=== PATIENT | male | born 1950 | race Caucasian/White ===

== ENCOUNTER 2020-05-14 16:47 | Observation (INO) | payer MEDICARE ==
--- NOTE | 2020-05-14 16:53 | ED ---
General Adult HPI - General Stated complaint: numbness Time Seen by Provider: 05/14/20 16:49 Source: patient, EMS, RN notes reviewed, old records reviewed - History of Present Illness Initial comments: 62-year-old male presenting for evaluation of weakness, lightheadedness, bilateral arm numbness. Patient did indicate that this was slightly worse on the right. Resolved at the time of arrival to the emergency department. He began at 1500. There was no associated chest pain. No associated focal weakness. There is a slight headache according to the patient. He had been seen by his primary care physician and was instructed to follow with a gas flow regulator for some worsening bleeding issues. He does report some mild dys pnea which she states is chronic. No fever. No abdominal pain. No nausea vomiting or diarrhea. - Related Data Home Medications Medication Instructions Recorded Confirmed Aspirin EC [Ecotrin Low Dose] 81 mg PO DAILY 05/14/20 05/14/20 Furosemide [Lasix] 40 mg PO DAILY 05/14/20 05/14/20 Metoprolol Tartrate [Lopressor] 50 mg PO DAILY 05/14/20 05/14/20 Warfarin Sodium 5 mg PO SUMOTUTHFRSA 05/14/20 05/14/20 Warfarin Sodium 7.5 mg PO WE 05/14/20 05/14/20 lisinopriL [Zestril] 5 mg PO DAILY 05/14/20 05/14/20 Allergies Allergy/AdvReac Type Severity Reaction Status Date / Time No Known Allergies Allergy Verified 05/14/20 18:15 Review of Systems ROS Statement: Those systems with pertinent positive or pertinent negative responses have been documented in the HPI. ROS Other: All systems not noted in ROS Statement are negative. General Exam General appearance: alert, in no apparent distress Head exam: Present: atraumatic, normocephalic Eye exam: Present: normal appearance, PERRL ENT exam: Present: normal exam Neck exam: Present: normal inspection. Absent: tenderness, meningismus Respiratory exam: Present: respiratory distress, wheezes, decreased breath sounds Cardiovascular Exam: Present: regular rate, normal rhythm GI/Abdominal exam: Present: soft. Absent: distended, tenderness, guarding Extremities exam: Present: pedal edema Neurological exam: Present: alert, oriented X3, CN II-XII intact. Absent: motor sensory deficit (NIH of 0) Psychiatric exam: Present: normal affect, normal mood Skin exam: Present: warm, dry, intact. Absent: cyanosis, diaphoretic Course Vital Signs 05/14/20 16:49 Temperature 99.4 F Pulse Rate 85 Respiratory 18 Rate Blood Pressure 136/89 O2 Sat by Pulse 95 Oximetry EKG Findings - EKG Comments: EKG Findings:: EKG: Normal sinus rhythm with sinus arrhythmia, rate of 88, AR interval 136, QRS duration 84, QTC 440, no ST segment elevation. Medical Decision Making - Medical Decision Making 62-year-old male presenting with an episode of limb numbness. He has an NIH of 0 point arrival. Workup is initiated, patient is in sinus rhythm with stable vitals. He has a CT brain showing concern for left posterior meningioma. No intracranial hemorrhage or mass affect. Chest x-ray showing pulmonary fibrosis. Laboratory testing reveals normal CBC, CMP showing elevated bicarb and a venous gas showing an elevated venous CO2 consistent with CO2 retention. Patient does have history of COPD and is noncompliant with his CPAP machine. He has wheezing on exam. He will be treated additional for COPD exacerbation as well as TIA. Case discussed with Yaa worrell for [facility] hospitalists. Neurology will be placed on consult. - Lab Data Result diagrams: 05/14/20 16:59 05/14/20 16:59 Lab Results 05/14/20 05/14/20 05/14/20 Range/Units 16:59 16:59 16:59 WBC 7.1 (3.8-10.6) k/uL RBC 4.97 (4.30-5.90) m/uL Hgb 15.5 (13.0-17.5) gm/dL Hct 48.4 (39.0-53.0) % MCV 97.4 (80.0-100.0) fL MCH 31.2 (25.0-35.0) pg MCHC 32.1 (31.0-37.0) g/dL RDW 12.5 (11.5-15.5) % Plt Count 160 (150-450) k/uL MPV 8.8 Neutrophils % 66 % Lymphocytes % 18 % Monocytes % 9 % Eosinophils % 3 % Basophils % 1 % Neutrophils # 4.7 (1.3-7.7) k/uL Lymphocytes # 1.3 (1.0-4.8) k/uL Monocytes # 0.6 (0-1.0) k/uL Eosinophils # 0.2 (0-0.7) k/uL Basophils # 0.1 (0-0.2) k/uL PT 17.1 H (9.0-12.0) sec INR 1.7 H (<1.2) APTT 26.9 (22.0-30.0) sec VBG pH (7.31-7.41) VBG pCO2 (37-51) mmHg VBG HCO3 (24-28) mmol/L Sodium 140 (137-145) mmol/L Potassium 4.5 (3.5-5.1) mmol/L Chloride 97 L (98-107) mmol/L Carbon Dioxide 37 H (22-30) mmol/L Anion Gap 6 mmol/L BUN 23 H (9-20) mg/dL Creatinine 1.25 (0.66-1.25) mg/dL Est GFR (CKD-EPI)AfAm 68 (>60 ml/min/1.73 sqM) Est GFR (CKD-EPI)NonAf 59 (>60 ml/min/1.73 sqM) Glucose 147 H (74-99) mg/dL Plasma Lactic Acid Kian (0.7-2.0) mmol/L Calcium 8.8 (8.4-10.2) mg/dL Magnesium 2.1 (1.6-2.3) mg/dL Total Bilirubin 0.5 (0.2-1.3) mg/dL AST 30 (17-59) U/L ALT 29 (4-49) U/L Alkaline Phosphatase 81 (38-126) U/L Troponin I (0.000-0.034) ng/mL Total Protein 7.3 (6.3-8.2) g/dL Albumin 4.0 (3.5-5.0) g/dL Urine Color Urine Appearance (Clear) Urine pH (5.0-8.0) Ur Specific [place] (1.001-1.035) Urine Protein (Negative) Urine Glucose (UA) (Negative) Urine Ketones (Negative) Urine Blood (Negative) Urine Nitrite (Negative) Urine Bilirubin (Negative) Urine Urobilinogen (<2.0) mg/dL Ur Leukocyte Esterase (Negative) Coronavirus (PCR) (Not Detectd) 05/14/20 05/14/20 05/14/20 Range/Units 16:59 16:59 16:59 WBC (3.8-10.6) k/uL RBC (4.30-5.90) m/uL Hgb (13.0-17.5) gm/dL Hct (39.0-53.0) % MCV (80.0-100.0) fL MCH (25.0-35.0) pg MCHC (31.0-37.0) g/dL RDW (11.5-15.5) % Plt Count (150-450) k/uL MPV Neutrophils % % Lymphocytes % % Monocytes % % Eosinophils % % Basophils % % Neutrophils # (1.3-7.7) k/uL Lymphocytes # (1.0-4.8) k/uL Monocytes # (0-1.0) k/uL Eosinophils # (0-0.7) k/uL Basophils # (0-0.2) k/uL PT (9.0-12.0) sec INR (<1.2) APTT (22.0-30.0) sec VBG pH 7.33 (7.31-7.41) VBG pCO2 69 H (37-51) mmHg VBG HCO3 35 H (24-28) mmol/L Sodium (137-145) mmol/L Potassium (3.5-5.1) mmol/L Chloride (98-107) mmol/L Carbon Dioxide (22-30) mmol/L Anion Gap mmol/L BUN (9-20) mg/dL Creatinine (0.66-1.25) mg/dL Est GFR (CKD-EPI)AfAm (>60 ml/min/1.73 sqM) Est GFR (CKD-EPI)NonAf (>60 ml/min/1.73 sqM) Glucose (74-99) mg/dL Plasma Lactic Acid Kian 1.0 (0.7-2.0) mmol/L Calcium (8.4-10.2) mg/dL Magnesium (1.6-2.3) mg/dL Total Bilirubin (0.2-1.3) mg/dL AST (17-59) U/L ALT (4-49) U/L Alkaline Phosphatase (38-126) U/L Troponin I <0.012 (0.000-0.034) ng/mL Total Protein (6.3-8.2) g/dL Albumin (3.5-5.0) g/dL Urine Color Urine Appearance (Clear) Urine pH (5.0-8.0) Ur Specific [place] (1.001-1.035) Urine Protein (Negative) Urine Glucose (UA) (Negative) Urine Ketones (Negative) Urine Blood (Negative) Urine Nitrite (Negative) Urine Bilirubin (Negative) Urine Urobilinogen (<2.0) mg/dL Ur Leukocyte Esterase (Negative) Coronavirus (PCR) (Not Detectd) 05/14/20 05/14/20 Range/Units 17:01 17:30 WBC (3.8-10.6) k/uL RBC (4.30-5.90) m/uL Hgb (13.0-17.5) gm/dL Hct (39.0-53.0) % MCV (80.0-100.0) fL MCH (25.0-35.0) pg MCHC (31.0-37.0) g/dL RDW (11.5-15.5) % Plt Count (150-450) k/uL MPV Neutrophils % % Lymphocytes % % Monocytes % % Eosinophils % % Basophils % % Neutrophils # (1.3-7.7) k/uL Lymphocytes # (1.0-4.8) k/uL Monocytes # (0-1.0) k/uL Eosinophils # (0-0.7) k/uL Basophils # (0-0.2) k/uL PT (9.0-12.0) sec INR (<1.2) APTT (22.0-30.0) sec VBG pH (7.31-7.41) VBG pCO2 (37-51) mmHg VBG HCO3 (24-28) mmol/L Sodium (137-145) mmol/L Potassium (3.5-5.1) mmol/L Chloride (98-107) mmol/L Carbon Dioxide (22-30) mmol/L Anion Gap mmol/L BUN (9-20) mg/dL Creatinine (0.66-1.25) mg/dL Est GFR (CKD-EPI)AfAm (>60 ml/min/1.73 sqM) Est GFR (CKD-EPI)NonAf (>60 ml/min/1.73 sqM) Glucose (74-99) mg/dL Plasma Lactic Acid Kian (0.7-2.0) mmol/L Calcium (8.4-10.2) mg/dL Magnesium (1.6-2.3) mg/dL Total Bilirubin (0.2-1.3) mg/dL AST (17-59) U/L ALT (4-49) U/L Alkaline Phosphatase (38-126) U/L Troponin I (0.000-0.034) ng/mL Total Protein (6.3-8.2) g/dL Albumin (3.5-5.0) g/dL Urine Color Yellow Urine Appearance Clear (Clear) Urine pH 5.5 (5.0-8.0) Ur Specific [place] 1.028 (1.001-1.035) Urine Protein Trace H (Negative) Urine Glucose (UA) Negative (Negative) Urine Ketones Negative (Negative) Urine Blood Negative (Negative) Urine Nitrite Negative (Negative) Urine Bilirubin Negative (Negative) Urine Urobilinogen <2.0 (<2.0) mg/dL Ur Leukocyte Esterase Negative (Negative) Coronavirus (PCR) Not Detected (Not Detectd) Disposition Clinical Impression: Transient cerebral ischemia, COPD (chronic obstructive pulmonary disease) Disposition: ADMITTED IP TO THIS HOSP Condition: Stable Is patient prescribed a controlled substance at d/c from ED?: No Referrals: Milagros Wolf DO [Primary Care Provider] - 1-2 days Decision to Admit Reason: Admit from EC Decision Date: 05/14/20 Decision Time: 18:32
[2020-05-14 17:13] LABS: Basophils # (A) 0.1 k/uL (0-0.2); Basophils % (A) 1 %; Eosinophils # (A) 0.2 k/uL (0-0.7); Eosinophils % (A) 3 %; HCT 48.4 % (39.0-53.0); HGB 15.5 gm/dL (13.0-17.5); Lymphocytes # (A) 1.3 k/uL (1.0-4.8); Lymphocytes % (A) 18 %; MCH 31.2 pg (25.0-35.0); MCHC 32.1 g/dL (31.0-37.0); MCV 97.4 fL (80.0-100.0); Mean Platelet Volume 8.8; Monocytes # (A) 0.6 k/uL (0-1.0); Monocytes % (A) 9 %; Neutrophils # (A) 4.7 k/uL (1.3-7.7); Neutrophils % (A) 66 %; Platelet Count 160 k/uL (150-450); RBC 4.97 m/uL (4.30-5.90); RDW 12.5 % (11.5-15.5); VBG PH 7.33 (7.31-7.41); WBC 7.1 k/uL (3.8-10.6)
[2020-05-14 17:21] LABS: INR 1.7 (<1.2); Partial Thromboplastin Time 26.9 sec (22.0-30.0); Prothrombin Time 17.1 sec (9.0-12.0)
[2020-05-14 17:23] LABS: Calcium 8.8 mg/dL (8.4-10.2); Magnesium 2.1 mg/dL (1.6-2.3); Potassium 4.5 mmol/L (3.5-5.1); Total Bilirubin 0.5 mg/dL (0.2-1.3); Total Protein 7.3 g/dL (6.3-8.2)
--- NOTE | 2020-05-14 17:36 | CT ---
EXAMINATION TYPE: CT brain wo con for TPA DATE OF EXAM: 05/14/2020 COMPARISON: None HISTORY: Patient poor historian CT DLP: 1232.4 mGycm Automated exposure control for dose reduction was used. Ventricles appear normal. There is no mass effect nor midline shift. There is some mixed attenuation in the left posterior frontal lobe convexity. This area measures 2 x 1.5 cm. This has broad contact with the internal table and could be arising from the meninges. Calvarium is intact. Skull base is in tact. There is normal aeration of the mastoid sinuses. IMPRESSION: There is mass in the left posterior frontal lobe that could be extra-axial arising from or the mening es. This could be a meningioma. I do not see convincing evidence of a cortical infarct.
[2020-05-14 17:37] LABS: Appearance,Urine Clear (Clear); Bilirubin,Urine Negative (Negative); Blood,Urine Negative (Negative); Color,Urine Yellow; Glucose,Urine (UA) Negative (Negative); Ketones,Urine Negative (Negative); Leukocyte Esterase,Urine Negative (Negative); Nitrite,Urine Negative (Negative); PH, Urine 5.5 (5.0-8.0); Protein,Urine Trace (Negative); Specific Gravity,Urine 1.028 (1.001-1.035); Urobilinogen,Urine <2.0 mg/dL (<2.0)
--- NOTE | 2020-05-14 17:38 | XR ---
EXAMINATION TYPE: XR chest 2V DATE OF EXAM: 05/14/2020 COMPARISON: NONE HISTORY: Altered mental status TECHNIQUE: 3 views FINDINGS: There is no heart failure nor confluent pneumonic infiltrate. Costophrenic angles are clear . There is some coarsening of interstitial markings. IMPRESSION: There are chest leads. Mild pulmonary fibrotic changes. No heart failure.
[2020-05-14] MEDS ORDERED: ASPIRIN 325 MG TAB PO STA (17:54)
[2020-05-14] MEDS ORDERED: ALBUTEROL NEBULIZED 2.5 MG/3 ML INHALATION STA (18:20)
[2020-05-14] MEDS ORDERED: IPRATROPIUM-ALBUTEROL 3 ML NEB INHALATION STA (18:20)
[2020-05-14] MEDS ORDERED: predniSONE 50 MG TAB PO STA (18:24)
[2020-05-14] MEDS: IPRATROPIUM-ALBUTEROL 3 ML NEB INHALATION SCH (19:10)
[2020-05-14] MEDS: SODIUM CHLORIDE 0.9% 1,000 ML IV SCH (19:18)
--- NOTE | 2020-05-14 19:57 | US ---
EXAMINATION TYPE: US carotid duplex BILAT DATE OF EXAM: 05/14/2020 COMPARISON: CT Brain CLINICAL HISTORY: Stenosis. Right arm numbness today per patient; Short, thick neck is noted by techn ologist EXAM MEASUREMENTS: RIGHT: Peak Systolic Velocity (PSV) cm/sec ----- Right CCA: 65.1 ----- Right ICA: 104.4 ----- Right ECA: 137.9 ICA/CCA ratio: 1.6 RIGHT: End Diastole cm/sec ----- Right CCA: 10.3 ----- Right ICA: 44.5 ----- Right ECA: 18.1 LEFT: Peak Systolic Velocity (PSV) cm/sec ----- Left CCA: 81.9 ----- Left ICA: 90.3 ----- Left ECA: 125.7 ICA/CCA ratio: 1.1 LEFT: End Diastole cm/sec ----- Left CCA: 20.9 ----- Left ICA: 30.4 ----- Left ECA: 21.7 VERTEBRALS (direction of flow): Right Vertebral: Antegrade Left Vertebral: Antegrade Rhythm: Arrhythmia Mild to moderate intimal wall changes are noted at bilateral carotid bifurcation with abnormally elev ated PSV in proximal ECA bilaterally. IMPRESSION: There is antegrade flow in the vertebral arteries. The images and measurements suggest more than 50% stenosis in both external carotid arteries. There is less than 50% stenosis in both internal carotid arteries. Bilateral moderate plaque formation. Criteria for Assigning % of Stenosis / Diameter reduction (Estimation based on the indirect measurements of the internal carotid artery velocities (ICA PSV). 1. Normal (no stenosis)=ICA PSV < 125 cm/s: ratio < 2.0: ICA EDV<40 cm/s. 2. Less than 50% stenosis=ICA PSV < 125 cm/s: ratio < 2.0: ICA EDV<40 cm/s. 3. 50 to 69% stenosis=ICA PSV of 125 to 230 cm/s: ration 2.0 ? 4.0: ICA EDV 40-100 cm/s. 4. Greater than 70% stenosis to near occlusion= ICA PSV > 230 cm/s: ratio > 4.0: ICA EDV > 100 cm/s. 5. Near occlusion= ICA PSV velocities may be low or undetectable: variable ratio and ICA EDV. 6. Total occlusion=unable to detect flow.
[2020-05-15] MEDS: IPRATROPIUM-ALBUTEROL 3 ML NEB INHALATION SCH ×4 (07:07→20:36)
[2020-05-15] MEDS: FUROSEMIDE 40 MG TAB PO SCH (08:23)
[2020-05-15] MEDS: lisinopriL 5 MG TAB PO SCH (08:23)
[2020-05-15] MEDS: predniSONE 50 MG TAB PO SCH (08:23)
[2020-05-15] MEDS: METOPROLOL TARTRATE 50 MG TAB PO SCH (08:23)
[2020-05-15 09:12] LABS: African American GFR (CKD) 106.4 (60.0-200.0); Albumin 4.2 g/dL (3.80-4.90); Albumin/Globulin Ratio 1.91 (1.60-3.17); Anion Gap 5.7 mmol/L (4.00-12.00); BUN/Creat Ratio 18.75 Ratio (12.00-20.00); Basophils # (A) 0.02 X 10*3/uL (0.00-0.10); Basophils % (A) 0.3 %; Carbon Dioxide 34.3 mmol/L (21.6-31.8); Eosinophils # (A) 0 X 10*3/uL (0.04-0.35); Eosinophils % (A) 0 %; Globulin 2.2 g/dL (1.6-3.3); HCT 47.8 % (39.6-50.0); HGB 14.9 g/dL (13.0-17.0); Lymphocytes # (A) 0.87 X 10*3/uL (0.90-5.00); Lymphocytes % (A) 12.8 %; MCH 31.2 pg (27.0-32.0); MCHC 31.2 g/dL (32.0-37.0); Mean Platelet Volume 11.4 fL (9.5-12.2); Monocytes # (A) 0.31 X 10*3/uL (0.20-1.00); Monocytes % (A) 4.6 %; Neutrophils # (A) 5.58 X 10*3/uL (1.80-7.70); Non-African American GFR(CKD) 91.8 (60.0-200.0); Platelet Count 169 X 10*3/uL (140-440); Potassium 5.1 mmol/L (3.5-5.5); RBC 4.78 X 10*6/uL (4.40-5.60); RDW 12.4 % (11.5-14.5); Total Bilirubin 0.4 mg/dL (0.2-1.2); Total Protein 6.4 g/dL (6.2-8.2)
[2020-05-15 09:19] LABS: LDL Cholesterol,Calculated 92.6 mg/dL (0.0-131.0); VLDL Calculation 21.4 mg/dL (5.00-40.00)
--- NOTE | 2020-05-15 11:07 | P.CNNES ---
History of Present Illness Consult date: 05/15/20 Requesting physician: Artis Berry Reason for Consult: bilateral arm numbness, weakness worse on the right History of Present Illness: This is a 70-year-old gentleman with medical history of atrial fibrillation s/p ablation X2 (he stated about 4-5 years ago) and on coumadin that presented to the emergency department on 05/14/2020 for bilateral arm numbness, weakness and slightly worse on the right. He stated that her symptoms began around the 1500 on 05/14/2019. He stated that the prior to that he was normal. Then he felt he has bilateral upper extremity weakness as well as numbness as well as dizziness and he felt was the right more than the left. He denies of any difficulty swallowing, difficulty getting his words out, any weakness of the lower extremities or any visual disturbance at. He denies of any ringing in the ears or hearing loss. His episode resolved around 20/100 on 05/14/2019 at. He denies of any history of stroke or TIAs in the past. Patient is on Coumadin as well as aspirin 81 mg and denies missing his medications. He denies being on statins. He states that he drinks about 5-6 cans of beer 12 ounces 3-4 times a week and doing it for years. He denies any tobacco use, illicit drug use. Workup in the hospital consisted of: Initial vital signs his blood pressure 136/89, heart rate of 85, respiratory of 18, temperature of 99.4 Fahrenheit oral and pulse ox of 95% on 2 L of nasal cannula. CT of the head is reported as there is a mass in the left posterior frontal lobe that could be extra axial arising from the meningeal is at. This could be meningioma. I do not see an visiting evidence of acute cortical infarct. Carotid duplex was reported as there is antegrade flow in the vertebral arteries. The images and measurements suggest more than 50% stenosis in both external carotid arteries. There is less than 50% stenosis of both internal carotid arteries at. Bilateral moderate plaque formation. EKG is reported as normal sinus rhythm with sinus arrhythmia. Normal EKG. On initial presentation patient will blood cell is 7.1 which is normal. BUN is 23 and creatinine is 1.25. Lipid panel: Triglyceride 152, LDL 92, HDL of 38 Review of Systems Review of system: The 12 point system was reviewed and apparent positive and n egative per HPI. Past Medical History Past Medical History: Atrial Fibrillation, Asthma, Heart Failure History of Any Multi-Drug Resistant Organisms: None Reported Past Surgical History: Orthopedic Surgery Additional Past Surgical History / Comment(s): right shoulder Past Psychological History: No Psychological Hx Reported Smoking Status: Former smoker Past Alcohol Use History: Daily Past Drug Use History: None Reported - Past Family History Father History Unknown: Yes Family Medical History: No Reported History Mother History Unknown: Yes Family Medical History: No Reported History Medications and Allergies Home Medications Medication Instructions Recorded Confirmed Type Aspirin EC [Ecotrin Low Dose] 81 mg PO DAILY 05/14/20 05/14/20 History Furosemide [Lasix] 40 mg PO DAILY 05/14/20 05/14/20 History Metoprolol Tartrate [Lopressor] 50 mg PO DAILY 05/14/20 05/14/20 History Warfarin Sodium 5 mg PO SUMOTUTHFRSA 05/14/20 05/14/20 History Warfarin Sodium 7.5 mg PO WE 05/14/20 05/14/20 History lisinopriL [Zestril] 5 mg PO DAILY 05/14/20 05/14/20 History Allergies Allergy/AdvReac Type Severity Reaction Status Date / Time No Known Allergies Allergy Verified 05/14/20 18:15 Physical Examination - Vital Signs Vital Signs: Vital Signs Temp Pulse Pulse Resp BP BP Pulse Ox 05/15/20 08:31 91 L 05/15/20 08:00 93 18 05/15/20 07:15 76 05/15/20 07:07 72 05/15/20 07:00 97.6 F 93 18 126/76 88 L 05/15/20 01:53 97.6 F 98 16 128/70 96 05/14/20 20:26 98.4 F 89 20 124/62 95 05/14/20 19:14 84 05/14/20 19:07 80 05/14/20 18:37 98.6 F 87 16 126/71 96 05/14/20 16:49 99.4 F 85 18 136/89 95 Intake and Output 05/14/20 05/15/20 05/15/20 22:59 06:59 14:59 Intake Total 300 Balance 300 Intake: Oral 300 Other: Voiding Method Toilet # Voids 1 1 Weight 136.078 kg GENERAL: The patient is lying in bed and is not in acute distress. CHEST: The heart rate is regular rate rhythm. No murmurs to auscultation. No carotid bruit bilaterally. LUNG: Clear to auscultation bilaterally no wheezing noted throughout. Not labored breathing. ABDOMEN/GI: Bowel sounds present in all 4 quadrants. No tenderness to palpation throughout. NEUROLOGICAL: Higher mental function: The patient is awake, alert, oriented to self, place and time. Patient is following commands. No aphasia and no neglect. Cranial nerves: The pupils are round, equal and reactive to light and accommodation. Visual sears are full to confrontation throughout. Extraocular movement is intact no nystagmus is noted. Facial sensation is normal to touch throughout. The facial strength is normal throughout. Hearing is normal bilaterally to hand rub. Tongue is midline and moved [id number] without any difficulty. No dysarthria is noted. Shoulder shrug is normal bilaterally. Motor: Gait is normal with normal arm swings. The strength is 5 over 5 throughout. Normal tone and bulk. Cerebellum: Normal finger to nose heel to chin bilaterally. Sensation: Sensation is normal to touch throughout. Reflexes (right/left): 2+ throughout. Plantars are downgoing bilaterally. Results Coagulation study: PT of 17.1, INR 1.7, PTT of 26.9. Urinalysis is negative for urinary tract infection. Rosenberg virus PCR is not detected - Laboratory Findings CBC and BMP: 05/15/20 06:14 05/15/20 06:14 Abnormal Lab Findings: Abnormal Labs 05/14/20 05/14/20 05/14/20 16:59 16:59 16:59 MCV MCHC Lymphocytes # Eosinophils # PT 17.1 H INR 1.7 H VBG pCO2 69 H VBG HCO3 35 H Chloride 97 L Carbon Dioxide 37 H BUN 23 H Glucose 147 H HDL Cholesterol Urine Protein 05/14/20 05/14/20 05/15/20 16:59 17:30 06:14 MCV 100.0 H MCHC 31.2 L Lymphocytes # 0.87 L Eosinophils # 0 L PT INR VBG pCO2 VBG HCO3 Chloride Carbon Dioxide BUN Glucose HDL Cholesterol 38.0 L Urine Protein Trace H 05/15/20 06:14 MCV MCHC Lymphocytes # Eosinophils # PT INR VBG pCO2 VBG HCO3 Chloride Carbon Dioxide 34.3 H BUN Glucose 116 H HDL Cholesterol Urine Protein Assessment and Plan Assessment: This is a 70-year-old woman that presented to the emergency department on 05/14/2020 for bilateral arm numbness, weakness and slightly worse on the right. She stated that her symptoms began around the 1500 on 05/14/2019. Episode of bilateral arm numbness, weakness and that was slightly worse on the right than the left, and dizziness is likely is a transient ischemic attack. Especially with history of atrial fibrillation with subtherapeutic INR Atrial fibrillation s/p abalation on coumadin with subtherapeutic INR (INR 1.7) Morbid obesity Chronic alcohol use (drink 5-6 cans beers/day for 3-4X/week for years) Plan: CT of the head is reported as there is a mass in the left posterior frontal lobe that could be extra axial arising from the meningeal is at. This could be meningioma. I do not see an visiting evidence of acute cortical infarct. Carotid duplex was reported as there is antegrade flow in the vertebral arteries. The images and measurements suggest more than 50% stenosis in both external carotid arteries. There is less than 50% stenosis of both internal carotid arteries at. Bilateral moderate plaque formation. I ordered MRI Brain with and without gadolinium Lipid panel: Triglyceride 152, LDL 92, HDL of 38 2-D echo is ordered by the ED team is pending. PT OT and [facility] [employer] are consulted by the ED team. I ordered TSH. Continue every 4 neuro checks. The patient was started on aspirin 325 mg daily by the ED team. I started the patient on Lipitor 40 mg daily. Patient is on home Coumadin as well as aspirin 81 mg and his medication did not fail from stroke perspective since INR is subtherapeutic. Consider consulting cardiology team because of the patient's age are fibrillation on Coumadin and he stated that the he hasn't missed any of his the medication. I started the patient on thiamine 100 mg a daily. The patient was counseled on all call cessation. Consider CIWA protocol but will defer management to primary team. The plan was discussed with the patient as well as the patient's nurse. Thank you for the consultation. Jeffrey Newman MD Neuro-Hospitalist Time with Patient: Greater than 30
[2020-05-15] MEDS: THIAMINE 100 MG TAB PO SCH (12:53)
[2020-05-15] MEDS: ASPIRIN 325 MG TAB PO SCH (17:21)
[2020-05-15] MEDS: SODIUM CHLORIDE 0.9% 1,000 ML IV SCH (18:28)
[2020-05-15] MEDS: ATORVASTATIN 40 MG TAB PO SCH (20:23)
[2020-05-16] MEDS: IPRATROPIUM-ALBUTEROL 3 ML NEB INHALATION SCH ×4 (07:18→20:44)
[2020-05-16] MEDS: ASPIRIN 325 MG TAB PO SCH (07:19)
[2020-05-16] MEDS: THIAMINE 100 MG TAB PO SCH (07:19)
[2020-05-16] MEDS: METOPROLOL TARTRATE 50 MG TAB PO SCH ×2 (07:19→19:22)
[2020-05-16] MEDS: FUROSEMIDE 40 MG TAB PO SCH (07:20)
[2020-05-16] MEDS: lisinopriL 5 MG TAB PO SCH (07:20)
[2020-05-16] MEDS: predniSONE 50 MG TAB PO SCH (07:20)
--- NOTE | 2020-05-16 08:25 | P.CRDCN ---
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 The symptoms lasted for few hours only. No associated symptoms of chest pain or chest discomfort or shortness of breath nociceptive his symptoms of dizziness or lightheadedness or syncope. Neurology was consulted to see the patient. Computed tomography scan of the brain was performed and did not show any acute abnormalities but it did show extra axis mass. Currently the patient is in process of having an MRI of the brain. Carotid duplex study was performed and revealed intermediate disease bilaterally. The EKG showed sinus mechanism. During the hospital stay the patient has been in and out atrial fibrillation. Please note that the patient INR was relatively low when he presented to the hospital and INR was 1.7. He stated that he has been compliant with all his medications including Coumadin on daily basis. Past Medical History Past Medical History: Atrial Fibrillation, Asthma, Heart Failure History of Any Multi-Drug Resistant Organisms: None Reported Past Surgical History: Orthopedic Surgery Additional Past Surgical History / Comment(s): right shoulder Past Psychological History: No Psychological Hx Reported Smoking Status: Former smoker Past Alcohol Use History: Daily Past Drug Use History: None Reported - Past Family History Father History Unknown: Yes Family Medical History: No Reported History Mother History Unknown: Yes Family Medical History: No Reported History Medications and Allergies Home Medications Medication Instructions Recorded Confirmed Type Aspirin EC [Ecotrin Low Dose] 81 mg PO DAILY 05/14/20 05/14/20 History Furosemide [Lasix] 40 mg PO DAILY 05/14/20 05/14/20 History Metoprolol Tartrate [Lopressor] 50 mg PO DAILY 05/14/20 05/14/20 History Warfarin Sodium 5 mg PO JERELTUTHFRSA 05/14/20 05/14/20 History Warfarin Sodium 7.5 mg PO WE 05/14/20 05/14/20 History lisinopriL [Zestril] 5 mg PO DAILY 05/14/20 05/14/20 History Allergies Allergy/AdvReac Type Severity Reaction Status Date / Time No Known Allergies Allergy Verified 05/14/20 18:15 Physical Exam Vitals: Vital Signs Temp Pulse Pulse Resp BP Pulse Ox 05/16/20 07:31 84 05/16/20 07:18 84 05/16/20 02:56 97.9 F 75 18 119/69 97 05/15/20 20:50 88 05/15/20 20:36 84 05/15/20 19:20 97.6 F 73 16 116/68 96 05/15/20 15:06 80 05/15/20 14:55 80 05/15/20 13:58 98.1 F 76 16 108/62 93 L 05/15/20 13:47 93 18 05/15/20 11:12 80 05/15/20 11:01 80 05/15/20 08:31 91 L Intake and Output 05/15/20 05/16/20 05/16/20 22:59 06:59 14:59 Intake Total 300 Balance 300 Intake: Oral 300 Other: # Voids 2 1 - Constitutional General appearance: no acute distress - Respiratory Respiratory: bilateral: CTA - Cardiovascular Rhythm: regular Heart sounds: normal: S1, S2 Results 05/15/20 06:14 05/15/20 06:14 Cardiac Enzymes 05/15/20 Range/Units 06:14 AST 20 (14-35) U/L Lipids 05/14/20 Range/Units 16:59 Triglycerides 107.0 (0.0-149.0) mg/dL Cholesterol 152 (0-200) mg/dL HDL Cholesterol 38.0 L (40.0-60.0) mg/dL Cholesterol/HDL Ratio 4.00 CBC 05/15/20 Range/Units 06:14 WBC 6.80 (4.50-10.00) X 10*3/uL RBC 4.78 (4.40-5.60) X 10*6/uL Hgb 14.9 (13.0-17.0) g/dL Hct 47.8 (39.6-50.0) % Plt Count 169 (140-440) X 10*3/uL Comprehensive Metabolic Panel 05/15/20 Range/Units 06:14 Sodium 142 (135-145) mmol/L Potassium 5.1 (3.5-5.5) mmol/L Chloride 102 (96-109) mmol/L Carbon Dioxide 34.3 H (21.6-31.8) mmol/L BUN 15.0 (9.0-27.0) mg/dL Creatinine 0.8 (0.6-1.5) mg/dL Glucose 116 H (70-110) mg/dL Calcium 9.0 (8.7-10.3) mg/dL AST 20 (14-35) U/L ALT 26 (10-49) U/L Alkaline Phosphatase 94 (41-126) U/L Total Protein 6.4 (6.2-8.2) g/dL Albumin 4.20 (3.80-4.90) g/dL Current Medications Generic Name Dose Route Start Last Admin Trade Name Freq PRN Reason Stop Dose Admin Albuterol/Ipratropium 3 ml 05/14/20 20:00 05/16/20 07:18 Ipratropium-Albuterol 3 Ml Neb INHALATION 3 ml RT-QID KAYLEE Administration Aspirin 325 mg 05/15/20 18:23 05/16/20 07:19 Aspirin 325 Mg Tab PO 325 mg DAILY KAYLEE Administration Atorvastatin Calcium 40 mg 05/15/20 21:00 05/15/20 20:23 Atorvastatin 40 Mg Tab PO 40 mg HS KAYLEE Administration Furosemide 40 mg 05/15/20 09:00 05/16/20 07:20 Furosemide 40 Mg Tab PO 40 mg DAILY KAYLEE Administration Sodium Chloride 1,000 mls @ 20 mls/hr 05/14/20 18:30 05/15/20 18:28 Saline 0.9% IV Not Given .Q24H KAYLEE Lisinopril 5 mg 05/15/20 09:00 05/16/20 07:20 Lisinopril 5 Mg Tab PO 5 mg DAILY KAYLEE Administration Metoprolol Tartrate 50 mg 05/15/20 09:00 05/16/20 07:19 Metoprolol Tartrate 50 Mg Tab PO 50 mg DAILY KAYLEE Administration Prednisone 50 mg 05/15/20 09:00 05/16/20 07:20 Prednisone 50 Mg Tab PO 50 mg DAILY KAYLEE Administration Thiamine HCl 100 mg 05/15/20 11:00 05/16/20 07:19 Thiamine 100 Mg Tab PO 100 mg DAILY KAYLEE Administration Intake and Output 05/15/20 05/16/20 05/16/20 22:59 06:59 14:59 Intake Total 300 Balance 300 Intake: Oral 300 Other: # Voids 2 1 05/15/20 06:14 05/15/20 06:14 Assessment and Plan Assessment: Assessment #1 bilateral arm numbness concerning for TIA #2 intermediate bilateral carotid disease #3 paroxysmal atrial fibrillation #4 status post ablation #5 dyslipidemia Plan #1 increase the dose of metoprolol to keep the patient in normal sinus mechanism #2 follow-up on the echocardiogram which was performed earlier #3 consider one of the noval oral anticoagulation patient. We will wait for the echo to rule out any moderate to severe mitral stenosis and also to have the results of MRI and further evaluation of the mass was identified of the computed tomography scan of the brain. #4 follow-up with the patient
--- NOTE | 2020-05-16 09:48 | ECHOF ---
Referral Reason:Thrombus MEASUREMENTS -------- HEIGHT: 182.9 cm WEIGHT: 136.1 kg BP: 128/70 IVSd: 1.2 cm (0.6 - 1.1) LVIDd: 6.1 cm (3.9 - 5.3) LVPWd: 1.5 cm (0.6 - 1.1) IVSs: 1.5 cm LVIDs: 5.1 cm LVPWs: 1.9 cm LAESV Index (A-L): 30.32 ml/m Ao Diam: 3.0 cm (2.0 - 3.7) AV Cusp: 1.8 cm (1.5 - 2.6) MV EXCURSION: 18.134 mm (> 18.000) MV EF SLOPE: 65 mm/s (70 - 150) EPSS: 0.5 cm MV E Amauri: 0.81 m/s MV DecT: 169 ms MV A Amauri: 0.79 m/s MV E/A Ratio: 1.02 RAP: 5.00 mmHg RVSP: 19.78 mmHg FINDINGS -------- Undetermined rhythm. Morbid Obesity This was a techncally difficult study with suboptimal views, , Lumason utilized for enhancement of im ages. The left ventricular size is normal. There is mild concentric left ventricular hypertrophy. Overa ll left ventricular systolic function is low-normal with, an EF between 50 - 55 %. The right ventricle is normal in size. LA is midly dilated 29-33ml/m2. The right atrial size is normal. The aortic valve was not well visualized. Mild mitral regurgitation is present. Mild tricuspid regurgitation present. The pulmonic valve was not well visualized. The aortic root size is normal. Echo free space represents a pericardial fat pad. CONCLUSIONS -------- 1. Morbid Obesity 2. This was a techncally difficult study with suboptimal views, , Lumason utilized for enhancement of images. 3. The left ventricular size is normal. 4. There is mild concentric left ventricular hypertrophy. 5. Overall left ventricular systolic function is low-normal with, an EF between 50 - 55 %. 6. The right ventricle is normal in size. 7. LA is midly dilated 29-33ml/m2. 8. The right atrial size is normal. 9. The aortic valve was not well visualized. 10. Mild mitral regurgitation is present. 11. Mild tricuspid regurgitation present. 12. The pulmonic valve was not well visualized. 13. The aortic root size is normal. 14. Echo free space represents a pericardial fat pad. ANALYSIS TESTER: Milagros Jacobo RDCS
--- NOTE | 2020-05-16 15:31 | P.HPIM ---
History of Present Illness H&P Date: 05/15/20 Chief Complaint: Bilateral arm numbness 62-year-old male presenting for evaluation of weakness, lightheadedness, bilateral arm numbness. Patient did indicate that this was slightly worse on the right. Resolved at the time of arrival to the emergency department. He began at 1500. There was no associated chest pain. No associated focal weakness. There is a slight headache according to the patient. He had been seen by his primary care physician and was instructed to follow with a food beverage manager for some worsening bleeding issues. He does report some mild dyspnea which she states is chronic. No fever. No abdominal pain. No nausea vomiting or diarrhea. Chest x-ray showing pulmonary fibrosis. Laboratory testing reveals normal CBC, CMP showing elevated bicarb CT of the head is reported as there is a mass in the left posterior frontal lobe that could be extra axial arising from the meningeal is at. This could be meningioma. I do not see an visiting evidence of acute cortical infarct. Carotid duplex was reported as there is antegrade flow in the vertebral arteries. The images and measurements suggest more than 50% stenosis in both external carotid arteries. There is less than 50% stenosis of both internal carotid arteries at. Bilateral moderate plaque formation. Review of Systems REVIEW OF SYSTEMS: CONSTITUTIONAL: No fever, no malaise, no fatigue. HEENT: No recent visual problems or hearing problems. Denied any sore throat. CARDIOVASCULAR: No chest pain, orthopnea, PND, no palpitations, no syncope. PULMONARY: No shortness of breath, no cough, no hemoptysis. GASTROINTESTINAL: No diarrhea, no nausea, no vomiting, no abdominal pain. NEUROLOGICAL: No headaches, no weakness, no numbness. HEMATOLOGICAL: Denies any bleeding or petechiae. GENITOURINARY: Denies any burning micturition, frequency, or urgency. MUSCULOSKELETAL/RHEUMATOLOGICAL: Denies any joint pain, swelling, or any muscle pain. ENDOCRINE: Denies any polyuria or polydipsia. The rest of the 14-point review of systems is negative. Past Medical History Past Medical History: Atrial Fibrillation, Asthma, Heart Failure History of Any Multi-Drug Resistant Organisms: None Reported Past Surgical History: Orthopedic Surgery Additional Past Surgical History / Comment(s): right shoulder Past Psychological History: No Psychological Hx Reported Smoking Status: Former smoker Past Alcohol Use History: Daily Past Drug Use History: None Reported - Past Family History Father History Unknown: Yes Family Medical History: No Reported History Mother History Unknown: Yes Family Medical History: No Reported History Medications and Allergies Home Medications Medication Instructions Recorded Confirmed Type Aspirin EC [Ecotrin Low Dose] 81 mg PO DAILY 05/14/20 05/14/20 History Furosemide [Lasix] 40 mg PO DAILY 05/14/20 05/14/20 History Metoprolol Tartrate [Lopressor] 50 mg PO DAILY 05/14/20 05/14/20 History Warfarin Sodium 5 mg PO SUMOTUTHFRSA 05/14/20 05/14/20 History Warfarin Sodium 7.5 mg PO WE 05/14/20 05/14/20 History lisinopriL [Zestril] 5 mg PO DAILY 05/14/20 05/14/20 History Allergies Allergy/AdvReac Type Severity Reaction Status Date / Time No Known Allergies Allergy Verified 05/14/20 18:15 Physical Exam Vitals: Vital Signs Temp Pulse Pulse Resp BP BP Pulse Ox 05/15/20 11:12 80 05/15/20 11:01 80 05/15/20 08:31 91 L 05/15/20 08:00 93 18 05/15/20 07:15 76 05/15/20 07:07 72 05/15/20 07:00 97.6 F 93 18 126/76 88 L 05/15/20 01:53 97.6 F 98 16 128/70 96 05/14/20 20:26 98.4 F 89 20 124/62 95 05/14/20 19:14 84 05/14/20 19:07 80 05/14/20 18:37 98.6 F 87 16 126/71 96 05/14/20 16:49 99.4 F 85 18 136/89 95 Intake and Output 05/14/20 05/15/20 05/15/20 22:59 06:59 14:59 Intake Total 300 Balance 300 Intake: Oral 300 Other: Voiding Method Toilet # Voids 1 1 Weight 136.078 kg - Constitutional General appearance: Present: average body habitus, cooperative, no acute distress - EENT Eyes: Present: anicteric sclerae, EOMI, PERRLA, normal appearance ENT: Present: hearing grossly normal, normal oropharynx Ears: bilateral: normal - Neck Neck: Present: normal ROM. Absent: lymphadenopathy, rigidity, thyromegaly Carotids: negative: bruit present Thyroid: bilateral: normal size, negative: enlarged, nodule - Respiratory Respiratory: bilateral: CTA, negative: rales, rhonchi, wheezing - Cardiovascular Rhythm: regular Heart sounds: normal: S1, S2 Abnormal Heart Sounds: Absent: systolic murmur, diastolic murmur - Gastrointestinal General gastrointestinal: Present: normal bowel sounds, soft. Absent: distended, organomegaly, tenderness - Genitourinary Genitourinary Comment(s): deferred - Integumentary Integumentary: Present: normal turgor. Absent: jaundiced, rash, ulcer - Neurologic Neurologic: Present: CNII-XII intact. Absent: focal deficits - Musculoskeletal Musculoskeletal: Present: gait normal, strength equal bilaterally - Psychiatric Psychiatric: Present: A&O x's 3, appropriate affect, intact judgment & insight Results CBC & Chem 7: 05/15/20 06:14 05/15/20 06:14 Labs: Abnormal Lab Results - Last 24 Hours (Table) 05/14/20 05/14/20 05/14/20 Range/Units 16:59 16:59 16:59 MCV (80.0-97.0) fL MCHC (32.0-37.0) g/dL Lymphocytes # (0.90-5.00) X 10*3/uL Eosinophils # (0.04-0.35) X 10*3/uL PT 17.1 H (9.0-12.0) sec INR 1.7 H (<1.2) VBG pCO2 69 H (37-51) mmHg VBG HCO3 35 H (24-28) mmol/L Chloride 97 L (98-107) mmol/L Carbon Dioxide 37 H (22-30) mmol/L BUN 23 H (9-20) mg/dL Glucose 147 H (74-99) mg/dL HDL Cholesterol (40.0-60.0) mg/dL Urine Protein (Negative) 05/14/20 05/14/20 05/15/20 Range/Units 16:59 17:30 06:14 MCV 100.0 H (80.0-97.0) fL MCHC 31.2 L (32.0-37.0) g/dL Lymphocytes # 0.87 L (0.90-5.00) X 10*3/uL Eosinophils # 0 L (0.04-0.35) X 10*3/uL PT (9.0-12.0) sec INR (<1.2) VBG pCO2 (37-51) mmHg VBG HCO3 (24-28) mmol/L Chloride (98-107) mmol/L Carbon Dioxide (22-30) mmol/L BUN (9-20) mg/dL Glucose (74-99) mg/dL HDL Cholesterol 38.0 L (40.0-60.0) mg/dL Urine Protein Trace H (Negative) 05/15/20 Range/Units 06:14 MCV (80.0-97.0) fL MCHC (32.0-37.0) g/dL Lymphocytes # (0.90-5.00) X 10*3/uL Eosinophils # (0.04-0.35) X 10*3/uL PT (9.0-12.0) sec INR (<1.2) VBG pCO2 (37-51) mmHg VBG HCO3 (24-28) mmol/L Chloride (98-107) mmol/L Carbon Dioxide 34.3 H (22-30) mmol/L BUN (9-20) mg/dL Glucose 116 H (74-99) mg/dL HDL Cholesterol (40.0-60.0) mg/dL Urine Protein (Negative) Thrombosis Risk Factor Assmnt - Choose All That Apply Any of the Below Risk Factors Present?: Yes Each Factor Represents 1 point: Abnormal pulmonary function (COPD), Obesity (BMI >25) Other Risk Factors: Yes Each Risk Factor Represents 2 Points: Age 61-74 years Other congenital or acquired thrombophilia - If yes, enter type in comment: No Thrombosis Risk Factor Assessment Total Risk Factor Score: 4 Thrombosis Risk Factor Assessment Level: Moderate Risk Assessment and Plan Assessment: 1. 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 Acute exacerbation COPD; patient remains on oral prednisone; we will continue with bronchodilator aerosol treatments 3. Mild renal injury/dehydration; continue with slow IV fluid hydration; we will monitor strict KARON's, daily weights, renal function and electrolytes; avoid nephrotoxic agents 4. Left posterior frontal lobe mass; MRI of the brain ordered and results are pending 5. Chronic alcohol use; discussed possible need for treatment for possible withdrawal; patient and at bedside refuse reporting that patient has quit drinking several times in the past without any complications 6. Atrial fibrillation; rate controlled on beta blockers; anticoagulation therapy on hold till further recommendations pertaining to brain mass DVT prophylaxis; SCDs/systemic anticoagulation CODE STATUS; full code
--- NOTE | 2020-05-16 16:10 | P.PN ---
Subjective Progress Note Date: 05/16/20 Principal diagnosis: Bilateral arm numbness/TIA Left frontal lobe mass Mild renal injury/dehydration COPD exacerbation 62-year-old male presenting for evaluation of weakness, lightheadedness, bilateral arm numbness. Patient did indicate that this was slightly worse on the right. Resolved at the time of arrival to the emergency department. He began at 1500. There was no associated chest pain. No associated focal weakness. There is a slight headache according to the patient. He had been seen by his primary care physician and was instructed to follow with a computer assistant for some worsening bleeding issues. He does report some mild dyspnea which she states is chronic. No fever. No abdominal pain. No nausea vomiting or diarrhea. Chest x-ray showing pulmonary fibrosis. Laboratory testing reveals normal CBC, CMP showing elevated bicarb CT of the head is reported as there is a mass in the left posterior frontal lobe 05/16/2020 Patient is seen and evaluated sitting up in bed; denies any specific complaints; patient has multiple questions about possible brain mass and MRI which were all answered to his satisfaction; has been evaluated by cardiology Vital signs remained stable Lab review shows a white blood count of 6.8, hemoglobin of 14.9, hematocrit 47.8 and platelet count of 169; sodium of 142, potassium 5.2, BUN/creatinine of 15/0.8; TSH is low at 0.150; we will order a free T4 Patient has been evaluated by cardiology and recommended to switch to anticoagulation with one of the noval agents due to possible failure of Coumadin therapy; patient is completely compliant with treatment but INR remains subtherapeutic with episode of TIA; no IV anticoagulation recommended at this time Patient is scheduled for MRI tomorrow morning for further evaluation of brain mass Objective - Vital Signs Vital signs: Vital Signs Temp 97.9 F 05/16/20 07:00 Pulse 78 05/16/20 08:00 Resp 16 05/16/20 08:00 BP 110/66 05/16/20 07:00 Pulse Ox 94 L 05/16/20 07:00 Intake & Output 05/15/20 05/16/20 05/16/20 18:59 06:59 18:59 Intake Total 600 300 Balance 600 300 Intake: Oral 600 300 Other: Voiding Method Toilet Toilet # Voids 2 1 - Exam - Constitutional General appearance: Present: average body habitus, cooperative, no acute distress - EENT Eyes: Present: anicteric sclerae, EOMI, PERRLA, normal appearance ENT: Present: hearing grossly normal, normal oropharynx Ears: bilateral: normal - Neck Neck: Present: normal ROM. Absent: lymphadenopathy, rigidity, thyromegaly Carotids: negative: bruit present Thyroid: bilateral: normal size, negative: enlarged, nodule - Respiratory Respiratory: bilateral: CTA, negative: rales, rhonchi, wheezing - Cardiovascular Rhythm: regular Heart sounds: normal: S1, S2 Abnormal Heart Sounds: Absent: systolic murmur, diastolic murmur - Gastrointestinal General gastrointestinal: Present: normal bowel sounds, soft. Absent: distended, organomegaly, tenderness - Genitourinary Genitourinary Comment(s): deferred - Integumentary Integumentary: Present: normal turgor. Absent: jaundiced, rash, ulcer - Neurologic Neurologic: Present: CNII-XII intact. Absent: focal deficits - Musculoskeletal Musculoskeletal: Present: gait normal, strength equal bilaterally - Psychiatric Psychiatric: Present: A&O x's 3, appropriate affect, intact judgment & insight - Labs CBC & Chem 7: 05/15/20 06:14 05/15/20 06:14 Labs: Abnormal Lab Results - Last 24 Hours (Table) 05/15/20 Range/Units 06:14 TSH 0.150 L (0.350-5.500) uIU/mL Assessment and Plan Assessment: 1. TIA - CT of the head revealed massive left posterior frontal lobe with possibility of meningioma; carotid Doppler 6 was completed and reveals 50% stenosis in both external carotid arteries and 50% stenosis of both internal carotid - Patient has been evaluated by urology and is recommended MRI of the brain with and without contrast - 2-D echo is ordered and pending - Consult PT/OT/REGISTERED NURSES -Patient remains on oral aspirin and Lipitor 40 mg daily - Patient takes Coumadin at home with subtherapeutic INR; cardiology is recommended to be G evaluating the patient's for further recommendations on anticoagulation therapy 2. Acute exacerbation COPD; patient remains on oral prednisone; we will continue with bronchodilator aerosol treatments 3. Mild renal injury/dehydration; continue with slow IV fluid hydration; we will monitor strict KARON's, daily weights, renal function and electrolytes; avoid nephrotoxic agents 4. Left posterior frontal lobe mass; MRI of the brain ordered and results are pending 5. Chronic alcohol use; discussed possible need for treatment for possible withdrawal; patient and at bedside refuse reporting that patient has quit drinking several times in the past without any complications 6. Atrial fibrillation; rate controlled on beta blockers; anticoagulation therapy on hold till further recommendations pertaining to brain mass DVT prophylaxis; SCDs/systemic anticoagulation CODE STATUS; full code
[2020-05-16] MEDS: ATORVASTATIN 40 MG TAB PO SCH (19:22)
[2020-05-16] MEDS: SODIUM CHLORIDE 0.9% 1,000 ML IV SCH (19:22)
[2020-05-17] MEDS: IPRATROPIUM-ALBUTEROL 3 ML NEB INHALATION SCH ×3 (07:05→14:57)
[2020-05-17] MEDS: ASPIRIN 325 MG TAB PO SCH (08:20)
[2020-05-17] MEDS: FUROSEMIDE 40 MG TAB PO SCH (08:20)
[2020-05-17] MEDS: lisinopriL 5 MG TAB PO SCH (08:20)
[2020-05-17] MEDS: METOPROLOL TARTRATE 50 MG TAB PO SCH (08:20)
[2020-05-17] MEDS: predniSONE 50 MG TAB PO SCH (08:21)
[2020-05-17] MEDS: THIAMINE 100 MG TAB PO SCH (08:21)
--- NOTE | 2020-05-17 10:37 | P.PN ---
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 Patient presented to the hospital secondary to bilateral arm numbness and is being worked up for possible TIA. Patient examined this morning at the bedside. He denies chest pain or pressure. Denies shortness of breath. Denies dizziness or lightheadedness. He denies any numbness of his extremities. Echocardiogram completed revealing ejection fraction 50-55%, mild mitral regurgitation, and mild tricuspid regurgitation. PHYSICAL EXAM: VITAL SIGNS: Reviewed. GENERAL: Well-developed in no acute distress. NECK: Supple. No JVD or thyromegaly LUNGS: Respirations even and unlabored. Lungs essentially clear to auscultation bilaterally. HEART: Regular rate and rhythm. S1 and S2 heard. EXTREMITIES: Normal range of motion. No clubbing or cyanosis. Peripheral pulses intact. No lower extremity edema ASSESSMENT: Bilateral arm numbness, possible TIA Paroxysmal atrial fibrillation, on anticoagulation with Coumadin Subtherapeutic INR on admission History of cardiac ablation Hyperlipidemia Chronic alcohol use PLAN: Patient scheduled for MRI of the brain to further evaluate possible brain mass Anticoagulation on hold until MRI is completed Will check coverage for Eliquis or Xarelto as patients INR was subtherapeutic on admission Continue aspirin and lipitor per Neurology Further recommendations pending patient's course Nurse practitioner note has been reviewed by physician. Signing provider agrees with the documented findings, assessment, and plan of care. Objective - Vital Signs Vital signs: Vital Signs Temp 98.8 F 05/17/20 08:17 Pulse 96 05/17/20 08:17 Resp 16 05/17/20 08:17 BP 117/65 05/17/20 08:17 Pulse Ox 94 L 05/17/20 08:17 Intake & Output 05/16/20 05/17/20 05/17/20 18:59 06:59 18:59 Intake Total 1300 240 Output Total 1 Balance 1300 239 Intake: Oral 1300 240 Output: Urine 1 Other: Voiding Method Toilet Toilet Toilet # Voids 3 3 - Labs CBC & Chem 7: 05/15/20 06:14 05/15/20 06:14
--- NOTE | 2020-05-17 12:16 | MR ---
EXAMINATION TYPE: MR brain wo/w con DATE OF EXAM: 05/17/2020 COMPARISON: CT brain 05/14/2020 HISTORY: Stroke, weakness and numbness arms (right>left) CONTRAST: Performed utilizing 12.5 mL intravenous Gadavist gadolinium contrast. TECHNIQUE: Multiplanar, multiecho imaging on a 3.0 Alysa magnet is performed through the brain. Stud y is performed within 24 hours of arrival to the hospital. The craniovertebral junction is normal. The pituitary is normal. There is an extra-axial lesion which has enhancement and a dural tail. Findings can be compatible wi th a 1.5 x 2.6 cm left frontal lobe meningioma there is mass effect on the adjacent brain without renato ma. Diffusion-weighted imaging is performed. No abnormal hyperintensity is present to suggest an acute i ntracranial infarct or acute ischemic change. There are scattered punctate areas of hyperintensity on T2 and Inversion Recovery weighted sequences which are non-specific but can be related to microvascular ischemic changes. Ventricles and sulci are appropriate for the patient age. IMPRESSIONS: 1. Extra-axial enhancing mass left frontal lobe can be compatible with a meningioma.
--- NOTE | 2020-05-17 16:27 | P.PN ---
Subjective Progress Note Date: 05/17/20 Patient was seen for a follow-up. Please refer to Dr. Ravi Newman report for details. Patient presented to the ER on 05/14/2020 for bilateral arm numbness, right more than left and being out of breath. Patient was admitted with TIA. Patient states that he did not have any mental confusion, disorientation, any seizure- like activity, slurred speech or facial droop. Patient states that symptoms started around 2:30 PM, and were gone by 8 PM the same day. At present he feels fine. Patient has history of atrial fibrillation, on Coumadin, came with TIA. Patient's INR was subtherapeutic at 1.7. Objective - Vital Signs Vital signs: Vital Signs Temp 98.8 F 05/17/20 08:17 Pulse 82 05/17/20 15:08 Resp 16 05/17/20 08:17 BP 117/65 05/17/20 08:17 Pulse Ox 92 L 05/17/20 13:32 Intake & Output 05/16/20 05/17/20 05/17/20 18:59 06:59 18:59 Intake Total 1300 240 200 Output Total 1 Balance 1300 239 200 Intake: Oral 1300 240 200 Output: Urine 1 Other: Voiding Method Toilet Toilet Toilet # Voids 3 3 - Exam Patient's mental status, speech and language functions are normal cranial nerves are normal muscle strength is normal. No ataxia. Sensations equal with no neglect. - Labs CBC & Chem 7: 05/15/20 06:14 05/15/20 06:14 Assessment and Plan Assessment: * Possible TIA, likely due to subtherapeutic INR. MRI of the brain negative for any acute stroke. * Extra-axial 1.5 x 2.6 cm left frontal lobe meningioma with mass effect on the brain without edema. * Atrial fibrillation status post ablation, on Coumadin therapy. * Obesity * History of alcohol use. Plan: * MRI of the brain was performed today, which revealed extra-axial enhancing mass 1.5 x 2.6 cm left frontal lobe consistent with meningioma. There is mass effect on the adjacent brain without edema. Recommend outpatient follow-up with neurosurgery in 2-6 weeks. * Suggest EEG as an outpatient. Patient states that he did not have any alteration in mentation, confusion or any seizure-like activity. * 2-D echo showed morbid obesity. Left-ventricular size is normal. Mild concentric LVH, EF is 50-55%. Left atrium is mildly dilated. Echo free space represent a pericardial fat pad. * Carotid Doppler showed antegrade flow in the vertebral arteries. The images a nd measurements suggest more than 50% stenosis in both external carotid art eries. There is less than 50% stenosis in both ICAs. Bilateral moderate p laque formation. * Patient's last INR is 1.7. Patient wasn't Coumadin. However. Patient is being switched to Xarelto. * Neurologically clear for discharge.
[2020-05-17 17:01] VITALS: BP 129/65; PULSE 86; RESP 18; TEMP 97.9
--- NOTE | 2020-05-18 16:42 | P.DS ---
Providers Date of admission: 05/14/20 18:20 Expected date of discharge: 05/17/20 Attending physician: Radha Gore Consults: 05/14/20 18:23 Consult Physician Routine Consulting Provider: Jeffrey Newman Consult Reason/Comments: TIA Do you want consulting provider notified?: Yes 05/15/20 13:05 Consult Physician Routine Consulting Provider: Kleber Gutierrez Consult Reason/Comments: A fib/ coumadin/ falls Do you want consulting provider notified?: Yes Primary care physician: Milagros Wolf [facility] Course: Final diagnosis 1. TIA, CT brain showing left posterior frontal lobe with possibility of meningioma as confirmed on MRI 2. Acute exacerbation COPD 3. Mild renal injury/dehydration, improved 4. Left posterior frontal lobe mass 5. Chronic alcohol use 6. Atrial fibrillation; rate controlled on beta blockers 7. DVT prophylaxis 8. Full code Discharge disposition Patient is being discharged in a stable condition with guarded prognosis to home. Patient will follow-up with Dr. Veras in the outpatient setting upon discharge. Patient also instructed to follow-up with neurology and cardiology in 1-2 weeks. Patient will continue on a long prednisone taper upon discharge. Total time taken is greater than 35 minutes. Hospital course Bilateral arm numbness/TIA Left frontal lobe mass Mild renal injury/dehydration COPD exacerbation 62-year-old male presenting for evaluation of weakness, lightheadedness, bilateral arm numbness. Patient did indicate that this was slightly worse on the right. Resolved at the time of arrival to the emergency department. He began at 1500. There was no associated chest pain. No associated focal weakness. There is a slight headache according to the patient. He had been seen by his primary care physician and was instructed to follow with a hunter guide for some worsening bleeding issues. He does report some mild dyspnea which she states is chronic. No fever. No abdominal pain. No nausea vomiting or diarrhea. Chest x-ray showing pulmonary fibrosis. Laboratory testing reveals normal CBC, CMP showing elevated bicarb CT of the head is reported as there is a mass in the left posterior frontal lobe 05/16/2020 Patient is seen and evaluated sitting up in bed; denies any specific complaints; patient has multiple questions about possible brain mass and MRI which were all answered to his satisfaction; has been evaluated by cardiology Vital signs remained stable Lab review shows a white blood count of 6.8, hemoglobin of 14.9, hematocrit 47.8 and platelet count of 169; sodium of 142, potassium 5.2, BUN/creatinine of 15/0.8; TSH is low at 0.150; we will order a free T4 Patient has been evaluated by cardiology and recommended to switch to anticoagulation with one of the noval agents due to possible failure of Coumadin therapy; patient is completely compliant with treatment but INR remains subtherapeutic with episode of TIA; no IV anticoagulation recommended at this time Patient is scheduled for MRI tomorrow morning for further evaluation of brain mass 05/17/2020 Patient is seen and evaluated in follow-up and states he feels well and would like to go home. She was seen and evaluated by neurology and underwent brain MRI showing extra-axial enhancing mass of the left frontal lobe that could be compatible with a meningioma. Patient denies any deficits and is stating he is baseline. Was started on a statin and will continue in the outpatient setting. Patient was also started on Xarelto and coverage was verified with deductibles needing to be met. Case management working on discharge planning. Patient instructed to follow-up with primary care provider and establish with one in [facility] and resources provided. Patient also instructed to follow-up with urology in the next 1-2 weeks for close follow-up along with possible EEG in the outpatient setting. Currently no reports of chest pain, worsening shortness of breath, or palpitations. Patient is afebrile. No reports of nausea or vomiting and patient is tolerating diet. Patient will be discharged to home today. On exam vital signs are stable. Cardio S1, S2 are muffled. Respiratory system shows diminished breath sounds at the bases with no wheezing or rhonchi noted. Abdomen is soft and nontender. Nervous system shows no focal deficits. Please refer to medication reconciliation sheet for a list of medications. Patient Condition at Discharge: Stable Plan - Discharge Summary New Discharge Prescriptions: New Rivaroxaban [Xarelto] 20 mg PO DAILY #30 tab Aspirin 325 mg PO DAILY 30 Days #30 tab Atorvastatin [Lipitor] 40 mg PO HS 30 Days #30 tab Budesonide-Formot 160-4.5 Mcg [Symbicort 160-4.5 Mcg Inhaler] 2 puff INHALATION BID 30 Days #1 inhaler Albuterol Inhaler [Ventolin Hfa Inhaler] 1 puff INHALATION RT-QID 30 Days #1 puff Thiamine [Vitamin B-1] 100 mg PO DAILY 30 Days #30 tab predniSONE 10 mg PO DIRECTED #60 tab Continue Metoprolol Tartrate [Lopressor] 50 mg PO DAILY lisinopriL [Zestril] 5 mg PO DAILY Furosemide [Lasix] 40 mg PO DAILY Discontinued Warfarin Sodium 5 mg PO SUMOTUTHFRSA Warfarin Sodium 7.5 mg PO WE Aspirin EC [Ecotrin Low Dose] 81 mg PO DAILY Discharge Medication List Furosemide [Lasix] 40 mg PO DAILY 05/14/20 [History] Metoprolol Tartrate [Lopressor] 50 mg PO DAILY 05/14/20 [History] lisinopriL [Zestril] 5 mg PO DAILY 05/14/20 [History] Albuterol Inhaler [Ventolin Hfa Inhaler] 1 puff INHALATION RT-QID 30 Days #1 puff 05/17/20 [Rx] Aspirin 325 mg PO DAILY 30 Days #30 tab 05/17/20 [Rx] Atorvastatin [Lipitor] 40 mg PO HS 30 Days #30 tab 05/17/20 [Rx] Budesonide-Formot 160-4.5 Mcg [Symbicort 160-4.5 Mcg Inhaler] 2 puff INHALATION BID 30 Days #1 inhaler 05/17/20 [Rx] Rivaroxaban [Xarelto] 20 mg PO DAILY #30 tab 05/17/20 [Rx] Thiamine [Vitamin B-1] 100 mg PO DAILY 30 Days #30 tab 05/17/20 [Rx] predniSONE 10 mg PO DIRECTED #60 tab 05/17/20 [Rx] Follow up Appointment(s)/Referral(s): [facility] [Provider Group] - 2 Weeks Cody Merritt MD [REFERRING] - 1 Week Leanna Veras MD [STAFF PHYSICIAN] - 1-2 Days Activity/Diet/Wound Care/Special Instructions: Activity Limited until follow-up Follow-up with primary care provider and resources also provided for a new one to establish up here in [facility] Follow up with neurology in 1-2 weeks Follow up with cardiology outpatient discontinue coumadin, continue with xarelto Continue current diet Continue with inhalers Discharge Disposition: HOME SELF-CARE
== END 2020-05-17 17:08 | disposition home or self-care (01) ==
LOC: EC 16:47 → SUPCPDRO 16:47 → 6NMEDSUR 18:20
PROVIDERS: ADMIT Hospitalist; ATTEND Hospitalist
DX: G45.9 Transient cerebral ischemic attack, unspecified (principal); J44.1 Chronic obstructive pulmonary disease with (acute) exacerbation; E86.0 Dehydration; G93.9 Disorder of brain, unspecified; J84.10 Pulmonary fibrosis, unspecified; R51.9 Headache, unspecified; I48.0 Paroxysmal atrial fibrillation; E78.5 Hyperlipidemia, unspecified; R79.1 Abnormal coagulation profile; I65.23 Occlusion and stenosis of bilateral carotid arteries; I50.9 Heart failure, unspecified; Z87.891 Personal history of nicotine dependence; Z79.01 Long term (current) use of anticoagulants; Z79.82 Long term (current) use of aspirin; Z79.899 Other long term (current) drug therapy; Z20.822 Contact with and (suspected) exposure to COVID-19; E66.01 Morbid (severe) obesity due to excess calories; Z68.38 Body mass index [BMI] 38.0-38.9, adult; Z91.19 Patient's noncompliance with other medical treatment and regimen; Z99.89 Dependence on other enabling machines and devices; Z91.81 History of falling
CPT/HCPCS: 99285; 36415; 94640 ×6; 93005; 97161; 97165; 84439; 80061; 80053 ×2; 84443; 82803; 83605; 83735; 84484; 85025 ×2; 85610; 85730; 81003; 87635; 71046; 93880; 70450; 70553; G0378 ×4; C8929; J7512 ×4; A9585; Q9950; 93306

== ENCOUNTER 2021-03-04 00:57 | Emergency (ER) | payer MEDICARE ==
[2021-03-04 01:15] VITALS: TEMP 97.9
--- NOTE | 2021-03-04 01:15 | ED ---
SOB HPI - General Stated Complaint: MEJIA Time Seen by Provider: 03/04/21 01:03 Source: patient, EMS Mode of arrival: EMS Limitations: no limitations - History of Present Illness MD Complaint: shortness of breath Onset/Timin -: hour(s) Severity scale (1-10): 0 Improves With: nothing Worsens With: nothing Known History Of: COPD Treatments Prior to Arrival: oxygen, bronchodilator - Related Data Home Oxygen Therapy: No Home Medications Medication Instructions Recorded Confirmed Furosemide [Lasix] 40 mg PO DAILY 05/14/20 05/14/20 Metoprolol Tartrate [Lopressor] 50 mg PO DAILY 05/14/20 05/14/20 lisinopriL [Zestril] 5 mg PO DAILY 05/14/20 05/14/20 Previous Rx's Medication Instructions Recorded Albuterol Inhaler [Ventolin Hfa 1 puff INHALATION RT-QID 30 Days 05/17/20 Inhaler] #1 puff Aspirin 325 mg PO DAILY 30 Days #30 tab 05/17/20 Atorvastatin [Lipitor] 40 mg PO HS 30 Days #30 tab 05/17/20 Budesonide-Formot 160-4.5 Mcg 2 puff INHALATION BID 30 Days #1 05/17/20 [Symbicort 160-4.5 Mcg Inhaler] inhaler Rivaroxaban [Xarelto] 20 mg PO DAILY #30 tab 05/17/20 Thiamine [Vitamin B-1] 100 mg PO DAILY 30 Days #30 tab 05/17/20 predniSONE 10 mg PO DIRECTED #60 tab 05/17/20 predniSONE 60 mg PO DAILY #30 tab 03/04/21 Allergies Allergy/AdvReac Type Severity Reaction Status Date / Time No Known Allergies Allergy Verified 05/14/20 18:15 Review of Systems ROS Statement: Those systems with pertinent positive or pertinent negative responses have been documented in the HPI. ROS Other: All systems not noted in ROS Statement are negative. Constitutional: Denies: fever, chills Respiratory: Reports: dyspnea, wheezes. Denies: cough, hemoptysis Cardiovascular: Denies: chest pain, palpitations, orthopnea, edema, syncope Gastrointestinal: Denies: abdominal pain, vomiting, diarrhea Genitourinary: Denies: dysuria Musculoskeletal: Denies: back pain Skin: Denies: rash Neurological: Denies: headache, weakness Past Medical History Past Medical History: Atrial Fibrillation, Asthma, Heart Failure History of Any Multi-Drug Resistant Organisms: None Reported Past Surgical History: Orthopedic Surgery Additional Past Surgical History / Comment(s): right shoulder Past Psychological History: No Psychological Hx Reported Smoking Status: Former smoker Past Alcohol Use History: Daily Past Drug Use History: None Reported - Past Family History Father History Unknown: Yes Family Medical History: No Reported History Mother History Unknown: Yes Family Medical History: No Reported History General Exam General appearance: alert, in distress Head exam: Present: atraumatic, normocephalic Eye exam: Present: normal appearance. Absent: scleral icterus, conjunctival injection Neck exam: Present: normal inspection Respiratory exam: Present: respiratory distress, wheezes, decreased breath sounds. Absent: rales, rhonchi, stridor Cardiovascular Exam: Present: regular rate, normal rhythm, normal heart sounds. Absent: systolic murmur, diastolic murmur, rubs, gallop GI/Abdominal exam: Present: soft. Absent: distended, tenderness, guarding, rebound, rigid, mass Extremities exam: Present: normal inspection, normal capillary refill. Absent: pedal edema, calf tenderness Back exam: Present: normal inspection. Absent: CVA tenderness (R), CVA tenderness (L) Neurological exam: Present: alert Skin exam: Present: warm, dry, intact, normal color. Absent: rash Course Vital Signs 03/04/21 03/04/21 01:06 02:20 Temperature 97.9 F Pulse Rate 93 93 Respiratory 20 16 Rate Blood Pressure 144/68 138/70 O2 Sat by Pulse 99 99 Oximetry Medical Decision Making - Lab Data Result diagrams: 03/04/21 01:15 03/04/21 01:15 Lab Results 03/04/21 03/04/21 03/04/21 Range/Units 01:15 01:15 01:15 WBC 8.3 (3.8-10.6) k/uL RBC 5.04 (4.30-5.90) m/uL Hgb 15.9 (13.0-17.5) gm/dL Hct 52.0 (39.0-53.0) % MCV 103.3 H (80.0-100.0) fL MCH 31.6 (25.0-35.0) pg MCHC 30.6 L (31.0-37.0) g/dL RDW 13.5 (11.5-15.5) % Plt Count 133 L (150-450) k/uL MPV 10.3 Neutrophils % 76 % Lymphocytes % 14 % Monocytes % 8 % Eosinophils % 1 % Basophils % 0 % Neutrophils # 6.2 (1.3-7.7) k/uL Lymphocytes # 1.1 (1.0-4.8) k/uL Monocytes # 0.6 (0-1.0) k/uL Eosinophils # 0.1 (0-0.7) k/uL Basophils # 0.0 (0-0.2) k/uL Hypochromasia Marked Macrocytosis Slight PT 11.7 (9.0-12.0) sec INR 1.1 (<1.2) APTT 28.1 (22.0-30.0) sec D-Dimer 0.27 (<0.60) mg/L FEU VBG pH (7.31-7.41) VBG pCO2 (37-51) mmHg VBG HCO3 (24-28) mmol/L Sodium 133 L (137-145) mmol/L Potassium (3.5-5.1) mmol/L Chloride 92 L (98-107) mmol/L Carbon Dioxide 37 H (22-30) mmol/L Anion Gap 4 mmol/L BUN 18 (9-20) mg/dL Creatinine 0.76 (0.66-1.25) mg/dL Est GFR (CKD-EPI)AfAm >90 (>60 ml/min/1.73 sqM) Est GFR (CKD-EPI)NonAf >90 (>60 ml/min/1.73 sqM) Glucose 160 H (74-99) mg/dL Calcium 7.9 L (8.4-10.2) mg/dL Total Bilirubin 1.7 H (0.2-1.3) mg/dL AST 66 H (17-59) U/L ALT 31 (4-49) U/L Alkaline Phosphatase 117 (38-126) U/L Troponin I (0.000-0.034) ng/mL NT-Pro-B Natriuret Pep pg/mL Total Protein 7.7 (6.3-8.2) g/dL Albumin 4.0 (3.5-5.0) g/dL Coronavirus (PCR) (Not Detectd) 03/04/21 03/04/21 03/04/21 Range/Units 01:15 01:15 01:27 WBC (3.8-10.6) k/uL RBC (4.30-5.90) m/uL Hgb (13.0-17.5) gm/dL Hct (39.0-53.0) % MCV (80.0-100.0) fL MCH (25.0-35.0) pg MCHC (31.0-37.0) g/dL RDW (11.5-15.5) % Plt Count (150-450) k/uL MPV Neutrophils % % Lymphocytes % % Monocytes % % Eosinophils % % Basophils % % Neutrophils # (1.3-7.7) k/uL Lymphocytes # (1.0-4.8) k/uL Monocytes # (0-1.0) k/uL Eosinophils # (0-0.7) k/uL Basophils # (0-0.2) k/uL Hypochromasia Macrocytosis PT (9.0-12.0) sec INR (<1.2) APTT (22.0-30.0) sec D-Dimer (<0.60) mg/L FEU VBG pH (7.31-7.41) VBG pCO2 (37-51) mmHg VBG HCO3 (24-28) mmol/L Sodium (137-145) mmol/L Potassium (3.5-5.1) mmol/L Chloride (98-107) mmol/L Carbon Dioxide (22-30) mmol/L Anion Gap mmol/L BUN (9-20) mg/dL Creatinine (0.66-1.25) mg/dL Est GFR (CKD-EPI)AfAm (>60 ml/min/1.73 sqM) Est GFR (CKD-EPI)NonAf (>60 ml/min/1.73 sqM) Glucose (74-99) mg/dL Calcium (8.4-10.2) mg/dL Total Bilirubin (0.2-1.3) mg/dL AST (17-59) U/L ALT (4-49) U/L Alkaline Phosphatase (38-126) U/L Troponin I 0.021 (0.000-0.034) ng/mL NT-Pro-B Natriuret Pep 223 pg/mL Total Protein (6.3-8.2) g/dL Albumin (3.5-5.0) g/dL Coronavirus (PCR) Not Detected (Not Detectd) 03/04/21 Range/Units 02:16 WBC (3.8-10.6) k/uL RBC (4.30-5.90) m/uL Hgb (13.0-17.5) gm/dL Hct (39.0-53.0) % MCV (80.0-100.0) fL MCH (25.0-35.0) pg MCHC (31.0-37.0) g/dL RDW (11.5-15.5) % Plt Count (150-450) k/uL MPV Neutrophils % % Lymphocytes % % Monocytes % % Eosinophils % % Basophils % % Neutrophils # (1.3-7.7) k/uL Lymphocytes # (1.0-4.8) k/uL Monocytes # (0-1.0) k/uL Eosinophils # (0-0.7) k/uL Basophils # (0-0.2) k/uL Hypochromasia Macrocytosis PT (9.0-12.0) sec INR (<1.2) APTT (22.0-30.0) sec D-Dimer (<0.60) mg/L FEU VBG pH 7.31 (7.31-7.41) VBG pCO2 70 H* (37-51) mmHg VBG HCO3 35 H (24-28) mmol/L Sodium (137-145) mmol/L Potassium (3.5-5.1) mmol/L Chloride (98-107) mmol/L Carbon Dioxide (22-30) mmol/L Anion Gap mmol/L BUN (9-20) mg/dL Creatinine (0.66-1.25) mg/dL Est GFR (CKD-EPI)AfAm (>60 ml/min/1.73 sqM) Est GFR (CKD-EPI)NonAf (>60 ml/min/1.73 sqM) Glucose (74-99) mg/dL Calcium (8.4-10.2) mg/dL Total Bilirubin (0.2-1.3) mg/dL AST (17-59) U/L ALT (4-49) U/L Alkaline Phosphatase (38-126) U/L Troponin I (0.000-0.034) ng/mL NT-Pro-B Natriuret Pep pg/mL Total Protein (6.3-8.2) g/dL Albumin (3.5-5.0) g/dL Coronavirus (PCR) (Not Detectd) Disposition Clinical Impression: COPD (chronic obstructive pulmonary disease) Disposition: Left Against Medical Advice Condition: Serious Instructions (If sedation given, give patient instructions): COPD (Chronic Obstructive Pulmonary Disease) (ED) Prescriptions: predniSONE 60 mg PO DAILY #30 tab Is patient prescribed a controlled substance at d/c from ED?: No Referrals: Milagros Wolf DO [Primary Care Provider] - 1-2 days
[2021-03-04 01:31] LABS: Basophils % (A) 0 %; Eosinophils # (A) 0.1 k/uL (0-0.7); Eosinophils % (A) 1 %; HGB 15.9 gm/dL (13.0-17.5); Hypochromasia Marked; Lymphocytes # (A) 1.1 k/uL (1.0-4.8); Lymphocytes % (A) 14 %; MCH 31.6 pg (25.0-35.0); MCHC 30.6 g/dL (31.0-37.0); MCV 103.3 fL (80.0-100.0); Macrocytosis Slight; Mean Platelet Volume 10.3; Monocytes # (A) 0.6 k/uL (0-1.0); Monocytes % (A) 8 %; Neutrophils # (A) 6.2 k/uL (1.3-7.7); Neutrophils % (A) 76 %; Platelet Count 133 k/uL (150-450); RBC 5.04 m/uL (4.30-5.90); RDW 13.5 % (11.5-15.5); WBC 8.3 k/uL (3.8-10.6)
--- NOTE | 2021-03-04 01:31 | XR ---
EXAMINATION TYPE: XR chest 1V portable DATE OF EXAM: 03/04/2021 COMPARISON: 05/14/2020 HISTORY: Short of breath TECHNIQUE: Single view FINDINGS: There is no heart failure nor confluent pneumonic infiltrate. Heart appears slightly enlarg ed. There is no pleural effusion. There are no hilar masses. IMPRESSION: No active cardiopulmonary disease. No change.
[2021-03-04 01:57] LABS: ALT 31 U/L (4-49); AST 66 U/L (17-59); African American GFR (CKD) >90 (>60 ml/min/1.73 sqM); Alkaline Phosphatase 117 U/L (38-126); Anion Gap 4 mmol/L; Blood Urea Nitrogen 18 mg/dL (9-20); Calcium 7.9 mg/dL (8.4-10.2); Carbon Dioxide 37 mmol/L (22-30); Chloride 92 mmol/L (98-107); Glucose 160 mg/dL (74-99); Non-African American GFR(CKD) >90 (>60 ml/min/1.73 sqM); Sodium 133 mmol/L (137-145); Total Bilirubin 1.7 mg/dL (0.2-1.3); Total Protein 7.7 g/dL (6.3-8.2)
[2021-03-04 02:05] LABS: INR 1.1 (<1.2); Partial Thromboplastin Time 28.1 sec (22.0-30.0); Prothrombin Time 11.7 sec (9.0-12.0)
[2021-03-04 02:21] VITALS: BP 138/70
[2021-03-04 02:39] LABS: VBG PH 7.31 (7.31-7.41)
[2021-03-04 04:02] VITALS: PULSE 95; RESP 20
== END 2021-03-04 04:02 | disposition left against medical advice (07) ==
LOC: EC 00:57
DX: J44.9 Chronic obstructive pulmonary disease, unspecified (principal); I48.91 Unspecified atrial fibrillation; I50.9 Heart failure, unspecified; Z79.82 Long term (current) use of aspirin; Z87.891 Personal history of nicotine dependence; Z20.822 Contact with and (suspected) exposure to COVID-19
CPT/HCPCS: 36415; 71045; 80053; 82803; 83880; 84484; 85025; 85379; 85610; 85730; 87635; 93005; 94660; 99285

== ENCOUNTER 2021-03-04 08:23 | Inpatient (IN) | payer MEDICARE ==
[2021-03-04] MEDS ORDERED: methylPREDNISolone SOD SUCCI 125 MG/2 ML VIAL IV STA (09:04)
[2021-03-04] MEDS ORDERED: IPRATROPIUM-ALBUTEROL 3 ML NEB INHALATION STA (09:04)
--- NOTE | 2021-03-04 09:10 | ED ---
General Adult HPI - General Chief complaint: Shortness of Breath Stated complaint: dypnea Time Seen by Provider: 03/04/21 08:43 Source: patient, family, RN notes reviewed, old records reviewed Mode of arrival: wheelchair - History of Present Illness Initial comments: Patient is a pleasant 71-year-old male returning to emergency department with difficulty in breathing. Onset of symptoms was yesterday. Patient does have COPD. Patient does have mild cough, nonproductive. No fevers. No leg pain or leg swelling. Patient has felt lightheaded. A cross becomes very short of b reath with ambulation. Patient was in emergency Department in the middle the night however felt he could do well at home. Patient no longer feels that way. Family is present. Chart reviewed. - Related Data Home Medications Medication Instructions Recorded Confirmed Furosemide [Lasix] 40 mg PO DAILY 05/14/20 05/14/20 Metoprolol Tartrate [Lopressor] 50 mg PO DAILY 05/14/20 05/14/20 lisinopriL [Zestril] 5 mg PO DAILY 05/14/20 05/14/20 Previous Rx's Medication Instructions Recorded Albuterol Inhaler [Ventolin Hfa 1 puff INHALATION RT-QID 30 Days 05/17/20 Inhaler] #1 puff Aspirin 325 mg PO DAILY 30 Days #30 tab 05/17/20 Atorvastatin [Lipitor] 40 mg PO HS 30 Days #30 tab 05/17/20 Budesonide-Formot 160-4.5 Mcg 2 puff INHALATION BID 30 Days #1 05/17/20 [Symbicort 160-4.5 Mcg Inhaler] inhaler Rivaroxaban [Xarelto] 20 mg PO DAILY #30 tab 05/17/20 Thiamine [Vitamin B-1] 100 mg PO DAILY 30 Days #30 tab 05/17/20 predniSONE 10 mg PO DIRECTED #60 tab 05/17/20 predniSONE 60 mg PO DAILY #30 tab 03/04/21 Allergies Allergy/AdvReac Type Severity Reaction Status Date / Time No Known Allergies Allergy Verified 05/14/20 18:15 Review of Systems ROS Statement: Those systems with pertinent positive or pertinent negative responses have been documented in the HPI. ROS Other: All systems not noted in ROS Statement are negative. Constitutional: Denies: fever Eyes: Denies: eye pain ENT: Denies: ear pain Respiratory: Reports: as per HPI, cough, dyspnea Cardiovascular: Denies: chest pain Endocrine: Reports: fatigue Gastrointestinal: Denies: abdominal pain Genitourinary: Denies: dysuria Musculoskeletal: Denies: back pain Skin: Denies: rash Neurological: Denies: weakness Past Medical History Past Medical History: Atrial Fibrillation, Asthma, Heart Failure History of Any Multi-Drug Resistant Organisms: None Reported Past Surgical History: Orthopedic Surgery Additional Past Surgical History / Comment(s): right shoulder Past Psychological History: No Psychological Hx Reported Smoking Status: Former smoker Past Alcohol Use History: Daily Past Drug Use History: None Reported - Past Family History Father History Unknown: Yes Family Medical History: No Reported History Mother History Unknown: Yes Family Medical History: No Reported History General Exam Limitations: no limitations General appearance: alert, in no apparent distress Head exam: Present: normocephalic Eye exam: Present: normal appearance, PERRL, EOMI ENT exam: Present: normal oropharynx Neck exam: Present: normal inspection Respiratory exam: Present: wheezes, decreased breath sounds Cardiovascular Exam: Present: regular rate, normal rhythm GI/Abdominal exam: Present: soft. Absent: tenderness Extremities exam: Present: normal inspection. Absent: pedal edema, calf tenderness Neurological exam: Present: alert Psychiatric exam: Present: normal affect, normal mood Skin exam: Present: normal color Course Vital Signs 03/04/21 08:26 Temperature 97.9 F Pulse Rate 96 Respiratory 18 Rate Blood Pressure 158/77 O2 Sat by Pulse 83 L Oximetry - Reevaluation(s) Reevaluation #1: 03/04/21 09:10 Pulse ox 88-93 on 4 L EKG Findings - EKG Comments: EKG Findings:: Sinus rhythm with a rate of 88. PA 144. QRS 90. QT 374. QTC 452. Normal axis. Normal QRS. No acute ST change. Medical Decision Making - Medical Decision Making Case was discussed with Dr. Julianna zaragoza, who will admit covering hospital call. Patient and family updated. Disposition Clinical Impression: COPD (chronic obstructive pulmonary disease) Disposition: ADMITTED IP TO THIS HOSP Is patient prescribed a controlled substance at d/c from ED?: No Decision Time: 09:10
[2021-03-04] MEDS ORDERED: IPRATROPIUM-ALBUTEROL 3 ML NEB INHALATION PRN (09:19)
[2021-03-04] MEDS ORDERED: SODIUM CHLORIDE 0.9% 1,000 ML IV SCH (09:30)
[2021-03-04 09:36] LABS: Basophils % (A) 0 %; Eosinophils % (A) 0 %; HCT 52.3 % (39.0-53.0); HGB 16.4 gm/dL (13.0-17.5); Hypochromasia Moderate; Lymphocytes # (A) 0.7 k/uL (1.0-4.8); Lymphocytes % (A) 11 %; MCH 32.3 pg (25.0-35.0); MCHC 31.3 g/dL (31.0-37.0); MCV 103.1 fL (80.0-100.0); Macrocytosis Slight; Monocytes # (A) 0.1 k/uL (0-1.0); Monocytes % (A) 1 %; Neutrophils # (A) 5.8 k/uL (1.3-7.7); Neutrophils % (A) 88 %; Platelet Count 125 k/uL (150-450); RBC 5.07 m/uL (4.30-5.90); RDW 13.5 % (11.5-15.5); WBC 6.6 k/uL (3.8-10.6)
[2021-03-04 09:45] LABS: Partial Thromboplastin Time 26.4 sec (22.0-30.0); Prothrombin Time 10.8 sec (9.0-12.0)
[2021-03-04 09:56] LABS: ALT 30 U/L (4-49); AST 31 U/L (17-59); African American GFR (CKD) >90 (>60 ml/min/1.73 sqM); Albumin 4.2 g/dL (3.5-5.0); Alkaline Phosphatase 132 U/L (38-126); Anion Gap 8 mmol/L; Blood Urea Nitrogen 17 mg/dL (9-20); Calcium 8.6 mg/dL (8.4-10.2); Carbon Dioxide 37 mmol/L (22-30); Chloride 90 mmol/L (98-107); Glucose 155 mg/dL (74-99); Non-African American GFR(CKD) >90 (>60 ml/min/1.73 sqM); Potassium 4.6 mmol/L (3.5-5.1); Sodium 135 mmol/L (137-145); Total Bilirubin 0.8 mg/dL (0.2-1.3); Total Protein 7.7 g/dL (6.3-8.2)
--- NOTE | 2021-03-04 10:36 | XR ---
EXAMINATION TYPE: XR chest 2V DATE OF EXAM: 03/04/2021 COMPARISON: Chest x-ray 03/04/2021 at earlier time, 05/14/2020 HISTORY: Correlate for underlying COPD, indeterminate lung nodules may be related to old granulomatou s disease. TECHNIQUE: Frontal and lateral views of the chest are obtained. FINDINGS: There is no significant interval change. Prominent lung volumes may be indicative of under lying COPD. There is diffuse nodular appearance within the lungs. Cardiac mediastinal silhouette is s table. There is no evident pneumothorax or pleural effusion. There are overlying artifacts. There is flattening hemidiaphragms, increased retrosternal airspace and AP diameter of the chest. IMPRESSION: No acute cardiopulmonary process.
[2021-03-04] MEDS ORDERED: IPRATROPIUM-ALBUTEROL 3 ML NEB INHALATION SCH (12:00)
[2021-03-04] MEDS ORDERED: NALOXONE 0.4 MG/ML 1 ML VIAL IV PRN (12:26)
[2021-03-04] MEDS ORDERED: MELATONIN 3 MG TABLET PO PRN (12:26)
[2021-03-04] MEDS ORDERED: HYDROcodone/APAP 5-325MG 1 EACH TAB PO PRN (12:26)
[2021-03-04] MEDS ORDERED: ACETAMINOPHEN TAB 325 MG TAB PO PRN (12:26)
[2021-03-04] MEDS ORDERED: ALBUTEROL NEBULIZED 2.5 MG/3 ML INHALATION PRN (12:26)
[2021-03-04] MEDS ORDERED: ONDANSETRON 4 MG/2 ML VIAL IVP PRN (12:26)
[2021-03-04] MEDS ORDERED: BENZONATATE 100 MG CAP PO PRN (12:26)
[2021-03-04] MEDS ORDERED: bisacodyL 5 MG TABLET.DR PO PRN (12:26)
[2021-03-04] MEDS: methylPREDNISolone SOD SUCCI 125 MG/2 ML VIAL IV SCH ×3 (12:32→23:18)
[2021-03-04] MEDS: FUROSEMIDE 10 MG/ML 4 ML VIAL IV SCH ×2 (12:35→21:14)
[2021-03-04] MEDS: AZITHROMYCIN 500 MG TAB PO SCH (12:36)
--- NOTE | 2021-03-04 12:46 | P.HPIM ---
History of Present Illness H&P Date: 03/04/21 Chief Complaint: shortness of breath Patient is a 71-year-old male with history of asthma, A. fib, and heart failure who presented to the emergency department with complaints of shortness of breath. He initially presented to the ER with complaint of shortness of breath on 03/03 he was given breathing treatments, tested for "fluid, and subsequently discharged home. He will presented on the morning of 03/04, and was found to be hypoxic at 83% on room air. Chest x-ray demonstrated no acute process. Lactic acid mildly elevated at 2.5. He was started on duonebs, solumedrol, and normal saline. Patient seen and examined at bedside. Came home from work and sat in the recline and did not wake up for 2 days. Denies any shortness of breath at home, it is the same it has been. He does report some wheezing on arrival here. He is very nonspecific about his complaints. Denies fevers, chills, nausea, vomiting, problems with urination. He states that he has oxygen at home that he wears feel that as needed. He does not check his oxygen levels. He was prescribed 2 years ago and has discharge from [facility] and he does have portable canisters in his closet which she has never used. His niece is also provided him with a nebulizer which she again refused to use. He states he does not want to follow-up with Dr. Leni Gore or Dr. Proctor because he cannot understand them. He also has a known left sided brain mass which Dr. Proctor has referred him to [facility] for the past, but patient has refused to "go to [facility]". When I explained that that is likely a specialist we don't have available and Deion Ospina patient appears shocked. He then states he thought it was just Dr. Proctor "friend" that he wanted him to get second opinion from. For cardiology he does follow with Dr. Gutierrez. Pertinent positives and negatives as discussed in HPI, a complete review of systems was performed and all other systems are negative. General: non toxic, no distress, obese, appears older than stated age Derm: warm, dry Head: atraumatic, normocephalic, symmetric Eyes: EOMI, no lid lag, anicteric sclera, pupils equal round reactive to light ENT: Nose and ears atraumatic, no thrush, no pharyngeal erythema Neck: No thyromegaly, no cervical lymphadenopathy, trachea midline, supple Mouth: no lip lesion, mucus membranes moist Cardiovascular: S1S2 reg, no murmur, positive posterior tibial pulse bilateral, 2+ edema, capillary refill less than 2 seconds Lungs: Decreased breath sounds bilateral with no active wheezing, no ronchi, no rales, no wheeze, no accessory muscle use Abdominal: soft, nontender to palpation, no guarding, no appreciable organomegaly, normal bowel sounds Ext: no gross muscle atrophy, muscle strength muscle strength 5 out of 5 in all 4 extremities, no contractures Neuro: CN II-XI grossly intact, light touch intact all 4 extremities, finger to nose within normal limits, Psych: Alert, oriented, appropriate affect Acute exacerbation of COPD Acute on chronic hypoxic respiratory failure -Pulmonary hygiene -Bronchodilators -Steroid burst and taper -Zithromax -COPD navigated to evaluate patient -Wean O2 as able -Consider outpatient pulmonary evaluation Diastolic congestive heart failure, appears mildly exacerbated ejection fraction 50-55% -Check echo -Check BNP -Start Lasix 40 IV every 12 -Strict I's and O's and daily weights -If echo is significantly changed from prior consider cardiology consultation A. fib with controlled ventricular response -Continue home Xarelto -Continue with Lopressor -Follow heart rate Morbid obesity -Outpatient structured weight loss The patient is admitted with an anticipated greater than 2 midnight stay for evaluation of COPD exacerbation Surrogate decision-maker: Niece CODE STATUS: Full DVT prophylaxis: Xarelto Discussed with:, ED physician, ED nursing Anticipated discharge date: 1- [address]: Home with home health A total of 65 minutes was spent on the care of this complex patient more than 50% of the time was spent in counseling and care coordination. Past Medical History Past Medical History: Atrial Fibrillation, Asthma, Heart Failure Additional Past Medical History / Comment(s): Left Frontal Lobe Mass, A fib, COPD History of Any Multi-Drug Resistant Organisms: None Reported Past Surgical History: Orthopedic Surgery Additional Past Surgical History / Comment(s): right shoulder Past Psychological History: No Psychological Hx Reported Smoking Status: Former smoker Past Alcohol Use History: Daily Past Drug Use History: None Reported - Past Family History Father History Unknown: Yes Family Medical History: No Reported History Mother History Unknown: Yes Family Medical History: No Reported History Medications and Allergies Home Medications Medication Instructions Recorded Confirmed Type Furosemide [Lasix] 40 mg PO DAILY 05/14/20 03/04/21 History Metoprolol Tartrate [Lopressor] 50 mg PO BID 05/14/20 03/04/21 History lisinopriL [Zestril] 5 mg PO DAILY 05/14/20 03/04/21 History Atorvastatin [Lipitor] 40 mg PO HS 30 Days #30 tab 05/17/20 03/04/21 Rx Rivaroxaban [Xarelto] 20 mg PO DAILY #30 tab 05/17/20 03/04/21 Rx Albuterol Inhaler [Ventolin Hfa 2 puff INHALATION RT-Q4H PRN 03/04/21 03/04/21 History Inhaler] Aspirin EC [Ecotrin Low Dose] 81 mg PO DAILY 03/04/21 03/04/21 History Budesonide-Formot 160-4.5 Mcg 2 puff INHALATION RT-BID 03/04/21 03/04/21 History [Symbicort 160-4.5 Mcg Inhaler] Allergies Allergy/AdvReac Type Severity Reaction Status Date / Time No Known Allergies Allergy Verified 03/04/21 10:02 Physical Exam Osteopathic Statement: *. No significant issues noted on an osteopathic structural exam other than those noted in the History and Physical/Consult. Vitals: Vital Signs Temp Pulse Resp BP Pulse Ox 03/04/21 09:46 98 18 134/72 94 L 03/04/21 08:26 97.9 F 96 18 158/77 83 L Intake and Output 03/03/21 03/04/21 03/04/21 22:59 06:59 14:59 Other: Weight 136.078 kg Results CBC & Chem 7: 03/04/21 09:10 03/04/21 09:10 Labs: Abnormal Lab Results - Last 24 Hours (Table) 03/04/21 03/04/21 03/04/21 Range/Units 09:10 09:10 09:10 MCV 103.1 H (80.0-100.0) fL Plt Count 125 L (150-450) k/uL Lymphocytes # 0.7 L (1.0-4.8) k/uL Sodium 135 L (137-145) mmol/L Chloride 90 L (98-107) mmol/L Carbon Dioxide 37 H (22-30) mmol/L Glucose 155 H (74-99) mg/dL Plasma Lactic Acid Kian 2.5 H* (0.7-2.0) mmol/L Alkaline Phosphatase 132 H (38-126) U/L
[2021-03-04] MEDS: RIVAROXABAN 20 MG TAB PO SCH (14:34)
[2021-03-04] MEDS: IPRATROPIUM-ALBUTEROL 3 ML NEB INHALATION SCH ×2 (15:18→19:23)
[2021-03-04] MEDS: SYMBICORT 160-4.5 MCG INHALER INHALATION SCH (19:23)
[2021-03-04] MEDS: METOPROLOL TARTRATE 50 MG TAB PO SCH (21:14)
[2021-03-04] MEDS: ATORVASTATIN 40 MG TAB PO SCH (21:14)
[2021-03-05] MEDS: IPRATROPIUM-ALBUTEROL 3 ML NEB INHALATION SCH ×7 (01:52→23:24)
[2021-03-05] MEDS: methylPREDNISolone SOD SUCCI 125 MG/2 ML VIAL IV SCH (05:09)
[2021-03-05 06:27] LABS: HCT 46.9 % (39.0-53.0); HGB 14.6 gm/dL (13.0-17.5); Hypochromasia Slight; MCH 31.3 pg (25.0-35.0); MCHC 31.1 g/dL (31.0-37.0); MCV 100.4 fL (80.0-100.0); Mean Platelet Volume 9.4; Platelet Count 133 k/uL (150-450); RBC 4.67 m/uL (4.30-5.90); RDW 13.1 % (11.5-15.5); WBC 13.6 k/uL (3.8-10.6)
[2021-03-05] MEDS: SYMBICORT 160-4.5 MCG INHALER INHALATION SCH ×2 (07:41→23:24)
[2021-03-05] MEDS ORDERED: ENOXAPARIN 40 MG/0.4 ML SYRINGE SQ SCH (09:00)
[2021-03-05] MEDS: METOPROLOL TARTRATE 50 MG TAB PO SCH ×2 (09:23→20:18)
[2021-03-05] MEDS: RIVAROXABAN 20 MG TAB PO SCH (09:23)
[2021-03-05] MEDS: lisinopriL 5 MG TAB PO SCH (09:23)
[2021-03-05] MEDS: ASPIRIN 81 MG PO SCH (09:23)
[2021-03-05] MEDS: FUROSEMIDE 40 MG TAB PO SCH (09:23)
[2021-03-05] MEDS: predniSONE 20 MG TAB PO SCH (09:26)
[2021-03-05 09:36] LABS: African American GFR (CKD) 103.4 (60.0-200.0); Anion Gap 10.1 mmol/L (10.00-18.00); BUN/Creat Ratio 21.83 Ratio (12.00-20.00); Blood Urea Nitrogen 18.4 mg/dL (9.0-27.0); Calcium 8.7 mg/dL (8.7-10.3); Carbon Dioxide 34.8 mmol/L (20.0-27.5); Magnesium 2.2 mg/dL (1.5-2.4); Non-African American GFR(CKD) 89.2 (60.0-200.0); Phosphorus 2.6 mg/dL (2.4-5.1); Potassium 4.9 mmol/L (3.5-5.5)
[2021-03-05] MEDS: AZITHROMYCIN 500 MG TAB PO SCH (11:29)
--- NOTE | 2021-03-05 12:03 | P.PN ---
Subjective Progress Note Date: 03/05/21 Patient was seen at bedside today, still having significant wheezing and shortness of breath. Still requiring 4 L of oxygen. His steroids were tapered down to prednisone 40 mg by mouth daily. Objective - Vital Signs Vital signs: Vital Signs Temp 98.5 F 03/05/21 04:30 Pulse 92 03/05/21 11:36 Resp 16 03/05/21 09:16 BP 136/68 03/05/21 09:16 Pulse Ox 94 L 03/05/21 09:16 Intake & Output 03/04/21 03/05/21 03/05/21 18:59 06:59 18:59 Intake Total 1000 Output Total 650 Balance 350 Weight 136.078 kg 143.562 kg Intake: Oral 1000 Output: Urine 650 Other: Voiding Method Toilet Urinal # Voids 1 - Exam Gen: awake, alert HEENT: normocephalic, atraumatic, good hearing acuity, moist mucous membranes Resp: Impaired air exchange, accessory muscle use, diffuse early wheezing CVS: good distal perfusion x 4, regular rate and rhythm without murmurs GI: soft, NTTP, ND : no SPT, no CVAT, macdonald catheter not present MSK: Bilateral pitting edema, no clubbing Neuro: non-focal, moving all extremities Psych: cooperative, euthymic mood - Labs CBC & Chem 7: 03/05/21 05:48 03/05/21 05:48 Labs: Abnormal Lab Results - Last 24 Hours (Table) 03/04/21 03/04/21 03/04/21 Range/Units 13:07 16:55 19:30 WBC (3.8-10.6) k/uL MCV (80.0-100.0) fL Plt Count (150-450) k/uL Chloride (96-109) mmol/L Carbon Dioxide (20.0-27.5) mmol/L BUN/Creatinine Ratio (12.00-20.00) Ratio Glucose (70-110) mg/dL Plasma Lactic Acid Kian 2.9 H* 2.9 H* 2.6 H* (0.7-2.0) mmol/L 03/05/21 03/05/21 Range/Units 05:48 05:48 WBC 13.6 H (3.8-10.6) k/uL MCV 100.4 H (80.0-100.0) fL Plt Count 133 L (150-450) k/uL Chloride 93 L (96-109) mmol/L Carbon Dioxide 34.8 H (20.0-27.5) mmol/L BUN/Creatinine Ratio 21.83 H (12.00-20.00) Ratio Glucose 162 H (70-110) mg/dL Plasma Lactic Acid Kian (0.7-2.0) mmol/L Assessment and Plan Assessment: Acute exacerbation of COPD Acute on chronic hypoxic respiratory failure -Pulmonary hygiene -Bronchodilators -Steroids switched to prednisone 40 mg by mouth daily -Zithromax for 5 days -Wean O2 as able, but will require home oxygen continuously upon discharge -Consider outpatient pulmonary evaluation Diastolic congestive heart failure, chronic, ejection fraction 50-55% -Check echo, pending -Check BNP, not elevated -Resume home dose of Lasix by mouth -Strict I's and O's and daily weights -If echo is significantly changed from prior consider cardiology consultation A. fib with controlled ventricular response -Continue home Xarelto -Continue with Lopressor -Follow heart rate Morbid obesity -Outpatient structured weight loss Surrogate decision-maker: Niece CODE STATUS: Full DVT prophylaxis: Xarelto Anticipated discharge date: 1- [address]: Home with home health
--- NOTE | 2021-03-05 14:01 | ECHOF ---
Referral Reason: MEASUREMENTS -------- HEIGHT: 185.4 cm WEIGHT: 136.1 kg BP: IVSd: 1.8 cm (0.6 - 1.1) LVIDd: 3.3 cm (3.9 - 5.3) LVPWd: 1.3 cm (0.6 - 1.1) IVSs: 2.6 cm LVIDs: 1.5 cm LVPWs: 2.7 cm MV E Amauri: 1.07 m/s MV DecT: 152 ms MV A Amauri: 1.14 m/s MV E/A Ratio: 0.93 RAP: 5.00 mmHg RVSP: 22.70 mmHg FINDINGS -------- This was a technically difficult study with suboptimal views. The left ventricular size is normal. There is moderate concentric left ventricular hypertrophy. O verall left ventricular systolic function is normal with, an EF between 55 - 60 %. The RV was not well visualized. The left atrium was not well visualized. The right atrium was not well visualized. The aortic valve was not well visualized. The mitral valve was not well visualized. There is trace mitral regurgitation. The tricuspid valve was not well visualized. Trace tricuspid regurgitation present. Right ventric ular systolic pressure is normal at < 35 mmHg. The pulmonic valve was not well visualized. The aortic root size is normal. IVC Not well visulized. CONCLUSIONS -------- 1. The left ventricular size is normal. 2. There is moderate concentric left ventricular hypertrophy. 3. Overall left ventricular systolic function is normal with, an EF between 55 - 60 %. 4. There is trace mitral regurgitation. COMM[employer]STATE MANAGER: Hanna Hurt RDCS
[2021-03-05] MEDS: ATORVASTATIN 40 MG TAB PO SCH (20:18)
[2021-03-05 21:43] VITALS: RESP 20; TEMP 98
[2021-03-06] MEDS: IPRATROPIUM-ALBUTEROL 3 ML NEB INHALATION SCH ×3 (04:26→11:34)
[2021-03-06 05:34] VITALS: BP 112/71
[2021-03-06] MEDS: SYMBICORT 160-4.5 MCG INHALER INHALATION SCH (07:36)
[2021-03-06] MEDS: ASPIRIN 81 MG PO SCH (09:51)
[2021-03-06] MEDS: AZITHROMYCIN 500 MG TAB PO SCH (09:51)
[2021-03-06] MEDS: FUROSEMIDE 40 MG TAB PO SCH (09:51)
[2021-03-06] MEDS: predniSONE 20 MG TAB PO SCH (09:51)
[2021-03-06] MEDS: METOPROLOL TARTRATE 50 MG TAB PO SCH (09:51)
[2021-03-06] MEDS: RIVAROXABAN 20 MG TAB PO SCH (09:52)
[2021-03-06] MEDS: lisinopriL 5 MG TAB PO SCH (09:52)
[2021-03-06 11:37] VITALS: PULSE 80
--- NOTE | 2021-03-06 14:29 | P.DS ---
Providers Date of admission: 03/04/21 09:19 Expected date of discharge: 03/06/21 Attending physician: Carolyn Chung DO Primary care physician: Stated None Hospital Course: Acute exacerbation of COPD Acute on chronic hypoxic respiratory failure -Patient admitted for acute COPD exacerbation resulting in acute on chronic respiratory failure. Patient was non-compliant with his home oxygen and did not take inhalers leading up to hospitalization. Patient was treated for 3 days with steroids, azithromycin, standing nebulizers, and oxygen as needed. He felt back to his normal by day 3 of hospitalization, however, he still did have a mild end expiratory wheeze in the right posterior lung sears. Pt was discharged home with prednisone and azithromycin for an additional 3 days. He will be followed up by PCP tomorrow AM, and will obtain pulmonology referral within 1-2 weeks. Diastolic congestive heart failure, chronic, ejection fraction 50-55% -Checked echo, showed diastolic dysfunction. BNP was not elevated. Pt did receive IV lasix for 1 day, then switched back to home dosing. A. fib with controlled ventricular response -Continued home Xarelto -Continued with Lopressor Morbid obesity -Outpatient structured weight loss I spent 37 minutes coordinating this discharge Assessment: Gen: awake, alert HEENT: normocephalic, atraumatic, good hearing acuity, moist mucous membranes Resp: Impaired air exchange, accessory muscle use, mild end-expiratory wheezing in right lung field, clear on the left CVS: good distal perfusion x 4, regular rate and rhythm without murmurs GI: soft, NTTP, ND : no SPT, no CVAT, macdonald catheter not present MSK: Bilateral pitting edema, no clubbing Neuro: non-focal, moving all extremities Psych: cooperative, euthymic mood Patient Condition at Discharge: Good Plan - Discharge Summary Discharge Rx Participant: No New Discharge Prescriptions: New predniSONE [Deltasone] 40 mg PO DAILY #6 tab Azithromycin [Zithromax Tri-Da (3 tabs)] 500 mg PO DAILY 3 Days #3 tab Continue Metoprolol Tartrate [Lopressor] 50 mg PO BID lisinopriL [Zestril] 5 mg PO DAILY Furosemide [Lasix] 40 mg PO DAILY Rivaroxaban [Xarelto] 20 mg PO DAILY #30 tab Atorvastatin [Lipitor] 40 mg PO HS 30 Days #30 tab Aspirin EC [Ecotrin Low Dose] 81 mg PO DAILY Albuterol Inhaler [Ventolin Hfa Inhaler] 2 puff INHALATION RT-Q4H PRN PRN Reason: Shortness Of Breath Budesonide-Formot 160-4.5 Mcg [Symbicort 160-4.5 Mcg Inhaler] 2 puff INHALATION RT-BID Discharge Medication List Furosemide [Lasix] 40 mg PO DAILY 05/14/20 [History] Metoprolol Tartrate [Lopressor] 50 mg PO BID 05/14/20 [History] lisinopriL [Zestril] 5 mg PO DAILY 05/14/20 [History] Atorvastatin [Lipitor] 40 mg PO HS 30 Days #30 tab 05/17/20 [Rx] Rivaroxaban [Xarelto] 20 mg PO DAILY #30 tab 05/17/20 [Rx] Albuterol Inhaler [Ventolin Hfa Inhaler] 2 puff INHALATION RT-Q4H PRN 03/04/21 [History] Aspirin EC [Ecotrin Low Dose] 81 mg PO DAILY 03/04/21 [History] Budesonide-Formot 160-4.5 Mcg [Symbicort 160-4.5 Mcg Inhaler] 2 puff INHALATION RT-BID 03/04/21 [History] Azithromycin [Zithromax Tri-Da (3 tabs)] 500 mg PO DAILY 3 Days #3 tab 03/06/21 [Rx] predniSONE [Deltasone] 40 mg PO DAILY #6 tab 03/06/21 [Rx] Follow up Appointment(s)/Referral(s): None,Stated [Primary Care Provider] - 1-2 days Patient Instructions/Handouts: Prednisone (By mouth), Azithromycin (By mouth), COPD (Chronic Obstructive Pulmonary Disease) (DC) Activity/Diet/Wound Care/Special Instructions: Activity limited until seen by Dr. Benítez as tolerated Discharge Disposition: HOME WITH HOME HEALTH SERVICES
--- NOTE | 2021-03-09 09:32 | CDI ---
Documentation Clarification Form Date: 03/09/21 From: Nadira Rutherford Admit Date: 03/04/2021 09:19:00 AM Patient Name: Xander Burroughs Visit Number: [id number] Discharge Date: 03/06/2021 03:00:00 PM ATTENTION: The Clinical Documentation Specialists (CDI) and [facility] Coding Staff appreciate your assistance in clarifying documentation. Please respond to the clarification below the line at the bottom and electronically sign. The CDI & [facility] Coding staff will review the response and follow-up if needed. Please note: Queries are made part of the Legal Health Record. If you have any questions, please contact the author of this message via ITS. Dr. Sabino Wakefield, Atrial Fibrillation is documented in the ED Note & H&P. Additional clarification regarding the type of atrial fibrillation is requested. History/Risk Factors: COPD, acute on chronic respiratory hypoxic failure, chronic diastolic CHF, morbid obesity Clinical Indicators: On anticoagulant. EKG/telemetry: Sinus rhythm w occasional premature ventricular contractions. Vent rate 88 bpm, NE interval 144 ms, QRS 90 ms, QT/QTc 374/452 ms Treatment: Hospital & home med Xarelto 20 mg PO daily Consults: Please clarify the type of atrial fibrillation, if known: [ ] Chronic [ ] Permanent [ x] Paroxysmal [ ] Persistent [ ] Other, please specify [ ] Unable to determine MTDD
== END 2021-03-06 15:00 | disposition home or self-care (01) | DRG 190 ==
LOC: EC 08:23 → 5NMEDONC 09:19
PROVIDERS: ADMIT Internal Medicine; ATTEND Internal Medicine
DX: J44.1 Chronic obstructive pulmonary disease with (acute) exacerbation (principal); J96.21 Acute and chronic respiratory failure with hypoxia; I50.32 Chronic diastolic (congestive) heart failure; I48.0 Paroxysmal atrial fibrillation; E66.01 Morbid (severe) obesity due to excess calories; Z20.822 Contact with and (suspected) exposure to COVID-19; G93.9 Disorder of brain, unspecified; Z68.39 Body mass index [BMI] 39.0-39.9, adult; Z91.19 Patient's noncompliance with other medical treatment and regimen; Z99.81 Dependence on supplemental oxygen; Z79.82 Long term (current) use of aspirin; Z79.51 Long term (current) use of inhaled steroids; Z79.01 Long term (current) use of anticoagulants; Z79.899 Other long term (current) drug therapy; Z87.891 Personal history of nicotine dependence; Z87.39 Personal history of other diseases of the musculoskeletal system and connective tissue; Z98.890 Other specified postprocedural states
CPT/HCPCS: 36415; 71045; 71046; 80048; 80053; 82803; 83605; 83735; 83880; 84100; 84484; 85025; 85027; 85379; 85610; 85730; 87635; 93005; 93306; 94640; 94660; 99285

== ENCOUNTER 2023-08-26 07:18 | Inpatient (IN) | payer MEDICARE ==
--- NOTE | 2023-08-26 07:51 | ED ---
General Adult HPI - General Chief complaint: Shortness of Breath Stated complaint: MEJIA Time Seen by Provider: 08/26/23 07:30 Source: patient, RN notes reviewed, old records reviewed Mode of arrival: ambulatory Limitations: no limitations - History of Present Illness Initial comments: This is a 73-year-old male who presents to the emergency department the past medical history significant for high blood pressure congestive heart failure a 50-year history of smoking which she has now quit. Patient comes in today because he states he has had difficulty breathing and his legs are extremely swollen. Patient is taking Lasix and breathing treatments at home. Patient also states that he takes high blood pressure medications. Patient also supposed to be on 4 L of oxygen all the time but most the time when he is not in the house he is not wearing it. - Related Data Home Medications Medication Instructions Recorded Confirmed Furosemide [Lasix] 40 mg PO DAILY@159905/14/20 08/26/23 Metoprolol Tartrate [Lopressor] 50 mg PO BID@0900,159905/14/20 08/26/23 Albuterol Nebulized [Ventolin 2.5 mg INHALATION RT-QID 08/26/23 08/26/23 Nebulized] Atorvastatin [Lipitor] 40 mg PO DAILY@159908/26/23 08/26/23 Budesonide [Pulmicort] 0.5 mg INHALATION RT-BID 08/26/23 08/26/23 EPINEPHrine (Auto Inject) [Epipen] 0.3 mg IM ONCE PRN 08/26/23 08/26/23 Ipratropium Nebulized [Atrovent 0.5 mg INHALATION RT-QID 08/26/23 08/26/23 Nebulized 0.2 MG/ML] Montelukast [Singulair] 10 mg PO DAILY@159908/26/23 08/26/23 Warfarin Sodium 4 mg PO SUMOTUWEFRSA@159908/26/23 08/26/23 Warfarin Sodium 6 mg PO TH@159908/26/23 08/26/23 lisinopriL [Zestril] 10 mg PO DAILY@159908/26/23 08/26/23 Allergies Allergy/AdvReac Type Severity Reaction Status Date / Time No Known Allergies Allergy Verified 08/26/23 08:52 Review of Systems ROS Statement: Those systems with pertinent positive or pertinent negative responses have been documented in the HPI. ROS Other: All systems not noted in ROS Statement are negative. Past Medical History Past Medical History: Atrial Fibrillation, Asthma, Heart Failure, COPD, CVA/TIA, Hyperlipidemia, Hypertension, Pneumonia Additional Past Medical History / Comment(s): 04/2020 pt admitted to [facility] with TIA/MRI/cat scan showed L posterior frontal lobe possible meningioma/L posterior frontal lobe mass-pt followed up with neurologist but stopped going when neurologist wanted to have him go down to [place], bronchitis. History of Any Multi-Drug Resistant Organisms: None Reported Past Surgical History: Cardiac Ablation, Orthopedic Surgery Additional Past Surgical History / Comment(s): Right shoulder fracture with surgery/pins, Cardiac ablation at [facility]. Past Anesthesia/Blood Transfusion Reactions: No Reported Reaction Past Psychological History: No Psychological Hx Reported Smoking Status: Former smoker Past Alcohol Use History: None Reported Past Drug Use History: None Reported - Past Family History Father History Unknown: Yes Family Medical History: No Reported History, Hypertension, Myocardial Infarction (ID) Additional Family Medical History / Comment(s): Father of a ID at the age of 86 or 87yrs. Mother History Unknown: Yes Family Medical History: Hypertension General Exam - General Exam Comments Initial Comments: GENERAL: Patient is well-developed and well-nourished. Patient is nontoxic and well- hydrated and is in mild distress. ENT: Neck is soft and supple. No significant lymphadenopathy is noted. Oropharynx is clear. Moist mucous membranes. Neck has full range of motion without eliciting any pain. EYES: The sclera were anicteric and conjunctiva were pink and moist. Extraocular movements were intact and pupils were equal round and reactive to light. Eyelids were unremarkable. PULMONARY: Patient has an expiratory wheezing as well as some crackles in the bases CARDIOVASCULAR: There is a regular rate and rhythm without any murmurs gallops or rubs. ABDOMEN: Soft and nontender with normal bowel sounds. SKIN: Skin is clear with no lesions or rashes and otherwise unremarkable. NEUROLOGIC: Patient is alert and oriented x3. Cranial nerves II through XII are grossly intact. Motor and sensory are also intact. Normal speech, volume and content. Symmetrical smile. MUSCULOSKELETAL: Normal extremities with adequate strength and full range of motion. 2+ edema bilaterally LYMPHATICS: No significant lymphadenopathy is noted PSYCHIATRIC: Normal psychiatric evaluation. Limitations: no limitations Course Vital Signs 08/26/23 08/26/23 08/26/23 07:20 08:20 09:20 Temperature 97.8 F Pulse Rate 53 L 95 105 H Respiratory 20 22 Rate Blood Pressure 123/68 114/63 O2 Sat by Pulse 88 L 96 Oximetry 08/26/23 08/26/23 09:32 09:49 Temperature Pulse Rate 121 H 129 H Respiratory Rate Blood Pressure O2 Sat by Pulse Oximetry Medical Decision Making - Medical Decision Making EKG shows atrial fibrillation with rapid ventricular response at 105 bpm QRS 100 QT interval 341 QTc is 402. Patient EKG shows no ST segment ovation or depression Was pt. sent in by a medical professional or institution (, PA, REFERRAL COORDINATOR, urgent care, hospital, or half-way...) When possible be specific @ -No Did you speak to anyone other than the patient for history (EMS, parent, family, police, friend...)? What history was obtained from this source @ -No Did you review nursing and triage notes (agree or disagree)? Why? @ -I reviewed and agree with nursing and triage notes Were old charts reviewed (outside hosp., previous admission, EMS record, old EKG, old radiological studies, urgent care reports/EKG's, half-way records)? Report findings @ -I compared today's chest x-ray with previous chest x-ray and today's chest x- ray shows congestive heart failure Differential Diagnosis (chest pain, altered mental status, abdominal pain women, abdominal pain men, vaginal bleeding, weakness, fever, dyspnea, syncope, headache, dizziness, GI bleed, back pain, seizure, CVA, palpatations, mental health, musculoskeletal)? @ -Differential Dyspnea: Coronary syndrome, arrhythmia, tamponade, asthma, COPD, pulmonary embolism, pneumonia, pneumothorax, pulmonary effusion, anaphylaxis, diabetic ketoacidosis, flailed chest, pulmonary contusion, diaphragmatic rupture, anemia, neuromuscular, this is not meant to be an all-inclusive list. EKG interpreted by me (3pts min.). @ -As above X-rays interpreted by me (1pt min.). @ -Chest x-ray shows pulmonary edema CT interpreted by me (1pt min.). @ -None done U/S interpreted by me (1pt. min.). @ -None done What testing was considered but not performed or refused? (CT, X-rays, U/S, labs)? Why? @ -None What meds were considered but not given or refused? Why? @ -None Did you discuss the management of the patient with other professionals (professionals i.e. , PA, REFERRAL COORDINATOR, lab, RT, psych nurse, social work lecturer, business lawyer, teacher, v/stol landing signal officer, case management assistant)? Give summary @ -I spoke with Dr. Joe and he agreed to admit the patient admit the patient wrote admitting orders Was smoking cessation discussed for >3mins.? @ -No Was critical care preformed (if so, how long)? @ -No Were there social determinants of health that impacted care today? How? (Homelessness, low income, unemployed, alcoholism, drug addiction, t ransportation, low edu. Level, literacy, decrease access to med. care, halfway, rehab)? @ -No Was there de-escalation of care discussed even if they declined (Discuss DNR or withdrawal of care, Hospice)? DNR status @ -No What co-morbidities impacted this encounter? (DM, HTN, Smoking, COPD, CAD, Cancer, CVA, ARF, Chemo, Hep., AIDS, mental health diagnosis, sleep apnea, morbid obesity)? @ -COPD smoking and hypertension Was patient admitted / discharged? Hospital course, mention meds given and route, prescriptions, significant lab abnormalities, going to OR and other pertinent info. @ -Patient was given Lasix as well as a breathing treatment and was feeling a little bit better. Patient will be admitted to Dr. Rodriguez for congestive heart failure. Cardiology will be consulted Undiagnosed new problem with uncertain prognosis? @ -No Drug Therapy requiring intensive monitoring for toxicity (Heparin, Nitro, Insulin, Cardizem)? @ -No Were any procedures done? @ -No Diagnosis/symptom? @ -Acute pulmonary edema Acute, or Chronic, or Acute on Chronic? @ -Acute Uncomplicated (without systemic symptoms) or Complicated (systemic symptoms)? @ -Complicated Side effects of treatment? @ -No Exacerbation, Progression, or Severe Exacerbation? @ -No Poses a threat to life or bodily function? How? (Chest pain, USA, ID, pneumonia, PE, COPD, DKA, ARF, appy, cholecystitis, CVA, Diverticulitis, Homicidal, Suicidal, threat to staff... and all critical care pts) @ -Yes this can lead to hypoxia and endorgan dysfunction Diagnosis/symptom? @ -COPD Acute, or Chronic, or Acute on Chronic? @ -Acute Uncomplicated (without systemic symptoms) or Complicated (systemic symptoms)? @ -Complicated Side effects of treatment? @ -None Exacerbation, Progression, or Severe Exacerbation] @ -No Poses a threat to life or bodily function? @ -No - Lab Data Result diagrams: 08/26/23 08:13 08/26/23 08:13 Lab Results 08/26/23 08/26/23 08/26/23 Range/Units 08:13 08:13 08:13 WBC 6.8 (3.8-10.6) k/uL RBC 5.02 (4.30-5.90) m/uL Hgb 15.0 (13.0-17.5) gm/dL Hct 49.3 (39.0-53.0) % MCV 98.3 (80.0-100.0) fL MCH 29.9 (25.0-35.0) pg MCHC 30.4 L (31.0-37.0) g/dL RDW 14.0 (11.5-15.5) % Plt Count 124 L (150-450) k/uL MPV 10.3 Neutrophils % 68 % Lymphocytes % 14 % Monocytes % 11 % Eosinophils % 2 % Basophils % 1 % Neutrophils # 4.6 (1.3-7.7) k/uL Lymphocytes # 1.0 (1.0-4.8) k/uL Monocytes # 0.8 (0-1.0) k/uL Eosinophils # 0.2 (0-0.7) k/uL Basophils # 0.0 (0-0.2) k/uL Hypochromasia Slight PT 12.6 H (10.0-12.5) sec INR 1.2 H (<1.2) APTT 24.3 (22.0-30.0) sec Sodium 137 (137-145) mmol/L Potassium 4.1 (3.5-5.1) mmol/L Chloride 96 L (98-107) mmol/L Carbon Dioxide 40 H (22-30) mmol/L Anion Gap 1 mmol/L BUN 22 H (9-20) mg/dL Creatinine 1.01 (0.66-1.25) mg/dL Est GFR (CKD-EPI)AfAm 86 (>60 ml/min/1.73 sqM) Est GFR (CKD-EPI)NonAf 75 (>60 ml/min/1.73 sqM) Glucose 96 (74-99) mg/dL Plasma Lactic Acid Kian (0.7-2.0) mmol/L Calcium 8.8 (8.4-10.2) mg/dL Magnesium 1.8 (1.6-2.3) mg/dL Total Bilirubin 1.3 (0.2-1.3) mg/dL AST 39 (17-59) U/L ALT 35 (4-49) U/L Alkaline Phosphatase 118 (38-126) U/L Troponin I (0.000-0.034) ng/mL NT-Pro-B Natriuret Pep 5130 pg/mL Total Protein 6.1 L (6.3-8.2) g/dL Albumin 3.6 (3.5-5.0) g/dL 08/26/23 08/26/23 Range/Units 08:13 08:13 WBC (3.8-10.6) k/uL RBC (4.30-5.90) m/uL Hgb (13.0-17.5) gm/dL Hct (39.0-53.0) % MCV (80.0-100.0) fL MCH (25.0-35.0) pg MCHC (31.0-37.0) g/dL RDW (11.5-15.5) % Plt Count (150-450) k/uL MPV Neutrophils % % Lymphocytes % % Monocytes % % Eosinophils % % Basophils % % Neutrophils # (1.3-7.7) k/uL Lymphocytes # (1.0-4.8) k/uL Monocytes # (0-1.0) k/uL Eosinophils # (0-0.7) k/uL Basophils # (0-0.2) k/uL Hypochromasia PT (10.0-12.5) sec INR (<1.2) APTT (22.0-30.0) sec Sodium (137-145) mmol/L Potassium (3.5-5.1) mmol/L Chloride (98-107) mmol/L Carbon Dioxide (22-30) mmol/L Anion Gap mmol/L BUN (9-20) mg/dL Creatinine (0.66-1.25) mg/dL Est GFR (CKD-EPI)AfAm (>60 ml/min/1.73 sqM) Est GFR (CKD-EPI)NonAf (>60 ml/min/1.73 sqM) Glucose (74-99) mg/dL Plasma Lactic Acid Kian 0.9 (0.7-2.0) mmol/L Calcium (8.4-10.2) mg/dL Magnesium (1.6-2.3) mg/dL Total Bilirubin (0.2-1.3) mg/dL AST (17-59) U/L ALT (4-49) U/L Alkaline Phosphatase (38-126) U/L Troponin I 0.035 H* (0.000-0.034) ng/mL NT-Pro-B Natriuret Pep pg/mL Total Protein (6.3-8.2) g/dL Albumin (3.5-5.0) g/dL Disposition Clinical Impression: Acute pulmonary edema, COPD (chronic obstructive pulmonary disease) Disposition: ADMITTED IP TO THIS HOSP Referrals: None,Stated [REFERRING] - 1-2 days Time of Disposition: 10:05
[2023-08-26] MEDS: FUROSEMIDE 10 MG/ML 4 ML VIAL IV STA (08:20)
[2023-08-26 08:26] LABS: Basophils % (A) 1 %; Eosinophils # (A) 0.2 k/uL (0-0.7); Eosinophils % (A) 2 %; HCT 49.3 % (39.0-53.0); Hypochromasia Slight; Lymphocytes % (A) 14 %; MCH 29.9 pg (25.0-35.0); MCHC 30.4 g/dL (31.0-37.0); MCV 98.3 fL (80.0-100.0); Mean Platelet Volume 10.3; Monocytes # (A) 0.8 k/uL (0-1.0); Monocytes % (A) 11 %; Neutrophils # (A) 4.6 k/uL (1.3-7.7); Neutrophils % (A) 68 %; Platelet Count 124 k/uL (150-450); RBC 5.02 m/uL (4.30-5.90); WBC 6.8 k/uL (3.8-10.6)
[2023-08-26] MEDS: methylPREDNISolone SOD SUCCI 125 MG/2 ML VIAL IV STA (08:26)
[2023-08-26 08:37] LABS: ALT 35 U/L (4-49); AST 39 U/L (17-59); African American GFR (CKD) 86 (>60 ml/min/1.73 sqM); Albumin 3.6 g/dL (3.5-5.0); Alkaline Phosphatase 118 U/L (38-126); Anion Gap 1 mmol/L; Blood Urea Nitrogen 22 mg/dL (9-20); Calcium 8.8 mg/dL (8.4-10.2); Chloride 96 mmol/L (98-107); Glucose 96 mg/dL (74-99); Magnesium 1.8 mg/dL (1.6-2.3); Non-African American GFR(CKD) 75 (>60 ml/min/1.73 sqM); Potassium 4.1 mmol/L (3.5-5.1); Sodium 137 mmol/L (137-145); Total Bilirubin 1.3 mg/dL (0.2-1.3); Total Protein 6.1 g/dL (6.3-8.2)
[2023-08-26 08:43] LABS: INR 1.2 (<1.2); Partial Thromboplastin Time 24.3 sec (22.0-30.0); Prothrombin Time 12.6 sec (10.0-12.5)
[2023-08-26 08:45] LABS: NT-Pro-B-Type Natriuretic Pept 5130 pg/mL
--- NOTE | 2023-08-26 08:46 | XR ---
EXAMINATION TYPE: XR chest 2V DATE OF EXAM: 08/26/2023 COMPARISON: 03/04/2021 HISTORY: Difficulty breathing TECHNIQUE: Frontal and lateral views of the chest are obtained. FINDINGS: There is marked cardiomegaly, pulmonary vascular congestion and right pleural effusion. Th e findings are consistent with moderate CHF. There is no pneumothorax. The osseous structures are intact. IMPRESSION: Findings most consistent with moderate CHF.
[2023-08-26 08:49] LABS: Carbon Dioxide 40 mmol/L (22-30)
[2023-08-26] MEDS: ALBUTEROL NEBULIZED 2.5 MG/3 ML INHALATION STA (09:20)
[2023-08-26] MEDS: IPRATROPIUM 0.5 MG/2.5 ML NEBU INHALATION STA (09:20)
[2023-08-26] MEDS ORDERED: IPRATROPIUM-ALBUTEROL 3 ML NEB INHALATION PRN (10:07)
[2023-08-26] MEDS ORDERED: NON FORMULARY DRUG (Epinephrine (Auto Inject) 0.3 MG/0.3 ML Each) IM PRN (10:24)
--- NOTE | 2023-08-26 10:33 | P.HPIM ---
History of Present Illness 73-year-old male came to emergency department with complaints of shortness of breath but denies any significant orthopnea or paroxysmal nocturnal dyspnea although his BNP is elevated above 5000 and the chest x-ray is showing pulmonary edema. Patient does have a increased swelling in bilateral lower extremities. Patient uses 4 L of oxygen. Patient denies any history of sleep apnea. Patient does have chronic diastolic function uses 40 mg of daily Lasix on daily basis. Patient also has history of COPD uses 4 L of oxygen. But he does not wear oxygen for most of the time. Patient does have history of atrial fibrillation had ablation in the past patient is on Coumadin with subtherapeutic INR of 1.2 patient is on 3 and 6 mg of Coumadin alternating. Patient has mild elevated troponin and EKG showing atrial fibrillation with rapid ventricular rate patient denies any chest pain REVIEW OF SYSTEMS: CONSTITUTIONAL: No fever, no malaise, no fatigue. HEENT: No recent visual problems or hearing problems. Denied any sore throat. CARDIOVASCULAR: No chest pain no palpitations, no syncope. PULMONARYno cough, no hemoptysis. GASTROINTESTINAL: No diarrhea, no nausea, no vomiting, no abdominal pain. NEUROLOGICAL: No headaches, no weakness, no numbness. HEMATOLOGICAL: Denies any bleeding or petechiae. GENITOURINARY: Denies any burning micturition, frequency, or urgency. MUSCULOSKELETAL/RHEUMATOLOGICAL: Denies any joint pain, swelling, or any muscle pain. ENDOCRINE: Denies any polyuria or polydipsia. The rest of the 14-point review of systems is negative. PHYSICAL EXAMINATION: GENERAL: The patient is alert and oriented x3, not in any acute distress. Obese HEENT: Pupils are round and equally reacting to light. EOMI. No scleral icterus. No conjunctival pallor. Normocephalic, atraumatic. No pharyngeal erythema. No thyromegaly. CARDIOVASCULAR: S1 and S2 present. No murmurs, rubs, or gallops. PULMONARY: Chest is clear to auscultation, no wheezing or crackles. ABDOMEN: Soft, nontender, nondistended, normoactive bowel sounds. No palpable organomegaly. MUSCULOSKELETAL: No joint swelling or deformity. EXTREMITIES: No cyanosis, clubbing, extensive bilateral lower extremity edema NEUROLOGICAL: Gross neurological examination did not reveal any focal deficits. SKIN: No rashes. Assessment and plan -Acute hypoxic respiratory failure secondary to CHF exacerbation chronic diastolic function with acute exacerbation patient will be started on Lasix with close input and output monitoring and electrolyte and kidney function monitoring. -COPD without any acute exacerbation patient has chronic hypoxic and hypercapnic respiratory failure, systemic steroids will be discontinued -Hyperlipidemia -Atrial fibrillation with rapid ventricular rate patient will be resumed on metoprolol as he did not take this medication today morning. Will monitor the heart rate and resume Coumadin increase the dose to 6 mg with pharmacy dose and repeat INR tomorrow. Patient had an ablation in the past DVT prophylaxis: Patient is on anticoagulation which Coumadin which is resumed although patient is subtherapeutic at this time patient can ambulate Past Medical History Past Medical History: Atrial Fibrillation, Asthma, Heart Failure, COPD, CVA/TIA, Hyperlipidemia, Hypertension, Pneumonia Additional Past Medical History / Comment(s): 04/2020 pt admitted to [facility] with TIA/MRI/cat scan showed L posterior frontal lobe possible meningioma/L posterior frontal lobe mass-pt followed up with neurologist but stopped going when neurologist wanted to have him go down to [place]. History of Any Multi-Drug Resistant Organisms: None Reported Past Surgical History: Cardiac Ablation, Orthopedic Surgery Additional Past Surgical History / Comment(s): Right shoulder fracture with surgery/pins, Cardiac ablation at [facility]. Past Anesthesia/Blood Transfusion Reactions: No Reported Reaction Past Psychological History: No Psychological Hx Reported Smoking Status: Former smoker Past Alcohol Use History: None Reported Past Drug Use History: None Reported - Past Family History Father History Unknown: Yes Family Medical History: No Reported History, Hypertension, Myocardial Infarction (ND) Additional Family Medical History / Comment(s): Father of a ND at the age of 86 or 87yrs. Mother History Unknown: Yes Family Medical History: Hypertension Medications and Allergies Home Medications Medication Instructions Recorded Confirmed Type Furosemide [Lasix] 40 mg PO DAILY@1600 05/14/20 08/26/23 History Metoprolol Tartrate [Lopressor] 50 mg PO BID@0900,1600 05/14/20 08/26/23 History Albuterol Nebulized [Ventolin 2.5 mg INHALATION RT-QID 08/26/23 08/26/23 History Nebulized] Atorvastatin [Lipitor] 40 mg PO DAILY@1600 08/26/23 08/26/23 History Budesonide [Pulmicort] 0.5 mg INHALATION RT-BID 08/26/23 08/26/23 History EPINEPHrine (Auto Inject) [Epipen] 0.3 mg IM ONCE PRN 08/26/23 08/26/23 History Ipratropium Nebulized [Atrovent 0.5 mg INHALATION RT-QID 08/26/23 08/26/23 History Nebulized 0.2 MG/ML] Montelukast [Singulair] 10 mg PO DAILY@159908/26/23 08/26/23 History Warfarin Sodium 4 mg PO SUMOTUWEFRSA@159908/26/23 08/26/23 History Warfarin Sodium 6 mg PO TH@159908/26/23 08/26/23 History lisinopriL [Zestril] 10 mg PO DAILY@159908/26/23 08/26/23 History Allergies Allergy/AdvReac Type Severity Reaction Status Date / Time No Known Allergies Allergy Verified 08/26/23 08:52 Physical Exam Vitals: Vital Signs Temp Pulse Resp BP Pulse Ox 08/26/23 09:49 129 H 08/26/23 09:32 121 H 08/26/23 09:20 105 H 08/26/23 08:20 95 22 114/63 96 08/26/23 07:20 97.8 F 53 L 20 123/68 88 L Intake and Output 08/25/23 08/26/23 08/26/23 22:59 06:59 14:59 Other: Weight 149.685 kg Results CBC & Chem 7: 08/26/23 08:13 08/26/23 08:13 Labs: Abnormal Lab Results - Last 24 Hours (Table) 08/26/23 08/26/23 08/26/23 Range/Units 08:13 08:13 08:13 MCHC 30.4 L (31.0-37.0) g/dL Plt Count 124 L (150-450) k/uL PT 12.6 H (10.0-12.5) sec INR 1.2 H (<1.2) Chloride 96 L (98-107) mmol/L Carbon Dioxide 40 H (22-30) mmol/L BUN 22 H (9-20) mg/dL Troponin I (0.000-0.034) ng/mL Total Protein 6.1 L (6.3-8.2) g/dL 08/26/23 Range/Units 08:13 MCHC (31.0-37.0) g/dL Plt Count (150-450) k/uL PT (10.0-12.5) sec INR (<1.2) Chloride (98-107) mmol/L Carbon Dioxide (22-30) mmol/L BUN (9-20) mg/dL Troponin I 0.035 H* (0.000-0.034) ng/mL Total Protein (6.3-8.2) g/dL
[2023-08-26] MEDS: METOPROLOL TARTRATE 50 MG TAB PO SCH (11:41)
[2023-08-26] MEDS: NITROGLYCERIN OINT 1 INCH/GM PACKET TOPICAL SCH (11:41)
[2023-08-26] MEDS: IPRATROPIUM-ALBUTEROL 3 ML NEB INHALATION SCH (11:51)
[2023-08-26] MEDS ORDERED: IPRATROPIUM 0.5 MG/2.5 ML NEBU INHALATION SCH (12:00)
[2023-08-26] MEDS ORDERED: ALBUTEROL NEBULIZED 2.5 MG/3 ML INHALATION SCH (12:00)
[2023-08-26] MEDS ORDERED: methylPREDNISolone SOD SUCCI 125 MG/2 ML VIAL IV SCH ×2 (12:00→14:00)
[2023-08-26] MEDS: WARFARIN 3 MG TAB PO ONE (16:19)
[2023-08-26] MEDS: FUROSEMIDE 10 MG/ML 4 ML VIAL IV SCH (16:19)
[2023-08-26] MEDS: MONTELUKAST 10 MG TAB PO SCH (16:19)
[2023-08-26] MEDS: ATORVASTATIN 40 MG TAB PO SCH (16:19)
[2023-08-26] MEDS: BUDESONIDE 0.5 MG/2 ML NEBU INHALATION SCH (20:52)
[2023-08-27 09:22] LABS: African American GFR (CKD) 87 (>60 ml/min/1.73 sqM); Blood Urea Nitrogen 26 mg/dL (9-20); Chloride 89 mmol/L (98-107); Glucose 181 mg/dL (74-99); Magnesium 1.6 mg/dL (1.6-2.3); Non-African American GFR(CKD) 75 (>60 ml/min/1.73 sqM); Potassium 3.9 mmol/L (3.5-5.1); Sodium 138 mmol/L (137-145)
[2023-08-27 09:29] LABS: Anion Gap 1 mmol/L
[2023-08-27 09:50] LABS: INR 1.3 (<1.2); Prothrombin Time 13.5 sec (10.0-12.5)
[2023-08-27 09:51] LABS: Carbon Dioxide 48 mmol/L (22-30)
[2023-08-27] MEDS ORDERED: Magnesium Replacement Protocol 1 EACH MISC MISCELLANE PRN (09:55)
[2023-08-27] MEDS: MAGNESIUM SULFATE-D5W PMX 1 GM in DEXTROSE/WATER 1 100ML.BAG IVPB SCH (10:16)
--- NOTE | 2023-08-27 14:48 | P.CRDCN ---
History of Present Illness Consult date: 08/27/23 Chief complaint: SOB History of present illness: The patient is a pleasant 73-year-old gentleman with a past medical history significant for paroxysmal atrial fibrillation as well as overweight and hypertension and dyslipidemia and multiple comorbid conditions presented to the hospital complaining of progressive exertional dyspnea and progressive lower extremities edema has started several weeks ago and got worse lately. He stated that he gained about 40 pounds within the last several months. He was diagnosed with congestive heart failure before and he stated that he has been compliant with his medications and compliant with low-sodium diet. No symptoms of any chest pain or chest discomfort or dizziness or lightheadedness or any feeling of heart racing or fluttering or presyncope or syncope. He underwent further workup including EKG showed atrial fibrillation with diffuse nonspecific ST and T wave abnormalities and troponin came in to be mildly abnormal. NT proBNP came in to be elevated. He is on Coumadin for atrial fibrillation. The physical examination is remarkable for stable vital signs with irregular rhythm and bila teral expiratory wheezing and severe bilateral lower extremities edema. Echo was ordered and still pending Assessment Heart failure with evidence of right and left failure Atrial fibrillation with controlled heart rate at this point History of congestive heart failure Multiple comorbid conditions including overweight and hypertension and dyslipidemia Plan Continue the current medical regimen Continue IV Lasix at this point Monitor the kidney function and electrolytes Follow-up on the echocardiogram Past Medical History Past Medical History: Atrial Fibrillation, Asthma, Heart Failure, COPD, CVA/TIA, Hyperlipidemia, Hypertension, Pneumonia Additional Past Medical History / Comment(s): 04/2020 pt admitted to [facility] with TIA/MRI/cat scan showed L posterior frontal lobe possible meningioma/L posterior frontal lobe mass-pt followed up with neurologist but stopped going when neurologist wanted to have him go down to [place], bronchitis. History of Any Multi-Drug Resistant Organisms: None Reported Past Surgical History: Cardiac Ablation, Orthopedic Surgery Additional Past Surgical History / Comment(s): Right shoulder fracture with surgery/pins, Cardiac ablation at [facility]. Past Anesthesia/Blood Transfusion Reactions: No Reported Reaction Past Psychological History: No Psychological Hx Reported Additional Psychological History / Comment(s): Pt resides with his spouse. He is independent. Smoking Status: Former smoker Past Alcohol Use History: None Reported Additional Past Alcohol Use History / Comment(s): Pt started smoking in 1967 and quit in 2010. He states he drinks beer on Tuesdays/Wednesdays and -4 to 6 beers each of those days. Past Drug Use History: None Reported - Past Family History Father History Unknown: Yes Family Medical History: No Reported History, Hypertension, Myocardial Infarction ([place]) Additional Family Medical History / Comment(s): Father of a [place] at the age of 86 or 87yrs. Mother History Unknown: Yes Family Medical History: Hypertension Medications and Allergies Home Medications Medication Instructions Recorded Confirmed Type Furosemide [Lasix] 40 mg PO DAILY@159905/14/20 08/26/23 History Metoprolol Tartrate [Lopressor] 50 mg PO BID@0900,159905/14/20 08/26/23 History Albuterol Nebulized [Ventolin 2.5 mg INHALATION RT-QID 08/26/23 08/26/23 History Nebulized] Atorvastatin [Lipitor] 40 mg PO DAILY@159908/26/23 08/26/23 History Budesonide [Pulmicort] 0.5 mg INHALATION RT-BID 08/26/23 08/26/23 History EPINEPHrine (Auto Inject) [Epipen] 0.3 mg IM ONCE PRN 08/26/23 08/26/23 History Ipratropium Nebulized [Atrovent 0.5 mg INHALATION RT-QID 08/26/23 08/26/23 History Nebulized 0.2 MG/ML] Montelukast [Singulair] 10 mg PO DAILY@159908/26/23 08/26/23 History Warfarin Sodium 4 mg PO SUMOTUWEFRSA@159908/26/23 08/26/23 History Warfarin Sodium 6 mg PO TH@159908/26/23 08/26/23 History lisinopriL [Zestril] 10 mg PO DAILY@159908/26/23 08/26/23 History Allergies Allergy/AdvReac Type Severity Reaction Status Date / Time No Known Allergies Allergy Verified 08/26/23 08:52 Physical Exam Vitals: Vital Signs Temp Pulse Pulse Resp BP BP Pulse Ox 08/27/23 12:00 97 18 102/58 98 08/27/23 11:23 77 18 08/27/23 11:13 70 18 08/27/23 08:17 72 18 08/27/23 08:00 97.5 F L 71 72 19 128/68 97 08/27/23 03:54 98.3 F 70 16 130/77 96 08/26/23 23:53 98.3 F 88 16 120/72 94 L 08/26/23 21:06 104 H 08/26/23 20:52 100 08/26/23 20:00 98.1 F 68 16 115/72 94 L 08/26/23 16:10 98 F 95 18 141/83 95 08/26/23 15:40 105 H 08/26/23 15:30 100 08/26/23 15:21 98.1 F 98 18 119/80 94 L Intake and Output 08/26/23 08/27/23 08/27/23 22:59 06:59 14:59 Intake Total 118 240 600 Output Total 2676 088 3386 Balance -6856 -618 -975 Intake: Oral 118 240 600 Output: Urine 6944 346 0414 Other: Voiding Method Urinal # Voids 3 Weight 149.685 kg 149.8 kg Results 08/26/23 08:13 08/27/23 08:44 Cardiac Enzymes 08/26/23 Range/Units 15:16 Troponin I 0.028 (0.000-0.034) ng/mL Coagulation 08/27/23 Range/Units 08:44 PT 13.5 H (10.0-12.5) sec Comprehensive Metabolic Panel 08/27/23 Range/Units 08:44 Sodium 138 (137-145) mmol/L Potassium 3.9 (3.5-5.1) mmol/L Chloride 89 L (98-107) mmol/L Carbon Dioxide 48 H* (22-30) mmol/L BUN 26 H (9-20) mg/dL Creatinine 1.00 (0.66-1.25) mg/dL Glucose 181 H (74-99) mg/dL Calcium 9.0 (8.4-10.2) mg/dL Current Medications Generic Name Dose Route Start Last Admin Trade Name Freq PRN Reason Stop Dose Admin Albuterol/Ipratropium 3 ml 08/26/23 10:07 Ipratropium-Albuterol 3 Ml Neb INHALATION RT-QID PRN Shortness Of Breath Or Wheezing Albuterol/Ipratropium 3 ml 08/26/23 12:00 08/27/23 11:13 Ipratropium-Albuterol 3 Ml Neb INHALATION 3 ml RT-QID KAYLEE Administration Atorvastatin Calcium 40 mg 08/26/23 16:00 08/26/23 16:19 Atorvastatin 40 Mg Tab PO 40 mg DAILY@1600 KAYLEE Administration Budesonide 0.5 mg 08/26/23 20:00 08/27/23 08:00 Budesonide 0.5 Mg/2 Ml Nebu INHALATION 0.5 mg RT-BID KAYLEE Administration Furosemide 40 mg 08/27/23 21:00 Furosemide 10 Mg/Ml 4 Ml Vial IV Q12HR [facility] Metoprolol Tartrate 50 mg 08/26/23 10:24 08/27/23 08:05 Metoprolol Tartrate 50 Mg Tab PO 50 mg BID@0900,1600 [facility] Administration Miscellaneous Information 1 each 08/26/23 10:26 Warfarin Per Pharmacy MISCELLANE DIRECTED PRN Per Protocol Protocol Miscellaneous Information 1 each 08/27/23 09:55 Magnesium Replacement Protocol 1 Each Misc MISCELLANE DAILY PRN Per Protocol Protocol Montelukast Sodium 10 mg 08/26/23 16:00 08/26/23 16:19 Montelukast 10 Mg Tab PO 10 mg DAILY@1600 KAYLEE Administration Warfarin Sodium 6 mg 08/27/23 18:00 Warfarin 3 Mg Tab PO 08/27/23 18:01 ONCE@1800 ONE Protocol Intake and Output 08/26/23 08/27/23 08/27/23 22:59 06:59 14:59 Intake Total 118 240 600 Output Total 2440 409 1195 Balance -1082 -660 -975 Intake: Oral 118 240 600 Output: Urine 6149 825 1636 Other: Voiding Method Urinal # Voids 3 Weight 149.685 kg 149.8 kg 08/26/23 08:13 08/27/23 08:44
--- NOTE | 2023-08-27 15:40 | P.PN ---
Subjective Progress Note Date: 08/27/23 73-year-old male came to emergency department with complaints of shortness of breath but denies any significant orthopnea or paroxysmal nocturnal dyspnea although his BNP is elevated above 5000 and the chest x-ray is showing pulmonary edema. Patient does have a increased swelling in bilateral lower extremities. Patient uses 4 L of oxygen. Patient denies any history of sleep apnea. Patient does have chronic diastolic function uses 40 mg of daily Lasix on daily basis. Patient also has history of COPD uses 4 L of oxygen. But he does not wear oxygen for most of the time. Patient does have history of atrial fibrillation had ablation in the past patient is on Coumadin with subtherapeutic INR of 1.2 patient is on 3 and 6 mg of Coumadin alternating. Patient has mild elevated troponin and EKG showing atrial fibrillation with rapid ventricular rate patient denies any chest pain 08/27/2023 Patient is evaluated today in follow up. Sitting up on the edge of the bed. Feeling less short of breath. Continues with lower extremity pitting edema. Was maintained on IV lasix 40 mg Q8h recommending due to decreased to Q12 due to the metabolic alkalosis; CO2 level is 48 today. BUN is 26, creatinine 1.00. INR 1.3. Magnesium 1.6. Continues on 4L of oxygen. Review of Systems Constitutional: Denied any fatigue denied any fever. Cardio vascular: denied any chest pain, palpitations Gastrointestinal: denied any nausea, vomiting, diarrhea Pulmonary: Reports shortness of breath, no cough Neurologic denied any new focal deficits All inpatient medications were reviewed and appropriate changes in these medications as dictated in the interval history and assessment and plan. PHYSICAL EXAMINATION: GENERAL: The patient is alert and oriented x3, not in any acute distress. Obese HEENT: Pupils are round and equally reacting to light. EOMI. No scleral icterus. No conjunctival pallor. Normocephalic, atraumatic. No pharyngeal erythema. No thyromegaly. CARDIOVASCULAR: S1 and S2 present. No murmurs, rubs, or gallops. PULMONARY: Bibasilar crackles faint. ABDOMEN: Soft, nontender, nondistended, normoactive bowel sounds. No palpable organomegaly. MUSCULOSKELETAL: No joint swelling or deformity. EXTREMITIES: No cyanosis, clubbing, extensive bilateral lower extremity edema NEUROLOGICAL: Gross neurological examination did not reveal any focal deficits. SKIN: No rashes. Assessment and plan -Acute hypoxic respiratory failure secondary to CHF exacerbation chronic diastolic function with acute exacerbation patient will be started on Lasix with close input and output monitoring and electrolyte and kidney function monitoring. Decrease lasix to 40 mg Q12h. -COPD without any acute exacerbation patient has chronic hypoxic and hypercapnic respiratory failure, systemic steroids will be discontinued -Hyperlipidemia -Atrial fibrillation with rapid ventricular rate patient will be resumed on meto prolol as he did not take this medication heart rate is now controlled. Continues on warfarin per pharmacy INR 1.3 today. -Hypertension -Hyperlipidemia DVT prophylaxis: Patient is on anticoagulation which Coumadin which is resumed although patient is subtherapeutic at this time patient can ambulate GI prophylaxis The impression and plan of care has been dictated by Mila Montalvo Nurse Practitioner as directed. Dr. Jennifer MD I have performed a history and physical examination and medical decision making of this patient, discussed the same with the dictator, and agree with the dictators assessment and plan as written, documented as a scribe. Based on total visit time, I have performed more than 50% of this visit. Objective - Vital Signs Vital signs: Vital Signs Temp 97.5 F L 08/27/23 08:00 Pulse 82 08/27/23 15:24 Resp 18 08/27/23 15:24 BP 102/58 08/27/23 12:00 Pulse Ox 98 08/27/23 12:00 FiO2 Intake & Output 08/26/23 08/27/23 08/27/23 18:59 06:59 18:59 Intake Total 118 240 600 Output Total 2100 1575 Balance 118 -1860 -975 Weight 149.685 kg 149.8 kg Intake: Oral 118 240 600 Output: Urine 2100 1575 Other: Voiding Method Urinal # Voids 3 - Labs CBC & Chem 7: 08/26/23 08:13 08/27/23 08:44 Labs: Abnormal Lab Results - Last 24 Hours (Table) 08/27/23 08/27/23 Range/Units 08:44 08:44 PT 13.5 H (10.0-12.5) sec INR 1.3 H (<1.2) Chloride 89 L (98-107) mmol/L Carbon Dioxide 48 H* (22-30) mmol/L BUN 26 H (9-20) mg/dL Glucose 181 H (74-99) mg/dL Assessment and Plan Time with Patient: Less than 30
[2023-08-27 15:43] VITALS: BMI 41.3
[2023-08-27] MEDS: WARFARIN 3 MG TAB PO ONE (17:11)
[2023-08-27] MEDS: FUROSEMIDE 10 MG/ML 4 ML VIAL IV SCH (20:08)
--- NOTE | 2023-08-28 12:03 | P.PN ---
Subjective Progress Note Date: 08/28/23 73-year-old male came to emergency department with complaints of shortness of breath but denies any significant orthopnea or paroxysmal nocturnal dyspnea although his BNP is elevated above 5000 and the chest x-ray is showing pulmonary edema. Patient does have a increased swelling in bilateral lower extremities. Patient uses 4 L of oxygen. Patient denies any history of sleep apnea. Patient does have chronic diastolic function uses 40 mg of daily Lasix on daily basis. Patient also has history of COPD uses 4 L of oxygen. But he does not wear oxygen for most of the time. Patient does have history of atrial fibrillation had ablation in the past patient is on Coumadin with subtherapeutic INR of 1.2 patient is on 3 and 6 mg of Coumadin alternating. Patient has mild elevated troponin and EKG showing atrial fibrillation with rapid ventricular rate patient denies any chest pain 08/27/2023 Patient is evaluated today in follow up. Sitting up on the edge of the bed. Feeling less short of breath. Continues with lower extremity pitting edema. Was maintained on IV lasix 40 mg Q8h recommending due to decreased to Q12 due to the metabolic alkalosis; CO2 level is 48 today. BUN is 26, creatinine 1.00. INR 1.3. Magnesium 1.6. Continues on 4L of oxygen. 08/28/2023 Patient is evaluated today in follow up. Patient is resting in bed. Continues to report feeling short of breath. He continues with lower extremity pitting edema. On IV lasix 40 mg Q12h. Has had 4.4 L of urine output in the last 24 hours. INR today is 1.3. His echocardiogram is pending. Review of Systems Constitutional: Denied any fatigue denied any fever. Cardio vascular: denied any chest pain, palpitations Gastrointestinal: denied any nausea, vomiting, diarrhea Pulmonary: Reports shortness of breath, no cough Neurologic denied any new focal deficits All inpatient medications were reviewed and appropriate changes in these medications as dictated in the interval history and assessment and plan. PHYSICAL EXAMINATION: GENERAL: The patient is alert and oriented x3, not in any acute distress. Obese HEENT: Pupils are round and equally reacting to light. EOMI. No scleral icterus. No conjunctival pallor. Normocephalic, atraumatic. No pharyngeal erythema. No thyromegaly. CARDIOVASCULAR: S1 and S2 present. No murmurs, rubs, or gallops. PULMONARY: Bibasilar crackles faint. ABDOMEN: Soft, nontender, nondistended, normoactive bowel sounds. No palpable organomegaly. MUSCULOSKELETAL: No joint swelling or deformity. EXTREMITIES: No cyanosis, clubbing, extensive bilateral lower extremity edema NEUROLOGICAL: Gross neurological examination did not reveal any focal deficits. SKIN: No rashes. Assessment and plan -CHF exacerbation chronic diastolic function with acute exacerbation patient recommending close input and output monitoring and electrolyte and kidney function monitoring. Continues on Lasix to 40 mg Q12h. Recommend to wrap lower extremity with Randy bandages bilaterally. -Acute hypoxic respiratory failure due to above. -COPD without any acute exacerbation patient has chronic hypoxic and hypercapnic respiratory failure, systemic steroids will be discontinued -Hyperlipidemia -Atrial fibrillation with rapid ventricular rate patient will be resumed on metoprolol as he did not take this medication heart rate is now controlled. Continues on warfarin per pharmacy INR 1.3 today. -Hypertension -Hyperlipidemia DVT prophylaxis: Patient is on anticoagulation which Coumadin which is resumed although patient is subtherapeutic at this time patient can ambulate GI prophylaxis The impression and plan of care has been dictated by Mila Montalvo, Nurse Practitioner as directed. Dr. Jennifer MD I have performed a history and physical examination and medical decision making of this patient, discussed the same with the dictator, and agree with the dictators assessment and plan as written, documented as a scribe. Based on total visit time, I have performed more than 50% of this visit. Objective - Vital Signs Vital signs: Vital Signs Temp 97.1 F L 08/28/23 08:00 Pulse 82 08/28/23 11:47 Resp 20 08/28/23 11:47 BP 97/60 08/28/23 11:47 Pulse Ox 97 08/28/23 11:47 FiO2 Intake & Output 08/27/23 08/28/23 08/28/23 18:59 06:59 18:59 Intake Total 1320 1060 Output Total 1999 1600 Balance -680 800 -540 Weight 149.8 kg 148.6 kg Intake: Oral 1320 1060 Output: Urine 1999 800 1600 Other: Voiding Method Urinal Urinal Urinal - Labs CBC & Chem 7: 08/26/23 08:13 08/27/23 08:44 Assessment and Plan Time with Patient: Less than 30
[2023-08-28 13:34] LABS: INR 1.5 (<1.2); Prothrombin Time 15.2 sec (10.0-12.5)
[2023-08-28 13:36] LABS: African American GFR (CKD) 83 (>60 ml/min/1.73 sqM); Blood Urea Nitrogen 28 mg/dL (9-20); Calcium 8.9 mg/dL (8.4-10.2); Chloride 86 mmol/L (98-107); Glucose 99 mg/dL (74-99); Magnesium 1.8 mg/dL (1.6-2.3); Non-African American GFR(CKD) 72 (>60 ml/min/1.73 sqM); Potassium 3.9 mmol/L (3.5-5.1); Sodium 139 mmol/L (137-145)
[2023-08-28 13:45] LABS: Anion Gap 7 mmol/L
[2023-08-28 14:15] LABS: Carbon Dioxide 46 mmol/L (22-30)
--- NOTE | 2023-08-28 15:29 | P.PN ---
Subjective Progress Note Date: 08/28/23 Chief complaint: SOB History of present illness: The patient is a pleasant 73-year-old gentleman with a past medical history significant for paroxysmal atrial fibrillation as well as overweight and hypertension and dyslipidemia and multiple comorbid conditions presented to the hospital complaining of progressive exertional dyspnea and progressive lower extremities edema has started several weeks ago and got worse lately. He stated that he gained about 40 pounds within the last several months. He was diagnosed with congestive heart failure before and he stated that he has been compliant with his medications and compliant with low-sodium diet. No symptoms of any chest pain or chest discomfort or dizziness or lightheadedness or any feeling of heart racing or fluttering or presyncope or syncope. He underwent further workup including EKG showed atrial fibrillation with diffuse nonspecific ST and T wave abnormalities and troponin came in to be mildly abnormal. NT proBNP came in to be elevated. He is on Coumadin for atrial fibrillation. The physical examination is remarkable for stable vital signs with irregular rhythm and bilateral expiratory wheezing and severe bilateral lower extremities edema. Echo was ordered and still pending 08/27 Patient is seen today in follow-up. He remains on IV Lasix 40 mg every 12 hours. He is also on pulmonary medications including DuoNeb, Singulair. Blood pressure 97/60, heart rate 82, pulse ox 97% on 4 L nasal cannula. Repeat blood work reveals INR 1.5. CO2 46, BUN 28 creatinine 1.05. Echocardiogram is pending. Examination: Irregular rhythm, bilateral expiratory wheeze, bilateral lower extremity edema. Assessment Heart failure with evidence of right and left failure Atrial fibrillation with controlled heart rate at this point History of congestive heart failure Multiple comorbid conditions including overweight and hypertension and dyslipidemia Plan Continue the current medical regimen Continue IV Lasix at this point Monitor the kidney function and electrolytes Follow-up on the echocardiogram Nurse practitioner note has been reviewed, I agree with documented findings and plan of care. Patient was seen and examined. Objective - Vital Signs Vital signs: Vital Signs Temp 97.1 F L 08/28/23 08:00 Pulse 82 08/28/23 11:47 Resp 20 08/28/23 11:47 BP 97/60 08/28/23 11:47 Pulse Ox 97 08/28/23 11:47 FiO2 Intake & Output 08/27/23 08/28/23 08/28/23 18:59 06:59 18:59 Intake Total 1320 1060 Output Total 1999 800 1600 Balance -680 -800 -540 Weight 149.8 kg 148.6 kg Intake: Oral 1320 1060 Output: Urine 1999 800 1600 Other: Voiding Method Urinal Urinal Urinal - Labs CBC & Chem 7: 08/26/23 08:13 08/28/23 12:13
[2023-08-28] MEDS: WARFARIN 7.5 MG TAB PO ONE (16:57)
--- NOTE | 2023-08-28 17:43 | CA ---
Transthoracic Echo Report Name: Xander Burroughs Age: 73 Gender: M : 1950 Exam Date: 08/28/2023 09:33 Exam Location: [facility] Ht (in): 75 Wt (lb): 330 Ordering Physician: Mila Montalvo Attending/Referring Phys: Selvin SOLIS [employer] Jesica Avila RDCS Procedure CPT: Indications: chf Cardiac Hx: Technical Quality: Technically difficult study Contrast 1: Definity Total Dose (mL): 2 Contrast 2: Total Dose (mL): MEASUREMENTS (Male / Female) Normal Values 2D ECHO LV Diastolic Diameter PLAX 4.9 cm 4.2 - 5.9 / 3.9 - 5.3 cm LV Systolic Diameter PLAX 4.4 cm IVS Diastolic Thickness 1.9 cm 0.6 - 1.0 / 0.6 - 0.9 cm LVPW Diastolic Thickness 2.0 cm 0.6 - 1.0 / 0.6 - 0.9 cm LV Relative Wall Thickness 0.8 RV Internal Dim ED PLAX 4.1 cm LVOT Diameter 2.6 cm LV Diastolic Volume MOD BP 209.5 cm??? 67 - 155 / 56 - 104 cm??? LV Systolic Volume MOD BP 154.5 cm??? 22 - 58 / 19 - 49 cm??? LV Ejection Fraction MOD BP 26.2 % >= 55 % LV Cardiac Index MOD BP 1528.6 cm???/min???m??? LV Diastolic Volume MOD 4C 252.8 cm??? LV Systolic Volume MOD 4C 167.6 cm??? LV Ejection Fraction MOD 4C 33.7 % LV Cardiac Index MOD 4C 2371.4 cm???/min???m??? LV Diastolic Length 4C 9.6 cm LV Systolic Length 4C 9.4 cm LV Diastolic Volume MOD 2C 167.4 cm??? LV Systolic Volume MOD 2C 138.9 cm??? LV Ejection Fraction MOD 2C 17.0 % LV Cardiac Index MOD 2C 793.6 cm???/min???m??? LV Diastolic Length 2C 9.1 cm LV Systolic Length 2C 9.0 cm LA Volume 102.4 cm??? 18 - 58 / 22 - 52 cm??? LA Volume Index 35.6 cm???/m??? 16 - 28 cm???/m??? M-MODE Aortic Root Diameter MM 4.0 cm LA Systolic Diameter MM 6.6 cm LA Ao Ratio MM 1.7 DOPPLER AV Peak Velocity 147.1 cm/s AV Peak Gradient 8.7 mmHg AV Mean Velocity 75.6 cm/s AV Mean Gradient 3.1 mmHg AV Velocity Time Integral 20.4 cm MV Area PHT 4.4 cm??? Mitral E Point Velocity 117.1 cm/s Mitral A Point Velocity 0.3 cm/s Mitral E to A Ratio 361.2 MV Deceleration Time 171.7 ms TR Peak Velocity 242.3 cm/s TR Peak Gradient 23.5 mmHg Right Ventricular Systolic Press 26.4 mmHg FINDINGS Left Ventricle Severely increased septal wall thickness. Severely increased left ventricular diastolic volume. Severely increased left ventricular systolic volume. Severely decreased left ventricular ejection fraction. Left ventricular ejection fraction is estimated at 20-25 %. Severely reduced global left ventricular systolic function. Grade 2 diastolic dysfunction. Right Ventricle Right ventricular dilatation. Right ventricular systolic pressure within normal limits. Right Atrium Right atrium not well visualized. Left Atrium Moderately increased left atrial volume. Moderately increased left atrial area. Mitral Valve Mild mitral annular calcification. Moderate mitral regurgitation. Aortic Valve No aortic valve stenosis or regurgitation. Aortic valve sclerosis. Tricuspid Valve Structurally normal tricuspid valve. Mild tricuspid regurgitation. Pulmonic Valve Structurally normal pulmonic valve. Pericardium No pericardial effusion. Aorta Normal size aortic root and proximal ascending aorta. CONCLUSIONS Severe LV systolic dysfunction Moderate mitral regurgitation Previewed by: Dr. Lam Yuen MD (Electronically Signed) Final Date: 28 August 2023 17:43
[2023-08-29] MEDS: PANTOPRAZOLE 40 MG TABLET PO SCH (06:51)
[2023-08-29 12:00] LABS: Prothrombin Time 19.7 sec (10.0-12.5)
[2023-08-29] MEDS: HEPARIN SODIUM 1,000 UN/ML (10ML VL) IV ONE (12:49)
[2023-08-29] MEDS: DAPAGLIFLOZIN PROPANEDIOL 10 MG TABLET PO SCH (12:49)
[2023-08-29] MEDS: SPIRONOLACTONE 25 MG TAB PO SCH (12:49)
[2023-08-29] MEDS: HEPARIN SOD,PORK IN 0.45% NACL 25,000 UNIT in 0.45% NACL 1 250ML.BAG IV SCH (12:50)
[2023-08-29 13:12] LABS: African American GFR (CKD) 87 (>60 ml/min/1.73 sqM); Blood Urea Nitrogen 28 mg/dL (9-20); Calcium 8.9 mg/dL (8.4-10.2); Chloride 86 mmol/L (98-107); Glucose 114 mg/dL (74-99); Non-African American GFR(CKD) 75 (>60 ml/min/1.73 sqM); Potassium 3.5 mmol/L (3.5-5.1); Sodium 139 mmol/L (137-145)
[2023-08-29 13:19] LABS: Anion Gap 9 mmol/L
[2023-08-29 13:25] LABS: Carbon Dioxide 44 mmol/L (22-30)
[2023-08-29 13:28] LABS: Basophils % (A) 0 %; Eosinophils # (A) 0.1 k/uL (0-0.7); Eosinophils % (A) 1 %; HCT 50.3 % (39.0-53.0); HGB 15.3 gm/dL (13.0-17.5); Hypochromasia Moderate; Lymphocytes # (A) 0.8 k/uL (1.0-4.8); Lymphocytes % (A) 9 %; MCH 30.3 pg (25.0-35.0); MCHC 30.4 g/dL (31.0-37.0); MCV 99.7 fL (80.0-100.0); Mean Platelet Volume 10.6; Monocytes % (A) 12 %; Neutrophils # (A) 6.7 k/uL (1.3-7.7); Neutrophils % (A) 76 %; Platelet Count 112 k/uL (150-450); RBC 5.04 m/uL (4.30-5.90); RDW 13.7 % (11.5-15.5); WBC 8.7 k/uL (3.8-10.6)
--- NOTE | 2023-08-29 13:42 | P.PN ---
Subjective Progress Note Date: 08/29/23 Chief complaint: SOB History of present illness: The patient is a pleasant 73-year-old gentleman with a past medical history significant for paroxysmal atrial fibrillation as well as overweight and hypertension and dyslipidemia and multiple comorbid conditions presented to the hospital complaining of progressive exertional dyspnea and progressive lower extremities edema has started several weeks ago and got worse lately. He stated that he gained about 40 pounds within the last several months. He was diagnosed with congestive heart failure before and he stated that he has been compliant with his medications and compliant with low-sodium diet. No symptoms of any chest pain or chest discomfort or dizziness or lightheadedness or any feeling of heart racing or fluttering or presyncope or syncope. He underwent further workup including EKG showed atrial fibrillation with diffuse nonspecific ST and T wave abnormalities and troponin came in to be mildly abnormal. NT proBNP came in to be elevated. He is on Coumadin for atrial fibrillation. The physical examination is remarkable for stable vital signs with irregular rhythm and bilateral expiratory wheezing and severe bilateral lower extremities edema. Echo was ordered and still pending 08/27 Patient is seen today in follow-up. He remains on IV Lasix 40 mg every 12 hours. He is also on pulmonary medications including DuoNeb, Singulair. Blood pressure 97/60, heart rate 82, pulse ox 97% on 4 L nasal cannula. Repeat blood work reveals INR 1.5. CO2 46, BUN 28 creatinine 1.05. Echocardiogram is pending. Examination: Irregular rhythm, bilateral expiratory wheeze, bilateral lower extremity edema. 08/28 Echocardiogram reveals EF 20 to 25%, moderate mitral regurgitation. Reviewed r esults with the patient and discussed option of undergoing cardiac catheterization to rule out underlying coronary artery disease. The patient is open to this. We will wait in the next day or 2 until patient's respiratory status is stabilized. In the meantime, stop warfarin and start patient on h eparin drip and optimize heart failure medications. Atrial fibrillation is currently controlled. He denies having any chest pain. He does have some respiratory difficulty more so in the morning when he first gets up and gets better through the day. Examination: Irregular rhythm, bilateral expiratory wheeze, bilateral lower extremity edema. 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 N.p.o. after midnight Nurse practitioner note has been reviewed, I agree with documented findings and plan of care. Patient was seen and examined. Objective - Vital Signs Vital signs: Vital Signs Temp 97.3 F L 08/29/23 08:00 Pulse 92 08/29/23 11:36 Resp 20 08/29/23 11:36 BP 119/60 08/29/23 11:36 Pulse Ox 95 08/29/23 11:36 FiO2 Intake & Output 08/28/23 08/29/23 08/29/23 18:59 06:59 18:59 Intake Total 1940 358 Output Total 2375 2300 1400 Balance -435 2300 -1042 Weight 147.7 kg Intake: Oral 1940 358 Output: Urine 2375 2300 1400 Other: Voiding Method Urinal Urinal Urinal - Labs CBC & Chem 7: 08/29/23 11:15 08/29/23 11:15 Labs: Abnormal Lab Results - Last 24 Hours (Table) 08/28/23 08/28/23 Range/Units 12:13 12:13 PT 15.2 H (10.0-12.5) sec INR 1.5 H (<1.2) Chloride 86 L (98-107) mmol/L Carbon Dioxide 46 H* (22-30) mmol/L BUN 28 H (9-20) mg/dL
[2023-08-29] MEDS: HEPARIN SODIUM 1,000 UN/ML (10ML VL) IV PRN (19:49)
[2023-08-29] MEDS: SACUBITRIL/VALSARTAN 24 MG-26 MG TABLET PO SCH (21:05)
[2023-08-30 03:50] LABS: Basophils # (A) 0.1 k/uL (0-0.2); Basophils % (A) 1 %; Eosinophils # (A) 0.1 k/uL (0-0.7); Eosinophils % (A) 1 %; HGB 15.6 gm/dL (13.0-17.5); Hypochromasia Slight; Lymphocytes # (A) 1.1 k/uL (1.0-4.8); Lymphocytes % (A) 11 %; MCHC 30.6 g/dL (31.0-37.0); Mean Platelet Volume 10.4; Monocytes % (A) 10 %; Neutrophils # (A) 8.1 k/uL (1.3-7.7); Neutrophils % (A) 75 %; Platelet Count 104 k/uL (150-450); RDW 13.7 % (11.5-15.5); WBC 10.7 k/uL (3.8-10.6)
[2023-08-30 03:59] LABS: INR 1.8 (<1.2); Prothrombin Time 18.7 sec (10.0-12.5)
[2023-08-30 04:36] LABS: African American GFR (CKD) >90 (>60 ml/min/1.73 sqM); Blood Urea Nitrogen 31 mg/dL (9-20); Calcium 8.9 mg/dL (8.4-10.2); Chloride 85 mmol/L (98-107); Glucose 96 mg/dL (74-99); Non-African American GFR(CKD) 82 (>60 ml/min/1.73 sqM); Potassium 3.2 mmol/L (3.5-5.1); Sodium 136 mmol/L (137-145)
[2023-08-30 04:43] LABS: Anion Gap 6 mmol/L
[2023-08-30 05:11] LABS: Carbon Dioxide 45 mmol/L (22-30)
--- NOTE | 2023-08-30 06:48 | P.PN ---
Subjective Progress Note Date: 08/29/23 73-year-old male came to emergency department with complaints of shortness of breath but denies any significant orthopnea or paroxysmal nocturnal dyspnea although his BNP is elevated above 5000 and the chest x-ray is showing pulmonary edema. Patient does have a increased swelling in bilateral lower extremities. Patient uses 4 L of oxygen. Patient denies any history of sleep apnea. Patient does have chronic diastolic function uses 40 mg of daily Lasix on daily basis. Patient also has history of COPD uses 4 L of oxygen. But he does not wear oxygen for most of the time. Patient does have history of atrial fibrillation had ablation in the past patient is on Coumadin with subtherapeutic INR of 1.2 patient is on 3 and 6 mg of Coumadin alternating. Patient has mild elevated troponin and EKG showing atrial fibrillation with rapid ventricular rate patient denies any chest pain 08/27/2023 Patient is evaluated today in follow up. Sitting up on the edge of the bed. Feeling less short of breath. Continues with lower extremity pitting edema. Was maintained on IV lasix 40 mg Q8h recommending due to decreased to Q12 due to the metabolic alkalosis; CO2 level is 48 today. BUN is 26, creatinine 1.00. INR 1.3. Magnesium 1.6. Continues on 4L of oxygen. 08/28/2023 Patient is evaluated today in follow up. Patient is resting in bed. Continues to report feeling short of breath. He continues with lower extremity pitting edema. On IV lasix 40 mg Q12h. Has had 4.4 L of urine output in the last 24 hours. INR today is 1.3. His echocardiogram is pending. 08/29/2023 Patient is seen in follow-up today with cardiology following maintained on oxygen and patient reports he does wear oxygen at night as needed encouraged weaning as tolerated. Patient is continued on IV Lasix and will continue with cardiology also planning on possible cardiac catheterization in the next 1 to 2 days. Coumadin will be held for now and started on heparin for tentative catheterization. 2D echo showed an EF of 20 to 25% with mitral regurgitation. Patient is afebrile with no reports of worsening shortness of breath or chest pain. Patient has been tolerating diet with no reported nausea or vomiting. Encouraged to increase activity as tolerated. Review of Systems Constitutional: Denied any fatigue denied any fever. Cardio vascular: denied any chest pain, palpitations Gastrointestinal: denied any nausea, vomiting, diarrhea Pulmonary: Reports shortness of breath but slightly improving, no cough Neurologic denied any new focal deficits All inpatient medications were reviewed and appropriate changes in these medications as dictated in the interval history and assessment and plan. PHYSICAL EXAMINATION: GENERAL: The patient is alert and oriented x3, not in any acute distress. Obese HEENT: Pupils are round and equally reacting to light. EOMI. No scleral icterus. No conjunctival pallor. Normocephalic, atraumatic. No pharyngeal erythema. No thyromegaly. CARDIOVASCULAR: S1 and S2 muffled, currently rate controlled on the monitor PULMONARY: Diminished breath sounds bilaterally with faint crackles noted at the bases ABDOMEN: Soft, obese, nontender, nondistended, normoactive bowel sounds. No palp able organomegaly. MUSCULOSKELETAL: No joint swelling or deformity. EXTREMITIES: No cyanosis, clubbing, extensive bilateral lower extremity edema NEUROLOGICAL: Gross neurological examination did not reveal any focal deficits. SKIN: No rashes. Assessment: -CHF exacerbation chronic diastolic function with acute exacerbation, with evidence of right and left heart failure, EF is 20 to 25% -Acute hypoxic respiratory failure due to above. Patient reports he does wear oxygen outpatient but only at night as needed -COPD without any acute exacerbation patient has chronic hypoxic and hypercapnic respiratory failure -Hyperlipidemia -Atrial fibrillation with rapid ventricular rate, medications adjusted and currently rate controlled. Normally maintained on Coumadin and is subtherapeutic. Patient being started on IV heparin with possible cardiac catheterization being planned -Hypertension -Obesity with a BMI of 39.6 -DVT prophylaxis: Patient is on anticoagulation which Coumadin which will be held and being started on IV heparin -GI prophylaxis -Full code Plan: Continue telemetry monitoring and patient is being placed on IV heparin and Coumadin being held. Patient remains subtherapeutic and will likely return on Coumadin Cardiology following with plans on cardiac catheterization and initiating IV heparin. Possible catheterization within the next day or 2 Monitor respiratory status encouraged to increase activity as tolerated and will continue treatments. Wean FiO2 as tolerated. Patient reports he does have oxygen that he uses at night EF was noted to be 20 to 25% with evidence of right and left heart failure needing catheterization. Patient is agreeable The impression and plan of care has been dictated by Selene Trammell, Nurse Practitioner as directed. Dr. Jennifer MD I have performed a history and physical examination and medical decision making of this patient, discussed the same with the dictator, and agree with the dictators assessment and plan as written, documented as a scribe. Based on total visit time, I have performed more than 50% of this visit. Objective - Vital Signs Vital signs: Vital Signs Temp 97.3 F L 08/29/23 08:00 Pulse 86 08/29/23 09:34 Resp 20 08/29/23 08:00 BP 116/58 08/29/23 08:00 Pulse Ox 96 08/29/23 09:21 FiO2 Intake & Output 08/28/23 08/29/23 08/29/23 18:59 06:59 18:59 Intake Total 1940 118 Output Total 2375 2300 500 Balance -435 2300 -382 Weight 147.7 kg Intake: Oral 1940 118 Output: Urine 2375 2300 500 Other: Voiding Method Urinal Urinal Urinal - Labs CBC & Chem 7: 08/30/23 03:08 08/30/23 03:08 Labs: Abnormal Lab Results - Last 24 Hours (Table) 08/28/23 08/28/23 Range/Units 12:13 12:13 PT 15.2 H (10.0-12.5) sec INR 1.5 H (<1.2) Chloride 86 L (98-107) mmol/L Carbon Dioxide 46 H* (22-30) mmol/L BUN 28 H (9-20) mg/dL
[2023-08-30] MEDS: PHYTONADIONE ORAL 5 MG/5 ML ORAL.SYRG PO STA (10:10)
--- NOTE | 2023-08-30 10:46 | P.PN ---
Subjective Progress Note Date: 08/30/23 Chief complaint: SOB History of present illness: The patient is a pleasant 73-year-old gentleman with a past medical history significant for paroxysmal atrial fibrillation as well as overweight and hypertension and dyslipidemia and multiple comorbid conditions presented to the hospital complaining of progressive exertional dyspnea and progressive lower extremities edema has started several weeks ago and got worse lately. He stated that he gained about 40 pounds within the last several months. He was diagnosed with congestive heart failure before and he stated that he has been compliant with his medications and compliant with low-sodium diet. No symptoms of any chest pain or chest discomfort or dizziness or lightheadedness or any feeling of heart racing or fluttering or presyncope or syncope. He underwent further workup including EKG showed atrial fibrillation with diffuse nonspecific ST and T wave abnormalities and troponin came in to be mildly abnormal. NT proBNP came in to be elevated. He is on Coumadin for atrial fibrillation. The physical examination is remarkable for stable vital signs with irregular rhythm and bilateral expiratory wheezing and severe bilateral lower extremities edema. Echo was ordered and still pending 08/27 Patient is seen today in follow-up. He remains on IV Lasix 40 mg every 12 hours. He is also on pulmonary medications including DuoNeb, Singulair. Blood pressure 97/60, heart rate 82, pulse ox 97% on 4 L nasal cannula. Repeat blood work reveals INR 1.5. CO2 46, BUN 28 creatinine 1.05. Echocardiogram is pending. Examination: Irregular rhythm, bilateral expiratory wheeze, bilateral lower extremity edema. 08/28 Echocardiogram reveals EF 20 to 25%, moderate mitral regurgitation. Reviewed r esults with the patient and discussed option of undergoing cardiac catheterization to rule out underlying coronary artery disease. The patient is open to this. We will wait in the next day or 2 until patient's respiratory status is stabilized. In the meantime, stop warfarin and start patient on h eparin drip and optimize heart failure medications. Atrial fibrillation is currently controlled. He denies having any chest pain. He does have some respiratory difficulty more so in the morning when he first gets up and gets better through the day. Examination: Irregular rhythm, bilateral expiratory wheeze, bilateral lower extremity edema. 08/29 Patient is seen today in follow-up. Patient is agreeable to move forward with cardiac catheterization today. He has been n.p.o. since midnight. He received oral vitamin K we will add a dose of IV vitamin K and check INR in 4 hours. This may be delayed until tomorrow. He has been maintained on IV Lasix 40 mg every 12 hours. Patient has a negative fluid balance. Blood pressure 110/55, heart rate 86, pulse ox 94% on 4 L nasal cannula. Other lab work reveals WBC 10.7, hemoglobin 15.6, platelet count 104. Sodium 136, potassium 3.2, chloride 85, CO2 45, BUN 31 creatinine 0.94. Assessment Heart failure with evidence o agreeable to move forward with cardiac catheterization. He remains on heparin drip. INR is at 1.8 and patient received oral vitamin K we will add in IV vitamin K and check an INR in 4 hours.f right and left failure Atrial fibrillation with controlled heart rate at this point History of congestive heart failure Multiple comorbid conditions including overweight and hypertension and dyslipidemia Plan Continue the current medical regimen Continue IV Lasix 40 mg every 12 Monitor the kidney function and electrolytes Continue patient on heparin drip Continue the addition of Entresto 24-26 mg twice daily, Aldactone 12.5 mg daily, and Farxiga 10 mg daily Plan for cardiac catheterization after recheck of INR. N.p.o. after midnight Nurse practitioner note has been reviewed, I agree with documented findings and plan of care. Patient was seen and examined. Objective - Vital Signs Vital signs: Vital Signs Temp 98.4 F 08/29/23 19:57 Pulse 90 08/30/23 08:18 Resp 18 08/30/23 04:27 BP 110/55 08/30/23 04:27 Pulse Ox 94 L 08/30/23 08:05 FiO2 Intake & Output 08/29/23 08/30/23 08/30/23 18:59 06:59 18:59 Intake Total 1636 69.993 172.491 Output Total 1775 3550 Balance -139 -3480.007 172.491 Weight 143.8 kg Intake: Intake, IV Titration 69.993 172.491 Amount Heparin Sod,Pork in 0.45% 69.993 172.491 NaCl 25,000 unit In 0.45 % NaCl 1 250ml.bag @ 6.77 UNITS/KG/HR 9.999 mls/hr IV .Q24H FORMERLY [facility], 1928–1983 Rx#: [id number] Oral 1636 Output: Urine 1775 3550 Other: Voiding Method Urinal Urinal - Labs CBC & Chem 7: 08/30/23 03:08 08/30/23 03:08 Labs: Abnormal Lab Results - Last 24 Hours (Table) 08/29/23 08/29/23 08/29/23 Range/Units 11:15 11:15 11:15 WBC (3.8-10.6) k/uL MCHC 30.4 L (31.0-37.0) g/dL Plt Count 112 L (150-450) k/uL Neutrophils # (1.3-7.7) k/uL Lymphocytes # 0.8 L (1.0-4.8) k/uL PT 19.7 H (10.0-12.5) sec INR 2.0 H (<1.2) APTT (22.0-30.0) sec Sodium (137-145) mmol/L Potassium (3.5-5.1) mmol/L Chloride 86 L (98-107) mmol/L Carbon Dioxide 44 H* (22-30) mmol/L BUN 28 H (9-20) mg/dL Glucose 114 H (74-99) mg/dL 08/29/23 08/29/23 08/30/23 Range/Units 14:42 18:55 03:08 WBC (3.8-10.6) k/uL MCHC (31.0-37.0) g/dL Plt Count (150-450) k/uL Neutrophils # (1.3-7.7) k/uL Lymphocytes # (1.0-4.8) k/uL PT (10.0-12.5) sec INR (<1.2) APTT 51.9 H 37.5 H (22.0-30.0) sec Sodium 136 L (137-145) mmol/L Potassium 3.2 L (3.5-5.1) mmol/L Chloride 85 L (98-107) mmol/L Carbon Dioxide 45 H* (22-30) mmol/L BUN 31 H (9-20) mg/dL Glucose (74-99) mg/dL 08/30/23 08/30/23 Range/Units 03:08 03:08 WBC 10.7 H (3.8-10.6) k/uL MCHC 30.6 L (31.0-37.0) g/dL Plt Count 104 L (150-450) k/uL Neutrophils # 8.1 H (1.3-7.7) k/uL Lymphocytes # (1.0-4.8) k/uL PT 18.7 H (10.0-12.5) sec INR 1.8 H (<1.2) APTT 44.0 H (22.0-30.0) sec Sodium (137-145) mmol/L Potassium (3.5-5.1) mmol/L Chloride (98-107) mmol/L Carbon Dioxide (22-30) mmol/L BUN (9-20) mg/dL Glucose (74-99) mg/dL
[2023-08-30] MEDS: PHYTONADIONE 1 MG in SODIUM CHLORIDE 0.9% 50 ML IVPB STA (11:10)
[2023-08-30] MEDS: POTASSIUM CHLORIDE ER 20 MEQ TAB.ER PO STA (11:10)
[2023-08-30 12:43] LABS: INR 1.7 (<1.2); Prothrombin Time 17.4 sec (10.0-12.5)
[2023-08-30] MEDS ORDERED: ALPRAZolam 0.5 MG TAB PO PRN (12:51)
[2023-08-30] MEDS ORDERED: NITROGLYCERIN SL TABS 0.4 MG TAB SUBLINGUAL PRN (12:51)
[2023-08-30] MEDS ORDERED: ALPRAZolam 0.25 MG TAB PO PRN (12:51)
--- NOTE | 2023-08-30 13:00 | P.PN ---
Subjective Progress Note Date: 08/30/23 73-year-old male came to emergency department with complaints of shortness of breath but denies any significant orthopnea or paroxysmal nocturnal dyspnea although his BNP is elevated above 5000 and the chest x-ray is showing pulmonary edema. Patient does have a increased swelling in bilateral lower extremities. Patient uses 4 L of oxygen. Patient denies any history of sleep apnea. Patient does have chronic diastolic function uses 40 mg of daily Lasix on daily basis. Patient also has history of COPD uses 4 L of oxygen. But he does not wear oxygen for most of the time. Patient does have history of atrial fibrillation had ablation in the past patient is on Coumadin with subtherapeutic INR of 1.2 patient is on 3 and 6 mg of Coumadin alternating. Patient has mild elevated troponin and EKG showing atrial fibrillation with rapid ventricular rate patient denies any chest pain 08/27/2023 Patient is evaluated today in follow up. Sitting up on the edge of the bed. Feeling less short of breath. Continues with lower extremity pitting edema. Was maintained on IV lasix 40 mg Q8h recommending due to decreased to Q12 due to the metabolic alkalosis; CO2 level is 48 today. BUN is 26, creatinine 1.00. INR 1.3. Magnesium 1.6. Continues on 4L of oxygen. 08/28/2023 Patient is evaluated today in follow up. Patient is resting in bed. Continues to report feeling short of breath. He continues with lower extremity pitting edema. On IV lasix 40 mg Q12h. Has had 4.4 L of urine output in the last 24 hours. INR today is 1.3. His echocardiogram is pending. 08/29/2023 Patient is seen in follow-up today with cardiology following maintained on oxygen and patient reports he does wear oxygen at night as needed encouraged weaning as tolerated. Patient is continued on IV Lasix and will continue with cardiology also planning on possible cardiac catheterization in the next 1 to 2 days. Coumadin will be held for now and started on heparin for tentative catheterization. 2D echo showed an EF of 20 to 25% with mitral regurgitation. Patient is afebrile with no reports of worsening shortness of breath or chest pain. Patient has been tolerating diet with no reported nausea or vomiting. Encouraged to increase activity as tolerated. 08/30/2023 patient is seen in follow-up today with cardiology following initially scheduled for possible cardiac catheterization although INR was found to be mildly elevated and is being given a dose of vitamin K and repeat labs with possible catheterization this afternoon. Patient continues on heparin drip and currently n.p.o. and will await repeat labs this afternoon and discuss further with cardiology. Patient is afebrile with no reports of chest pain or shortness of breath. Patient has been up and walking on room air and denies any worsening shortness of breath. Patient reports his breathing is about the same. Review of Systems Constitutional: Denied any fatigue denied any fever. Cardio vascular: denied any chest pain, palpitations Gastrointestinal: denied any nausea, vomiting, diarrhea Pulmonary: Reports shortness of breath but slightly improving more so with exertion, no cough Neurologic denied any new focal deficits All inpatient medications were reviewed and appropriate changes in these medications as dictated in the interval history and assessment and plan. PHYSICAL EXAMINATION: GENERAL: The patient is alert and oriented x3, not in any acute distress. Obese HEENT: Pupils are round and equally reacting to light. EOMI. No scleral icterus. No conjunctival pallor. Normocephalic, atraumatic. No pharyngeal erythema. No thyromegaly. CARDIOVASCULAR: S1 and S2 muffled, currently rate controlled on the monitor PULMONARY: Diminished breath sounds bilaterally with faint crackles noted at the bases ABDOMEN: Soft, obese, nontender, nondistended, normoactive bowel sounds. No palpable organomegaly. MUSCULOSKELETAL: No joint swelling or deformity. EXTREMITIES: No cyanosis, clubbing, extensive bilateral lower extremity edema NEUROLOGICAL: Gross neurological examination did not reveal any focal deficits. SKIN: No rashes. Assessment: -CHF exacerbation chronic diastolic function with acute exacerbation, with evidence of right and left heart failure, EF is 20 to 25% -Acute hypoxic respiratory failure due to above. Patient reports he does wear oxygen outpatient but only at night as needed -COPD without any acute exacerbation patient has chronic hypoxic and hypercapnic respiratory failure -Hyperlipidemia -Atrial fibrillation with rapid ventricular rate, medications adjusted and currently rate controlled. Normally maintained on Coumadin and is subtherapeutic. Patient being started on IV heparin with possible cardiac c atheterization being planned -Hypertension -Obesity with a BMI of 39.6 -DVT prophylaxis: Patient is on anticoagulation which Coumadin which will be held and being started on IV heparin -GI prophylaxis -Full code Plan: Continue telemetry monitoring and patient is being placed on IV heparin and Coum johnie being held. Patient INR is elevated above 1.7 and is being given a dose of vitamin K as cardiology would like his INR less than 1.5 for catheterization Cardiology following with plans on cardiac catheterization and continued on IV heparin. Possible catheterization within the next day or 2 Monitor respiratory status encouraged to increase activity as tolerated and will continue treatments. Wean FiO2 as tolerated. Patient reports he does have oxygen that he uses at night. Patient currently on room air at this time EF was noted to be 20 to 25% with evidence of right and left heart failure needing catheterization. Patient is agreeable Will await cardiology clearance to determine discharge planning and treatment plan moving forward The impression and plan of care has been dictated by Selene Trammell, Nurse Practitioner as directed. Dr. Jennifer MD I have performed a history and physical examination and medical decision making of this patient, discussed the same with the dictator, and agree with the dictators assessment and plan as written, documented as a scribe. Based on total visit time, I have performed more than 50% of this visit. Objective - Vital Signs Vital signs: Vital Signs Temp 97.9 F 08/30/23 08:00 Pulse 94 08/30/23 11:27 Resp 18 08/30/23 08:00 BP 118/58 08/30/23 08:00 Pulse Ox 94 L 08/30/23 08:05 FiO2 Intake & Output 08/29/23 08/30/23 08/30/23 18:59 06:59 18:59 Intake Total 1636 69.993 172.491 Output Total 1775 3550 Balance -139 -3480.007 172.491 Weight 143.8 kg Intake: Intake, IV Titration 69.993 172.491 Amount Heparin Sod,Pork in 0.45% 69.993 172.491 NaCl 25,000 unit In 0.45 % NaCl 1 250ml.bag @ 6.77 UNITS/KG/HR 9.999 mls/hr IV .Q24H KAYLEE Rx#: [id number] Oral 1636 Output: Urine 1775 3550 Other: Voiding Method Urinal Urinal Urinal - Labs CBC & Chem 7: 08/30/23 03:08 08/30/23 03:08 Labs: Abnormal Lab Results - Last 24 Hours (Table) 08/29/23 08/29/23 08/29/23 Range/Units 11:15 11:15 14:42 WBC (3.8-10.6) k/uL MCHC 30.4 L (31.0-37.0) g/dL Plt Count 112 L (150-450) k/uL Neutrophils # (1.3-7.7) k/uL Lymphocytes # 0.8 L (1.0-4.8) k/uL PT (10.0-12.5) sec INR (<1.2) APTT 51.9 H (22.0-30.0) sec Sodium (137-145) mmol/L Potassium (3.5-5.1) mmol/L Chloride 86 L (98-107) mmol/L Carbon Dioxide 44 H* (22-30) mmol/L BUN 28 H (9-20) mg/dL Glucose 114 H (74-99) mg/dL 08/29/23 08/30/23 08/30/23 Range/Units 18:55 03:08 03:08 WBC (3.8-10.6) k/uL MCHC (31.0-37.0) g/dL Plt Count (150-450) k/uL Neutrophils # (1.3-7.7) k/uL Lymphocytes # (1.0-4.8) k/uL PT 18.7 H (10.0-12.5) sec INR 1.8 H (<1.2) APTT 37.5 H 44.0 H (22.0-30.0) sec Sodium 136 L (137-145) mmol/L Potassium 3.2 L (3.5-5.1) mmol/L Chloride 85 L (98-107) mmol/L Carbon Dioxide 45 H* (22-30) mmol/L BUN 31 H (9-20) mg/dL Glucose (74-99) mg/dL 08/30/23 08/30/23 Range/Units 03:08 12:26 WBC 10.7 H (3.8-10.6) k/uL MCHC 30.6 L (31.0-37.0) g/dL Plt Count 104 L (150-450) k/uL Neutrophils # 8.1 H (1.3-7.7) k/uL Lymphocytes # (1.0-4.8) k/uL PT 17.4 H (10.0-12.5) sec INR 1.7 H (<1.2) APTT (22.0-30.0) sec Sodium (137-145) mmol/L Potassium (3.5-5.1) mmol/L Chloride (98-107) mmol/L Carbon Dioxide (22-30) mmol/L BUN (9-20) mg/dL Glucose (74-99) mg/dL
[2023-08-31 04:18] VITALS: RESP 16
[2023-08-31] MEDS: ASPIRIN 325 MG TAB PO ONE (06:21)
[2023-08-31] MEDS: ATORVASTATIN 80 MG TAB PO ONE (06:21)
[2023-08-31 06:33] LABS: Glucose,Whole Blood 100 mg/dL (70-110)
[2023-08-31] MEDS ORDERED: HEPARIN SODIUM,PORCINE (1 ML) 2,500 UNIT in SODIUM CHLORIDE 0.9% 250 ML IRRIGATION PRN (07:00)
[2023-08-31] MEDS ORDERED: HEPARIN SODIUM,PORCINE 10,000 UNIT in SODIUM CHLORIDE 0.9% 1,000 ML IRRIGATION PRN (07:00)
[2023-08-31 07:15] LABS: Basophils # (A) 0.1 k/uL (0-0.2); Basophils % (A) 1 %; Eosinophils # (A) 0.1 k/uL (0-0.7); Eosinophils % (A) 2 %; HCT 51.3 % (39.0-53.0); HGB 15.8 gm/dL (13.0-17.5); Lymphocytes # (A) 1.2 k/uL (1.0-4.8); Lymphocytes % (A) 14 %; MCHC 30.8 g/dL (31.0-37.0); MCV 97.4 fL (80.0-100.0); Mean Platelet Volume 9.9; Monocytes % (A) 11 %; Neutrophils # (A) 6.1 k/uL (1.3-7.7); Neutrophils % (A) 70 %; Platelet Count 112 k/uL (150-450); RBC 5.26 m/uL (4.30-5.90); RDW 13.5 % (11.5-15.5); WBC 8.7 k/uL (3.8-10.6)
[2023-08-31 07:26] LABS: INR 1.3 (<1.2); Partial Thromboplastin Time 32.2 sec (22.0-30.0)
[2023-08-31 07:40] LABS: African American GFR (CKD) >90 (>60 ml/min/1.73 sqM); Blood Urea Nitrogen 27 mg/dL (9-20); Calcium 8.8 mg/dL (8.4-10.2); Chloride 92 mmol/L (98-107); Glucose 101 mg/dL (74-99); Non-African American GFR(CKD) 78 (>60 ml/min/1.73 sqM); Potassium 3.4 mmol/L (3.5-5.1); Sodium 137 mmol/L (137-145)
[2023-08-31 07:47] LABS: Anion Gap 4 mmol/L
[2023-08-31] MEDS ORDERED: LIDOCAINE 1% INJ 10MG/ML (20 ML MDV) ONE (07:55)
[2023-08-31] MEDS ORDERED: VERAPAMIL 2.5 MG/ML 2 ML AMP ONE (07:56)
[2023-08-31 07:57] LABS: Carbon Dioxide 41 mmol/L (22-30)
[2023-08-31] MEDS ORDERED: fentaNYL (PF) 50 MCG/ML 2 ML AMP ONE (08:50)
[2023-08-31] MEDS: MIDAZOLAM 2 MG/2 ML VIAL IVP ONE (08:56)
[2023-08-31] MEDS: fentaNYL (PF) 50 MCG/ML 2 ML AMP IVP ONE (08:56)
[2023-08-31] MEDS: LIDOCAINE 1% INJ 10MG/ML (20 ML MDV) SQ ONE (08:57)
[2023-08-31] MEDS: VERAPAMIL SYRINGE (5 MG/10 ML) INTRAARTER ONE (08:59)
[2023-08-31] MEDS: HEPARIN SODIUM 1,000 UN/ML (10ML VL) IVP ONE (08:59)
[2023-08-31] MEDS: IOPAMIDOL-370 100ML BTL INJ ONE (09:05)
[2023-08-31] MEDS: SODIUM CHLORIDE 0.9% 500 ML 500 ML IV ONE (09:05)
[2023-08-31] MEDS ORDERED: RX INFO: IV CONTRAST WAS GIVEN 1 EACH MISC MISCELLANE PRN (09:19)
--- NOTE | 2023-08-31 09:21 | P.PCN ---
Date of Procedure: 08/31/23 Operative Findings: CARDIAC CATHETERIZATION PERFORMING PHYSICIAN: Kleber Gutierrez MD, RPVI PROCEDURE PERFORMED: 1. Selective right and left coronary angiogram 2. Left heart catheterization 3. Ultrasound-guided access of the right radial artery INDICATION: Cardiomyopathy COMPLICATION: None APPROACH: Right radial artery LEVEL OF SEDATION: Moderate with a sedation length of 10 minutes PROCEDURE DESCRIPTION: After obtaining an informed consent, the patient was brought to cardiac laborer carpentry dock. Local anesthesia was performed using lidocaine subcutaneously. The right radial artery was cannulated using Seldinger technique, the guidewire passed easily, following that we advanced a 5-[place] sheath dilator assembly, the wire and dilator were removed and sheath was flushed. Following that, 2 mg of verapamil along with 5000 unit heparin were given. Selective right and left coronary angiogram using a 6-[place] JR4 and JL 3.5 catheters. Following that we did left heart catheterization using 6-[place] pigtail catheter. The procedure was completed there was no complication. SELECTIVE CORONARY ANGIOGRAM: The right coronary artery: Large-caliber vessel and a dominant vessel and appears to be angiographically normal Left main: Is normal The left circumflex: Large-caliber vessel nondominant vessel and normal angiography and gives rise into a large OM branch which seems to be normal The left anterior descending artery: Large-caliber vessel. Is normal. Gives rise into a large diagonal branch which seems to be normal HEMODYNAMICS: LVEDP was 17 mmHg with no significant gradient across aortic valve CONCLUSION: 1. Normal coronary angiogram and nonischemic cardiomyopathy 2. Mildly elevated left-sided filling pressure POSTPROCEDURE MANAGEMENT: Medical treatment
[2023-08-31] MEDS: SODIUM CHLORIDE 0.9% 1,000 ML IV SCH (09:46)
[2023-08-31 13:40] VITALS: TEMP 96.7
[2023-08-31 13:41] VITALS: BP 105/59; PULSE 82
--- NOTE | 2023-09-03 05:31 | P.DS ---
Providers Date of admission: 08/26/23 10:08 Expected date of discharge: 08/31/23 Attending physician: Sonal Rodriguez Consults: 08/26/23 10:06 Consult Physician Routine Consulting Provider: [facility] Consult Reason/Comments: Acute pulmonary edema Do you want consulting provider notified?: Yes Primary care physician: Leanna Veras Hospital Course: Final diagnosis -CHF exacerbation chronic diastolic function with acute exacerbation, with evidence of right and left heart failure, EF is 20 to 25%, status post cardiac catheterization -Acute hypoxic respiratory failure due to above. Patient reports he does wear oxygen outpatient but only at night as needed -COPD without any acute exacerbation patient has chronic hypoxic and hypercapnic respiratory failure -Hyperlipidemia -Atrial fibrillation with rapid ventricular rate, medications adjusted and currently rate controlled. -Coumadin therapy -Hypertension -Obesity with a BMI of 39.6 -DVT prophylaxis -GI prophylaxis -Full code Discharge disposition Patient is being discharged in a stable condition with guarded prognosis to home. Patient will follow-up with Dr. Veras in the outpatient setting upon discharge. Patient is to continue with current medications and close outpatient follow-up with cardiology as scheduled. Total time taken is greater than 35 minutes. Hospital course This is a 73-year-old male who was recently admitted with CHF exacerbation with acute on chronic hypoxic respiratory failure. Patient being followed by cardiology and placed on IV heparin as patient was scheduled to undergo cardiac catheterization. EF was noted to be 20 to 25% and patient is status post catheterization with no stenting done. Recommend maximizing medical management and close outpatient follow-up. Patient does have oxygen chronically that he wears outpatient as needed at night and instructed to follow-up with pulmonary as well in the outpatient setting. Patient reports to feeling well currently undergoing catheterization protocol postop and will be cleared for discharge home later. Please refer to cardiology notes for further HPI. Currently no reports of chest pain, shortness of breath, or palpitations. Patient is afebrile. No reports of nausea or vomiting and patient is tolerating diet. Patient will be discharged home today. Patient being started back on Coumadin recommend close outpatient follow-up and monitoring of INR levels until patient is therapeutic. High risk for readmissions given patient's significant comorbidities Physical exam: Gen: This is a 73-year-old male who is awake, alert and oriented x 3, well- developed, well-nourished, morbidly obese HEENT: Head is atraumatic, normocephalic. Pupils equal, round. Sclerae is anicteric. NECK: Supple. No JVD. No lymphadenopathy. No thyromegaly. LUNGS: Diminished breath sounds bilaterally otherwise clear to auscultation. No wheezes or rhonchi. No intercostal retractions. HEART: S1, S2 are muffled ABDOMEN: Soft. Obese bowel sounds are present. No masses. No tenderness. EXTREMITIES: No pedal edema. No calf tenderness. Mild lower extremity edema, nonpitting, improved from previous NEUROLOGICAL: Patient is awake, alert and oriented x3. Cranial nerves 2 through 12 are grossly intact. Please refer to medication reconciliation sheet for a list of medications. The impression and plan of care has been dictated by Selene Trammell, Nurse Practitioner as directed. Dr. Jennifer MD I have performed a history and examination and MDM of this patient, discussed the same with the dictator, and agree with the dictator's assessment and plan as written ,documented as a scribe. Based on total visit time, I have performed more than 50% of the visit. Patient Condition at Discharge: Fair Plan - Discharge Summary New Discharge Prescriptions: New Dapagliflozin Propanediol [Farxiga] 10 mg PO DAILY #30 tab Nitroglycerin Sl Tabs [Nitrostat] 0.4 mg SUBLINGUAL Q5M PRN #20 tab PRN Reason: Chest Pain Spironolactone [Aldactone] 12.5 mg PO DAILY #30 tab Ipratropium-Albuterol Nebulize [Duoneb 0.5 mg-3 mg/3 ml Soln] 3 ml INHALATION RT-QID PRN each PRN Reason: Shortness Of Breath Or Wheezing Sacubitril/Valsartan [Entresto 24 mg-26 mg Tablet] 1 each PO BID #60 tab Continue Metoprolol Tartrate [Lopressor] 50 mg PO BID@0900,1600 Montelukast [Singulair] 10 mg PO DAILY@1600 Albuterol Nebulized [Ventolin Nebulized] 2.5 mg INHALATION RT-QID Warfarin Sodium 6 mg PO TH@1600 Budesonide [Pulmicort] 0.5 mg INHALATION RT-BID EPINEPHrine (Auto Inject) [Epipen] 0.3 mg IM ONCE PRN PRN Reason: Anaphylaxis Atorvastatin [Lipitor] 40 mg PO DAILY@1600 Warfarin Sodium 4 mg PO SUMOTUWEFRSA@1600 Ipratropium Nebulized [Atrovent Nebulized 0.2 MG/ML] 0.5 mg INHALATION RT-QID Changed Furosemide [Lasix] 40 mg PO BID #60 tab Discontinued lisinopriL [Zestril] 10 mg PO DAILY@1600 Discharge Medication List Metoprolol Tartrate [Lopressor] 50 mg PO BID@0900,1600 05/14/20 [History] Albuterol Nebulized [Ventolin Nebulized] 2.5 mg INHALATION RT-QID 08/26/23 [History] Atorvastatin [Lipitor] 40 mg PO DAILY@159908/26/23 [History] Budesonide [Pulmicort] 0.5 mg INHALATION RT-BID 08/26/23 [History] EPINEPHrine (Auto Inject) [Epipen] 0.3 mg IM ONCE PRN 08/26/23 [History] Ipratropium Nebulized [Atrovent Nebulized 0.2 MG/ML] 0.5 mg INHALATION RT-QID 08/26/23 [History] Montelukast [Singulair] 10 mg PO DAILY@159908/26/23 [History] Warfarin Sodium 4 mg PO SUMOTUWEFRSA@1600 08/26/23 [History] Warfarin Sodium 6 mg PO TH@159908/26/23 [History] Dapagliflozin Propanediol [Farxiga] 10 mg PO DAILY #30 tab 08/31/23 [Rx] Furosemide [Lasix] 40 mg PO BID #60 tab 08/31/23 [Rx] Ipratropium-Albuterol Nebulize [Duoneb 0.5 mg-3 mg/3 ml Soln] 3 ml INHALATION RT-QID PRN each 08/31/23 [Rx] Nitroglycerin Sl Tabs [Nitrostat] 0.4 mg SUBLINGUAL Q5M PRN #20 tab 08/31/23 [Rx] Sacubitril/Valsartan [Entresto 24 mg-26 mg Tablet] 1 each PO BID #60 tab 08/31/23 [Rx] Spironolactone [Aldactone] 12.5 mg PO DAILY #30 tab 08/31/23 [Rx] Follow up Appointment(s)/Referral(s): Kleber Gutierrez MD [STAFF PHYSICIAN] - 1 Week (office will call you with an appointment) Leanna Veras MD [Primary Care Provider] - 09/06/23 4:30 pm (keep your scheduled appointment) Ambulatory/Diagnostic Orders: Prothrombin Time INR [LAB.AMB] Time Frame: 3 Days, Location: None Selected Patient Instructions/Handouts: After Radial Heart Catheterization (GEN) Activity/Diet/Wound Care/Special Instructions: Activity limited until follow-up Follow-up with primary care provider on discharge Follow-up with cardiology in 1 to 2 weeks Continue taking medications as prescribed Recommend repeat labs in the next 2 to 3 days Continue taking Coumadin and will need close monitoring of PTT/INR Discharge Disposition: HOME SELF-CARE
== END 2023-08-31 15:48 | disposition home or self-care (01) | DRG 286 ==
LOC: EC 07:18 → 3SCARD 10:08
PROVIDERS: ADMIT Internal Medicine; ATTEND Internal Medicine
PROC: B2111ZZ Fluoroscopy of Multiple Coronary Arteries using Low Osmolar Contrast (ICD-10-PCS; 2023-08-31)
PROC: 4A023N7 Measurement of Cardiac Sampling and Pressure, Left Heart, Percutaneous Approach (ICD-10-PCS; principal; 2023-08-31 07:30)
DX: I13.0 Hypertensive heart and chronic kidney disease with heart failure and stage 1 through stage 4 chronic kidney disease, or unspecified chronic kidney disease (principal); I50.33 Acute on chronic diastolic (congestive) heart failure; J96.01 Acute respiratory failure with hypoxia; E87.3 Alkalosis; I25.10 Atherosclerotic heart disease of native coronary artery without angina pectoris; I48.0 Paroxysmal atrial fibrillation; I08.1 Rheumatic disorders of both mitral and tricuspid valves; J44.9 Chronic obstructive pulmonary disease, unspecified; Z79.01 Long term (current) use of anticoagulants; E66.9 Obesity, unspecified; Z68.39 Body mass index [BMI] 39.0-39.9, adult; E78.5 Hyperlipidemia, unspecified; I42.8 Other cardiomyopathies; Z79.899 Other long term (current) drug therapy; Z82.49 Family history of ischemic heart disease and other diseases of the circulatory system; Z86.73 Personal history of transient ischemic attack (TIA), and cerebral infarction without residual deficits; Z87.01 Personal history of pneumonia (recurrent)
CPT/HCPCS: 36415; 71046; 80048; 80053; 83605; 83735; 83880; 84484; 85025; 85610; 85730; 93005; 93306; 93458; 94640; 94760; 96374; 96375; 99285

== ENCOUNTER 2023-10-04 06:14 | Day surgery (SDC) | payer MEDICARE ==
[~2023-10-04 06:14] MED LIST: SODIUM CHLORIDE 0.9% 1,000 ML IV SCH
[2023-10-04] MEDS: SODIUM CHLORIDE 0.9% 500 ML DEHP FREE BAG IV STA (07:12)
[2023-10-04] MEDS: IV FLUID CONTINUATION 500 ML IV ONE (07:13)
[2023-10-04 07:19] VITALS: TEMP 96.8
[2023-10-04 07:23] LABS: INR 2.6 (<1.2); Prothrombin Time 25.7 sec (10.0-12.5)
[2023-10-04] MEDS ORDERED: MIDAZOLAM 2 MG/2 ML VIAL ONE (07:23)
[2023-10-04] MEDS ORDERED: PROPOFOL 10 MG/ML 20 ML VIAL IV ONE (07:23)
[2023-10-04] MEDS ORDERED: KETAMINE HCL IN 0.9 % NACL 50 MG/5 ML SYRINGE ONE (07:23)
[2023-10-04] MEDS: BENZOCAINE SPRAY 1 CAN TOPICAL ONE (07:28)
[2023-10-04 07:32] LABS: African American GFR (CKD) 86 (>60 ml/min/1.73 sqM); Anion Gap 4 mmol/L; Blood Urea Nitrogen 23 mg/dL (9-20); Calcium 8.8 mg/dL (8.4-10.2); Carbon Dioxide 32 mmol/L (22-30); Chloride 102 mmol/L (98-107); Glucose 125 mg/dL (74-99); Non-African American GFR(CKD) 75 (>60 ml/min/1.73 sqM); Potassium 4.3 mmol/L (3.5-5.1); Sodium 138 mmol/L (137-145)
--- NOTE | 2023-10-04 07:53 | P.PCN ---
Date of Procedure: 10/04/23 Operative Findings: TRANSESOPHAGEAL ECHOCARDIOGRAM PROGRAM PROJECT MANAGER: STEPHON ORTIZ MD, RPVI INDICATION: Rule out intracardiac thrombus before cardioversion SEDATION: Conscious sedation COMPLICATION: None LEVEL OF SEDATION The procedure was performed using propofol with MARKETING TEACHER in the room PROCEDURE DESCRIPTION: After obtaining an informed consent, the patient was brought to transesophageal echocardiogram room. Pulse oximetry and heart monitors were attached to the patient. The patient throat was sprayed using lidocaine. The patient was turned into left lateral position. After that a bite guard was placed. After an appropriate conscious sedation was initiated, the transesophageal echocardiogram was advanced through a bite guard into the mid esophagus. A 2-D echocardiogram images, color Doppler images, continuous wave images, pulse-wave images, of various cardiac structure were performed. After that the transesophageal echocardiogram probe was advanced into the stomach and fixed to obtain transgastric view was. The probe was brought into the mid esophagus. Inter-atrial septum was interrogated using 2D images, color Doppler images, and then contrast study. After that transesophageal echocardiogram was withdrawn out and upon withdrawing the descending thoracic aorta all the way up to the arch was evaluated. CONCLUSION: 1. Severe cardiomyopathy with EF around 25% 2. Moderate mitral and tricuspid regurgitation 3. Intact left atrial abdomen 4. No evidence of pericardial effusion
--- NOTE | 2023-10-04 07:54 | P.PCN ---
Date of Procedure: 10/04/23 Operative Findings: Cardioversion Report Performing physician Kleber Gutierrez M.D. Procedure performed Successful cardioversion of atrial fibrillation to normal sinus mechanism using 150 J at first attempt Indication Symptomatic atrial fibrillation Complication None Level of sedation The procedure was performed under deep sedation using propofol with PAYROLL ASSOCIATE in the room Procedure description After obtaining an informed consent the patient was brought to the recovery room. Sedation was introduced using propofol with PAYROLL ASSOCIATE in the room. Subsequently FARIDA was performed and showed no evidence of intracardiac thrombus Subsequently the patient cardioverted from atrial fibrillation to normal sinus mechanism using 200 J and first attempt Conclusion Successful cardioversion of atrial fibrillation to normal sinus mechanism using 200 J Postprocedure management Continue the current medical regimen Continue oral anticoagulation Follow-up with the patient
[2023-10-04 09:36] VITALS: BP 105/82; PULSE 72; RESP 18
== END 2023-10-04 09:37 | disposition home or self-care (01) ==
LOC: OR 06:14
PROVIDERS: ATTEND Internal Medicine Interventional Cardiology
DX: I08.1 Rheumatic disorders of both mitral and tricuspid valves (principal); I48.0 Paroxysmal atrial fibrillation; I10 Essential (primary) hypertension; J44.9 Chronic obstructive pulmonary disease, unspecified; E78.5 Hyperlipidemia, unspecified; I42.8 Other cardiomyopathies; E66.9 Obesity, unspecified; Z86.73 Personal history of transient ischemic attack (TIA), and cerebral infarction without residual deficits; Z87.891 Personal history of nicotine dependence; Z86.79 Personal history of other diseases of the circulatory system; Z79.01 Long term (current) use of anticoagulants; Z79.82 Long term (current) use of aspirin; Z79.51 Long term (current) use of inhaled steroids; Z79.899 Other long term (current) drug therapy
CPT/HCPCS: 93312; 93320; 93325; 92960; 80048; 85610; 99152; J2250; J2704

== ENCOUNTER 2023-11-23 06:16 | Day surgery (SDC) | payer MEDICARE ==
[2023-11-22 13:58] VITALS: BMI 39.8
[2023-11-23 07:13] VITALS: TEMP 97.3
[2023-11-23] MEDS: SODIUM CHLORIDE 0.9% 500 ML DEHP FREE BAG IV STA (07:27)
[2023-11-23] MEDS: IV FLUID CONTINUATION 500 ML IV ONE (07:28)
[2023-11-23 07:35] LABS: Glucose,Whole Blood 119 mg/dL (70-110)
[2023-11-23 07:46] VITALS: RESP 16
[2023-11-23] MEDS ORDERED: LIDOCAINE 1% INJ 10MG/ML (20 ML MDV) ONE (07:46)
[2023-11-23] MEDS ORDERED: PROPOFOL 10 MG/ML 20 ML VIAL IV ONE (07:46)
[2023-11-23 07:56] LABS: African American GFR (CKD) 76 (>60 ml/min/1.73 sqM); Anion Gap 4 mmol/L; Blood Urea Nitrogen 23 mg/dL (9-20); Calcium 8.5 mg/dL (8.4-10.2); Carbon Dioxide 34 mmol/L (22-30); Chloride 100 mmol/L (98-107); Glucose 122 mg/dL (74-99); Non-African American GFR(CKD) 66 (>60 ml/min/1.73 sqM); Potassium 4.2 mmol/L (3.5-5.1); Sodium 138 mmol/L (137-145)
--- NOTE | 2023-11-23 08:08 | P.PCN ---
Date of Procedure: 11/23/23 Operative Findings: TRANSESOPHAGEAL ECHOCARDIOGRAM HEADER SETUP OPERATOR: STEPHON ORTIZ MD, RPVI INDICATION: Rule out intracardiac thrombus before cardioversion SEDATION: Conscious sedation COMPLICATION: None LEVEL OF SEDATION The procedure was performed using propofol with SAMPLE PROCESSOR in the room PROCEDURE DESCRIPTION: After obtaining an informed consent, the patient was brought to transesophageal echocardiogram room. Pulse oximetry and heart monitors were attached to the patient. The patient throat was sprayed using lidocaine. The patient was turned into left lateral position. After that a bite guard was placed. After an appropriate conscious sedation was initiated, the transesophageal echocardiogram was advanced through a bite guard into the mid esophagus. A 2-D echocardiogram images, color Doppler images, continuous wave images, pulse-wave images, of various cardiac structure were performed. After that the transesophageal echocardiogram probe was advanced into the stomach and fixed to obtain transgastric view was. The probe was brought into the mid esophagus. Inter-atrial septum was interrogated using 2D images, color Doppler images, and then contrast study. After that transesophageal echocardiogram was withdrawn out and upon withdrawing the descending thoracic aorta all the way up to the arch was evaluated. CONCLUSION: 1. Impaired LV function with EF around 30% with global hypokinesia 2. Intact left atrial appendage 3. No evidence of intracardiac thrombus 4. Moderate mitral regurgitation 5. Intact interatrial septum 6. No evidence of pericardial effusion
--- NOTE | 2023-11-23 08:09 | P.PCN ---
Date of Procedure: 11/23/23 Operative Findings: Cardioversion Report Performing physician Kleber Gutierrez M.D. Procedure performed Successful cardioversion of atrial fibrillation to normal sinus mechanism using 200 J at first attempt Indication Symptomatic atrial fibrillation Complication None Level of sedation The procedure was performed under deep sedation using propofol with HEDDLER TIER in the room Procedure description After obtaining an informed consent the patient was brought to the recovery room. Sedation was introduced using propofol with HEDDLER TIER in the room. Subsequently the patient cardioverted from atrial fibrillation to normal sinus mechanism using 200 J and first attempt Conclusion Successful cardioversion of atrial fibrillation to normal sinus mechanism using 200 J Postprocedure management Continue the current medical regimen Continue oral anticoagulation Follow-up with the patient
[2023-11-23 09:14] VITALS: BP 99/65; PULSE 67
== END 2023-11-23 09:30 | disposition home or self-care (01) ==
LOC: OR 06:16
PROVIDERS: ATTEND Internal Medicine Interventional Cardiology
DX: I34.0 Nonrheumatic mitral (valve) insufficiency (principal); I48.0 Paroxysmal atrial fibrillation; I42.8 Other cardiomyopathies; I10 Essential (primary) hypertension; E78.5 Hyperlipidemia, unspecified; J44.9 Chronic obstructive pulmonary disease, unspecified; G45.9 Transient cerebral ischemic attack, unspecified; E66.3 Overweight; Z68.39 Body mass index [BMI] 39.0-39.9, adult; Z86.79 Personal history of other diseases of the circulatory system; Z87.891 Personal history of nicotine dependence; Z79.82 Long term (current) use of aspirin; Z79.899 Other long term (current) drug therapy; Z79.02 Long term (current) use of antithrombotics/antiplatelets
CPT/HCPCS: 80048; 92960; 93312; 93320; 93325

== ENCOUNTER → 2024-01-14 | Outpatient (CLI) | payer MEDICARE ==
[2024-01-14 07:08] LABS: African American GFR (CKD) 69 (>60 ml/min/1.73 sqM); Blood Urea Nitrogen 30 mg/dL (9-20); Non-African American GFR(CKD) 60 (>60 ml/min/1.73 sqM)
--- NOTE | 2024-01-14 08:56 | CT ---
EXAMINATION TYPE: CT chest w con CT DLP: 1073.9 mGycm, Automated exposure control for dose reduction was used. DATE OF EXAM: 01/14/2024 7:26 AM COMPARISON: Chest radiograph 08/26/23 CLINICAL INDICATION:Male, 74 years old with history of R04.2 hemoptysis; PHH, hemoptysis TECHNIQUE: Multiple axial images were obtained through the chest following the administration of 100 cc of Isovue 300. . Coronal and sagittal reformats reviewed. FINDINGS: LUNGS/ PLEURA: No pneumothorax. Small right pleural effusion. Scattered calcified granulomas. Right upper lobe linear scarring. Few perihilar scattered groundglass opacities. Right middle lobe atelecta tic changes. AIRWAY: Patent and unremarkable.. HEART: The heart is mildly increased in size.. No pericardial effusion.. MEDIASTINUM: No evidence of adenopathy. Calcified mediastinal and bilateral hilar nodes. VASCULATURE: No aortic aneurysm. MUSCULOSKELETAL: No acute osseous abnormalities. No aggressive osseous lesion. Bilateral rib bridging anteriorly. SOFT TISSUES/LYMPH NODES: Bilateral mild gynecomastia. LOWER NECK: No significant findings. UPPER ABDOMEN: Trace perihepatic ascites. Gallbladder surgically absent. IMPRESSION: 1. Small right pleural effusion with scattered perihilar groundglass opacities concerning for atypic al pneumonia versus pulmonary edema. Correlate with BNP for CHF exacerbation. 2. Sequelae of prior granulomatous disease. 3. Trace perihepatic ascites. [facility] Anam Ospina, , 01/14/2024 8:54 AM
== END | disposition home or self-care (01) ==
LOC: RADCTMAIN 06:18
PROVIDERS: ATTEND Family Medicine
CPT/HCPCS: 36415; 71260; 82565; 84520

== ENCOUNTER 2024-01-27 18:02 | Inpatient (IN) | payer MEDICARE ==
--- NOTE | 2024-01-27 18:20 | ED ---
General Adult HPI - General Chief complaint: Shortness of Breath Stated complaint: MEJIA Time Seen by Provider: 01/27/24 18:12 Source: patient, EMS Mode of arrival: EMS Limitations: no limitations - History of Present Illness Initial comments: Patient presents to the ED complaining of having increasing dyspnea and wheezing over the past 4 days or so. Patient states that he has a history of COPD, and he states that he is on 4 L of home O2 regularly. Patient states that he was diagnosed with and treated for pneumonia with a course of antibiotics a couple of weeks ago, and his symptoms improved at that time, but he has now developed a mild cough again today. Patient denies having any pain, fever or chills, headache, chest pain or pressure, palpitations, dizziness, abdominal pain, nausea/vomiting/diarrhea, bloody or melanotic stool, dysuria or urinary symptoms, decreased urine output, leg or calf swelling or pain, or any other symptoms or complaints. Patient states that he has a nebulizer machine at home, but he denies giving himself any neb treatments today. - Related Data Home Medications Medication Instructions Recorded Confirmed Albuterol Nebulized [Ventolin 2.5 mg INHALATION RT-QID 08/26/23 01/27/24 Nebulized] Atorvastatin [Lipitor] 40 mg PO DAILY 08/26/23 01/27/24 Budesonide [Pulmicort] 0.5 mg INHALATION RT-BID 08/26/23 01/27/24 EPINEPHrine (Auto Inject) [Epipen] 0.3 mg IM ONCE PRN 08/26/23 01/27/24 Ipratropium Nebulized [Atrovent 0.5 mg INHALATION RT-QID 08/26/23 01/27/24 Nebulized 0.2 MG/ML] Montelukast [Singulair] 10 mg PO DAILY 08/26/23 01/27/24 Warfarin Sodium 4 mg PO DIRECTED 08/26/23 01/27/24 Aspirin [Adult Low Dose Aspirin EC] 81 mg PO DAILY 10/03/23 01/27/24 Furosemide [Lasix] 40 mg PO DAILY 10/03/23 01/27/24 Amiodarone HCl [Pacerone] 200 mg PO DAILY 11/22/23 01/27/24 Spironolactone [Aldactone] 12.5 mg PO DAILY 11/22/23 01/27/24 Empagliflozin [Jardiance] 10 mg PO DAILY 01/27/24 01/27/24 Metoprolol Tartrate [Lopressor] 75 mg PO BID 01/27/24 01/27/24 Nitroglycerin Sl Tabs [Nitrostat] 0.4 mg SL Q5M PRN 01/27/24 01/27/24 Warfarin Sodium 6 mg PO MOFR 01/27/24 01/27/24 Previous Rx's Medication Instructions Recorded Dapagliflozin Propanediol [Farxiga] 10 mg PO DAILY #30 tab 08/31/23 Allergies Allergy/AdvReac Type Severity Reaction Status Date / Time No Known Allergies Allergy Verified 11/23/23 07:22 Review of Systems ROS Statement: Those systems with pertinent positive or pertinent negative responses have been documented in the HPI. ROS Other: All systems not noted in ROS Statement are negative. Past Medical History Past Medical History: Atrial Fibrillation, Asthma, Heart Failure, COPD, CVA/TIA, Hyperlipidemia, Hypertension, Pneumonia Additional Past Medical History / Comment(s): 04/2020 pt admitted to [facility] with TIA/MRI/cat scan showed L posterior frontal lobe possible meningioma/L posterior frontal lobe mass-pt followed up with neurologist but stopped going when they wanted pt. to go to [place] History of Any Multi-Drug Resistant Organisms: None Reported Past Surgical History: Cardiac Ablation, Orthopedic Surgery Additional Past Surgical History / Comment(s): Right shoulder fracture with surgery/pins, cardiac ablation at [facility],Cardioversion & FARIDA September 2023 Past Anesthesia/Blood Transfusion Reactions: No Reported Reaction Additional Past Anesthesia/Blood Transfusion Reaction / Comment(s): unk family hx. no hx blood transfusion Past Psychological History: No Psychological Hx Reported Smoking Status: Former smoker - Past Family History Father History Unknown: Yes Family Medical History: No Reported History, Hypertension, Myocardial Infarction (CA) Additional Family Medical History / Comment(s): Father of a CA at the age of 86 or 87yrs. Mother History Unknown: Yes Family Medical History: Hypertension General Exam Limitations: no limitations General appearance: alert Eye exam: Present: normal appearance ENT exam: Present: mucous membranes moist Neck exam: Present: other (Trachea is in midline) Respiratory exam: Present: respiratory distress, wheezes, prolonged expiratory. Absent: rales, rhonchi, stridor Cardiovascular Exam: Present: tachycardia, irregular rhythm, normal heart sounds, other (Normal radial pulses bilaterally) GI/Abdominal exam: Present: soft. Absent: tenderness, guarding Extremities exam: Present: other (Negative Homans' sign bilaterally). Absent: tenderness, pedal edema, calf tenderness Neurological exam: Present: alert, oriented X3 Psychiatric exam: Present: normal affect Skin exam: Present: warm, dry, normal color Course Vital Signs 01/27/24 01/27/24 01/27/24 18:02 18:04 18:27 Temperature 98.3 F Pulse Rate 117 H Respiratory 22 22 Rate Blood Pressure 106/83 O2 Sat by Pulse 75 L 94 L Oximetry 01/27/24 01/27/24 01/27/24 19:17 19:26 19:33 Temperature 97.0 F L Pulse Rate 191 H 113 H 116 H Respiratory 17 19 Rate Blood Pressure 105/67 112/69 O2 Sat by Pulse Oximetry 01/27/24 01/27/24 19:38 19:51 Temperature Pulse Rate 95 85 Respiratory 18 26 H Rate Blood Pressure 89/65 O2 Sat by Pulse Oximetry - Reevaluation(s) Reevaluation #1: 01/27/24 20:04 Patient remains in atrial flutter on the community director, but his heart rate has now improved to the 80s. Patient states that his dyspnea has improved with ED treatment, and he denies development of any new symptoms while in the ED. Patient continues to deny having any chest pain while in the ED. Patient is aware of his test results, and he agrees with hospital admission at this time. 01/27/24 20:05 Case, H&P, test results and ED management thus far were discussed with Dr. Hollins. He accepts hospital admission. He agrees with cardiology and pulmonology consultations. He has no further recommendations at this time. EKG Findings - EKG Comments: EKG Findings:: ED physician interpretation (interpreted by me): Atrial flutter with RVR, normal QRS duration, normal QT interval, nonspecific T wave ab normality, no ST elevation, normal axis Medical Decision Making - Medical Decision Making Was pt. sent in by a medical professional or institution (, PA, ENVELOPE STUFFER, urgent care, hospital, or snf...) When possible be specific @ -No Did you speak to anyone other than the patient for history (EMS, parent, family, police, friend...)? What history was obtained from this source @ -No Did you review nursing and triage notes (agree or disagree)? Why? @ -I reviewed and agree with nursing and triage notes Were old charts reviewed (outside hosp., previous admission, EMS record, old EKG, old radiological studies, urgent care reports/EKG's, snf records)? Report findings @ -No old charts were reviewed Differential Diagnosis (chest pain, altered mental status, abdominal pain women, abdominal pain men, vaginal bleeding, weakness, fever, dyspnea, syncope, headache, dizziness, GI bleed, back pain, seizure, CVA, palpatations, mental health, musculoskeletal)? @ -Differential Dyspnea: Coronary syndrome, arrhythmia, CHF, tamponade, asthma, COPD, pneumonia, pneumothorax, pleural effusion, anemia, neuromuscular, this is not meant to be an all-inclusive list. EKG interpreted by me (3pts min.). @ -As above X-rays interpreted by me (1pt min.). @ -Chest x-ray was reviewed myself and shows findings consistent with mild CHF. I agree with the radiologist's interpretation as above. CT interpreted by me (1pt min.). @ -None done U/S interpreted by me (1pt. min.). @ -None done What testing was considered but not performed or refused? (CT, X-rays, U/S, labs)? Why? @ -None What meds were considered but not given or refused? Why? @ -None Did you discuss the management of the patient with other professionals (professionals i.e. , PA, ENVELOPE STUFFER, lab, RT, psych nurse, geriatric social work professor, sales incentive analyst, teacher, duty officer, case managers)? Give summary @ -As above. Was smoking cessation discussed for >3mins.? @ -No Was critical care preformed (if so, how long)? @ -Yes, 40 minutes. Were there social determinants of health that impacted care today? How? (Homelessness, low income, unemployed, alcoholism, drug addiction, transportati on, low edu. Level, literacy, decrease access to med. care, [place] [facility], rehab)? @ -No Was there de-escalation of care discussed even if they declined (Discuss DNR or withdrawal of care, Hospice)? DNR status @ -No What co-morbidities impacted this encounter? (DM, HTN, Smoking, COPD, CAD, Cancer, CVA, ARF, Chemo, Hep., AIDS, mental health diagnosis, sleep apnea, morbid obesity)? @ -COPD Was patient admitted / discharged? Hospital course, mention meds given and route, prescriptions, significant lab abnormalities, going to OR and other pertinent info. @ -Patient's wheezing and dyspnea have improved with DuoNeb treatments in the ED. Patient denies having any chest pain while in the ED. Patient presented to the ED in atrial flutter with RVR. Patient's heart rate has now improved with IV Cardizem treatment in the ED. Patient's troponin is minimally elevated, but he denies having any chest pain. Given the patient's supratherapeutic INR, will hold off on aspirin treatment at this time. Patient is noted to have findings consistent with mild CHF on chest x-ray, as well as an elevated BNP. Patient has been treated with a dose of IV Lasix in the ED. Will admit the patient to the hospital for further evaluation and management. Cardiology and pulmonology consultation orders have been placed. Dr. Hollins has accepted hospital admission. Patient agrees with this plan. Undiagnosed new problem with uncertain prognosis? @ -No Drug Therapy requiring intensive monitoring for toxicity (Heparin, Nitro, Insulin, Cardizem)? @ -No Were any procedures done? @ -No Diagnosis/symptom? @ -COPD exacerbation, CHF, elevated troponin, atrial flutter with RVR, supratherapeutic INR Acute, or Chronic, or Acute on Chronic? @ -Default Uncomplicated (without systemic symptoms) or Complicated (systemic symptoms)? @ -Default Side effects of treatment? @ -No Exacerbation, Progression, or Severe Exacerbation? @ -No Poses a threat to life or bodily function? How? (Chest pain, USA, CA, pneumonia, PE, COPD, DKA, ARF, appy, cholecystitis, CVA, Diverticulitis, Homicidal, Suicidal, threat to staff... and all critical care pts) @ -Potentially - Lab Data Result diagrams: 01/27/24 18:17 01/27/24 18:17 Lab Results 01/27/24 01/27/24 01/27/24 Range/Units 18:17 18:17 18:17 WBC 8.9 (3.8-10.6) k/uL RBC 4.95 (4.30-5.90) m/uL Hgb 16.1 (13.0-17.5) gm/dL Hct 52.7 (39.0-53.0) % MCV 106.6 H (80.0-100.0) fL MCH 32.5 (25.0-35.0) pg MCHC 30.5 L (31.0-37.0) g/dL RDW 13.9 (11.5-15.5) % Plt Count 139 L (150-450) k/uL MPV 8.7 Neutrophils % 82 % Lymphocytes % 10 % Monocytes % 5 % Eosinophils % 1 % Basophils % 0 % Neutrophils # 7.3 (1.3-7.7) k/uL Lymphocytes # 0.9 L (1.0-4.8) k/uL Monocytes # 0.5 (0-1.0) k/uL Eosinophils # 0.1 (0-0.7) k/uL Basophils # 0.0 (0-0.2) k/uL Hypochromasia Marked Macrocytosis Moderate PT 69.8 H (10.0-12.5) sec INR 7.1 H* (<1.2) APTT 46.9 H (22.0-30.0) sec Sodium 139 (137-145) mmol/L Potassium 4.4 (3.5-5.1) mmol/L Chloride 89 L (98-107) mmol/L Carbon Dioxide 46 H* (22-30) mmol/L Anion Gap 4 mmol/L BUN 17 (9-20) mg/dL Creatinine 1.05 (0.66-1.25) mg/dL Est GFR (CKD-EPI)AfAm 82 (>60 ml/min/1.73 sqM) Est GFR (CKD-EPI)NonAf 71 (>60 ml/min/1.73 sqM) Glucose 111 H (74-99) mg/dL Calcium 8.5 (8.4-10.2) mg/dL Total Bilirubin 1.2 (0.2-1.3) mg/dL AST 43 (17-59) U/L ALT 56 H (4-49) U/L Alkaline Phosphatase 117 (38-126) U/L Troponin I (0.000-0.034) ng/mL NT-Pro-B Natriuret Pep 8550 pg/mL Total Protein 6.7 (6.3-8.2) g/dL Albumin 3.9 (3.5-5.0) g/dL Influenza Type A (PCR) (Not Detectd) Influenza Type B (PCR) (Not Detectd) RSV (PCR) (Not Detectd) SARS-CoV-2 (PCR) (Not Detectd) 01/27/24 01/27/24 Range/Units 18:17 18:17 WBC (3.8-10.6) k/uL RBC (4.30-5.90) m/uL Hgb (13.0-17.5) gm/dL Hct (39.0-53.0) % MCV (80.0-100.0) fL MCH (25.0-35.0) pg MCHC (31.0-37.0) g/dL RDW (11.5-15.5) % Plt Count (150-450) k/uL MPV Neutrophils % % Lymphocytes % % Monocytes % % Eosinophils % % Basophils % % Neutrophils # (1.3-7.7) k/uL Lymphocytes # (1.0-4.8) k/uL Monocytes # (0-1.0) k/uL Eosinophils # (0-0.7) k/uL Basophils # (0-0.2) k/uL Hypochromasia Macrocytosis PT (10.0-12.5) sec INR (<1.2) APTT (22.0-30.0) sec Sodium (137-145) mmol/L Potassium (3.5-5.1) mmol/L Chloride (98-107) mmol/L Carbon Dioxide (22-30) mmol/L Anion Gap mmol/L BUN (9-20) mg/dL Creatinine (0.66-1.25) mg/dL Est GFR (CKD-EPI)AfAm (>60 ml/min/1.73 sqM) Est GFR (CKD-EPI)NonAf (>60 ml/min/1.73 sqM) Glucose (74-99) mg/dL Calcium (8.4-10.2) mg/dL Total Bilirubin (0.2-1.3) mg/dL AST (17-59) U/L ALT (4-49) U/L Alkaline Phosphatase (38-126) U/L Troponin I 0.040 H* (0.000-0.034) ng/mL NT-Pro-B Natriuret Pep pg/mL Total Protein (6.3-8.2) g/dL Albumin (3.5-5.0) g/dL Influenza Type A (PCR) Not Detected (Not Detectd) Influenza Type B (PCR) Not Detected (Not Detectd) RSV (PCR) Not Detected (Not Detectd) SARS-CoV-2 (PCR) Not Detected (Not Detectd) - Radiology Data Chest x-ray: 1. Cardiomegaly. 2. Somewhat prominent perivascular markings. Correlate for early volume overload or CHF. 3. Scattered punctate densities, stable from comparison. Critical Care Time Critical Care Time: Yes Total Critical Care Time: 40 Disposition Clinical Impression: Atrial flutter with rapid ventricular response, COPD exacerbation, Elevated troponin, Supratherapeutic INR, CHF (congestive heart failure) Disposition: ADMITTED IP TO THIS HOSP Condition: Stable Is patient prescribed a controlled substance at d/c from ED?: No Referrals: Leanna Veras MD [Primary Care Provider] - 1-2 days Time of Disposition: 20:10
[2024-01-27 18:25] LABS: Basophils % (A) 0 %; Eosinophils # (A) 0.1 k/uL (0-0.7); Eosinophils % (A) 1 %; HCT 52.7 % (39.0-53.0); HGB 16.1 gm/dL (13.0-17.5); Hypochromasia Marked; Lymphocytes # (A) 0.9 k/uL (1.0-4.8); Lymphocytes % (A) 10 %; MCH 32.5 pg (25.0-35.0); MCHC 30.5 g/dL (31.0-37.0); MCV 106.6 fL (80.0-100.0); Macrocytosis Moderate; Mean Platelet Volume 8.7; Monocytes # (A) 0.5 k/uL (0-1.0); Monocytes % (A) 5 %; Neutrophils # (A) 7.3 k/uL (1.3-7.7); Neutrophils % (A) 82 %; Platelet Count 139 k/uL (150-450); RBC 4.95 m/uL (4.30-5.90); RDW 13.9 % (11.5-15.5); WBC 8.9 k/uL (3.8-10.6)
[2024-01-27 18:38] LABS: Partial Thromboplastin Time 46.9 sec (22.0-30.0); Prothrombin Time 69.8 sec (10.0-12.5)
[2024-01-27 18:43] LABS: ALT 56 U/L (4-49); AST 43 U/L (17-59); African American GFR (CKD) 82 (>60 ml/min/1.73 sqM); Albumin 3.9 g/dL (3.5-5.0); Alkaline Phosphatase 117 U/L (38-126); Blood Urea Nitrogen 17 mg/dL (9-20); Calcium 8.5 mg/dL (8.4-10.2); Chloride 89 mmol/L (98-107); Glucose 111 mg/dL (74-99); Non-African American GFR(CKD) 71 (>60 ml/min/1.73 sqM); Potassium 4.4 mmol/L (3.5-5.1); Sodium 139 mmol/L (137-145); Total Bilirubin 1.2 mg/dL (0.2-1.3); Total Protein 6.7 g/dL (6.3-8.2)
[2024-01-27 18:49] LABS: Anion Gap 4 mmol/L
[2024-01-27 18:51] LABS: NT-Pro-B-Type Natriuretic Pept 8550 pg/mL
--- NOTE | 2024-01-27 18:51 | XR ---
EXAMINATION TYPE: XR chest 2V DATE OF EXAM: 01/27/2024 COMPARISON: 08/26/2023, 03/04/2021, CT chest 01/14/2024 INDICATION: Difficulty breathing TECHNIQUE: Frontal and lateral views of the chest are obtained. FINDINGS: The heart size is enlarged. The pulmonary vasculature is somewhat prominent. Mild right lower lobe infiltrate may be present. Scattered punctate densities are present bilaterally , present previously. IMPRESSION: 1. Cardiomegaly. 2. Somewhat prominent perivascular markings. Correlate for early volume overload or CHF. 3. Scattered punctate densities, stable from comparison. [facility], Workstation: [facility], 01/27/2024 6:48 PM
[2024-01-27] MEDS: methylPREDNISolone SOD SUCCI 125 MG/2 ML VIAL IV STA (18:52)
[2024-01-27 18:55] LABS: INR 7.1 (<1.2)
[2024-01-27 18:57] LABS: Carbon Dioxide 46 mmol/L (22-30)
[2024-01-27] MEDS: IPRATROPIUM-ALBUTEROL 3 ML NEB INHALATION STA ×2 (19:13)
[2024-01-27] MEDS: DILTIAZEM 5 MG/ML 5 ML VIAL IVP STA (19:30)
[2024-01-27] MEDS: FUROSEMIDE 10 MG/ML 4 ML VIAL IV STA (19:30)
[2024-01-27] MEDS ORDERED: NALOXONE 0.4 MG/ML 1 ML VIAL IV PRN (20:10)
[2024-01-28 06:56] LABS: Basophils % (A) 0 %; Eosinophils % (A) 0 %; HCT 53.3 % (39.0-53.0); HGB 16.4 gm/dL (13.0-17.5); Hypochromasia Marked; Lymphocytes # (A) 0.4 k/uL (1.0-4.8); Lymphocytes % (A) 6 %; MCH 32.9 pg (25.0-35.0); MCHC 30.8 g/dL (31.0-37.0); MCV 106.9 fL (80.0-100.0); Macrocytosis Moderate; Mean Platelet Volume 8.8; Monocytes # (A) 0.1 k/uL (0-1.0); Monocytes % (A) 2 %; Neutrophils # (A) 6.2 k/uL (1.3-7.7); Neutrophils % (A) 92 %; Platelet Count 117 k/uL (150-450); RBC 4.98 m/uL (4.30-5.90); RDW 13.7 % (11.5-15.5); WBC 6.8 k/uL (3.8-10.6)
[2024-01-28 07:16] LABS: ALT 48 U/L (4-49); AST 49 U/L (17-59); African American GFR (CKD) >90 (>60 ml/min/1.73 sqM); Albumin 4.1 g/dL (3.5-5.0); Alkaline Phosphatase 117 U/L (38-126); Anion Gap 11 mmol/L; Blood Urea Nitrogen 21 mg/dL (9-20); Calcium 8.4 mg/dL (8.4-10.2); Chloride 89 mmol/L (98-107); Glucose 126 mg/dL (74-99); Non-African American GFR(CKD) 80 (>60 ml/min/1.73 sqM); Potassium 4.3 mmol/L (3.5-5.1); Sodium 140 mmol/L (137-145); Total Bilirubin 1.5 mg/dL (0.2-1.3); Total Protein 7.1 g/dL (6.3-8.2)
[2024-01-28 07:41] LABS: Carbon Dioxide 39 mmol/L (22-30)
[2024-01-28] MEDS ORDERED: NON FORMULARY DRUG (Aspirin [Adult Low Dose Aspirin Ec] 81 MG Tablet) PO SCH (09:00)
[2024-01-28] MEDS ORDERED: NON FORMULARY DRUG (Empagliflozin [Jardiance] 10 MG Tablet) PO SCH (09:00)
[2024-01-28] MEDS: SACUBITRIL/VALSARTAN 24 MG-26 MG TABLET PO SCH (09:04)
[2024-01-28] MEDS: SPIRONOLACTONE 25 MG TAB PO SCH (09:04)
[2024-01-28] MEDS: AMIODARONE 200 MG TAB PO SCH (09:05)
[2024-01-28] MEDS: DAPAGLIFLOZIN PROPANEDIOL 10 MG TABLET PO SCH (09:05)
[2024-01-28] MEDS: FUROSEMIDE 10 MG/ML 4 ML VIAL IV SCH (09:05)
[2024-01-28] MEDS: ATORVASTATIN 40 MG TAB PO SCH (09:05)
[2024-01-28] MEDS: METOPROLOL TARTRATE 50 MG TAB PO SCH (09:06)
[2024-01-28] MEDS ORDERED: NITROGLYCERIN SL TABS 0.4 MG TAB SUBLINGUAL PRN (11:07)
--- NOTE | 2024-01-28 11:17 | P.HPIM ---
History of Present Illness Patient is a 74-year-old male known history of congestive heart failure EF of around 20 to 25% with an AICD use 4 L of oxygen at home for COPD came in with complaints of shortness of breath orthopnea paroxysmal nocturnal dyspnea with m ild cough and no sputum production. Patient is found to be in CHF exacerbation and chest x-ray showing pulmonary edema, patient has extensive bilateral pedal edema along with elevated JVD and patient's BNP is 8550 serum creatinine is within normal limits, patient is on Coumadin for atrial fibrillation may be valvular A-fib and INR is supratherapeutic at 7.2 and Coumadin is being held at this time. Patient does not have any evidence of bleeding at this time. Patient is not actively smoking at this time quit smoking in the past REVIEW OF SYSTEMS: All other systems are negative except those mentioned in the HPI PHYSICAL EXAMINATION: GENERAL: The patient is alert and oriented x3, not in any acute distress. Well developed, well nourished. HEENT: Pupils are round and equally reacting to light. EOMI. No scleral icterus. No conjunctival pallor. Normocephalic, atraumatic. No pharyngeal erythema. No thyromegaly. CARDIOVASCULAR: S1 and S2 present. No murmurs, rubs, or gallops. PULMONARY: Significantly diminished air entry to bilateral lung sears no wheezing or crackles were appreciated. ABDOMEN: Soft, nontender, nondistended, normoactive bowel sounds. No palpable organomegaly. MUSCULOSKELETAL: No joint swelling or deformity. EXTREMITIES: No cyanosis, clubbing extensive bilateral pedal edema extending up to both knees NEUROLOGICAL: Gross neurological examination did not reveal any focal deficits. SKIN: No rashes. Assessment and plan -Congestive heart failure chronic systolic dysfunction with acute exacerbation: Patient is on 40 IV twice daily of Lasix presently patient uses 40 mg daily of Lasix at home -Chronic A-fib/flutter with present rapid ventricular rate: Patient is on Coumadin which is being held because of supratherapeutic INR repeat INR tomorrow continue with rate control medications cardiology will evaluate the patient -COPD and chronic hypercapnic respiratory failure with may be mild acute exacerbation continue with inhaled steroids inhalational treatments -Hyperlipidemia -Hypertension Peripheral mention chronic medical problems patient be resumed on appropriate home medications DVT prophylaxis:patient's INR is supratherapeutic Coumadin is being Past Medical History Past Medical History: Atrial Fibrillation, Asthma, Heart Failure, COPD, CVA/TIA, Hyperlipidemia, Hypertension, Pneumonia Additional Past Medical History / Comment(s): 04/2020 pt admitted to [facility] with TIA/MRI/cat scan showed L posterior frontal lobe possible meningioma/L posterior frontal lobe mass-pt followed up with neurologist but stopped going when they wanted pt. to go to [place] History of Any Multi-Drug Resistant Organisms: None Reported Past Surgical History: Cardiac Ablation, Orthopedic Surgery Additional Past Surgical History / Comment(s): Right shoulder fracture with surgery/pins, cardiac ablation at [facility],Cardioversion & FARIDA September 2023 Past Anesthesia/Blood Transfusion Reactions: No Reported Reaction Additional Past Anesthesia/Blood Transfusion Reaction / Comment(s): unk family hx. no hx blood transfusion Past Psychological History: No Psychological Hx Reported Smoking Status: Former smoker - Past Family History Father History Unknown: Yes Family Medical History: No Reported History, Hypertension, Myocardial Infarction (ND) Additional Family Medical History / Comment(s): Father of a ND at the age of 86 or 87yrs. Mother History Unknown: Yes Family Medical History: Hypertension Medications and Allergies Home Medications Medication Instructions Recorded Confirmed Type Albuterol Nebulized [Ventolin 2.5 mg INHALATION RT-QID 08/26/23 01/27/24 History Nebulized] Atorvastatin [Lipitor] 40 mg PO DAILY 08/26/23 01/27/24 History Budesonide [Pulmicort] 0.5 mg INHALATION RT-BID 08/26/23 01/27/24 History EPINEPHrine (Auto Inject) [Epipen] 0.3 mg IM ONCE PRN 08/26/23 01/27/24 History Ipratropium Nebulized [Atrovent 0.5 mg INHALATION RT-QID 08/26/23 01/27/24 History Nebulized 0.2 MG/ML] Montelukast [Singulair] 10 mg PO DAILY 08/26/23 01/27/24 History Warfarin Sodium 4 mg PO SUTUWETHSA 08/26/23 01/27/24 History Dapagliflozin Propanediol [Farxiga] 10 mg PO DAILY #30 tab 08/31/23 01/27/24 Rx Aspirin [Adult Low Dose Aspirin EC] 81 mg PO DAILY 10/03/23 01/27/24 History Furosemide [Lasix] 40 mg PO DAILY 10/03/23 01/27/24 History Amiodarone HCl [Pacerone] 200 mg PO DAILY 11/22/23 01/27/24 History Spironolactone [Aldactone] 12.5 mg PO DAILY 11/22/23 01/27/24 History Empagliflozin [Jardiance] 10 mg PO DAILY 01/27/24 01/27/24 History Metoprolol Tartrate [Lopressor] 75 mg PO DAILY 01/27/24 01/27/24 History Nitroglycerin Sl Tabs [Nitrostat] 0.4 mg SL Q5M PRN 01/27/24 01/27/24 History Warfarin Sodium 6 mg PO MOFR 01/27/24 01/27/24 History Allergies Allergy/AdvReac Type Severity Reaction Status Date / Time No Known Allergies Allergy Verified 11/23/23 07:22 Physical Exam Vitals: Vital Signs Temp Pulse Resp BP Pulse Ox 01/28/24 07:38 98.1 F 114 H 20 119/72 93 L 01/28/24 06:38 98.1 F 116 H 21 115/73 94 L 01/28/24 04:38 97.7 F 113 H 20 108/77 93 L 01/28/24 03:14 113 H 20 117/56 93 L 01/28/24 00:55 113 H 20 116/71 94 L 01/27/24 23:37 106 H 22 100/60 92 L 01/27/24 21:42 101 H 22 116/76 91 L 01/27/24 21:00 98 26 H 101/78 93 L 01/27/24 20:00 80 24 100/68 95 01/27/24 19:51 85 26 H 89/65 01/27/24 19:38 95 18 01/27/24 19:33 116 H 19 112/69 01/27/24 19:26 97.0 F L 113 H 17 105/67 01/27/24 19:17 191 H 01/27/24 18:27 22 01/27/24 18:04 98.3 F 117 H 22 106/83 94 L 01/27/24 18:02 75 L Intake and Output 01/27/24 01/28/24 01/28/24 22:59 06:59 14:59 Output Total 1150 500 Balance -1150 -500 Output: Urine 1150 500 Other: Weight 149.685 kg Results CBC & Chem 7: 01/28/24 06:17 01/28/24 06:17 Labs: Abnormal Lab Results - Last 24 Hours (Table) 01/27/24 01/27/24 01/27/24 Range/Units 18:17 18:17 18:17 Hct (39.0-53.0) % MCV 106.6 H (80.0-100.0) fL MCHC 30.5 L (31.0-37.0) g/dL Plt Count 139 L (150-450) k/uL Lymphocytes # 0.9 L (1.0-4.8) k/uL PT 69.8 H (10.0-12.5) sec INR 7.1 H* (<1.2) APTT 46.9 H (22.0-30.0) sec Chloride 89 L (98-107) mmol/L Carbon Dioxide 46 H* (22-30) mmol/L BUN (9-20) mg/dL Glucose 111 H (74-99) mg/dL Total Bilirubin (0.2-1.3) mg/dL ALT 56 H (4-49) U/L Troponin I (0.000-0.034) ng/mL 01/27/24 01/27/24 01/28/24 Range/Units 18:17 20:56 06:17 Hct 53.3 H (39.0-53.0) % MCV 106.9 H (80.0-100.0) fL MCHC 30.8 L (31.0-37.0) g/dL Plt Count 117 L (150-450) k/uL Lymphocytes # 0.4 L (1.0-4.8) k/uL PT (10.0-12.5) sec INR (<1.2) APTT (22.0-30.0) sec Chloride (98-107) mmol/L Carbon Dioxide (22-30) mmol/L BUN (9-20) mg/dL Glucose (74-99) mg/dL Total Bilirubin (0.2-1.3) mg/dL ALT (4-49) U/L Troponin I 0.040 H* 0.037 H* (0.000-0.034) ng/mL 01/28/24 Range/Units 06:17 Hct (39.0-53.0) % MCV (80.0-100.0) fL MCHC (31.0-37.0) g/dL Plt Count (150-450) k/uL Lymphocytes # (1.0-4.8) k/uL PT (10.0-12.5) sec INR (<1.2) APTT (22.0-30.0) sec Chloride 89 L (98-107) mmol/L Carbon Dioxide 39 H (22-30) mmol/L BUN 21 H (9-20) mg/dL Glucose 126 H (74-99) mg/dL Total Bilirubin 1.5 H (0.2-1.3) mg/dL ALT (4-49) U/L Troponin I (0.000-0.034) ng/mL
--- NOTE | 2024-01-28 13:52 | P.CRDCN ---
History of Present Illness Consult date: 01/28/24 Reason for Consult (text): Atrial flutter with RVR, elevated troponin, CHF History of present illness: This is a 74-year-old male patient of Dr. Gutierrez with past medical history of sleep apnea, persistent atrial fibrillation, nonischemic cardiomyopathy, coronary artery disease, valvular heart disease, COPD, chronic hypoxic respiratory failure on home O2 at 4 L nasal cannula, history of smoking, history of TIA. We have been asked to evaluate the patient for atrial flutter with RVR elevated troponins and CHF. Patient gives history that he came into the hospital because he could not catch his breath. He apparently has had increasing shortness of breath and wheezing over the past 4 days or more. Patient was recently treated for pneumonia with a course of antibiotics. He does have a mild cough. No fever or chills. No chest pain. Patient is seen today in the emergency center waiting for bed on the cardiac stepdown unit. Blood pressure 119/72, heart rate 115, pulse ox 93% on 4 L nasal cannula. Regarding struct of sleep apnea. Patient states that he picked up a CPAP machine 3 days ago. He has previously been noncompliant with CPAP. EKG: Atrial flutter at 115 bpm Chest x-ray: Cardiomegaly. Somewhat prominent perivascular markings correlate for overload or CHF. Scattered punctate densities stable from comparison. Laboratory studies: WBC 6.8, hemoglobin 16.4. INR 7.1. Sodium 140, potassium 4.3, CO2 initially 46 now 39, BUN 21, creatinine 0.95. Troponin 0.04, 0.037 and 0.031. Influenza A, influenza B, RSV, COVID-19 not detected. Home cardiac medications: Amiodarone 200 mg daily, aspirin 81 mg daily, atorvastatin 40 mg daily, Farxiga 10 mg daily, Jardiance 10 mg daily, Lasix 40 mg daily, cardiac catheterization performed 08/26/2023 revealed normal coronaries, mildly elevated left sided filling pressure. Echocardiogram performed 08/27/2023 revealed EF of 25%, moderate MR Lopressor 75 mg daily, Nitrostat as needed, Aldactone 12.5 mg daily, warfarin 6 mg Sunday and 4 mg in the other days. Lexiscan Cardiolite stress test performed 05/30/2022 revealed probable normal myocardial perfusion imaging, EF 44%, no evidence of stress-induced ischemia. Review Of Systems: At the time of my exam: CONSTITUTIONAL: Denies fever or chills. HEENT: Denies blurred vision, vision changes, or eye pain. Denies hemoptysis CARDIOVASCULAR: Denies chest pain. Denies orthopnea. Denies PND. Denies palpitations RESPIRATORY: Reports shortness of breath. GASTROINTESTINAL: Denies abdominal pain. Denies nausea or vomiting. HEMATOLOGIC: Denies bleeding disorders. GENITOURINARY: Denies any blood in urine. SKIN: Denies puritis. Denies rash. Physical examination: Gen: This is a 74-year-old male in no acute distress VS: reviewed HEENT: Head is atraumatic, normocephalic. Pupils equal, round. Sclerae is anicteric. NECK: Supple. No JVD. LUNGS: Clear to auscultation. No wheezes or rhonchi. No intercostal retractions. HEART: Regular rate and rhythm. Systolic murmur. ABDOMEN: Soft No tenderness. EXTREMITIES: 2+ bilateral lower extremity edema. No calf tenderness. NEUROLOGICAL: Patient is awake, alert and oriented x3. Assessment: Atrial flutter with mild RVR Acute on chronic systolic heart failure Chronic hypoxic respiratory failure on home O2 at 4 L nasal cannula COPD exacerbation Hypercoagulopathy Elevated troponin secondary to CHF, type II OR Obstructive sleep apnea Persistent atrial fibrillation Nonischemic cardiomyopathy Valvular heart disease History of smoking History of TIA Plan: Resume patient's home cardiac medications: Amiodarone 200 mg daily, atorvastatin 40 mg daily, Farxiga 10 mg daily, Aldactone 12.5 mg daily Increase metoprolol to 100 mg twice daily Start patient on Entresto 24-26 mg 1 twice daily Start patient on IV Lasix 40 mg every 12 hours Monitor KARON, daily weights, electrolytes and renal function Obtain limited 2-D echocardiogram and Doppler study Pharmacy to dose warfarin, goal of INR 23 Continue telemetry monitoring Further recommendations to follow based upon clinical course Thank you kindly for this consultation. Nurse practitioner note has been reviewed, I agree with documented findings and plan of care. Patient was seen and examined. Past Medical History Past Medical History: Atrial Fibrillation, Asthma, Heart Failure, COPD, CVA/TIA, Hyperlipidemia, Hypertension, Pneumonia Additional Past Medical History / Comment(s): 04/2020 pt admitted to [facility] with TIA/MRI/cat scan showed L posterior frontal lobe possible meningioma/L posterior frontal lobe mass-pt followed up with neurologist but stopped going when they wanted pt. to go to [place] History of Any Multi-Drug Resistant Organisms: None Reported Past Surgical History: Cardiac Ablation, Orthopedic Surgery Additional Past Surgical History / Comment(s): Right shoulder fracture with surgery/pins, cardiac ablation at [facility],Cardioversion & FARIDA September 2023 Past Anesthesia/Blood Transfusion Reactions: No Reported Reaction Additional Past Anesthesia/Blood Transfusion Reaction / Comment(s): unk family hx. no hx blood transfusion Past Psychological History: No Psychological Hx Reported Smoking Status: Former smoker - Past Family History Father History Unknown: Yes Family Medical History: No Reported History, Hypertension, Myocardial Infarction ([place]) Additional Family Medical History / Comment(s): Father of a [place] at the age of 86 or 87yrs. Mother History Unknown: Yes Family Medical History: Hypertension Medications and Allergies Home Medications Medication Instructions Recorded Confirmed Type Albuterol Nebulized [Ventolin 2.5 mg INHALATION RT-QID 08/26/23 01/27/24 History Nebulized] Atorvastatin [Lipitor] 40 mg PO DAILY 08/26/23 01/27/24 History Budesonide [Pulmicort] 0.5 mg INHALATION RT-BID 08/26/23 01/27/24 History EPINEPHrine (Auto Inject) [Epipen] 0.3 mg IM ONCE PRN 08/26/23 01/27/24 History Ipratropium Nebulized [Atrovent 0.5 mg INHALATION RT-QID 08/26/23 01/27/24 History Nebulized 0.2 MG/ML] Montelukast [Singulair] 10 mg PO DAILY 08/26/23 01/27/24 History Warfarin Sodium 4 mg PO SUTUWETHSA 08/26/23 01/27/24 History Dapagliflozin Propanediol [Farxiga] 10 mg PO DAILY #30 tab 08/31/23 01/27/24 Rx Aspirin [Adult Low Dose Aspirin EC] 81 mg PO DAILY 10/03/23 01/27/24 History Furosemide [Lasix] 40 mg PO DAILY 10/03/23 01/27/24 History Amiodarone HCl [Pacerone] 200 mg PO DAILY 11/22/23 01/27/24 History Spironolactone [Aldactone] 12.5 mg PO DAILY 11/22/23 01/27/24 History Empagliflozin [Jardiance] 10 mg PO DAILY 01/27/24 01/27/24 History Metoprolol Tartrate [Lopressor] 75 mg PO DAILY 01/27/24 01/27/24 History Nitroglycerin Sl Tabs [Nitrostat] 0.4 mg SL Q5M PRN 01/27/24 01/27/24 History Warfarin Sodium 6 mg PO MOFR 01/27/24 01/27/24 History Allergies Allergy/AdvReac Type Severity Reaction Status Date / Time No Known Allergies Allergy Verified 11/23/23 07:22 Physical Exam Vitals: Vital Signs Temp Pulse Resp BP Pulse Ox 01/28/24 07:38 98.1 F 114 H 20 119/72 93 L 01/28/24 06:38 98.1 F 116 H 21 115/73 94 L 01/28/24 04:38 97.7 F 113 H 20 108/77 93 L 01/28/24 03:14 113 H 20 117/56 93 L 01/28/24 00:55 113 H 20 116/71 94 L 01/27/24 23:37 106 H 22 100/60 92 L 01/27/24 21:42 101 H 22 116/76 91 L 01/27/24 21:00 98 26 H 101/78 93 L 01/27/24 20:00 80 24 100/68 95 01/27/24 19:51 85 26 H 89/65 01/27/24 19:38 95 18 01/27/24 19:33 116 H 19 112/69 01/27/24 19:26 97.0 F L 113 H 17 105/67 01/27/24 19:17 191 H 01/27/24 18:27 22 01/27/24 18:04 98.3 F 117 H 22 106/83 94 L 01/27/24 18:02 75 L Intake and Output 01/27/24 01/28/24 01/28/24 22:59 06:59 14:59 Output Total 1150 500 Balance -1150 -500 Output: Urine 1150 500 Other: Weight 149.685 kg Results 01/28/24 06:17 01/28/24 06:17 Cardiac Enzymes 11/03/24 11/03/24 11/03/24 Range/Units 18:17 18:17 20:56 AST 43 (17-59) U/L Troponin I 0.040 H* 0.037 H* (0.000-0.034) ng/mL 01/28/24 01/28/24 Range/Units 00:22 06:17 AST 49 (17-59) U/L Troponin I 0.031 (0.000-0.034) ng/mL Coagulation 01/27/24 Range/Units 18:17 PT 69.8 H (10.0-12.5) sec APTT 46.9 H (22.0-30.0) sec CBC 01/27/24 01/28/24 Range/Units 18:17 06:17 WBC 8.9 6.8 (3.8-10.6) k/uL RBC 4.95 4.98 (4.30-5.90) m/uL Hgb 16.1 16.4 (13.0-17.5) gm/dL Hct 52.7 53.3 H (39.0-53.0) % Plt Count 139 L 117 L (150-450) k/uL Comprehensive Metabolic Panel 01/27/24 01/28/24 Range/Units 18:17 06:17 Sodium 139 140 (137-145) mmol/L Potassium 4.4 4.3 (3.5-5.1) mmol/L Chloride 89 L 89 L (98-107) mmol/L Carbon Dioxide 46 H* 39 H (22-30) mmol/L BUN 17 21 H (9-20) mg/dL Creatinine 1.05 0.95 (0.66-1.25) mg/dL Glucose 111 H 126 H (74-99) mg/dL Calcium 8.5 8.4 (8.4-10.2) mg/dL AST 43 49 (17-59) U/L ALT 56 H 48 (4-49) U/L Alkaline Phosphatase 117 117 (38-126) U/L Total Protein 6.7 7.1 (6.3-8.2) g/dL Albumin 3.9 4.1 (3.5-5.0) g/dL Current Medications Generic Name Dose Route Start Last Admin Trade Name Freq PRN Reason Stop Dose Admin Naloxone HCl 0.2 mg 01/27/24 20:10 Naloxone 0.4 Mg/Ml 1 Ml Vial IV Q2M PRN Opioid Reversal Intake and Output 01/27/24 01/28/24 01/28/24 22:59 06:59 14:59 Output Total 1150 500 Balance -1150 -500 Output: Urine 1150 500 Other: Weight 149.685 kg 01/28/24 06:17 01/28/24 06:17
--- NOTE | 2024-01-28 16:32 | P.CNPUL ---
History of Present Illness Consult date: 01/28/24 Reason for consult: dyspnea History of present illness: 74-year-old morbidly obese male patient, known history of COPD, known history of CHF with impaired LV function and systolic heart failure with an ejection fraction of 20 to 25%, coronary artery disease, along with history of chronic A- fib, maintained on oxygen 4 L/min nasal cannula. He is morbidly obese. The patient presented to hospital because of worsening shortness of breath and CHF exacerbation. The patient was noted to be in atrial fibrillation/flutter with RVR and decompensated heart failure with some elevation in troponin at time of admission. His troponins were 0.04-0.03 and 0.03 respectively x 3. proBNP level was 8550. Normal renal function. No significant leukocytosis. Hemoglobin was stable at 16.1 at time of admission. Viral screen was negative. Chest x-ray was consistent with CHF and cardiomegaly and pulm vascular congestion. The patient is currently on IV Lasix 40 mg every 12 hours. In terms of his CHF, he has been placed on a combination of Entresto / 1 tablet a day, Aldactone 12.5 mg p.o. daily, metoprolol 100 mg p.o. twice a day, Farxiga 10 mg p.o. daily. The patient is also on amiodarone 200 mg p.o. daily. He was started on DuoNeb nebulized treatments [id number]. He is on long-term anticoagulation with warfarin and the patient's INR at the time of admission was 7.1. Denies having any chest pain. No altered mentation. He has chronic edema lower extremities bilaterally. He also has history of obstructive sleep apnea. He has a CPAP machine at home and he has not been compliant with treatment. Does not utilize maintenance as per medications. Is a neck smoker and he quit smoking more than 7 years ago. Occasional [id number] smoking history. Review of Systems All systems: negative Constitutional: Reports as per HPI, Reports weight gain (100 pounds over the past 1 year) Eyes: denies as per HPI, denies blurred vision, denies bulging eye, denies decreased vision, denies diplopia, denies discharge, denies dry eye, denies irr itation, denies itching, denies pain, denies photophobia, denies loss of peripheral vision, denies loss of vision, denies tunnel vision/blind spots Ears: deny: decreased hearing, ear discharge, earache, tinnitus Ears, nose, mouth and throat: Reports as per HPI Breasts: absent: as per HPI, gynecomastia Cardiovascular: Reports decreased exercise tolerance, Reports high blood pressure, Reports irregular heart beat, Reports leg edema, Reports orthopnea, Reports palpitations, Reports shortness of breath Respiratory: Reports dyspnea, Reports sleep apnea, Reports snoring, Reports wheezing Gastrointestinal: Reports as per HPI Genitourinary: Reports as per HPI Musculoskeletal: Reports as per HPI Musculoskeletal: bilateral: ankle swelling, absent: ankle pain, ankle stiffness Integumentary: Reports as per HPI Neurological: Reports as per HPI Psychiatric: Reports as per HPI Endocrine: Reports as per HPI, Reports fatigue Hematologic/Lymphatic: Reports as per HPI Allergic/Immunologic: Reports as per HPI Past Medical History Past Medical History: Atrial Fibrillation, Heart Failure (CHF EF 20-25%), COPD, CVA/TIA, Hyperlipidemia, Hypertension Additional Past Medical History / Comment(s): 04/2020 pt admitted to [facility] with TIA/MRI/cat scan showed L posterior frontal lobe possible meningioma/L posterior frontal lobe mass-pt followed up with neurologist but stopped going when they wanted pt. to go to [place] History of Any Multi-Drug Resistant Organisms: None Reported Past Surgical History: Cardiac Ablation, Orthopedic Surgery Additional Past Surgical History / Comment(s): Right shoulder fracture with surgery/pins, cardiac ablation at [facility],Cardioversion & FAR[facility] September 2023 Past Anesthesia/Blood Transfusion Reactions: No Reported Reaction Additional Past Anesthesia/Blood Transfusion Reaction / Comment(s): unk family hx. no hx blood transfusion Past Psychological History: No Psychological Hx Reported Smoking Status: Former smoker - Past Family History Father History Unknown: Yes Family Medical History: No Reported History, Hypertension, Myocardial Infarction ([place]) Additional Family Medical History / Comment(s): Father of a [place] at the age of 86 or 87yrs. Mother History Unknown: Yes Family Medical History: Hypertension Medications and Allergies Home Medications Medication Instructions Recorded Confirmed Type Albuterol Nebulized [Ventolin 2.5 mg INHALATION RT-QID 08/26/23 01/27/24 History Nebulized] Atorvastatin [Lipitor] 40 mg PO DAILY 08/26/23 01/27/24 History Budesonide [Pulmicort] 0.5 mg INHALATION RT-BID 08/26/23 01/27/24 History EPINEPHrine (Auto Inject) [Epipen] 0.3 mg IM ONCE PRN 08/26/23 01/27/24 History Ipratropium Nebulized [Atrovent 0.5 mg INHALATION RT-QID 08/26/23 01/27/24 History Nebulized 0.2 MG/ML] Montelukast [Singulair] 10 mg PO DAILY 08/26/23 01/27/24 History Warfarin Sodium 4 mg PO SUTUWETHSA 08/26/23 01/27/24 History Dapagliflozin Propanediol [Farxiga] 10 mg PO DAILY #30 tab 08/31/23 01/27/24 Rx Aspirin [Adult Low Dose Aspirin EC] 81 mg PO DAILY 10/03/23 01/27/24 History Furosemide [Lasix] 40 mg PO DAILY 10/03/23 01/27/24 History Amiodarone HCl [Pacerone] 200 mg PO DAILY 11/22/23 01/27/24 History Spironolactone [Aldactone] 12.5 mg PO DAILY 11/22/23 01/27/24 History Empagliflozin [Jardiance] 10 mg PO DAILY 01/27/24 01/27/24 History Metoprolol Tartrate [Lopressor] 75 mg PO DAILY 01/27/24 01/27/24 History Nitroglycerin Sl Tabs [Nitrostat] 0.4 mg SL Q5M PRN 01/27/24 01/27/24 History Warfarin Sodium 6 mg PO MOFR 01/27/24 01/27/24 History Allergies Allergy/AdvReac Type Severity Reaction Status Date / Time No Known Allergies Allergy Verified 11/23/23 07:22 Physical Exam Vitals: Vital Signs Temp Pulse Resp BP Pulse Ox 01/28/24 11:52 100 18 94 L 01/28/24 07:38 98.1 F 114 H 20 119/72 93 L 01/28/24 06:38 98.1 F 116 H 21 115/73 94 L 01/28/24 04:38 97.7 F 113 H 20 108/77 93 L 01/28/24 03:14 113 H 20 117/56 93 L 01/28/24 00:55 113 H 20 116/71 94 L 01/27/24 23:37 106 H 22 100/60 92 L 01/27/24 21:42 101 H 22 116/76 91 L 01/27/24 21:00 98 26 H 101/78 93 L 01/27/24 20:00 80 24 100/68 95 01/27/24 19:51 85 26 H 89/65 01/27/24 19:38 95 18 01/27/24 19:33 116 H 19 112/69 01/27/24 19:26 97.0 F L 113 H 17 105/67 01/27/24 19:17 191 H 01/27/24 18:27 22 01/27/24 18:04 98.3 F 117 H 22 106/83 94 L 01/27/24 18:02 75 L Intake and Output 01/27/24 01/28/24 01/28/24 22:59 06:59 14:59 Output Total 1150 500 Balance -1150 -500 Output: Urine 1150 500 Other: Weight 149.685 kg The patient appeared well nourished and normally developed. Vital signs as documented. Patient is morbidly obese, body mass index of 41.2. He is currently on oxygen 4 L/min nasal cannula. Head exam is unremarkable. No scleral icterus or corneal arcus noted. Neck is without jugular venous distension, thyromegaly, or carotid bruits. Carotid upstrokes are brisk bilaterally. Lungs are showing diminished breath sound bilateral along with bibasilar crackles. Cardiac exam reveals the PMI to be normally sized and situated. Irregular rhythm consistent with atrial fibrillation.. First and second heart sounds norm al. No murmurs, rubs or gallops. Abdominal exam reveals normal bowel sounds, no masses, no organomegaly and no aortic enlargement. Extremities are increased edema lower extremities bilaterally and both femoral and pedal pulses are normal. Examination of the skin revealed no evidence of significant rashes, suspicious appearing nevi or other concerning lesions. Neurologically, the patient is awake and alert and the patient does not have any focal neurological deficit. Cranial nerves are essentially intact. Results - Laboratory Findings CBC and BMP: 01/28/24 06:17 01/28/24 06:17 ABG WBC 6.8 k/uL (3.8-10.6) 01/28/24 06:17 RBC 4.98 m/uL (4.30-5.90) 01/28/24 06:17 Hgb 16.4 gm/dL (13.0-17.5) 01/28/24 06:17 Hct 53.3 % (39.0-53.0) H 01/28/24 06:17 MCV 106.9 fL (80.0-100.0) H 01/28/24 06:17 MCH 32.9 pg (25.0-35.0) 01/28/24 06:17 MCHC 30.8 g/dL (31.0-37.0) L 01/28/24 06:17 RDW 13.7 % (11.5-15.5) 01/28/24 06:17 Plt Count 117 k/uL (150-450) L 01/28/24 06:17 MPV 8.8 01/28/24 06:17 Neutrophils % 92 % 01/28/24 06:17 Lymphocytes % 6 % 01/28/24 06:17 Monocytes % 2 % 01/28/24 06:17 Eosinophils % 0 % 01/28/24 06:17 Basophils % 0 % 01/28/24 06:17 Neutrophils # 6.2 k/uL (1.3-7.7) 01/28/24 06:17 Lymphocytes # 0.4 k/uL (1.0-4.8) L 01/28/24 06:17 Monocytes # 0.1 k/uL (0-1.0) 01/28/24 06:17 Eosinophils # 0.0 k/uL (0-0.7) 01/28/24 06:17 Basophils # 0.0 k/uL (0-0.2) 01/28/24 06:17 Hypochromasia Marked 01/28/24 06:17 Macrocytosis Moderate 01/28/24 06:17 PT 69.8 sec (10.0-12.5) H 01/27/24 18:17 INR 7.1 (<1.2) H* 01/27/24 18:17 APTT 46.9 sec (22.0-30.0) H 01/27/24 18:17 Sodium 140 mmol/L (137-145) 01/28/24 06:17 Potassium 4.3 mmol/L (3.5-5.1) 01/28/24 06:17 Chloride 89 mmol/L (98-107) L 01/28/24 06:17 Carbon Dioxide 39 mmol/L (22-30) H 01/28/24 06:17 Anion Gap 11 mmol/L 01/28/24 06:17 BUN 21 mg/dL (9-20) H 01/28/24 06:17 Creatinine 0.95 mg/dL (0.66-1.25) 01/28/24 06:17 Est GFR (CKD-EPI)AfAm >90 (>60 ml/min/1.73 sqM) 01/28/24 06:17 Est GFR (CKD-EPI)NonAf 80 (>60 ml/min/1.73 sqM) 01/28/24 06:17 Glucose 126 mg/dL (74-99) H 01/28/24 06:17 Calcium 8.4 mg/dL (8.4-10.2) 01/28/24 06:17 Total Bilirubin 1.5 mg/dL (0.2-1.3) H 01/28/24 06:17 AST 49 U/L (17-59) 01/28/24 06:17 ALT 48 U/L (4-49) 01/28/24 06:17 Alkaline Phosphatase 117 U/L (38-126) 01/28/24 06:17 Troponin I 0.031 ng/mL (0.000-0.034) 01/28/24 00:22 NT-Pro-B Natriuret Pep 8550 pg/mL 01/27/24 18:17 Total Protein 7.1 g/dL (6.3-8.2) 01/28/24 06:17 Albumin 4.1 g/dL (3.5-5.0) 01/28/24 06:17 Influenza Type A (PCR) Not Detected (Not Detectd) 01/27/24 18:17 Influenza Type B (PCR) Not Detected (Not Detectd) 01/27/24 18:17 RSV (PCR) Not Detected (Not Detectd) 01/27/24 18:17 SARS-CoV-2 (PCR) Not Detected (Not Detectd) 01/27/24 18:17 PT/INR, D-dimer PT 69.8 sec (10.0-12.5) H 01/27/24 18:17 INR 7.1 (<1.2) H* 01/27/24 18:17 Abnormal lab findings: Abnormal Labs 01/27/24 01/27/24 01/27/24 18:17 18:17 18:17 Hct MCV 106.6 H MCHC 30.5 L Plt Count 139 L Lymphocytes # 0.9 L PT 69.8 H INR 7.1 H* APTT 46.9 H Chloride 89 L Carbon Dioxide 46 H* BUN Glucose 111 H Total Bilirubin ALT 56 H Troponin I 01/27/24 01/27/24 01/28/24 18:17 20:56 06:17 Hct 53.3 H MCV 106.9 H MCHC 30.8 L Plt Count 117 L Lymphocytes # 0.4 L PT INR APTT Chloride Carbon Dioxide BUN Glucose Total Bilirubin ALT Troponin I 0.040 H* 0.037 H* 01/28/24 06:17 Hct MCV MCHC Plt Count Lymphocytes # PT INR APTT Chloride 89 L Carbon Dioxide 39 H BUN 21 H Glucose 126 H Total Bilirubin 1.5 H ALT Troponin I - Diagnostic Findings Chest x-ray: image reviewed Assessment and Plan Plan: Acute on chronic hypoxic respiratory failure, the patient is currently on 4 L of oxygen by nasal cannula Acute exacerbation of CHF Chronic A-fib/flutter with RVR, rate is under better control for now CHF with impaired systolic heart failure and an ejection fraction of 20 to 25% Coronary artery disease Abnormal troponins likely secondary to above, no acute ST segment elevations or changes on EKG and the patient is free of any chest pain Lower extremity edema secondary to above Morbid obesity with a BMI of 41.2 COPD Obstructive sleep apnea, not compliant to CPAP therapy Supratherapeutic PT/INR Hyperlipidemia Hypertension Plan Titrate oxygen flow to maintain saturation above 90% Continue Lasix 40 mg IV every 12 hours Fluid restriction monitor electrolytes Hold warfarin and monitor the PT/INR Resume cardiac medications Monitor A-fib/flutter and continue anticoagulation once the PT/INR is in the therapeutic range Allow the patient to bring his CPAP machine from home and will do necessary adjustments to make the treatment more successful Continue DuoNeb Treatments [id number] Cardiology consultation Will continue to follow
[2024-01-28] MEDS: WARFARIN 0.5 MG TAB PO ONE (17:05)
--- NOTE | 2024-01-28 17:43 | CA ---
Transthoracic Echo Report Name: Xander Burroughs Age: 74 Gender: M : 1950 Exam Date: 01/28/2024 14:36 Exam Location: [place] [facility] Ht (in): 75 Wt (lb): 330 Ordering Physician: Nickie Nayak Attending/Referring Phys: [id number], Nael Machine Compositor Mandy Mathis, ALICE Procedure CPT: Indications: LVF Cardiac Hx: Technical Quality: Poor Contrast 1: Definity Total Dose (mL): 2 Contrast 2: Total Dose (mL): MEASUREMENTS (Male / Female) Normal Values 2D ECHO LV Diastolic Diameter PLAX 6.1 cm 4.2 - 5.9 / 3.9 - 5.3 cm LV Systolic Diameter PLAX 5.8 cm IVS Diastolic Thickness 1.1 cm 0.6 - 1.0 / 0.6 - 0.9 cm LVPW Diastolic Thickness 1.5 cm 0.6 - 1.0 / 0.6 - 0.9 cm LV Relative Wall Thickness 0.4 RV Internal Dim ED PLAX 1.8 cm LA Volume 149.1 cm??? 18 - 58 / 22 - 52 cm??? LA Volume Index 51.9 cm???/m??? 16 - 28 cm???/m??? M-MODE Aortic Root Diameter MM 3.4 cm LA Systolic Diameter MM 4.8 cm LA Ao Ratio MM 1.4 AV Cusp Separation MM 1.6 cm FINDINGS Left Ventricle Left ventricular ejection fraction is estimated at 25-30 %. Mildly increased septal wall thickness. Mildly increased left ventricular diastolic diameter. Severely reduced global left ventricular systolic function. Right Ventricle Moderate right ventricular dilatation. Right Atrium Severe right atrial dilatation. Left Atrium Severely increased left atrial volume. Moderately increased left atrial area. Mitral Valve Aortic Valve Tricuspid Valve Pulmonic Valve Pericardium Aorta Normal size aortic root and proximal ascending aorta. CONCLUSIONS Severe LV systolic dysfunction with an ejection fraction of 25-30% Severe right atrial enlargement Right ventricular dilated dictation and dysfunction Previewed by: Dr. Lam Yuen MD (Electronically Signed) Final Date: 28 January 2024 17:43
[2024-01-28] MEDS: BUDESONIDE 0.5 MG/2 ML NEBU INHALATION SCH (21:20)
[2024-01-28] MEDS: IPRATROPIUM-ALBUTEROL 3 ML NEB INHALATION PRN (21:20)
[2024-01-29 06:33] LABS: African American GFR (CKD) >90 (>60 ml/min/1.73 sqM); Blood Urea Nitrogen 37 mg/dL (9-20); Calcium 8.2 mg/dL (8.4-10.2); Chloride 91 mmol/L (98-107); Glucose 98 mg/dL (74-99); Non-African American GFR(CKD) 81 (>60 ml/min/1.73 sqM); Sodium 135 mmol/L (137-145)
[2024-01-29 06:40] LABS: Anion Gap 2 mmol/L
[2024-01-29 06:47] LABS: Carbon Dioxide 42 mmol/L (22-30); Magnesium 2.2 mg/dL (1.6-2.3); Potassium 4.2 mmol/L (3.5-5.1)
[2024-01-29 07:15] LABS: INR >10.0 (<1.2)
[2024-01-29] MEDS: PHYTONADIONE ORAL 5 MG/5 ML ORAL.SYRG PO STA (08:02)
--- NOTE | 2024-01-29 09:43 | CDI ---
Documentation Clarification Form Date: 01/29/2024 From: Ghazala Oliver RN CCDS Phone: [phone] Admit Date: 01/27/2024 08:12:00 PM Patient Name: aXnder Burroughs Visit Number: [id number] Discharge Date: ATTENTION: The Clinical Documentation Specialists (CDI) and [facility] Coding Staff appreciate your assistance in clarifying documentation. Please respond to the clarification below the line at the bottom and electronically sign. The CDI & [facility] Coding staff will review the response and follow-up if needed. Please note: Queries are made part of the Legal Health Record. If you have any questions, please contact the author of this message via ITS. Dr. Robert Reynaga MD: Acute on chronic hypoxic Respiratory Failure is documented Pulmonology consult 01/27 which may lack sufficient clinical evidence/support in the medical record. Additional clarification is requested. Patient history/risk factors: 74-year-old male with a history of COPD maintained on 4liters nasal cannula at home, CHF, CAD and chronic AFIb who presents with worsening shortness of breath Clinical Indicators: 01/26 Triage VS: 106/83, 98.3, 117, 22, 94% on 4 L nasal cannula 01/26-01/28 Oxygen saturation range: 75% (01/26on room air)-99% (01/28 on 4 L nasal cannula) -Sat went up on 01/26 to 94% when 4 L nasal cannula applied 01/27 Pulmonology consult, Plan: "Acute on chronic hypoxic respiratory failure, the patient is currently on 4 L of oxygen by nasal cannula." 01/27 Cardiology consult, Assessment: "Chronic hypoxic respiratory failure on home O2 at 4 L nasal cannula." 01/26 Chest X Ray, Impression: "1. Cardiomegaly, 2. Somewhat prominent perivascular markings. Correlate for early volume overload or CHF, 3. Scattered punctate densities, stable from comparison." 01/26-01/28 Carbon Dioxide: 46, 39, 42 Treatment: 3-4 liters oxygen per nasal cannula Monitor oxygen saturation Pulmonology consult After work up and study, please clarify which diagnosis is most appropriate? [ ] Acute hypoxic Respiratory Failure ruled out [ ] Acute hypoxic Respiratory Failure is a valid diagnosis as evidenced by the following: CHF [ ] Unable to determine [ ] Other, please specify MTDD
--- NOTE | 2024-01-29 12:43 | P.PN ---
Subjective Progress Note Date: 01/29/24 Patient is a 74-year-old male known history of congestive heart failure EF of around 20 to 25% with an AICD use 4 L of oxygen at home for COPD came in with complaints of shortness of breath orthopnea paroxysmal nocturnal dyspnea with mild cough and no sputum production. Patient is found to be in CHF exacerbation and chest x-ray showing pulmonary edema, patient has extensive bilateral pedal edema along with elevated JVD and patient's BNP is 8550 serum creatinine is within normal limits, patient is on Coumadin for atrial fibrillation may be valvular A-fib and INR is supratherapeutic at 7.2 and Coumadin is being held at this time. Patient does not have any evidence of bleeding at this time. Patient is not actively smoking at this time quit smoking in the past 01/29/2024 Patient is eval today in follow-up on the medical floor currently resting in bed with no acute complaints. He does wear oxygen chronically at baseline and he is on 4 L of oxygen with saturations of 97%. Heart rate is in the 110s today. Did echocardiogram which shows severe LV systolic dysfunction with an ejection fraction of 25 to 30% severe right atrial enlargement. Moderate right ventricular dilation. Patient continues on IV Lasix 40 mg every 12 hours. Additionally he is on Entresto, Aldactone. He is anticoag with warfarin which has been held secondary to supratherapeutic INR of greater than 10 today. He did receive a 2.5 mg dose of vitamin K and will repeat the INR tomorrow. Review of Systems Constitutional: Denied any fatigue denied any fever. Cardio vascular: denied any chest pain, palpitations Gastrointestinal: denied any nausea, vomiting, diarrhea Pulmonary: Denied any shortness of breath cough Neurologic denied any new focal deficits All inpatient medications were reviewed and appropriate changes in these medications as dictated in the interval history and assessment and plan. PHYSICAL EXAMINATION: GENERAL: The patient is alert and oriented x3, not in any acute distress. Well developed, well nourished. HEENT: Pupils are round and equally reacting to light. EOMI. No scleral icterus. No conjunctival pallor. Normocephalic, atraumatic. No pharyngeal erythema. No thyromegaly. CARDIOVASCULAR: S1 and S2 present. No murmurs, rubs, or gallops. PULMONARY: Significantly diminished air entry to bilateral lung sears no wheezing or crackles were appreciated. ABDOMEN: Soft, nontender, nondistended, normoactive bowel sounds. No palpable organomegaly. MUSCULOSKELETAL: No joint swelling or deformity. EXTREMITIES: No cyanosis, clubbing extensive bilateral pedal edema extending up to both knees NEUROLOGICAL: Gross neurological examination did not reveal any focal deficits. SKIN: No rashes. Assessment and plan -Congestive heart failure chronic systolic dysfunction with acute exacerbation: Patient is on 40 IV twice daily of Lasix presently patient uses 40 mg daily of Lasix at home -Chronic A-fib/flutter with present rapid ventricular rate: Patient is on Coumadin which is being held because of supratherapeutic INR repeat INR tomorrow continue with rate control medications cardiology will evaluate the patient -Therapeutic INR status post 2.5 mg of oral vitamin K with repeat INR scheduled for tomorrow -COPD and chronic hypercapnic respiratory failure with may be mild acute e xacerbation continue with inhaled steroids inhalational treatments -Hyperlipidemia -Hypertension Peripheral mention chronic medical problems patient be resumed on appropriate home medications DVT prophylaxis:patient's INR is supratherapeutic Coumadin is being held Full Code The impression and plan of care has been dictated by Mila Montalvo Nurse Practitioner as directed. Dr. Jennifer MD I have performed a history and physical examination and medical decision making of this patient, discussed the same with the dictator, and agree with the dictators assessment and plan as written, documented as a scribe. Based on total visit time, I have performed more than 50% of this visit. Objective - Vital Signs Vital signs: Vital Signs Temp 97.7 F 01/29/24 07:37 Pulse 112 H 01/29/24 08:37 Resp 20 01/29/24 07:37 BP 101/60 01/29/24 07:37 Pulse Ox 99 01/29/24 07:37 FiO2 Intake & Output 01/28/24 01/29/24 01/29/24 18:59 06:59 18:59 Intake Total 118 Balance 118 Weight 152.9 kg Intake: Oral 118 Other: Voiding Method Urinal - Labs CBC & Chem 7: 01/28/24 06:17 01/29/24 05:59 Labs: Abnormal Lab Results - Last 24 Hours (Table) 01/29/24 01/29/24 Range/Units 05:59 05:59 PT 100.0 H (10.0-12.5) sec INR >10.0 H* (<1.2) Sodium 135 L (137-145) mmol/L Chloride 91 L (98-107) mmol/L Carbon Dioxide 42 H* (22-30) mmol/L BUN 37 H (9-20) mg/dL Calcium 8.2 L (8.4-10.2) mg/dL Assessment and Plan Time with Patient: Less than 30
[2024-01-29] MEDS: WARFARIN 0.5 MG TAB PO ONE (12:46)
--- NOTE | 2024-01-29 13:06 | P.PN ---
Subjective Progress Note Date: 01/29/24 74-year-old morbidly obese male patient, known history of COPD, known history of CHF with impaired LV function and systolic heart failure with an ejection fraction of 20 to 25%, coronary artery disease, along with history of chronic A- fib, maintained on oxygen 4 L/min nasal cannula. He is morbidly obese. The patient presented to hospital because of worsening shortness of breath and CHF exacerbation. The patient was noted to be in atrial fibrillation/flutter with RVR and decompensated heart failure with some elevation in troponin at time of admission. His troponins were 0.04-0.03 and 0.03 respectively x 3. proBNP level was 8550. Normal renal function. No significant leukocytosis. Hemoglobi n was stable at 16.1 at time of admission. Viral screen was negative. Chest x- ray was consistent with CHF and cardiomegaly and pulm vascular congestion. The patient is currently on IV Lasix 40 mg every 12 hours. In terms of his CHF, he has been placed on a combination of Entresto / 1 tablet a day, Aldactone 12.5 mg p.o. daily, metoprolol 100 mg p.o. twice a day, Farxiga 10 mg p.o. daily. The patient is also on amiodarone 200 mg p.o. daily. He was started on DuoNeb nebulized treatments [id number]. He is on long-term anticoagulation with warfarin and the patient's INR at the time of admission was 7.1. Denies having any chest pain. No altered mentation. He has chronic edema lower extremities bilaterally. He also has history of obstructive sleep apnea. He has a CPAP machine at home and he has not been compliant with treatment. Does not utilize maintenance as per medications. Is a neck smoker and he quit smoking more than 7 years ago. Occasional [id number] smoking history. On 01/29/2024, the patient is being seen for a follow-up. The patient is feeling better compared to yesterday. The patient seems to be less short of breath. Remains on IV Lasix 40 mg every 12 hours. Negative fluid balance of at least 1.6 L over the past 24 hours. Remains in atrial fibrillation. INR is at above 10 and the patient was given 2.5 mg of vitamin K today. Hemoglobin is at 16.4, white cell count is 6.8. Serum bicarb is at 42, BUN is 37 with a creatinine of 0.9. Echocardiogram was also done yesterday and the patien was found to have an impaired LV function with an ejection fraction of 25 to 30% and severe reduction in the LV systolic function and severe RA dilatation, moderate RV dilatation and dysfunction. Objective - Vital Signs Vital signs: Vital Signs Temp 97.7 F 01/29/24 07:37 Pulse 112 H 01/29/24 08:37 Resp 20 01/29/24 07:37 BP 101/60 01/29/24 07:37 Pulse Ox 99 01/29/24 07:37 FiO2 Intake & Output 01/28/24 01/29/24 01/29/24 18:59 06:59 18:59 Intake Total 118 Output Total 425 Balance -307 Weight 152.9 kg Intake: Oral 118 Output: Urine 425 Other: Voiding Method Urinal Urinal - Exam The patient appeared well nourished and normally developed. Vital signs as documented. Patient is morbidly obese, body mass index of 41.2. He is currently on oxygen 4 L/min nasal cannula. Head exam is unremarkable. No scleral icterus or corneal arcus noted. Neck is without jugular venous distension, thyromegaly, or carotid bruits. Carotid upstrokes are brisk bilaterally. Lungs are showing diminished breath sound bilateral along with bibasilar crackles. Cardiac exam reveals the PMI to be normally sized and situated. Irregular rhythm consistent with atrial fibrillation.. First and second heart sounds normal. No murmurs, rubs or gallops. Abdominal exam reveals normal bowel sounds, no masses, no organomegaly and no aortic enlargement. Extremities are increased edema lower extremities bilaterally and both femoral and pedal pulses are normal. Examination of the skin revealed no evidence of significant rashes, suspicious appearing nevi or other concerning lesions. Neurologically, the patient is awake and alert and the patient does not have any focal neurological deficit. Cranial nerves are essentially intact. - Labs CBC & Chem 7: 01/28/24 06:17 01/29/24 05:59 Labs: Abnormal Lab Results - Last 24 Hours (Table) 01/29/24 01/29/24 Range/Units 05:59 05:59 PT 100.0 H (10.0-12.5) sec INR >10.0 H* (<1.2) Sodium 135 L (137-145) mmol/L Chloride 91 L (98-107) mmol/L Carbon Dioxide 42 H* (22-30) mmol/L BUN 37 H (9-20) mg/dL Calcium 8.2 L (8.4-10.2) mg/dL Assessment and Plan Plan: Acute on chronic hypoxic respiratory failure, the patient is currently on 4 L of oxygen by nasal cannula Shortness of breath, improving Acute exacerbation of CHF Chronic A-fib/flutter with RVR, rate is under better control for now CHF with impaired systolic heart failure and an ejection fraction of 20 to 25% Coronary artery disease Abnormal troponins likely secondary to above, no acute ST segment elevations or changes on EKG and the patient is free of any chest pain Lower extremity edema secondary to above Morbid obesity with a BMI of 41.2 COPD Obstructive sleep apnea, not compliant to CPAP therapy Supratherapeutic PT/INR Hyperlipidemia Hypertension Plan Titrate oxygen flow to maintain saturation above 90% Continue Lasix 40 mg IV every 12 hours Fluid restriction monitor electrolytes, the patient remains in a negative fluid balance Hold warfarin and monitor the PT/INR, given vitamin K 2.5 mg x 1 Resume cardiac medications Monitor A-fib/flutter Allow the patient to bring his CPAP machine from home and will do necessary adjustments to make the treatment more successful Continue DuoNeb Treatments [id number] Cardiology consultation Will continue to follow
[2024-01-29] MEDS ORDERED: NON FORMULARY DRUG (Warfarin Sodium [Warfarin Sodium] 4 MG Tablet) PO SCH (13:50)
[2024-01-29 13:55] VITALS: BMI 42.1
[2024-01-29] MEDS: SODIUM CHLORIDE 0.9% 1,000 ML IV SCH (14:04)
[2024-01-29] MEDS: BUMETANIDE 1 MG TAB PO SCH (14:05)
--- NOTE | 2024-01-29 14:52 | P.PN ---
Subjective Progress Note Date: 01/29/24 History of present illness: This is a 74-year-old male patient of Dr. Gutierrez with past medical history of sleep apnea, persistent atrial fibrillation, nonischemic cardiomyopathy, coronary artery disease, valvular heart disease, COPD, chronic hypoxic respiratory failure on home O2 at 4 L nasal cannula, history of smoking, history of TIA. We have been asked to evaluate the patient for atrial flutter with RVR elevated troponins and CHF. Patient gives history that he came into the hospital because he could not catch his breath. He apparently has had increasing shortness of breath and wheezing over the past 4 days or more. Patient was recently treated for pneumonia with a course of antibiotics. He does have a mild cough. No fever or chills. No chest pain. Patient is seen today in the emergency center waiting for bed on the cardiac stepdown unit. Blood pressure 119/72, heart rate 115, pulse ox 93% on 4 L nasal cannula. Regarding struct of sleep apnea. Patient states that he picked up a CPAP machine 3 days ago. He has previously been noncompliant with CPAP. EKG: Atrial flutter at 115 bpm Chest x-ray: Cardiomegaly. Somewhat prominent perivascular markings correlate for overload or CHF. Scattered punctate densities stable from comparison. Laboratory studies: WBC 6.8, hemoglobin 16.4. INR 7.1. Sodium 140, potassium 4.3, CO2 initially 46 now 39, BUN 21, creatinine 0.95. Troponin 0.04, 0.037 and 0.031. Influenza A, influenza B, RSV, COVID-19 not detected. Home cardiac medications: Amiodarone 200 mg daily, aspirin 81 mg daily, atorvastatin 40 mg daily, Farxiga 10 mg daily, Jardiance 10 mg daily, Lasix 40 mg daily, cardiac catheterization performed 08/26/2023 revealed normal coronaries, mildly elevated left sided filling pressure. Echocardiogram performed 08/27/2023 revealed EF of 25%, moderate MR Lopressor 75 mg daily, Nitrostat as needed, Aldactone 12.5 mg daily, warfarin 6 mg Sunday and 4 mg in the other days. Lexiscan Cardiolite stress test performed 05/30/2022 revealed probable normal myocardial perfusion imaging, EF 44%, no evidence of stress-induced ischemia. January 29, 2024 Continues to be in atrial flutter with heart rate around 100 110 bpm. Patient's echocardiogram showed an EF of 25 to 30%. Patient is noticed to have low blood pressure today BP around 90 systolic, we tried initiating Entresto yesterday but that dropped his blood pressure. Patient's INR is 10. No signs of active bleeding. Physical examination: Gen: This is a 74-year-old male in no acute distress VS: reviewed HEENT: Head is atraumatic, normocephalic. Pupils equal, round. Sclerae is anicteric. NECK: Supple. No JVD. LUNGS: Clear to auscultation. No wheezes or rhonchi. No intercostal retractions. HEART: Regular rate and rhythm. Systolic murmur. ABDOMEN: Soft No tenderness. EXTREMITIES: 2+ bilateral lower extremity edema. No calf tenderness. NEUROLOGICAL: Patient is awake, alert and oriented x3. Assessment: Atrial flutter with RVR Acute on chronic systolic heart failure Nonischemic cardiomyopathy EF 25 to 30% Chronic hypoxic respiratory failure on home O2 at 4 L nasal cannula COPD exacerbation Elevated troponin secondary to CHF, type II [place] Obstructive sleep apnea Valvular heart disease History of smoking History of TIA Morbid obesity Plan: Amiodarone 200 mg daily, atorvastatin 40 mg daily, Farxiga 10 mg daily, Increase Aldactone to 25 mg daily discontinue IV Lasix, start p.o. Bumex 1 g p.o. daily. Metoprolol to 100 mg twice daily Hold Entresto due to low blood pressure. Pharmacy to dose warfarin, goal of INR 23. Current INR is 10. Plan for cardioversion tomorrow with Dr. Cage. Patient has explicitly denied any missing of warfarin dosing or any interruptions in last 30 days. At discharge zaman out Pradaxa and see if it is affordable for the patient. If affordable, consider it over warfarin. Once cardioverted and maintaining sinus rhythm, readjust metoprolol dose, set up early outpatient follow-up and set up ablation. Pulmonary team helping with CPAP adjustment for better management of CASSANDRA Objective - Vital Signs Vital signs: Vital Signs Temp 97.7 F 01/29/24 07:37 Pulse 112 H 01/29/24 11:34 Resp 20 01/29/24 11:31 BP 85/55 01/29/24 11:31 Pulse Ox 97 01/29/24 11:31 FiO2 Intake & Output 11/07/1701/29/24 01/29/24 18:59 06:59 18:59 Intake Total 118 Output Total 425 Balance -307 Weight 152.9 kg 152.9 kg Intake: Oral 118 Output: Urine 425 Other: Voiding Method Urinal Urinal - Labs CBC & Chem 7: 01/28/24 06:17 01/29/24 05:59 Labs: Abnormal Lab Results - Last 24 Hours (Table) 01/29/24 01/29/24 Range/Units 05:59 05:59 PT 100.0 H (10.0-12.5) sec INR >10.0 H* (<1.2) Sodium 135 L (137-145) mmol/L Chloride 91 L (98-107) mmol/L Carbon Dioxide 42 H* (22-30) mmol/L BUN 37 H (9-20) mg/dL Calcium 8.2 L (8.4-10.2) mg/dL
[2024-01-30 08:13] LABS: African American GFR (CKD) >90 (>60 ml/min/1.73 sqM); Blood Urea Nitrogen 29 mg/dL (9-20); Calcium 8.2 mg/dL (8.4-10.2); Chloride 88 mmol/L (98-107); Glucose 85 mg/dL (74-99); Non-African American GFR(CKD) 84 (>60 ml/min/1.73 sqM); Potassium 3.7 mmol/L (3.5-5.1); Sodium 137 mmol/L (137-145)
[2024-01-30 08:17] LABS: INR 1.8 (<1.2); Prothrombin Time 17.8 sec (10.0-12.5)
[2024-01-30 08:25] LABS: Anion Gap 3 mmol/L; Carbon Dioxide 46 mmol/L (22-30)
[2024-01-30] MEDS: IV FLUID CONTINUATION 1,000 ML IV ONE (09:56)
[2024-01-30] MEDS ORDERED: PROPOFOL 10 MG/ML 20 ML VIAL IV ONE (10:06)
--- NOTE | 2024-01-30 10:52 | P.PCN ---
Date of Procedure: 01/30/24 Operative Findings: Cardioversion Report Performing physician Kleber Gutierrez M.D. Procedure performed Successful cardioversion of atrial fibrillation to normal sinus mechanism using 200 J at first attempt Indication Symptomatic atrial fibrillation Complication None Level of sedation The procedure was performed under deep sedation using propofol with MEDART OPERATOR in the room Procedure description After obtaining an informed consent the patient was brought to the recovery room. Sedation was introduced using propofol with MEDART OPERATOR in the room. Subsequently the patient cardioverted from atrial fibrillation to normal sinus mechanism using 200 J and first attempt Conclusion Successful cardioversion of atrial fibrillation to normal sinus mechanism using 200 J Postprocedure management Continue the current medical regimen Continue oral anticoagulation Follow-up with the patient
[2024-01-30] MEDS: SPIRONOLACTONE 25 MG TAB PO SCH (11:37)
[2024-01-30] MEDS: METOPROLOL TARTRATE 50 MG TAB PO SCH (11:37)
--- NOTE | 2024-01-30 12:20 | P.PN ---
Subjective Progress Note Date: 01/30/24 74-year-old morbidly obese male patient, known history of COPD, known history of CHF with impaired LV function and systolic heart failure with an ejection fraction of 20 to 25%, coronary artery disease, along with history of chronic A- fib, maintained on oxygen 4 L/min nasal cannula. He is morbidly obese. The patient presented to hospital because of worsening shortness of breath and CHF exacerbation. The patient was noted to be in atrial fibrillation/flutter with RVR and decompensated heart failure with some elevation in troponin at time of admission. His troponins were 0.04-0.03 and 0.03 respectively x 3. proBNP level was 8550. Normal renal function. No significant leukocytosis. Hemoglobi n was stable at 16.1 at time of admission. Viral screen was negative. Chest x- ray was consistent with CHF and cardiomegaly and pulm vascular congestion. The patient is currently on IV Lasix 40 mg every 12 hours. In terms of his CHF, he has been placed on a combination of Entresto / 1 tablet a day, Aldactone 12.5 mg p.o. daily, metoprolol 100 mg p.o. twice a day, Farxiga 10 mg p.o. daily. The patient is also on amiodarone 200 mg p.o. daily. He was started on DuoNeb nebulized treatments [id number]. He is on long-term anticoagulation with warfarin and the patient's INR at the time of admission was 7.1. Denies having any chest pain. No altered mentation. He has chronic edema lower extremities bilaterally. He also has history of obstructive sleep apnea. He has a CPAP machine at home and he has not been compliant with treatment. Does not utilize maintenance as per medications. Is a neck smoker and he quit smoking more than 7 years ago. Occasional [id number] smoking history. On 01/29/2024, the patient is being seen for a follow-up. The patient is feeling better compared to yesterday. The patient seems to be less short of breath. Remains on IV Lasix 40 mg every 12 hours. Negative fluid balance of at least 1.6 L over the past 24 hours. Remains in atrial fibrillation. INR is at above 10 and the patient was given 2.5 mg of vitamin K today. Hemoglobin is at 16.4, white cell count is 6.8. Serum bicarb is at 42, BUN is 37 with a creatinine of 0.9. Echocardiogram was also done yesterday and the patien was found to have an impaired LV function with an ejection fraction of 25 to 30% and severe reduction in the LV systolic function and severe RA dilatation, moderate RV dilatation and dysfunction. 01/30/2024, the patient is getting ready for a cardioversion regarding his atrial fibrillation. This will be done by cardiology. Patient has an INR of 1.8. The patient was given a dose of vitamin K yesterday and INR dropped from 10 down to 1.8. Meanwhile, the rest of the blood work shows a sodium level of 137, bicarb of 46, BUN 29 with a creatinine of 0.9. Will discuss 6.8 with a hemoglobin of 16.4 and a platelet count of 117. The patient remains on amiodarone 10 mg p.o. daily. The patient remains on Bumex 1 mg p.o. daily. The patient is also on Lopressor, Farxiga and Aldactone. IV fluids are currently at [facility]. Coumadin is to be restarted. Objective - Vital Signs Vital signs: Vital Signs Temp 98.0 F 01/30/24 08:02 Pulse 116 H 01/30/24 09:57 Resp 22 01/30/24 09:57 BP 108/60 01/30/24 09:57 Pulse Ox 93 L 01/30/24 09:57 FiO2 Intake & Output 01/29/24 01/30/24 01/30/24 18:59 06:59 18:59 Intake Total 118 Output Total 1725 1000 Balance -1607 -1000 Weight 152.9 kg 150.8 kg Intake: Oral 118 Output: Urine 1725 1000 Other: Voiding Method Urinal Urinal Urinal # Voids 2 - Exam The patient appeared well nourished and normally developed. Vital signs as doc umented. Patient is morbidly obese, body mass index of 41.2. He is currently on oxygen 4 L/min nasal cannula. Head exam is unremarkable. No scleral icterus or corneal arcus noted. Neck is without jugular venous distension, thyromegaly, or carotid bruits. Carotid upstrokes are brisk bilaterally. Lungs are showing diminished breath sound bilateral along with bibasilar crackles. Cardiac exam reveals the PMI to be normally sized and situated. Irregular rhythm consistent with atrial fibrillation.. First and second heart sounds normal. No murmurs, rubs or gallops. Abdominal exam reveals normal bowel sounds, no masses, no organomegaly and no aortic enlargement. Extremities are increased edema lower extremities bilaterally and both femoral and pedal pulses are normal. Examination of the skin revealed no evidence of significant rashes, suspicious appearing nevi or other concerning lesions. Neurologically, the patient is awake and alert and the patient does not have any focal neurological deficit. Cranial nerves are essentially intact. - Labs CBC & Chem 7: 01/28/24 06:17 01/30/24 07:27 Labs: Abnormal Lab Results - Last 24 Hours (Table) 01/30/24 01/30/24 Range/Units 07:27 07:27 PT 17.8 H (10.0-12.5) sec INR 1.8 H (<1.2) Chloride 88 L (98-107) mmol/L Carbon Dioxide 46 H* (22-30) mmol/L BUN 29 H (9-20) mg/dL Calcium 8.2 L (8.4-10.2) mg/dL Assessment and Plan Plan: Acute on chronic hypoxic respiratory failure, the patient is currently on 4 L of oxygen by nasal cannula Shortness of breath, improving Acute exacerbation of CHF Chronic A-fib/flutter with RVR, rate is under better control for now, awaiting cardioversion CHF with impaired systolic heart failure and an ejection fraction of 20 to 25% Coronary artery disease Abnormal troponins likely secondary to above, no acute ST segment elevations or changes on EKG and the patient is free of any chest pain Lower extremity edema secondary to above Morbid obesity with a BMI of 41.2 COPD Obstructive sleep apnea, not compliant to CPAP therapy Supratherapeutic PT/INR, improved and INR is currently down to 1.8 Hyperlipidemia Hypertension Plan Titrate oxygen flow to maintain saturation above 90% Continue diuretics and the patient is currently on Bumex Fluid restriction monitor electrolytes, the patient remains in a negative fluid balance INR level is down to 1.8 and the patient will be started on warfarin Continue Lopressor, Farxiga and Aldactone Cardioversion today regarding his chronic atrial fibrillation. Allow the patient to bring his CPAP machine from home and will do necessary adjustments to make the treatment more successful Continue Meryl Will continue to follow
--- NOTE | 2024-01-30 12:46 | P.PN ---
Subjective Progress Note Date: 01/30/24 History of present illness: This is a 74-year-old male patient of Dr. Gutierrez with past medical history of sleep apnea, persistent atrial fibrillation, nonischemic cardiomyopathy, coronary artery disease, valvular heart disease, COPD, chronic hypoxic respiratory failure on home O2 at 4 L nasal cannula, history of smoking, history of TIA. We have been asked to evaluate the patient for atrial flutter with RVR elevated troponins and CHF. Patient gives history that he came into the hospital because he could not catch his breath. He apparently has had increasing shortness of breath and wheezing over the past 4 days or more. Patient was recently treated for pneumonia with a course of antibiotics. He does have a mild cough. No fever or chills. No chest pain. Patient is seen today in the emergency center waiting for bed on the cardiac stepdown unit. Blood pressure 119/72, heart rate 115, pulse ox 93% on 4 L nasal cannula. Regarding struct of sleep apnea. Patient states that he picked up a CPAP machine 3 days ago. He has previously been noncompliant with CPAP. EKG: Atrial flutter at 115 bpm Chest x-ray: Cardiomegaly. Somewhat prominent perivascular markings correlate for overload or CHF. Scattered punctate densities stable from comparison. Laboratory studies: WBC 6.8, hemoglobin 16.4. INR 7.1. Sodium 140, potassium 4.3, CO2 initially 46 now 39, BUN 21, creatinine 0.95. Troponin 0.04, 0.037 and 0.031. Influenza A, influenza B, RSV, COVID-19 not detected. Home cardiac medications: Amiodarone 200 mg daily, aspirin 81 mg daily, atorvastatin 40 mg daily, Farxiga 10 mg daily, Jardiance 10 mg daily, Lasix 40 mg daily, cardiac catheterization performed 08/26/2023 revealed normal coronaries, mildly elevated left sided filling pressure. Echocardiogram performed 08/27/2023 revealed EF of 25%, moderate MR Lopressor 75 mg daily, Nitrostat as needed, Aldactone 12.5 mg daily, warfarin 6 mg Sunday and 4 mg in the other days. Lexiscan Cardiolite stress test performed 05/30/2022 revealed probable normal myocardial perfusion imaging, EF 44%, no evidence of stress-induced ischemia. January 29, 2024 Continues to be in atrial flutter with heart rate around 100 110 bpm. Patient's echocardiogram showed an EF of 25 to 30%. Patient is noticed to have low blood pressure today BP around 90 systolic, we tried initiating Entresto yesterday but that dropped his blood pressure. Patient's INR is 10. No signs of active bleeding. 01/29 Today, patient underwent successful cardioversion of atrial fibrillation to sinus rhythm with Dr. Gutierrez. He did have low blood pressure at prior to p rocedure and 82/50 eventually to 100/55 and heart rate is running 75 with PVCs in a sinus rhythm now. When he returned from his procedure blood pressure 96/51. Patient has been instructed to monitor his blood pressure at home. He is also been instructed to be compliant with his CPAP machine. INR today is 1.8. Sodium 137, potassium 3.7, CO2 46, BUN 29 creatinine 0.91. Physical examination: Gen: This is a 74-year-old male in no acute distress VS: reviewed HEENT: Head is atraumatic, normocephalic. Pupils equal, round. Sclerae is anicteric. NECK: Supple. No JVD. LUNGS: Clear to auscultation. No wheezes or rhonchi. No intercostal retractions. HEART: Regular rate and rhythm. Systolic murmur. ABDOMEN: Soft No tenderness. EXTREMITIES: 2+ bilateral lower extremity edema. No calf tenderness. NEUROLOGICAL: Patient is awake, alert and oriented x3. Assessment: Typical atrial flutter with RVR status post cardioversion Acute on chronic systolic heart failure Nonischemic cardiomyopathy EF 25 to 30% Chronic hypoxic respiratory failure on home O2 at 4 L nasal cannula COPD exacerbation Elevated troponin secondary to CHF, type II [place] Obstructive sleep apnea Valvular heart disease History of smoking History of TIA Morbid obesity Plan: Continue patient on amiodarone 200 mg daily, atorvastatin 40 mg daily, Farxiga 10 mg daily, Continue Aldactone to 25 mg daily and Bumex 1 g p.o. daily. Decrease metoprolol to 50 mg twice daily Hold Entresto due to low blood pressure. Pharmacy to dose warfarin, goal of INR 23. 1 month prescription for Pradaxa sent to our pharmacy to see if it is affordable for the patient. If affordable, consider it over warfarin. Pulmonary team helping with CPAP adjustment for better management of CASSANDRA Probable discharge home tomorrow. Continue telemetry monitoring. Monitor blood pressure closely Nurse practitioner note has been reviewed, I agree with documented findings and plan of care. Patient was seen and examined. Objective - Vital Signs Vital signs: Vital Signs Temp 97.6 F 01/30/24 11:20 Pulse 71 01/30/24 11:20 Resp 20 01/30/24 11:20 BP 96/51 01/30/24 11:20 Pulse Ox 95 01/30/24 11:20 FiO2 Intake & Output 01/29/24 01/30/24 01/30/24 18:59 06:59 18:59 Intake Total 118 600 Output Total 1725 1000 Balance -1607 -1000 600 Weight 152.9 kg 150.8 kg Intake: IV 600 Oral 118 Output: Urine 1725 1000 Other: Voiding Method Urinal Urinal Urinal # Voids 2 - Labs CBC & Chem 7: 01/28/24 06:17 01/30/24 07:27 Labs: Abnormal Lab Results - Last 24 Hours (Table) 01/30/24 01/30/24 Range/Units 07:27 07:27 PT 17.8 H (10.0-12.5) sec INR 1.8 H (<1.2) Chloride 88 L (98-107) mmol/L Carbon Dioxide 46 H* (22-30) mmol/L BUN 29 H (9-20) mg/dL Calcium 8.2 L (8.4-10.2) mg/dL
[2024-01-30] MEDS ORDERED: WARFARIN 3 MG TAB PO ONE (18:00)
[2024-01-30] MEDS: DABIGATRAN 150 MG CAP PO SCH (20:55)
[2024-01-31 00:05] VITALS: RESP 18
--- NOTE | 2024-01-31 07:00 | P.PN ---
Subjective Progress Note Date: 01/30/24 Patient is a 74-year-old male known history of congestive heart failure EF of around 20 to 25% with an AICD use 4 L of oxygen at home for COPD came in with complaints of shortness of breath orthopnea paroxysmal nocturnal dyspnea with mild cough and no sputum production. Patient is found to be in CHF exacerbation and chest x-ray showing pulmonary edema, patient has extensive bilateral pedal edema along with elevated JVD and patient's BNP is 8550 serum creatinine is within normal limits, patient is on Coumadin for atrial fibrillation may be valvular A-fib and INR is supratherapeutic at 7.2 and Coumadin is being held at this time. Patient does not have any evidence of bleeding at this time. Patient is not actively smoking at this time quit smoking in the past 01/29/2024 Patient is eval today in follow-up on the medical floor currently resting in bed with no acute complaints. He does wear oxygen chronically at baseline and he is on 4 L of oxygen with saturations of 97%. Heart rate is in the 110s today. Did echocardiogram which shows severe LV systolic dysfunction with an ejection fraction of 25 to 30% severe right atrial enlargement. Moderate right ventricular dilation. Patient continues on IV Lasix 40 mg every 12 hours. Additionally he is on Entresto, Aldactone. He is anticoag with warfarin which has been held secondary to supratherapeutic INR of greater than 10 today. He did receive a 2.5 mg dose of vitamin K and will repeat the INR tomorrow. 01/30/2024 Patient evaluated today in follow up on the medical floor. He has no acute complaints. INR 1.8 today. Status post cardioversion and currently in sinus mechanism. He has been continued on IV diuresis. Blood pressures in the 90s systolic this AM. Review of Systems Constitutional: Denied any fatigue denied any fever. Cardio vascular: denied any chest pain, palpitations Gastrointestinal: denied any nausea, vomiting, diarrhea Pulmonary: Denied any shortness of breath cough Neurologic denied any new focal deficits All inpatient medications were reviewed and appropriate changes in these medications as dictated in the interval history and assessment and plan. PHYSICAL EXAMINATION: GENERAL: The patient is alert and oriented x3, not in any acute distress. Well developed, well nourished. HEENT: Pupils are round and equally reacting to light. EOMI. No scleral icterus. No conjunctival pallor. Normocephalic, atraumatic. No pharyngeal erythema. No thyromegaly. CARDIOVASCULAR: S1 and S2 present. No murmurs, rubs, or gallops. PULMONARY: Significantly diminished air entry to bilateral lung sears no wheezing or crackles were appreciated. ABDOMEN: Soft, nontender, nondistended, normoactive bowel sounds. No palpable organomegaly. MUSCULOSKELETAL: No joint swelling or deformity. EXTREMITIES: No cyanosis, clubbing extensive bilateral pedal edema extending up to both knees NEUROLOGICAL: Gross neurological examination did not reveal any focal deficits. SKIN: No rashes. Assessment and plan -Congestive heart failure chronic systolic dysfunction with acute exacerbation: Patient is on 40 IV twice daily of Lasix presently patient uses 40 mg daily of Lasix at home -Chronic A-fib/flutter with present rapid ventricular rate: Patient is on Coumadin -Afib with RVR patient will be going for cardioversion and monitored afterwards likely DC home tomorrow. -Supratherapeutic INR recieved vitamin K INR today is now 1.8. Repeat levels tomorrow and expect patient to be in goal range of 2 -3. -COPD and chronic hypercapnic respiratory failure with may be mild acute exacerbation continue with inhaled steroids inhalational treatments -Hyperlipidemia -Hypertension Peripheral mention chronic medical problems patient be resumed on appropriate home medications DVT prophylaxis:patient's INR is supratherapeutic Coumadin is being held Full Code The impression and plan of care has been dictated by Mila Montalvo, Nurse Practitioner as directed. Dr. Jennifer MD I have performed a history and physical examination and medical decision making of this patient, discussed the same with the dictator, and agree with the dictators assessment and plan as written, documented as a scribe. Based on total visit time, I have performed more than 50% of this visit. Objective - Vital Signs Vital signs: Vital Signs Temp 97.6 F 01/30/24 11:20 Pulse 71 01/30/24 13:20 Resp 20 01/30/24 11:20 BP 96/51 01/30/24 11:20 Pulse Ox 95 01/30/24 11:20 FiO2 Intake & Output 01/29/24 01/30/24 01/30/24 18:59 06:59 18:59 Intake Total 118 400 Output Total 1725 1000 Balance -1607 -1000 400 Weight 152.9 kg 150.8 kg Intake: IV 400 Oral 118 Output: Urine 1725 1000 Other: Voiding Method Urinal Urinal Urinal # Voids 2 - Labs CBC & Chem 7: 01/28/24 06:17 01/30/24 07:27 Labs: Abnormal Lab Results - Last 24 Hours (Table) 01/30/24 01/30/24 Range/Units 07:27 07:27 PT 17.8 H (10.0-12.5) sec INR 1.8 H (<1.2) Chloride 88 L (98-107) mmol/L Carbon Dioxide 46 H* (22-30) mmol/L BUN 29 H (9-20) mg/dL Calcium 8.2 L (8.4-10.2) mg/dL Assessment and Plan Time with Patient: Less than 30
[2024-01-31 07:36] LABS: INR 1.4 (<1.2); Prothrombin Time 14.9 sec (10.0-12.5)
[2024-01-31 10:46] VITALS: BP 105/66; TEMP 97.7
--- NOTE | 2024-01-31 13:48 | P.PN ---
Subjective Progress Note Date: 01/31/24 History of present illness: This is a 74-year-old male patient of Dr. Gutierrez with past medical history of s leep apnea, persistent atrial fibrillation, nonischemic cardiomyopathy, coronary artery disease, valvular heart disease, COPD, chronic hypoxic respiratory failure on home O2 at 4 L nasal cannula, history of smoking, history of TIA. We have been asked to evaluate the patient for atrial flutter with RVR elevated troponins and CHF. Patient gives history that he came into the hospital because he could not catch his breath. He apparently has had increasing shortness of breath and wheezing over the past 4 days or more. Patient was recently treated for pneumonia with a course of antibiotics. He does have a mild cough. No fever or chills. No chest pain. Patient is seen today in the emergency center waiting for bed on the cardiac stepdown unit. Blood pressure 119/72, heart rate 115, pulse ox 93% on 4 L nasal cannula. Regarding struct of sleep apnea. Patient states that he picked up a CPAP machine 3 days ago. He has previously been noncompliant with CPAP. EKG: Atrial flutter at 115 bpm Chest x-ray: Cardiomegaly. Somewhat prominent perivascular markings correlate for overload or CHF. Scattered punctate densities stable from comparison. Laboratory studies: WBC 6.8, hemoglobin 16.4. INR 7.1. Sodium 140, potassium 4.3, CO2 initially 46 now 39, BUN 21, creatinine 0.95. Troponin 0.04, 0.037 and 0.031. Influenza A, influenza B, RSV, COVID-19 not detected. Home cardiac medications: Amiodarone 200 mg daily, aspirin 81 mg daily, atorvastatin 40 mg daily, Farxiga 10 mg daily, Jardiance 10 mg daily, Lasix 40 mg daily, cardiac catheterization performed 08/26/2023 revealed normal coronaries, mildly elevated left sided filling pressure. Echocardiogram performed 08/27/2023 revealed EF of 25%, moderate MR Lopressor 75 mg daily, Nitrostat as needed, Aldactone 12.5 mg daily, warfarin 6 mg Sunday and 4 mg in the other days. Lexiscan Cardiolite stress test performed 05/30/2022 revealed probable normal myocardial perfusion imaging, EF 44%, no evidence of stress-induced ischemia. January 29, 2024 Continues to be in atrial flutter with heart rate around 100 110 bpm. Patient's echocardiogram showed an EF of 25 to 30%. Patient is noticed to have low blood pressure today BP around 90 systolic, we tried initiating Entresto yesterday but that dropped his blood pressure. Patient's INR is 10. No signs of active bleeding. 01/29 Today, patient underwent successful cardioversion of atrial fibrillation to sinus rhythm with Dr. Gutierrez. He did have low blood pressure at prior to pr ocedure and 82/50 eventually to 100/55 and heart rate is running 75 with PVCs in a sinus rhythm now. When he returned from his procedure blood pressure 96/51. Patient has been instructed to monitor his blood pressure at home. He is also been instructed to be compliant with his CPAP machine. INR today is 1.8. Sodium 137, potassium 3.7, CO2 46, BUN 29 creatinine 0.91. 01/30 Patient is seen and examined. Blood pressure 105/66, heart rate 74, pulse ox 92% on 3 L. INR is 1.4. Yesterday, patient was started on Pradaxa and Coumadin was discontinued. Pradaxa co-pay is about $41. Telemetry is atrial fibrillation with controlled rate. Physical examination: Gen: This is a 74-year-old male in no acute distress VS: reviewed HEENT: Head is atraumatic, normocephalic. Pupils equal, round. Sclerae is anicteric. NECK: Supple. No JVD. LUNGS: Clear to auscultation. No wheezes or rhonchi. No intercostal retractions. HEART: Regular rate and rhythm. Systolic murmur. ABDOMEN: Soft No tenderness. EXTREMITIES: 2+ bilateral lower extremity edema. No calf tenderness. NEUROLOGICAL: Patient is awake, alert and oriented x3. Assessment: Typical atrial flutter with RVR status post cardioversion Acute on chronic systolic heart failure Nonischemic cardiomyopathy EF 25 to 30% Chronic hypoxic respiratory failure on home O2 at 4 L nasal cannula COPD exacerbation Elevated troponin secondary to CHF, type II [place] Obstructive sleep apnea Valvular heart disease History of smoking History of TIA Morbid obesity Plan: Continue patient on amiodarone 200 mg daily, atorvastatin 40 mg daily, Farxiga 10 mg daily, Continue Aldactone to 25 mg daily and Bumex 1 mg p.o. daily. Continue lower dose of metoprolol 50 mg twice daily Hold Entresto due to low blood pressure. Continue patient on Pradaxa Discontinue Coumadin Patient is cleared for discharge from cardiology and may follow-up in the office in 1 to 2 weeks. Nurse practitioner note has been reviewed, I agree with documented findings and plan of care. Patient was seen and examined. Objective - Vital Signs Vital signs: Vital Signs Temp 98.0 F 01/31/24 04:00 Pulse 60 01/31/24 09:10 Resp 18 01/31/24 04:00 BP 105/64 01/31/24 04:00 Pulse Ox 96 01/31/24 04:00 FiO2 Intake & Output 01/30/24 01/31/24 01/31/24 18:59 06:59 18:59 Intake Total 636 118 Balance 636 118 Weight 150.5 kg Intake: IV 400 Oral 236 118 Other: Voiding Method Urinal Urinal - Labs CBC & Chem 7: 01/28/24 06:17 01/30/24 07:27 Labs: Abnormal Lab Results - Last 24 Hours (Table) 01/31/24 Range/Units 05:56 PT 14.9 H (10.0-12.5) sec INR 1.4 H (<1.2)
--- NOTE | 2024-01-31 14:36 | P.PN ---
Subjective Progress Note Date: 01/31/24 74-year-old morbidly obese male patient, known history of COPD, known history of CHF with impaired LV function and systolic heart failure with an ejection fraction of 20 to 25%, coronary artery disease, along with history of chronic A- fib, maintained on oxygen 4 L/min nasal cannula. He is morbidly obese. The patient presented to hospital because of worsening shortness of breath and CHF exacerbation. The patient was noted to be in atrial fibrillation/flutter with RVR and decompensated heart failure with some elevation in troponin at time of admission. His troponins were 0.04-0.03 and 0.03 respectively x 3. proBNP level was 8550. Normal renal function. No significant leukocytosis. Hemoglobi n was stable at 16.1 at time of admission. Viral screen was negative. Chest x- ray was consistent with CHF and cardiomegaly and pulm vascular congestion. The patient is currently on IV Lasix 40 mg every 12 hours. In terms of his CHF, he has been placed on a combination of Entresto / 1 tablet a day, Aldactone 12.5 mg p.o. daily, metoprolol 100 mg p.o. twice a day, Farxiga 10 mg p.o. daily. The patient is also on amiodarone 200 mg p.o. daily. He was started on DuoNeb nebulized treatments [id number]. He is on long-term anticoagulation with warfarin and the patient's INR at the time of admission was 7.1. Denies having any chest pain. No altered mentation. He has chronic edema lower extremities bilaterally. He also has history of obstructive sleep apnea. He has a CPAP machine at home and he has not been compliant with treatment. Does not utilize maintenance as per medications. Is a neck smoker and he quit smoking more than 7 years ago. Occasional [id number] smoking history. On 01/29/2024, the patient is being seen for a follow-up. The patient is feeling better compared to yesterday. The patient seems to be less short of breath. Remains on IV Lasix 40 mg every 12 hours. Negative fluid balance of at least 1.6 L over the past 24 hours. Remains in atrial fibrillation. INR is at above 10 and the patient was given 2.5 mg of vitamin K today. Hemoglobin is at 16.4, white cell count is 6.8. Serum bicarb is at 42, BUN is 37 with a creatinine of 0.9. Echocardiogram was also done yesterday and the patien was found to have an impaired LV function with an ejection fraction of 25 to 30% and severe reduction in the LV systolic function and severe RA dilatation, moderate RV dilatation and dysfunction. 01/30/2024, the patient is getting ready for a cardioversion regarding his atrial fibrillation. This will be done by cardiology. Patient has an INR of 1.8. The patient was given a dose of vitamin K yesterday and INR dropped from 10 down to 1.8. Meanwhile, the rest of the blood work shows a sodium level of 137, bicarb of 46, BUN 29 with a creatinine of 0.9. Will discuss 6.8 with a hemoglobin of 16.4 and a platelet count of 117. The patient remains on amiodarone 10 mg p.o. daily. The patient remains on Bumex 1 mg p.o. daily. The patient is also on Lopressor, Farxiga and Aldactone. IV fluids are currently at KVO. Coumadin is to be restarted. On 01/31/2024, the patient is being seen for a follow-up. The patient is currently on 3 L of oxygen by nasal cannula. Cardiac rhythm is sinus. The patient is feeling well. No specific complaints. He reports improvement in lower extremity edema. Labs from yesterday was noted and the patient's BUN was 29 with a creatinine of 0.9. Serum bicarb was at 46. Most recent INR is at 1.4 and the patient is currently on Bumex 1 mg p.o. daily and Aldactone 25 mg p.o. daily. He is also on amiodarone 200 mg p.o. daily. He is currently on 3 Suboxone by nasal cannula with pulse ox of 92%. I checked his CPAP unit and the patient is an older generation ResMed S8 which is set at a pressure of 12 cm of water. Does not have enough supplies for ongoing treatment. Objective - Vital Signs Vital signs: Vital Signs Temp 98.0 F 01/31/24 04:00 Pulse 60 01/31/24 09:10 Resp 18 01/31/24 04:00 BP 105/64 01/31/24 04:00 Pulse Ox 96 01/31/24 04:00 FiO2 Intake & Output 01/30/24 01/31/24 01/31/24 18:59 06:59 18:59 Intake Total 636 118 Balance 636 118 Weight 150.5 kg Intake: IV 400 Oral 236 118 Other: Voiding Method Urinal Urinal - Exam The patient appeared well nourished and normally developed. Vital signs as documented. Patient is morbidly obese, body mass index of 41.2. He is currently on oxygen 3 L/min nasal cannula. Head exam is unremarkable. No scleral icterus or corneal arcus noted. Neck is without jugular venous distension, thyromegaly, or carotid bruits. Carotid upstrokes are brisk bilaterally. Lungs are showing diminished breath sound bilateral along with bibasilar crackles. Cardiac exam reveals the PMI to be normally sized and situated. Sinus rhythm.. First and second heart sounds normal. No murmurs, rubs or gallops. Abdominal exam reveals normal bowel sounds, no masses, no organomegaly and no aortic enlargement. Extremities are increased edema lower extremities bilaterally and both femoral and pedal pulses are normal. Examination of the skin revealed no evidence of significant rashes, suspicious appearing nevi or other concerning lesions. Neurologically, the patient is awake and alert and the patient does not have any focal neurological deficit. Cranial nerves are essentially intact. - Labs CBC & Chem 7: 01/28/24 06:17 01/30/24 07:27 Labs: Abnormal Lab Results - Last 24 Hours (Table) 01/31/24 Range/Units 05:56 PT 14.9 H (10.0-12.5) sec INR 1.4 H (<1.2) Assessment and Plan Plan: Acute on chronic hypoxic respiratory failure, the patient is currently on 3 L of oxygen by nasal cannula Shortness of breath, improving Acute exacerbation of CHF Chronic A-fib/flutter with RVR, rate is under better control for now, status post cardioversion and current rhythm is sinus and the patient remains on a combination of metoprolol and amiodarone and anticoagulation with switch to Pradaxa. CHF with impaired systolic heart failure and an ejection fraction of 20 to 25% Coronary artery disease Abnormal troponins likely secondary to above, no acute ST segment elevations or changes on EKG and the patient is free of any chest pain Lower extremity edema secondary to above Morbid obesity with a BMI of 41.2 COPD Obstructive sleep apnea, not compliant to CPAP therapy Hyperlipidemia Hypertension Plan Titrate oxygen flow to maintain saturation above 90%, currently on 3 L Continue diuretics and the patient is currently on Bumex and Aldactone Fluid restriction monitor electrolytes, the patient remains in a negative fluid balance Warfarin has been discontinued and the patient was started on Pradaxa Continue Lopressor, Farxiga and Aldactone Cardioversion was done and the patient's current rhythm is sinus and the patient remains on amiodarone and Pradaxa CPAP machine is old and the patient has a ResMed S8, set at a pressure of 12 cm of water. This is to be reevaluated on an outpatient basis and the patient will benefit from a new CPAP machine. Continue Meryl Will continue to follow
[2024-01-31 14:54] VITALS: PULSE 58
[2024-01-31] MEDS ORDERED: WARFARIN 2 MG TAB PO ONE (18:00)
--- NOTE | 2024-02-05 09:16 | P.DS ---
Providers Date of admission: 01/27/24 20:12 Attending physician: Wilfrid Hollins MD Consults: 01/27/24 19:40 Consult Physician Urgent Consulting Provider: Kleber Gutierrez Consult Reason/Comments: Atrial flutter with RVR, elevated troponin, CHF Do you want consulting provider notified?: Yes 01/27/24 20:10 Consult Physician Urgent Consulting Provider: Artis Newman Consult Reason/Comments: COPD exacerbation Do you want consulting provider notified?: Yes Primary care physician: Leanna Veras Hospital Course: Final Diagnosis -Congestive heart failure chronic systolic dysfunction with acute exacerbation -Chronic A-fib/flutter with present rapid ventricular rate -Afib with RVR patient status post cardioversion -Supratherapeutic INR recieved vitamin K INR today is now 1.8. started on pradaxa. -COPD and chronic hypercapnic respiratory failure with may be mild acute exacerbation continue with inhaled steroids inhalational treatments -Hyperlipidemia -Hypertension Discharge Disposition Patient is stable for discharge home. On pradaxa for oral anticoagulation. On increased dose of metoprolol and aldactone. Repeat blood work in 2 to 3 days. Hospital Course Patient is a 74-year-old male known history of congestive heart failure EF of around 20 to 25% with an AICD use 4 L of oxygen at home for COPD came in with complaints of shortness of breath orthopnea paroxysmal nocturnal dyspnea with mild cough and no sputum production. Patient is found to be in CHF exacerbation and chest x-ray showing pulmonary edema, patient has extensive bilateral pedal edema along with elevated JVD and patient's BNP is 8550 serum creatinine is within normal limits, patient is on Coumadin for atrial fibrillation may be valvular A-fib and INR is supratherapeutic at 7.2 and Coumadin is being held at this time. Patient does not have any evidence of bleeding at this time. Patient is not actively smoking at this time quit smoking in the past. Admitted to the hospital under internal medicine with cardiology consultation. echocardiogram which shows severe LV systolic dysfunction with an ejection fraction of 25 to 30% severe right atrial enlargement. Moderate right ventricular dilation. Patient continues on IV Lasix 40 mg every 12 hours. Additionally he is on Entresto, Aldactone. He is anticoag with warfarin which has been held secondary to supratherapeutic INR of greater than 10 today. He did receive a 2.5 mg dose of vitamin K, INR down to 1.5 He was started on pradaxa in place of warfarin. Patient went for cardioversion, and is now maintaining sinus mechanism. He has been cleared for discharge home. Please see medication reconciliation for a list of current medications. Thank you for allowing us to participate in the care of this patient. The impression and plan of care has been dictated by Mila Montalvo, Nurse Practitioner as directed. Dr. Jennifer MD I have performed a history and physical examination and medical decision making of this patient, discussed the same with the dictator, and agree with the dictators assessment and plan as written, documented as a scribe. Based on total visit time, I have performed more than 50% of this visit. Patient Condition at Discharge: Stable Plan - Discharge Summary Discharge Rx Participant: Yes New Discharge Prescriptions: New Spironolactone [Aldactone] 25 mg PO DAILY #30 tab Metoprolol Tartrate [Lopressor] 50 mg PO BID #60 tab Dabigatran [Pradaxa] 150 mg PO BID #60 capsule Bumetanide [BUMEX] 1 mg PO DAILY #30 tab Continue Montelukast [Singulair] 10 mg PO DAILY Albuterol Nebulized [Ventolin Nebulized] 2.5 mg INHALATION RT-QID Dapagliflozin Propanediol [Farxiga] 10 mg PO DAILY #30 tab Aspirin [Adult Low Dose Aspirin EC] 81 mg PO DAILY Nitroglycerin Sl Tabs [Nitrostat] 0.4 mg SL Q5M PRN PRN Reason: Chest Pain Empagliflozin [Jardiance] 10 mg PO DAILY Budesonide [Pulmicort] 0.5 mg INHALATION RT-BID EPINEPHrine (Auto Inject) [Epipen] 0.3 mg IM ONCE PRN PRN Reason: Anaphylaxis Atorvastatin [Lipitor] 40 mg PO DAILY Ipratropium Nebulized [Atrovent Nebulized 0.2 MG/ML] 0.5 mg INHALATION RT-QID Amiodarone HCl [Pacerone] 200 mg PO DAILY Discontinued Furosemide [Lasix] 40 mg PO DAILY Warfarin Sodium 4 mg PO SUTUWETHSA Spironolactone [Aldactone] 12.5 mg PO DAILY Metoprolol Tartrate [Lopressor] 75 mg PO DAILY Warfarin Sodium 6 mg PO MOFR Discharge Medication List Albuterol Nebulized [Ventolin Nebulized] 2.5 mg INHALATION RT-QID 08/26/23 [History] Atorvastatin [Lipitor] 40 mg PO DAILY 08/26/23 [History] Budesonide [Pulmicort] 0.5 mg INHALATION RT-BID 08/26/23 [History] EPINEPHrine (Auto Inject) [Epipen] 0.3 mg IM ONCE PRN 08/26/23 [History] Ipratropium Nebulized [Atrovent Nebulized 0.2 MG/ML] 0.5 mg INHALATION RT-QID 08/26/23 [History] Montelukast [Singulair] 10 mg PO DAILY 08/26/23 [History] Dapagliflozin Propanediol [Farxiga] 10 mg PO DAILY #30 tab 08/31/23 [Rx] Aspirin [Adult Low Dose Aspirin EC] 81 mg PO DAILY 10/03/23 [History] Amiodarone HCl [Pacerone] 200 mg PO DAILY 11/22/23 [History] Empagliflozin [Jardiance] 10 mg PO DAILY 01/27/24 [History] Nitroglycerin Sl Tabs [Nitrostat] 0.4 mg SL Q5M PRN 01/27/24 [History] Dabigatran [Pradaxa] 150 mg PO BID #60 capsule 01/30/24 [Rx] Bumetanide [BUMEX] 1 mg PO DAILY #30 tab 01/31/24 [Rx] Metoprolol Tartrate [Lopressor] 50 mg PO BID #60 tab 01/31/24 [Rx] Spironolactone [Aldactone] 25 mg PO DAILY #30 tab 01/31/24 [Rx] Follow up Appointment(s)/Referral(s): Kleber Gutierrez MD [STAFF PHYSICIAN] - 02/11/24 1:30 pm (This is your previously scheduled appointment.) Juan Carlos Small DO [STAFF PHYSICIAN] - 1 Week (Please speak with PCP regarding CPAP and possibly scheduling sleep study sooner.) Robert Reynaga MD [STAFF PHYSICIAN] - 04/17/24 10:00 am (Pulmonology. You have also been added to a cancelation list.) Ambulatory/Diagnostic Orders: Basic Metabolic Panel [LAB.AMB] Time Frame: 3 Days, Location: None Selected Patient Instructions/Handouts: Heart Failure (DC), Atrial Flutter (DC), COPD (Chronic Obstructive Pulmonary Disease) (DC), Cardioversion (DC) Activity/Diet/Wound Care/Special Instructions: Need to make an appointment for sleep study and for CPAP. Follow up with Dr. Reynaga tractor operator first in the office and they can get you set up for that. Repeat BMP 2 to 3 days Follow up with your PCP Dr. Juan Carlos Small Stop Coumadin you have been started on pradaxa instead as a blood thinner. Discharge Disposition: HOME SELF-CARE
== END 2024-01-31 15:23 | disposition home or self-care (01) | DRG 280 ==
LOC: EC 18:02 → 3SCARD 20:12
PROVIDERS: ADMIT Internal Medicine; ATTEND Internal Medicine
PROC: 5A2204Z Restoration of Cardiac Rhythm, Single (ICD-10-PCS; principal; 2024-01-30 10:00)
DX: I11.0 Hypertensive heart disease with heart failure (principal); I50.23 Acute on chronic systolic (congestive) heart failure; I21.A1 Myocardial infarction type 2; J96.22 Acute and chronic respiratory failure with hypercapnia; J96.21 Acute and chronic respiratory failure with hypoxia; I48.3 Typical atrial flutter; J44.1 Chronic obstructive pulmonary disease with (acute) exacerbation; Z68.41 Body mass index [BMI] 40.0-44.9, adult; I48.19 Other persistent atrial fibrillation; I42.8 Other cardiomyopathies; R79.1 Abnormal coagulation profile; E66.01 Morbid (severe) obesity due to excess calories; G47.33 Obstructive sleep apnea (adult) (pediatric); E78.5 Hyperlipidemia, unspecified; Z20.822 Contact with and (suspected) exposure to COVID-19; I25.10 Atherosclerotic heart disease of native coronary artery without angina pectoris; Z79.01 Long term (current) use of anticoagulants; Z99.81 Dependence on supplemental oxygen; Z79.82 Long term (current) use of aspirin; Z79.84 Long term (current) use of oral hypoglycemic drugs; Z79.899 Other long term (current) drug therapy; Z86.73 Personal history of transient ischemic attack (TIA), and cerebral infarction without residual deficits; Z87.891 Personal history of nicotine dependence; Z91.199 Patient's noncompliance with other medical treatment and regimen due to unspecified reason; Z71.3 Dietary counseling and surveillance; Z28.21 Immunization not carried out because of patient refusal; Z95.810 Presence of automatic (implantable) cardiac defibrillator; Z87.01 Personal history of pneumonia (recurrent)
CPT/HCPCS: 36415; 71046; 80048; 80053; 83735; 83880; 84484; 85025; 85610; 85730; 87636; 92960; 93005; 93308; 94640; 96374; 96375; 96376; 99291

== ENCOUNTER 2024-07-10 21:06 | Inpatient (IN) | payer MEDICARE ==
[2024-07-10] MEDS: IPRATROPIUM-ALBUTEROL 3 ML NEB INHALATION STA (21:43)
[2024-07-10 22:01] LABS: ALT 24 U/L (4-49); AST 30 U/L (17-59); African American GFR (CKD) 71 (>60 ml/min/1.73 sqM); Albumin 3.7 g/dL (3.5-5.0); Alkaline Phosphatase 116 U/L (38-126); Blood Urea Nitrogen 37 mg/dL (9-20); Calcium 8.9 mg/dL (8.4-10.2); Chloride 89 mmol/L (98-107); Glucose 95 mg/dL (74-99); Non-African American GFR(CKD) 61 (>60 ml/min/1.73 sqM); Potassium 5.1 mmol/L (3.5-5.1); Sodium 137 mmol/L (137-145); Total Bilirubin 1.4 mg/dL (0.2-1.3); Total Protein 6.9 g/dL (6.3-8.2)
[2024-07-10 22:02] LABS: INR 1.1 (<1.2); Partial Thromboplastin Time 25.2 sec (22.0-30.0); Prothrombin Time 12.3 sec (10.0-12.5)
[2024-07-10 22:07] LABS: Anion Gap 2 mmol/L; Basophils # (A) 0.03 10*3/uL (0.00-0.10); Basophils % (A) 0.3 %; Eosinophils # (A) 0.02 10*3/uL (0.04-0.35); Eosinophils % (A) 0.2 %; HCT 47.2 % (39.6-50.0); Lymphocytes # (A) 0.93 10*3/uL (0.90-5.00); Lymphocytes % (A) 10.6 %; MCH 32.2 pg (27.0-32.0); MCHC 29.7 g/dL (32.0-37.0); Mean Platelet Volume 11.9 fL (9.5-12.2); Monocytes % (A) 13.6 %; Neutrophils # (A) 6.59 10*3/uL (1.80-7.70); Neutrophils % (A) 74.8 %; Platelet Count 107 10*3/uL (140-440); RBC 4.35 10*6/uL (4.40-5.60); RDW 14.9 % (11.5-14.5); WBC 8.81 10*3/uL (4.50-10.00)
[2024-07-10 22:08] LABS: MCV 108.5 fL (80.0-97.0)
[2024-07-10 22:10] LABS: NT-Pro-B-Type Natriuretic Pept 5580 pg/mL
[2024-07-10 22:17] LABS: Carbon Dioxide 46 mmol/L (22-30)
--- NOTE | 2024-07-10 22:43 | ED ---
SOB HPI - General Chief Complaint: Shortness of Breath Stated Complaint: COPD Time Seen by Provider: 07/10/24 21:15 Source: patient, EMS Mode of arrival: EMS Limitations: no limitations - History of Present Illness Initial Comments: 74-year-old male with past medical history of A-fib on anticoagulation, COPD on 3 L home O2, CVA, congestive heart failure who presents to the emergency department with worsening shortness of breath. Per EMS the patient's was reporting that the patient had been short of breath for the past 2 days. Today he had multiple falls. Patient reports that he landed on his mid back but denies any injuries from his fall. He denies hitting his head or losing consciousness. The falls are secondary to weakness due to increased swelling and shortness of breath. He has been completing his breathing treatments for which he states has helped. He is not currently on any antibiotics or steroids. He also has a history of congestive heart failure. He has an appoint with Dr. Cage in the morning. States has been taking his Bumex and spironolactone as they are instructed without any missed doses but he continues to have worsening lower extremity edema and swelling to his abdomen. He denies any fevers, chills or cough. Admit to mild chest discomfort. No sick contacts. No other alleviating, precipitating modifying factors - Related Data Home Medications Medication Instructions Recorded Confirmed Atorvastatin [Lipitor] 40 mg PO DAILY 08/26/23 07/11/24 Montelukast [Singulair] 10 mg PO DAILY 08/26/23 07/11/24 Bumetanide [BUMEX] 1 mg PO BID 07/11/24 07/11/24 Fluticasone/Umeclidin/Vilanter 1 puff INHALATION RT-DAILY 07/11/24 07/11/24 [Trelegy Ellipta 100-62.5-25] Losartan [Cozaar] 25 mg PO DAILY 07/11/24 07/11/24 Metoprolol Tartrate [Lopressor] 100 mg PO BID 07/11/24 07/11/24 Spironolactone [Aldactone] 12.5 mg PO DAILY 07/11/24 07/11/24 Allergies Allergy/AdvReac Type Severity Reaction Status Date / Time No Known Allergies Allergy Verified 07/11/24 10:10 Review of Systems ROS Statement: Those systems with pertinent positive or pertinent negative responses have been documented in the HPI. ROS Other: All systems not noted in ROS Statement are negative. Past Medical History Past Medical History: Atrial Fibrillation, Heart Failure, COPD, CVA/TIA, Hyperlipidemia, Hypertension Additional Past Medical History / Comment(s): 04/2020 pt admitted to [facility] with TIA/MRI/cat scan showed L posterior frontal lobe possible meningioma/L posterior frontal lobe mass-pt followed up with neurologist but stopped going when they wanted pt. to go to [place] History of Any Multi-Drug Resistant Organisms: None Reported Past Surgical History: Cardiac Ablation, Orthopedic Surgery Additional Past Surgical History / Comment(s): Right shoulder fracture with surgery/pins, cardiac ablation at [facility],Cardioversion & FARIDA September 2023 Past Anesthesia/Blood Transfusion Reactions: No Reported Reaction Additional Past Anesthesia/Blood Transfusion Reaction / Comment(s): unk family hx. no hx blood transfusion Past Psychological History: No Psychological Hx Reported Smoking Status: Former smoker Past Alcohol Use History: Occasional Past Drug Use History: None Reported - Past Family History Father History Unknown: Yes Family Medical History: No Reported History, Hypertension, Myocardial Infarction (SC) Additional Family Medical History / Comment(s): Father of a SC at the age of 86 or 87yrs. Mother History Unknown: Yes Family Medical History: Hypertension General Exam Limitations: no limitations General appearance: alert, in no apparent distress Head exam: Present: atraumatic, normocephalic, normal inspection Eye exam: Present: normal appearance, PERRL, EOMI. Absent: scleral icterus, conjunctival injection, periorbital swelling ENT exam: Present: normal exam, mucous membranes moist Respiratory exam: Present: decreased breath sounds Cardiovascular Exam: Present: regular rate, normal rhythm, normal heart sounds. Absent: systolic murmur, diastolic murmur, rubs, gallop, clicks GI/Abdominal exam: Present: soft, normal bowel sounds. Absent: distended, ten derness, guarding, rebound, rigid Extremities exam: Present: pedal edema Neurological exam: Present: alert, oriented X3 Psychiatric exam: Present: normal affect, normal mood Skin exam: Present: warm, dry, intact, normal color. Absent: rash Course Vital Signs 07/10/24 07/10/24 07/10/24 21:11 21:45 21:50 Temperature 98.1 F Pulse Rate 83 92 95 Respiratory 20 Rate Blood Pressure 110/66 O2 Sat by Pulse 95 Oximetry Fraction of Inspired Oxygen (FIO2) 07/10/24 07/11/24 07/11/24 23:24 00:59 01:57 Temperature Pulse Rate 93 92 Respiratory 20 15 Rate Blood Pressure 117/71 94/72 O2 Sat by Pulse 95 96 Oximetry Fraction of 50 Inspired Oxygen (FIO2) 07/11/24 02:00 Temperature Pulse Rate 96 Respiratory 24 Rate Blood Pressure 119/76 O2 Sat by Pulse 96 Oximetry Fraction of Inspired Oxygen (FIO2) Medical Decision Making - Medical Decision Making Was pt. sent in by a medical professional or institution (, PA, EXCAVATOR OPERATOR, urgent care, hospital, or senior care...) When possible be specific @ -No Did you speak to anyone other than the patient for history (EMS, parent, family, police, friend...)? What history was obtained from this source @ -I spoke with EMS for history Did you review nursing and triage notes (agree or disagree)? Why? @ -I reviewed and agree with nursing and triage notes Were old charts reviewed (outside hosp., previous admission, EMS record, old EKG, old radiological studies, urgent care reports/EKG's, senior care records)? Report findings @ -I reviewed the discharge summary from January 31, 2024 Differential Diagnosis (chest pain, altered mental status, abdominal pain women, abdominal pain men, vaginal bleeding, weakness, fever, dyspnea, syncope, head ache, dizziness, GI bleed, back pain, seizure, CVA, palpatations, mental health, musculoskeletal)? @ -Differential Dyspnea: Coronary syndrome, arrhythmia, tamponade, asthma, COPD, pulmonary embolism, pneumonia, pneumothorax, pulmonary effusion, anaphylaxis, diabetic ketoacidosis, flailed chest, pulmonary contusion, diaphragmatic rupture, anemia, neuromuscular, this is not meant to be an all-inclusive list. EKG interpreted by me (3pts min.). @ -Yes and demonstrates A-fib with a controlled rate of 89. QRS 99. QTc of 394. No acute ST segment elevations or depressions X-rays interpreted by me (1pt min.). @ -Yes which demonstrate signs of pulmonary edema CT interpreted by me (1pt min.). @ -None done U/S interpreted by me (1pt. min.). @ -None done What testing was considered but not performed or refused? (CT, X-rays, U/S, labs)? Why? @ -None What meds were considered but not given or refused? Why? @ -None Did you discuss the management of the patient with other professionals (pro fessionals i.e. , RUY, EXCAVATOR OPERATOR, lab, RT, psych nurse, social services coordinator, community support worker, teacher, credit products officer, watch caser)? Give summary @ -Spoke with Dr. Pimentel who does accept the patient for admission. I also spoke with Carlene from respiratory. ABG was ordered. Sample is venous however CO2 is 100 which is worse from previous. Patient will be placed on BiPAP due to his increased agitation Was smoking cessation discussed for >3mins.? @ -No Was critical care preformed (if so, how long)? @ -Yes, 40 minutes for BiPAP respiratory failure Were there social determinants of health that impacted care today? How? (Homelessness, low income, unemployed, alcoholism, drug addiction, transportation, low edu. Level, literacy, decrease access to med. care, half-way, rehab)? @ -No Was there de-escalation of care discussed even if they declined (Discuss DNR or withdrawal of care, Hospice)? DNR status @ -No What co-morbidities impacted this encounter? (DM, HTN, Smoking, COPD, CAD, Cancer, CVA, ARF, Chemo, Hep., AIDS, mental health diagnosis, sleep apnea, morbid obesity)? @ -Obesity, CHF, COPD Was patient admitted / discharged? Hospital course, mention meds given and route, prescriptions, significant lab abnormalities, going to OR and other pertinent info. @ -Upon arrival patient seen and evaluated in room 3. Thorough history and physical exam was performed. He is placed on continuous pulse ox and cardiac monitoring. Twelve-lead EKG is obtained. Laboratory studies are conducted. Chest x-ray was performed. I did provide him with IV Solu-Medrol, DuoNeb's breathing treatment and 1 mg of Bumex IV. Patient does have some confusion and therefore an ABG is obtained at this time which demonstrates rising CO2 levels. Because of this the patient is placed on BiPAP. He will be admitted for COPD and CHF exacerbation. I spoke with Dr. tom for the admission Undiagnosed new problem with uncertain prognosis? @ -No Drug Therapy requiring intensive monitoring for toxicity (Heparin, Nitro, Insu michelle, Cardizem)? @ -No Were any procedures done? @ -No Diagnosis/symptom? @ -Acute hypercapnic respiratory failure, acute COPD exacerbation, acute CHF exacerbation, BiPAP dependent respiratory failure, chronic respiratory insufficiency Acute, or Chronic, or Acute on Chronic? @ -Acute on chronic Uncomplicated (without systemic symptoms) or Complicated (systemic symptoms)? @ -Complicated Side effects of treatment? @ -No Exacerbation, Progression, or Severe Exacerbation? @ -Yes Poses a threat to life or bodily function? How? (Chest pain, USA, SC, pneumonia, PE, COPD, DKA, ARF, appy, cholecystitis, CVA, Diverticulitis, Homicidal, Suicidal, threat to staff... and all critical care pts) @ -Yes this patient does require BiPAP for respiratory failure - Lab Data Result diagrams: 07/12/24 06:02 07/12/24 06:02 Lab Results 07/10/24 07/10/24 07/10/24 Range/Units 21:40 21:40 21:40 WBC 8.81 (4.50-10.00) 10*3/uL RBC 4.35 L (4.40-5.60) 10*6/uL Hgb 14.0 (13.0-17.0) g/dL Hct 47.2 (39.6-50.0) % MCV 108.5 H (80.0-97.0) fL MCH 32.2 H (27.0-32.0) pg MCHC 29.7 L (32.0-37.0) g/dL Plt Count 107 L (140-440) 10*3/uL MPV 11.9 (9.5-12.2) fL Immature Gran % (Auto) 0.5 % Neutrophils % 74.8 % Lymphocytes % 10.6 % Monocytes % 13.6 % Eosinophils % 0.2 % Basophils % 0.3 % Immature Gran # 0.04 (0.00-0.04) 10*3/uL Neutrophils # 6.59 (1.80-7.70) 10*3/uL Lymphocytes # 0.93 (0.90-5.00) 10*3/uL Monocytes # 1.20 H (0.20-1.00) 10*3/uL Eosinophils # 0.02 L (0.04-0.35) 10*3/uL Basophils # 0.03 (0.00-0.10) 10*3/uL PT 12.3 (10.0-12.5) sec INR 1.1 (<1.2) APTT 25.2 (22.0-30.0) sec Sodium 137 (137-145) mmol/L Potassium 5.1 (3.5-5.1) mmol/L Chloride 89 L (98-107) mmol/L Carbon Dioxide 46 H* (22-30) mmol/L Anion Gap 2 mmol/L BUN 37 H (9-20) mg/dL Creatinine 1.18 (0.66-1.25) mg/dL Est GFR (CKD-EPI)AfAm 71 (>60 ml/min/1.73 sqM) Est GFR (CKD-EPI)NonAf 61 (>60 ml/min/1.73 sqM) Glucose 95 (74-99) mg/dL Plasma Lactic Acid Kian (0.7-2.0) mmol/L Calcium 8.9 (8.4-10.2) mg/dL Total Bilirubin 1.4 H (0.2-1.3) mg/dL AST 30 (17-59) U/L ALT 24 (4-49) U/L Alkaline Phosphatase 116 (38-126) U/L Troponin I (0.000-0.034) ng/mL NT-Pro-B Natriuret Pep 5580 pg/mL Total Protein 6.9 (6.3-8.2) g/dL Albumin 3.7 (3.5-5.0) g/dL 07/10/24 07/10/24 Range/Units 21:40 21:40 WBC (4.50-10.00) 10*3/uL RBC (4.40-5.60) 10*6/uL Hgb (13.0-17.0) g/dL Hct (39.6-50.0) % MCV (80.0-97.0) fL MCH (27.0-32.0) pg MCHC (32.0-37.0) g/dL Plt Count (140-440) 10*3/uL MPV (9.5-12.2) fL Immature Gran % (Auto) % Neutrophils % % Lymphocytes % % Monocytes % % Eosinophils % % Basophils % % Immature Gran # (0.00-0.04) 10*3/uL Neutrophils # (1.80-7.70) 10*3/uL Lymphocytes # (0.90-5.00) 10*3/uL Monocytes # (0.20-1.00) 10*3/uL Eosinophils # (0.04-0.35) 10*3/uL Basophils # (0.00-0.10) 10*3/uL PT (10.0-12.5) sec INR (<1.2) APTT (22.0-30.0) sec Sodium (137-145) mmol/L Potassium (3.5-5.1) mmol/L Chloride (98-107) mmol/L Carbon Dioxide (22-30) mmol/L Anion Gap mmol/L BUN (9-20) mg/dL Creatinine (0.66-1.25) mg/dL Est GFR (CKD-EPI)AfAm (>60 ml/min/1.73 sqM) Est GFR (CKD-EPI)NonAf (>60 ml/min/1.73 sqM) Glucose (74-99) mg/dL Plasma Lactic Acid Kian 1.1 (0.7-2.0) mmol/L Calcium (8.4-10.2) mg/dL Total Bilirubin (0.2-1.3) mg/dL AST (17-59) U/L ALT (4-49) U/L Alkaline Phosphatase (38-126) U/L Troponin I 0.017 (0.000-0.034) ng/mL NT-Pro-B Natriuret Pep pg/mL Total Protein (6.3-8.2) g/dL Albumin (3.5-5.0) g/dL Disposition Clinical Impression: COPD exacerbation, Acute pulmonary edema, A-fib, Acute respiratory insufficiency Disposition: ADMITTED IP TO THIS HOSP Condition: Stable Is patient prescribed a controlled substance at d/c from ED?: No Time of Disposition: 22:48 Decision to Admit Reason: Admit from EC Decision Date: 07/10/24 Decision Time: 22:48
[2024-07-10] MEDS ORDERED: NALOXONE 0.4 MG/ML 1 ML VIAL IV PRN (22:49)
[2024-07-10] MEDS: methylPREDNISolone SOD SUCCI 125 MG/2 ML VIAL IV STA (23:22)
--- NOTE | 2024-07-10 23:25 | XR ---
EXAM: XR Chest, 2 Views CLINICAL HISTORY: ITS.REASON XR Reason: difficulty breathing TECHNIQUE: Frontal and lateral views of the chest. COMPARISON: No relevant prior studies available. FINDINGS: Lungs: No airspace consolidation. Pleural space: No pleural effusion or pneumothorax. Heart: Cardiomegaly and pulmonary vascular congestion. Bones/joints: No acute fracture. No dislocation. IMPRESSION: Cardiomegaly and pulmonary vascular congestion. Correlate for congestive heart failure.
[2024-07-10] MEDS ORDERED: IPRATROPIUM-ALBUTEROL 3 ML NEB INHALATION PRN (23:31)
[2024-07-11] MEDS ORDERED: IPRATROPIUM-ALBUTEROL 3 ML NEB INHALATION SCH
[2024-07-11] MEDS: BUMETANIDE 0.25 MG/ML 4 ML VIAL IVP STA (00:41)
[2024-07-11 01:40] LABS: ABG Oxygen Saturation 66.5 % (94-97); ABG PH 7.26 (7.35-7.45); Allen Test Performed? Yes
[2024-07-11] MEDS ORDERED: HALOPERIDOL LACTATE 5 MG/ML 1 ML VIAL IVP PRN (02:08)
[2024-07-11 02:21] LABS: ABG PCO2 >98 mmHg (35-45)
[2024-07-11 02:22] LABS: ABG PO2 37 mmHg (83-108)
[2024-07-11 02:38] LABS: ABG Base Excess 19.1 mmol/L; ABG Oxygen Saturation 98.2 % (94-97); ABG PH 7.33 (7.35-7.45); ABG PO2 104 mmHg (83-108); ABG TCO2 54 mmol/L (19-24); Allen Test Performed? Yes
[2024-07-11 02:46] LABS: ABG PCO2 96 mmHg (35-45)
[2024-07-11 02:47] LABS: ABG HCO3 51 mmol/L (21-25)
[2024-07-11 06:36] LABS: Basophils # (A) 0.01 10*3/uL (0.00-0.10); Basophils % (A) 0.1 %; HCT 47.1 % (39.6-50.0); Lymphocytes # (A) 0.37 10*3/uL (0.90-5.00); MCH 32.4 pg (27.0-32.0); MCHC 29.7 g/dL (32.0-37.0); Mean Platelet Volume 12.1 fL (9.5-12.2); Monocytes # (A) 0.09 10*3/uL (0.20-1.00); Monocytes % (A) 1.2 %; Neutrophils # (A) 6.88 10*3/uL (1.80-7.70); Neutrophils % (A) 93.3 %; Platelet Count 108 10*3/uL (140-440); RBC 4.32 10*6/uL (4.40-5.60); RDW 14.8 % (11.5-14.5); WBC 7.38 10*3/uL (4.50-10.00)
[2024-07-11 07:06] LABS: African American GFR (CKD) 78 (>60 ml/min/1.73 sqM); Blood Urea Nitrogen 35 mg/dL (9-20); Calcium 9.1 mg/dL (8.4-10.2); Chloride 86 mmol/L (98-107); Glucose 112 mg/dL (74-99); Non-African American GFR(CKD) 68 (>60 ml/min/1.73 sqM); Sodium 139 mmol/L (137-145)
[2024-07-11 07:14] LABS: Anion Gap 9 mmol/L
[2024-07-11 07:15] LABS: Carbon Dioxide 44 mmol/L (22-30)
[2024-07-11] MEDS: SPIRONOLACTONE 25 MG TAB PO SCH (08:19)
[2024-07-11] MEDS: ASPIRIN 81 MG PO SCH (08:19)
[2024-07-11] MEDS: METOPROLOL TARTRATE 50 MG TAB PO SCH (08:19)
[2024-07-11] MEDS: DAPAGLIFLOZIN PROPANEDIOL 10 MG TABLET PO SCH (08:19)
[2024-07-11] MEDS: ATORVASTATIN 40 MG TAB PO SCH (08:19)
[2024-07-11] MEDS: DABIGATRAN 150 MG CAP PO SCH (08:19)
[2024-07-11] MEDS: AMIODARONE 200 MG TAB PO SCH (08:19)
[2024-07-11] MEDS: methylPREDNISolone SOD SUCCI 40 MG/ML 1 ML VIAL IV SCH (08:19)
[2024-07-11] MEDS: BUDESONIDE 0.5 MG/2 ML NEBU INHALATION SCH (09:05)
[2024-07-11] MEDS: IPRATROPIUM-ALBUTEROL 3 ML NEB INHALATION SCH (09:05)
--- NOTE | 2024-07-11 11:34 | P.CNPUL ---
History of Present Illness Consult date: 07/11/24 Requesting physician: Janet Hunt Reason for consult: dyspnea, cough, COPD, hypoxemia, abnormal CXR/CT, other Chief complaint: Shortness of breath, respiratory failure. History of present illness: Pulmonary consult dated July 11, 2024. 74-year-old obese male who presents to the emergency department, on July 10, at about 9 PM. He comes in complaining of increasing shortness of breath. The patient has a history of multiple medical problems including obesity, hyperlipidemia, COPD, CHF, hypertension, and atrial fibrillation. The patient apparently has been having shortness of breath for about 2 days. In addition, the patient was apparently falling at home, primarily hitting his back and chest area. There was no loss of consciousness, and he apparently denied any head injury. He was seen this morning, in room 368. His sister is at the bedside. The patient sees Dr. Das as a primary, sees my partner, and also Dr. Gutierrez and cardiology. The patient had a blood gas showing a pO2 of 104, pCO2 of 96, pH is 7.33. The patient was placed on BiPAP, with settings of 16/6, and 40%. Is not receiving any IV fluids. His N-terminal proBNP was 5580. Current labs include a white count 7.4, hemoglobin 14, hematocrit 47.1, and a platelet count of 108,000. Sodium 139, potassium 5, chloride 86, CO2 44, anion gap 9, BUN 35, and creatinine 1.09. Glucose is 112. Chest x-ray is consistent with cardiomegaly, and CHF. Review of Systems REVIEW OF SYSTEMS: CONSTITUTIONAL: [Negative.] NEUROLOGIC: [ Negative.] HEENT: [ Negative.] CARDIAC: [Negative.] PULMONARY: Shortness of breath, progressive, for 2 days. GI: [Negative.] : [Negative.] RHEUMATOLOGIC: [ Negative.] IMMUNOLOGIC: [ Negative.] ENDOCRINE: [Negative. ] DERMATOLOGIC: [Negative.] Past Medical History Past Medical History: Atrial Fibrillation, Heart Failure, COPD, CVA/TIA, Hyperlipidemia, Hypertension Additional Past Medical History / Comment(s): 04/2020 pt admitted to [facility] with TIA/MRI/cat scan showed L posterior frontal lobe possible meningioma/L posterior frontal lobe mass-pt followed up with neurologist but stopped going when they wanted pt. to go to [place] History of Any Multi-Drug Resistant Organisms: None Reported Past Surgical History: Cardiac Ablation, Orthopedic Surgery Additional Past Surgical History / Comment(s): Right shoulder fracture with surgery/pins, cardiac ablation at [facility],Cardioversion & FARIDA September 2023 Past Anesthesia/Blood Transfusion Reactions: No Reported Reaction Additional Past Anesthesia/Blood Transfusion Reaction / Comment(s): unk family h x. no hx blood transfusion Past Psychological History: No Psychological Hx Reported Additional Psychological History / Comment(s): Pt resides with his spouse. He is independent. Smoking Status: Former smoker Past Alcohol Use History: Occasional Additional Past Alcohol Use History / Comment(s): Pt started smoking in 1967 and quit in 2010 smoked 4 ppd. 2 beers/week Past Drug Use History: None Reported - Past Family History Father History Unknown: Yes Family Medical History: No Reported History, Hypertension, Myocardial Infarction (SC) Additional Family Medical History / Comment(s): Father of a SC at the age of 86 or 87yrs. Mother History Unknown: Yes Family Medical History: Hypertension Medications and Allergies Home Medications Medication Instructions Recorded Confirmed Type Atorvastatin [Lipitor] 40 mg PO DAILY 08/26/23 07/11/24 History Montelukast [Singulair] 10 mg PO DAILY 08/26/23 07/11/24 History Bumetanide [BUMEX] 1 mg PO BID 07/11/24 07/11/24 History Fluticasone/Umeclidin/Vilanter 1 puff INHALATION RT-DAILY 07/11/24 07/11/24 History [Trelegy Ellipta 100-62.5-25] Losartan [Cozaar] 25 mg PO DAILY 07/11/24 07/11/24 History Metoprolol Tartrate [Lopressor] 100 mg PO BID 07/11/24 07/11/24 History Spironolactone [Aldactone] 12.5 mg PO DAILY 07/11/24 07/11/24 History Allergies Allergy/AdvReac Type Severity Reaction Status Date / Time No Known Allergies Allergy Verified 07/11/24 10:10 Physical Exam Osteopathic Statement: *. No significant issues noted on an osteopathic structural exam other than those noted in the History and Physical/Consult. Vitals: Vital Signs Temp Pulse Pulse Resp BP BP Pulse Ox 07/11/24 09:17 92 04/18/25 09:06 90 07/11/24 09:05 07/11/24 08:00 98.3 F 126 H 20 103/68 88 L 07/11/24 05:40 98.2 F 102 H 20 118/82 99 07/11/24 04:04 07/11/24 02:30 98.1 F 83 22 99 07/11/24 02:00 96 24 119/76 96 07/11/24 01:57 07/11/24 00:59 92 15 94/72 96 07/10/24 23:24 93 20 117/71 95 07/10/24 21:50 95 07/10/24 21:45 92 07/10/24 21:11 98.1 F 83 20 110/66 95 FiO2 07/11/24 09:17 07/11/24 09:06 07/11/24 09:05 40 07/11/24 08:00 50 07/11/24 05:40 50 07/11/24 04:04 40 07/11/24 02:30 50 07/11/24 02:00 07/11/24 01:57 50 07/11/24 00:59 07/10/24 23:24 07/10/24 21:50 07/10/24 21:45 07/10/24 21:11 Intake and Output 07/10/24 07/11/24 07/11/24 22:59 06:59 14:59 Intake Total 180 Output Total 500 Balance -320 Intake: Oral 180 Output: Urine 500 Other: Voiding Method External Catheter Urinal # Voids 1 # Bowel Movements 1 Weight 149.685 kg 149.685 kg Mild respiratory distress, oriented, currently on BiPAP. Sitting at the bedside HEENT examination is grossly unremarkable. Neck supple. Full range of motion. No adenopathy thyromegaly or neck vein distention. Cardiovascular examination reveals an irregular rhythm and rate. S1-S2 normal. No S3 or S4. No discernible murmur noted. Sounds are distant. Lungs reveal scattered rhonchi and crackles. No expiratory wheezes. Breath sounds are equal bilaterally. Abdomen soft bowel sounds are heard. No masses or tenderness. Extremities reveal significant lower extremity edema. It is at least 2+. Skin reveals chronic venous stasis changes. Neurologic examination is brief but nonfocal. Results - Laboratory Findings CBC and BMP: 04/18/25 05:47 07/11/24 05:47 ABG ABG pH 7.33 (7.35-7.45) L 07/11/24 02:34 ABG pCO2 96 mmHg (35-45) H* 07/11/24 02:34 ABG pO2 104 mmHg (83-108) 07/11/24 02:34 ABG O2 Saturation 98.2 % (94-97) H 07/11/24 02:34 PT/INR, D-dimer PT 12.3 sec (10.0-12.5) 07/10/24 21:40 INR 1.1 (<1.2) 07/10/24 21:40 Abnormal lab findings: Abnormal Labs 07/10/24 07/10/24 07/11/24 21:40 21:40 01:38 RBC 4.35 L MCV 108.5 H MCH 32.2 H MCHC 29.7 L Plt Count 107 L Lymphocytes # Monocytes # 1.20 H Eosinophils # 0.02 L ABG pH 7.26 L ABG pCO2 >98 H* ABG pO2 37 L* ABG HCO3 ABG Total CO2 ABG O2 Saturation 66.5 L Chloride 89 L Carbon Dioxide 46 H* BUN 37 H Glucose Total Bilirubin 1.4 H 07/11/24 07/11/24 07/11/24 02:34 05:47 05:47 RBC 4.32 L MCV 109.0 H MCH 32.4 H MCHC 29.7 L Plt Count 108 L Lymphocytes # 0.37 L Monocytes # 0.09 L Eosinophils # 0.00 L ABG pH 7.33 L ABG pCO2 96 H* ABG pO2 ABG HCO3 51 H* ABG Total CO2 54 H ABG O2 Saturation 98.2 H Chloride 86 L Carbon Dioxide 44 H* BUN 35 H Glucose 112 H Total Bilirubin - Diagnostic Findings Chest x-ray: image reviewed Assessment and Plan Assessment: Acute hypoxemic and hypercapnic respiratory failure, multifactorial, secondary to CHF, COPD exacerbation, and probable Pickwickian syndrome. History of chronic atrial fibrillation. History of congestive heart failure. 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 History of COPD. History of hyperlipidemia. History of hypertension. Morbid obesity. Plan: Plan dated July 11, 2024. The patient is seen today in room 368. He is sitting at the side of the bed. BiPAP mask in place. BiPAP settings are 16/6 and 40%. Is not receiving any IV fluids. The patient's N-terminal proBNP was quite elevated at 5580. The patient's blood gases showed a pO2 of 104, pCO2 of 96, pH of 7.33. He has a history of obesity, hyperlipidemia, COPD, CHF, atrial fibrillation, and hypertension. Labs, x-rays, and all medications are reviewed. We will continue to follow the patient, make recommendations. Prognosis is guarded. Dictation was produced using [employer] software. Please excuse any grammatical, word or spelling errors. Time with Patient: Greater than 30
--- NOTE | 2024-07-11 12:36 | P.CRDCN ---
History of Present Illness History of present illness: This is a 74-year-old male patient of Dr. Gutierrez with past medical history of sleep apnea, persistent atrial fibrillation, nonischemic cardiomyopathy, coronary artery disease, valvular heart disease, COPD, chronic hypoxic respiratory failure on home O2 at 4 L nasal cannula, history of smoking, history of TIA. We have been asked to evaluate the patient for CHF. Patient apparently somewhat confused and some of history is supplied by as well. states he has been short of breath over the last 1 year and more significantly over the last 1 month. He has been retaining more fluid and becoming more short of breath with dyspnea with just walking across the room. Over the last 2 to 3 days however he became more confused and not his normal self and therefore eventually brought patient into the ER. Patient CO2 noted to be elevated and placed on BiPAP however not any major improvement in his mental status. states he has fallen a couple times at home as well as fallen year in the hospital and believes hit the back of his head at times. He is taking his medications. He was previously on amiodarone however apparently this was stopped previously. EKG: A-fib with controlled ventricular rate Cardiac catheterization performed 08/26/2023 revealed normal coronaries, mildly elevated left sided filling pressure. Echocardiogram performed 08/27/2023 revealed EF of 25%, moderate MR Lexiscan Cardiolite stress test performed 05/30/2022 revealed probable normal myocardial perfusion imaging, EF 44%, no evidence of stress-induced ischemia. Review Of Systems: At the time of my exam: CONSTITUTIONAL: Denies fever or chills. HEENT: Denies blurred vision, vision changes, or eye pain. Denies hemoptysis CARDIOVASCULAR: Denies chest pain. +orthopnea. Denies PND. Denies palpitations RESPIRATORY: Reports shortness of breath. GASTROINTESTINAL: Denies abdominal pain. Denies nausea or vomiting. HEMATOLOGIC: Denies bleeding disorders. GENITOURINARY: Denies any blood in urine. SKIN: Denies puritis. Denies rash. Physical examination: Gen: This is a 74-year-old male in no acute distress, obeese ill appearing, confused VS: reviewed HEENT: Head is atraumatic, normocephalic. Pupils equal, round. Sclerae is anicteric. NECK: Supple. No JVD. LUNGS: Clear to auscultation. No wheezes or rhonchi. No intercostal retractions. HEART: Regular rate and rhythm. Systolic murmur. ABDOMEN: Soft No tenderness. EXTREMITIES: 2+ bilateral lower extremity edema. No calf tenderness. NEUROLOGICAL: Patient is confused. Assessment: Acute on chronic respiratory failure Altered mental status most likely related to CO2 narcosis however rule out other etiology Acute on chronic systolic heart failure Chronic hypoxic respiratory failure on home O2 at 4 L nasal cannula COPD exacerbation Hypercoagulopathy Elevated troponin secondary to CHF, type II [place] Obstructive sleep apnea Persistent atrial fibrillation Nonischemic cardiomyopathy Valvular heart disease History of smoking History of TIA Plan: Much of patient's symptoms appear related to congestive heart failure. Optimize heart failure regimen as able. Increase Lasix to 80 mg twice a day and additionally add Diamox. May consider rhythm control in the future. Stop amiodarone as he has not been taking this and would not restart unless we are considering rhythm control. Questionable medical compliance. Check stat CT brain given falls on anticoagulation. Evaluate need for AICD as an outpatient. Prognosis guarded. Past Medical History Past Medical History: Atrial Fibrillation, Heart Failure, COPD, CVA/TIA, Hyperlipidemia, Hypertension Additional Past Medical History / Comment(s): 04/2020 pt admitted to [facility] with TIA/MRI/cat scan showed L posterior frontal lobe possible meningioma/L posterior frontal lobe mass-pt followed up with neurologist but stopped going when they wanted pt. to go to [facility] History of Any Multi-Drug Resistant Organisms: None Reported Past Surgical History: Cardiac Ablation, Orthopedic Surgery Additional Past Surgical History / Comment(s): Right shoulder fracture with surgery/pins, cardiac ablation at [facility],Cardioversion & FARIDA September 2023 Past Anesthesia/Blood Transfusion Reactions: No Reported Reaction Additional Past Anesthesia/Blood Transfusion Reaction / Comment(s): unk family hx. no hx blood transfusion Past Psychological History: No Psychological Hx Reported Additional Psychological History / Comment(s): Pt resides with his spouse. He is independent. Smoking Status: Former smoker Past Alcohol Use History: Occasional Additional Past Alcohol Use History / Comment(s): Pt started smoking in 1967 and quit in 2010 smoked 4 ppd. 2 beers/week Past Drug Use History: None Reported - Past Family History Father History Unknown: Yes Family Medical History: No Reported History, Hypertension, Myocardial Infarction ([place]) Additional Family Medical History / Comment(s): Father of a [place] at the age of 86 or 87yrs. Mother History Unknown: Yes Family Medical History: Hypertension Medications and Allergies Home Medications Medication Instructions Recorded Confirmed Type Atorvastatin [Lipitor] 40 mg PO DAILY 08/26/23 07/11/24 History Montelukast [Singulair] 10 mg PO DAILY 08/26/23 07/11/24 History Bumetanide [BUMEX] 1 mg PO BID 07/11/24 07/11/24 History Fluticasone/Umeclidin/Vilanter 1 puff INHALATION RT-DAILY 07/11/24 07/11/24 History [Trelegy Ellipta 100-62.5-25] Losartan [Cozaar] 25 mg PO DAILY 07/11/24 07/11/24 History Metoprolol Tartrate [Lopressor] 100 mg PO BID 07/11/24 07/11/24 History Spironolactone [Aldactone] 12.5 mg PO DAILY 07/11/24 07/11/24 History Allergies Allergy/AdvReac Type Severity Reaction Status Date / Time No Known Allergies Allergy Verified 07/11/24 10:10 Physical Exam Vitals: Vital Signs Temp Pulse Pulse Resp BP BP Pulse Ox 07/11/24 12:12 90 07/11/24 12:01 90 07/11/24 12:00 95 20 115/73 94 L 07/11/24 09:17 92 07/11/24 09:06 90 07/11/24 09:05 07/11/24 08:00 98.3 F 126 H 20 103/68 88 L 07/11/24 05:40 98.2 F 102 H 20 118/82 99 07/11/24 04:04 07/11/24 02:30 98.1 F 83 22 99 07/11/24 02:00 96 24 119/76 96 07/11/24 01:57 07/11/24 00:59 92 15 94/72 96 07/10/24 23:24 93 20 117/71 95 07/10/24 21:50 95 07/10/24 21:45 92 07/10/24 21:11 98.1 F 83 20 110/66 95 FiO2 07/11/24 12:12 40 07/11/24 12:01 07/11/24 12:00 50 07/11/24 09:17 07/11/24 09:06 07/11/24 09:05 40 07/11/24 08:00 50 07/11/24 05:40 50 07/11/24 04:04 40 07/11/24 02:30 50 07/11/24 02:00 07/11/24 01:57 50 07/11/24 00:59 07/10/24 23:24 07/10/24 21:50 07/10/24 21:45 07/10/24 21:11 Intake and Output 07/10/24 07/11/24 07/11/24 22:59 06:59 14:59 Intake Total 180 Output Total 500 Balance -320 Intake: Oral 180 Output: Urine 500 Other: Voiding Method External Catheter Urinal # Voids 1 # Bowel Movements 1 Weight 149.685 kg 149.685 kg Results 07/11/24 05:47 07/11/24 05:47 Cardiac Enzymes 07/10/24 07/10/24 Range/Units 21:40 21:40 AST 30 (17-59) U/L Troponin I 0.017 (0.000-0.034) ng/mL Coagulation 07/10/24 Range/Units 21:40 PT 12.3 (10.0-12.5) sec APTT 25.2 (22.0-30.0) sec CBC 07/10/24 07/11/24 Range/Units 21:40 05:47 WBC 8.81 7.38 (4.50-10.00) 10*3/uL RBC 4.35 L 4.32 L (4.40-5.60) 10*6/uL Hgb 14.0 14.0 (13.0-17.0) g/dL Hct 47.2 47.1 (39.6-50.0) % Plt Count 107 L 108 L (140-440) 10*3/uL Comprehensive Metabolic Panel 07/10/24 07/11/24 Range/Units 21:40 05:47 Sodium 137 139 (137-145) mmol/L Potassium 5.1 5.0 (3.5-5.1) mmol/L Chloride 89 L 86 L (98-107) mmol/L Carbon Dioxide 46 H* 44 H* (22-30) mmol/L BUN 37 H 35 H (9-20) mg/dL Creatinine 1.18 1.09 (0.66-1.25) mg/dL Glucose 95 112 H (74-99) mg/dL Calcium 8.9 9.1 (8.4-10.2) mg/dL AST 30 (17-59) U/L ALT 24 (4-49) U/L Alkaline Phosphatase 116 (38-126) U/L Total Protein 6.9 (6.3-8.2) g/dL Albumin 3.7 (3.5-5.0) g/dL Current Medications Generic Name Dose Route Start Last Admin Trade Name Freq PRN Reason Stop Dose Admin Albuterol/Ipratropium 3 ml 07/11/24 08:00 07/11/24 11:57 Ipratropium-Albuterol 3 Ml Neb INHALATION 3 ml RT-QID KAYLEE Administration Albuterol/Ipratropium 3 ml 07/10/24 23:31 Ipratropium-Albuterol 3 Ml Neb INHALATION RT-Q4H PRN Shortness Of Breath Or Wheezing Amiodarone HCl 200 mg 07/11/24 09:00 07/11/24 08:19 Amiodarone 200 Mg Tab PO 200 mg DAILY KAYLEE Administration Aspirin 81 mg 07/11/24 09:00 07/11/24 08:19 Aspirin 81 Mg PO 81 mg DAILY KAYLEE Administration Atorvastatin Calcium 40 mg 07/11/24 09:00 07/11/24 08:19 Atorvastatin 40 Mg Tab PO 40 mg DAILY KAYLEE Administration Budesonide 1 mg 07/11/24 20:00 Budesonide 1 Mg/2 Ml Nebu INHALATION RT-BID KAYLEE Dabigatran 150 mg 07/11/24 09:00 07/11/24 08:19 Dabigatran 150 Mg Cap PO 150 mg BID KAYLEE Administration Protocol Dapagliflozin 10 mg 07/11/24 09:00 07/11/24 08:19 Dapagliflozin Propanediol 10 Mg Tablet PO 10 mg DAILY KAYLEE Administration Formoterol Fumarate 20 mcg 07/11/24 20:00 Formoterol Fumarate 20 Mcg/2 Ml Nebu INHALATION RT-BID KAYLEE Furosemide 40 mg 07/11/24 10:30 Furosemide 10 Mg/Ml 4 Ml Vial IV Q12HR KAYLEE Haloperidol Lactate 2.5 mg 07/11/24 02:08 Haloperidol Lactate 5 Mg/Ml 1 Ml Vial IVP Q8HR PRN Agitation Methylprednisolone Sodium Succinate 60 mg 07/11/24 12:00 Methylprednisolone Sod Succi 125 Mg/2 Ml Vial IV Q6HR KAYLEE Metoprolol Tartrate 50 mg 07/11/24 09:00 07/11/24 08:19 Metoprolol Tartrate 50 Mg Tab PO 50 mg BID KAYLEE Administration Naloxone HCl 0.2 mg 07/10/24 22:49 Naloxone 0.4 Mg/Ml 1 Ml Vial IV Q2M PRN Opioid Reversal Spironolactone 25 mg 07/11/24 09:00 07/11/24 08:19 Spironolactone 25 Mg Tab PO 25 mg DAILY KAYLEE Administration Intake and Output 07/10/24 07/11/24 07/11/24 22:59 06:59 14:59 Intake Total 180 Output Total 500 Balance -320 Intake: Oral 180 Output: Urine 500 Other: Voiding Method External Catheter Urinal # Voids 1 # Bowel Movements 1 Weight 149.685 kg 149.685 kg 07/11/24 05:47 07/11/24 05:47
--- NOTE | 2024-07-11 13:17 | CT ---
EXAMINATION TYPE: CT brain wo con DATE OF EXAM: 07/11/2024 COMPARISON: 05/14/2020. CLINICAL INDICATION: Male, 74 years old with history of re: confusionn, fall on blood thinnners; PHH, confusion, fall on blood thinnners CT DLP: 1183.4 mGycm Automated exposure control for dose reduction was used. Findings: The ventricles, basal cisterns and sulci over the convexities are within normal limits for the patien t's age and there is no mass effect or shift of midline structures. No abnormal density is seen throughout the brain parenchyma and there is no acute intra or extra-axia l hemorrhage. The posterior fossa including the brainstem, fourth ventricle and cerebellar pontine angles appear no rmal. Intraorbital contents appear normal and symmetric. Visualized paranasal sinuses and mastoid air cells are well aerated. The calvarium is intact. IMPRESSION: There is no acute bleed or mass effect. No interval change. [facility], , 07/11/2024 1:14 PM
[2024-07-11] MEDS: ACETAMINOPHEN TAB 325 MG TAB PO PRN (13:20)
[2024-07-11] MEDS: metOLazone 5 MG TAB PO SCH (13:20)
[2024-07-11] MEDS: methylPREDNISolone SOD SUCCI 125 MG/2 ML VIAL IV SCH (13:21)
--- NOTE | 2024-07-11 15:44 | P.HPIM ---
History of Present Illness H&P Date: 07/11/24 History of present illness; Patient has a 74-year-old male with past medical history of A-fib on anti coagulation, COPD on 3 L home O2, CVA, congestive heart failure who presents with worsening shortness of breath. Patient's family states he has been short of breath for the past 2 days. Yesterday, had multiple falls. Denies any injuries from his falls, without loss of consciousness or trauma to head. He states he is compliant with his breathing treatments which have helped for the most part. Also, he follows with cardiology for CHF and states has been compliant with his Bumex and spironolactone, however continues to have worsening lower extremity edema and shortness of breath. He does have mild chest discomfort. He denies any fevers, chills or cough. No sick contacts. No other alleviating, precipitating modifying factors. Spoke with the ER physician, patient admission was accepted by internal medicine service for treatment. REVIEW OF SYSTEMS: Pertinent positives and negatives noted in HPI. PHYSICAL EXAMINATION: Vitals reviewed GENERAL: Resting comfortably in bed. Obese. EYES: PERRL, no scleral injection or icterus. No vision loss HENT: Normocephalic, atraumatic, hearing grossly intact, moist mucous membranes NECK: No tracheal deviation, full range of motion. CARDIOVASCULAR: S1 and S2 present. no murmurs, rubs, or gallops. PULMONARY: Chest is clear to auscultation, crackles present. No rhonchi or wheezing noted. ABDOMEN: Soft, nontender, nondistended. No palpable organomegaly. MUSCULOSKELETAL: No apparent joint swelling and deformities. EXTREMITIES: No apparent cyanosis, clubbing. No pedal edema. NEUROLOGICAL: Alert and oriented 1 to self. Gross neurological examination with no apparent focal deficits. SKIN: Venous stasis dermatitis of lower extremities with ulceration bilaterally ER FINDINGS: Labs significant for hemoglobin 14, MCV 108, platelets 107, ABG pH 7.26, pCO2 greater than 98, PO237, chloride 89, bicarb 46, BUN 37, total bilirubin 1.4, troponin 0.017, proBNP 5580 EKG independently interpreted showed A-fib heart rate of 89, right axis deviation, QTc 394, no ST segment elevation or depression seen, no T-wave inversions seen. Chest x-ray done independently interpreted showed cardiomegaly and pulmonary vascular congestion CT brain interpreted as no acute bleed or mass effect Assessment and Plan: In summary, patient has a 74-year-old male with past medical history of A-fib on anticoagulation, COPD on 3 L home O2, CVA, congestive heart failure who presents with worsening shortness of breath. 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 #Acute COPD exacerbation #Chronic respiratory acidosis with metabolic alkalosis compensation likely due to COPD #CASSANDRA Maintained on home O2 3 L nasal cannula - Begin bronchodilators DuoNeb 0.5-3mg 3ml Q4h, Pulmicort 0.5 mg inhalation twice daily, continue Perforomist - Begin Solu-medrol 60 mg every 8 hours - Continue BiPAP - Pulmonology consulted #Acute on chronic systolic congestive heart failure #Elevated troponins secondary to CHF, type II [place] #Persistent A-fib #Nonischemic cardiomyopathy - previous echo with reduced EF 20 to 25% %, August 2023 - continue IV Lasix 80 mg every 12 hours Begin Diamox Resume home cardiac meds -cardiac monitoring -Chest x-ray with cardiomegaly and pulmonary vascular congestion -Initial weight 149.6, daily weights -strict I/O, no more than 2L of total volume intake daily -Low sodium diet, <2g daily -Monitor BMP -Cardiology consulted #Chronic venous insufficiency of bilateral lower limb #Venous stasis dermatitis and insufficiency ulcers bilaterally #Venous ulcer of lower extremity without varicose veins Lasix as above Local wound care Consult wound care Chronic Medical Conditions #Hypercoagulopathy #CASSANDRA #History of smoking #TIA #Hyperlipidemia #Hypertension Resume home medications DVT ppx: Pradaxa 100 mg p.o. twice daily Code status: Full code F: P.o., less than 2 L daily E: Replete as needed N: Heart healthy diet, less than 2 g of sodium daily Anticipated discharge place: Pending clinical course Anticipated discharge time: Pending clinical course Dr. Rodriguez seen patient with resident, present during exam, and agreed with findings. Dictation was produced using [employer] dictation software. Please excuse any g rammatical, word or spelling errors. Past Medical History Past Medical History: Atrial Fibrillation, Heart Failure, COPD, CVA/TIA, Hyperlipidemia, Hypertension Additional Past Medical History / Comment(s): 04/2020 pt admitted to [facility] with TIA/MRI/cat scan showed L posterior frontal lobe possible meningioma/L posterior frontal lobe mass-pt followed up with neurologist but stopped going when they wanted pt. to go to [place] History of Any Multi-Drug Resistant Organisms: None Reported Past Surgical History: Cardiac Ablation, Orthopedic Surgery Additional Past Surgical History / Comment(s): Right shoulder fracture with surgery/pins, cardiac ablation at [facility],Cardioversion & [facility] September 2023 Past Anesthesia/Blood Transfusion Reactions: No Reported Reaction Additional Past Anesthesia/Blood Transfusion Reaction / Comment(s): unk family hx. no hx blood transfusion Past Psychological History: No Psychological Hx Reported Additional Psychological History / Comment(s): Pt resides with his spouse. He is independent. Smoking Status: Former smoker Past Alcohol Use History: Occasional Additional Past Alcohol Use History / Comment(s): Pt started smoking in 1967 and quit in 2010 smoked 4 ppd. 2 beers/week Past Drug Use History: None Reported - Past Family History Father History Unknown: Yes Family Medical History: No Reported History, Hypertension, Myocardial Infarction ([place]) Additional Family Medical History / Comment(s): Father of a [place] at the age of 86 or 87yrs. Mother History Unknown: Yes Family Medical History: Hypertension Medications and Allergies Home Medications Medication Instructions Recorded Confirmed Type Atorvastatin [Lipitor] 40 mg PO DAILY 08/26/23 07/11/24 History Montelukast [Singulair] 10 mg PO DAILY 08/26/23 07/11/24 History Bumetanide [BUMEX] 1 mg PO BID 07/11/24 07/11/24 History Fluticasone/Umeclidin/Vilanter 1 puff INHALATION RT-DAILY 07/11/24 07/11/24 History [Trelegy Ellipta 100-62.5-25] Losartan [Cozaar] 25 mg PO DAILY 07/11/24 07/11/24 History Metoprolol Tartrate [Lopressor] 100 mg PO BID 07/11/24 07/11/24 History Spironolactone [Aldactone] 12.5 mg PO DAILY 07/11/24 07/11/24 History Allergies Allergy/AdvReac Type Severity Reaction Status Date / Time No Known Allergies Allergy Verified 07/11/24 10:10 Physical Exam Vitals: Vital Signs Temp Pulse Pulse Resp BP BP Pulse Ox 07/11/24 05:40 98.2 F 102 H 20 118/82 99 07/11/24 04:04 07/11/24 02:30 98.1 F 83 22 99 07/11/24 02:00 96 24 119/76 96 07/11/24 01:57 07/11/24 00:59 92 15 94/72 96 07/10/24 23:24 93 20 117/71 95 07/10/24 21:50 95 07/10/24 21:45 92 07/10/24 21:11 98.1 F 83 20 110/66 95 FiO2 07/11/24 05:40 50 07/11/24 04:04 40 07/11/24 02:30 50 07/11/24 02:00 07/11/24 01:57 50 07/11/24 00:59 07/10/24 23:24 07/10/24 21:50 07/10/24 21:45 07/10/24 21:11 Intake and Output 07/10/24 07/11/24 07/11/24 22:59 06:59 14:59 Output Total 500 Balance -500 Output: Urine 500 Other: Voiding Method External Catheter Weight 149.685 kg 149.685 kg Results CBC & Chem 7: 07/11/24 05:47 07/11/24 05:47 Labs: Abnormal Lab Results - Last 24 Hours (Table) 07/10/24 07/10/24 07/11/24 Range/Units 21:40 21:40 01:38 RBC 4.35 L (4.40-5.60) 10*6/uL MCV 108.5 H (80.0-97.0) fL MCH 32.2 H (27.0-32.0) pg MCHC 29.7 L (32.0-37.0) g/dL Plt Count 107 L (140-440) 10*3/uL Lymphocytes # (0.90-5.00) 10*3/uL Monocytes # 1.20 H (0.20-1.00) 10*3/uL Eosinophils # 0.02 L (0.04-0.35) 10*3/uL ABG pH 7.26 L (7.35-7.45) ABG pCO2 >98 H* (35-45) mmHg ABG pO2 37 L* (83-108) mmHg ABG HCO3 (21-25) mmol/L ABG Total CO2 (19-24) mmol/L ABG O2 Saturation 66.5 L (94-97) % Chloride 89 L (98-107) mmol/L Carbon Dioxide 46 H* (22-30) mmol/L BUN 37 H (9-20) mg/dL Glucose (74-99) mg/dL Total Bilirubin 1.4 H (0.2-1.3) mg/dL 07/11/24 07/11/24 07/11/24 Range/Units 02:34 05:47 05:47 RBC 4.32 L (4.40-5.60) 10*6/uL MCV 109.0 H (80.0-97.0) fL MCH 32.4 H (27.0-32.0) pg MCHC 29.7 L (32.0-37.0) g/dL Plt Count 108 L (140-440) 10*3/uL Lymphocytes # 0.37 L (0.90-5.00) 10*3/uL Monocytes # 0.09 L (0.20-1.00) 10*3/uL Eosinophils # 0.00 L (0.04-0.35) 10*3/uL ABG pH 7.33 L (7.35-7.45) ABG pCO2 96 H* (35-45) mmHg ABG pO2 (83-108) mmHg ABG HCO3 51 H* (21-25) mmol/L ABG Total CO2 54 H (19-24) mmol/L ABG O2 Saturation 98.2 H (94-97) % Chloride 86 L (98-107) mmol/L Carbon Dioxide 44 H* (22-30) mmol/L BUN 35 H (9-20) mg/dL Glucose 112 H (74-99) mg/dL Total Bilirubin (0.2-1.3) mg/dL Thrombosis Risk Factor Assmnt - Choose All That Apply Each Factor Represents 1 point: Abnormal pulmonary function (COPD), Medical pt on bed rest, Obesity (BMI >25), Serious lung disease incl. pneumonia (< 1month), Swollen legs (current), Varicose veins Each Risk Factor Represents 3 Points: Age 75 years or older Other congenital or acquired thrombophilia - If yes, enter type in comment: No Thrombosis Risk Factor Assessment Total Risk Factor Score: 9 Thrombosis Risk Factor Assessment Level: High Risk
[2024-07-11 16:23] LABS: Glucose,Whole Blood 149 mg/dL (70-110)
[2024-07-11] MEDS: MELATONIN 5 MG TABLET PO PRN (20:12)
[2024-07-11] MEDS: FUROSEMIDE 10 MG/ML 10 ML VIAL IV SCH (21:20)
[2024-07-11] MEDS: FORMOTEROL FUMARATE 20 MCG/2 ML NEBU INHALATION SCH (21:49)
[2024-07-11] MEDS: BUDESONIDE 1 MG/2 ML NEBU INHALATION SCH (21:49)
[2024-07-12] MEDS: FUROSEMIDE 10 MG/ML 4 ML VIAL IV SCH (00:54)
[2024-07-12 06:25] LABS: Basophils # (A) 0.01 10*3/uL (0.00-0.10); Basophils % (A) 0.1 %; HCT 44.2 % (39.6-50.0); Lymphocytes # (A) 0.38 10*3/uL (0.90-5.00); Lymphocytes % (A) 5.3 %; MCH 32.6 pg (27.0-32.0); MCHC 31.7 g/dL (32.0-37.0); Mean Platelet Volume 12.2 fL (9.5-12.2); Monocytes # (A) 0.17 10*3/uL (0.20-1.00); Monocytes % (A) 2.4 %; Neutrophils # (A) 6.61 10*3/uL (1.80-7.70); Neutrophils % (A) 91.8 %; Platelet Count 121 10*3/uL (140-440); RBC 4.29 10*6/uL (4.40-5.60); RDW 14.4 % (11.5-14.5)
[2024-07-12 06:49] LABS: African American GFR (CKD) 67 (>60 ml/min/1.73 sqM); Blood Urea Nitrogen 40 mg/dL (9-20); Calcium 8.9 mg/dL (8.4-10.2); Chloride 84 mmol/L (98-107); Glucose 145 mg/dL (74-99); Non-African American GFR(CKD) 58 (>60 ml/min/1.73 sqM); Potassium 3.6 mmol/L (3.5-5.1); Sodium 135 mmol/L (137-145)
[2024-07-12 06:57] LABS: Anion Gap 8 mmol/L
[2024-07-12 07:07] LABS: Carbon Dioxide 43 mmol/L (22-30)
[2024-07-12] MEDS: POTASSIUM CHLORIDE ER 20 MEQ TAB.ER PO STA (08:49)
--- NOTE | 2024-07-12 11:32 | P.PN ---
Subjective Progress Note Date: 07/12/24 74-year-old obese male who presents to the emergency department, on July 10, at about 9 PM. He comes in complaining of increasing shortness of breath. The patient has a history of multiple medical problems including obesity, hyperlipidemia, COPD, CHF, hypertension, and atrial fibrillation. The patient apparently has been having shortness of breath for about 2 days. In addition, the patient was apparently falling at home, primarily hitting his back and chest area. There was no loss of consciousness, and he apparently denied any head injury. He was seen this morning, in room 368. His sister is at the bedside. The patient sees Dr. Das as a primary, sees my partner, and also Dr. Gutierrez and cardiology. The patient had a blood gas showing a pO2 of 104, pCO2 of 96, pH is 7.33. The patient was placed on BiPAP, with settings of 16/6, and 40%. Is not receiving any IV fluids. His N-terminal proBNP was 5580. Current labs include a white count 7.4, hemoglobin 14, hematocrit 47.1, and a platelet count of 108,000. Sodium 139, potassium 5, chloride 86, CO2 44, anion gap 9, BUN 35, and creatinine 1.09. Glucose is 112. Chest x-ray is consistent with cardiomegaly, and CHF. The patient is seen today July 12, 2024 in follow-up on the selective care unit. He is currently sitting up in bed. Awake and alert in no acute distress. He is maintained on BiPAP 16/6 and 40% FiO2. No IV fluids. He is feeling a bit better today compared to yesterday. Less lower extremity edema. White cou nt 7.2. Hemoglobin 14.0. Platelets 121. Sodium 135. Potassium 3.6. Bicarb 43. BUN 40. Creatinine 1.25. Glucose 145. He remains on DuoNeb inhalations, Pulmicort and Perforomist inhalations, IV Solu-Medrol. Remains on IV Lasix at 80 mg every 12 hours. Remains on Aldactone and Zaroxolyn. Currently in a -1 L balance. Objective - Vital Signs Vital signs: Vital Signs Temp 97.5 F L 07/12/24 08:00 Pulse 88 07/12/24 09:16 Resp 18 07/12/24 08:00 BP 120/70 07/12/24 08:00 Pulse Ox 93 L 07/12/24 03:16 FiO2 40 07/12/24 08:49 Intake & Output 07/11/24 07/12/24 07/12/24 18:59 06:59 18:59 Intake Total 360 Output Total 052 174 0977 Balance -140 -900 -1500 Weight 129 kg Intake: Oral 360 Output: Urine 539 662 0562 Other: Voiding Method Urinal External Catheter External Catheter # Voids 1 # Bowel Movements 1 - Exam GENERAL EXAM: Alert, obese 74-year-old male, on BiPAP, fairly comfortable in no apparent distress. HEAD: Normocephalic. EYES: Normal reaction of pupils, equal size. NOSE: Clear with pink turbinates. THROAT: No erythema or exudates. NECK: No masses, no JVD. CHEST: No chest wall deformity. LUNGS: Equal air entry with bibasilar crackles. CVS: S1 and S2 normal with no audible murmur, regular rhythm. ABDOMEN: No hepatosplenomegaly, normal bowel sounds, no guarding or rigidity. SPINE: No scoliosis or deformity SKIN: No rashes. Changes of chronic venous stasis of the lower extremities CENTRAL NERVOUS SYSTEM: No focal deficits, tone is normal in all 4 extremities. EXTREMITIES: There is 2+ peripheral edema. No clubbing, no cyanosis. Peripheral pulses are intact. - Labs CBC & Chem 7: 07/12/24 06:02 07/12/24 06:02 Labs: Abnormal Lab Results - Last 24 Hours (Table) 07/11/24 07/12/24 07/12/24 Range/Units 16:21 06:02 06:02 RBC 4.29 L (4.40-5.60) 10*6/uL MCV 103.0 H D (80.0-97.0) fL MCH 32.6 H (27.0-32.0) pg MCHC 31.7 L (32.0-37.0) g/dL Plt Count 121 L (140-440) 10*3/uL Lymphocytes # 0.38 L (0.90-5.00) 10*3/uL Monocytes # 0.17 L (0.20-1.00) 10*3/uL Eosinophils # 0.00 L (0.04-0.35) 10*3/uL Sodium 135 L (137-145) mmol/L Chloride 84 L (98-107) mmol/L Carbon Dioxide 43 H* (22-30) mmol/L BUN 40 H (9-20) mg/dL Glucose 145 H (74-99) mg/dL POC Glucose (mg/dL) 149 H (70-110) mg/dL Assessment and Plan Assessment: Acute hypoxemic and hypercapnic respiratory failure, multifactorial, secondary to chronic systolic CHF, COPD exacerbation, and probable Pickwickian syndrome History of chronic atrial fibrillation History of congestive heart failure Probable extrapulmonary restrictive lung disease, secondary to obesity History of COPD History of hyperlipidemia History of hypertension Morbid obesity Plan: The patient was seen and evaluated Labs and medications reviewed Currently on BiPAP Transition to nasal cannula as tolerated Continue DuoNeb and elations Continue Pulmicort and performance and elations Continue IV Solu-Medrol Continue IV Lasix Continue Diamox Continue Aldactone and Zaroxolyn Continue to monitor KARON Remains on Pradaxa Increase his activity as tolerated We will continue to follow I have personally seen and examined the patient, performed the documentation and the assessment and plan as written. Number of minutes spent on the visit: 10 Dictation was produced using [employer] dictation software. Please excuse any grammatical, word or spelling errors.
--- NOTE | 2024-07-12 11:49 | P.PN ---
Subjective Progress Note Date: 07/12/24 History of present illness; Patient has a 74-year-old male with past medical history of A-fib on anticoagul ation, COPD on 3 L home O2, CVA, congestive heart failure who presents with worsening shortness of breath. Patient's family states he has been short of breath for the past 2 days. Yesterday, had multiple falls. Denies any injuries from his falls, without loss of consciousness or trauma to head. He states he is compliant with his breathing treatments which have helped for the most part. Also, he follows with cardiology for CHF and states has been compliant with his Bumex and spironolactone, however continues to have worsening lower extremity edema and shortness of breath. He does have mild chest discomfort. He denies any fevers, chills or cough. No sick contacts. No other alleviating, precipitating modifying factors. 07/12/2024 Patient seen and examined at bedside. He continues on BiPAP O2 saturation 93% on 08/09 and 40% FiO2 of oxygen. Today is A+O x 3 With improved mentation. Denies chest pain or shortness of breath. He is being seen by cardiology and pulmonology, notes reviewed. No other complaints today. REVIEW OF SYSTEMS: Pertinent positives and negatives noted in HPI. PHYSICAL EXAMINATION: Vitals reviewed GENERAL: Resting comfortably in bed. Obese. EYES: PERRL, no scleral injection or icterus. No vision loss HENT: Normocephalic, atraumatic, hearing grossly intact, moist mucous membranes NECK: No tracheal deviation, full range of motion. CARDIOVASCULAR: S1 and S2 present. no murmurs, rubs, or gallops. PULMONARY: crackles, expiratory wheezing present. ABDOMEN: Soft, nontender, nondistended. No palpable organomegaly. MUSCULOSKELETAL: No apparent joint swelling and deformities. EXTREMITIES: No apparent cyanosis, clubbing. 2+ pedal edema. NEUROLOGICAL: Alert and oriented x3. Gross neurological examination with no apparent focal deficits. SKIN: Venous stasis dermatitis of lower extremities with ulceration bilaterally Objective findings: Labs platelets 121, sodium 135, potassium 3.6, chloride 84, bicarb 43, BUN 40, creatinine 1.25, glucose 145 No new imaging Assessment and Plan: In summary, patient has a 74-year-old male with past medical history of A-fib on anticoagulation, COPD on 3 L home O2, CVA, congestive heart failure who presents with worsening shortness of breath. #Acute hypoxemic and hypercapnic respiratory failure, multifactorial, secondary to CHF and COPD exacerbation #Hypercapnic encephalopathy, probable obesity hypoventilation syndrome #Acute COPD exacerbation #Chronic respiratory acidosis with metabolic alkalosis compensation likely due to COPD #CASSANDRA Maintained on home O2 3 L nasal cannula - Begin bronchodilators DuoNeb 0.5-3mg 3ml Q4h, Pulmicort 0.5 mg inhalation twice daily, continue Perforomist - Begin Solu-medrol 60 mg every 8 hours - Continue BiPAP, wean off to nasal cannula if tolerated - Pulmonology consulted #Acute on chronic systolic congestive heart failure #Elevated troponins secondary to CHF, type II [place] #Persistent A-fib #Nonischemic cardiomyopathy - previous echo with reduced EF 20 to 25%, August 2023 - continue IV Lasix 80 mg every 12 hours Begin K-Dur 20 mEq twice daily Begin Diamox Resume home cardiac meds -cardiac monitoring -Chest x-ray with cardiomegaly and pulmonary vascular congestion -Initial weight 149.6, daily weights -strict I/O, no more than 2L of total volume intake daily -Low sodium diet, <2g daily -Monitor BMP -Cardiology consulted #Chronic venous insufficiency of bilateral lower limb #Venous stasis dermatitis and insufficiency ulcers bilaterally #Venous ulcer of lower extremity without varicose veins Lasix as above Local wound care #Hyperglycemia Glucose 145 A1c ordered #Thrombocytopenia Monitor CBC Chronic Medical Conditions #Hypercoagulopathy #CASSANDRA #History of smoking #TIA #Hyperlipidemia #Hypertension Resume home medications DVT ppx: Pradaxa 100 mg p.o. twice daily Code status: Full code F: P.o., less than 2 L daily E: Replete as needed N: Heart healthy diet, less than 2 g of sodium daily Anticipated discharge place: Pending clinical course Anticipated discharge time: Pending clinical course Dr. Easton seen patient with resident, present during exam, and agreed with findings. Dictation was produced using [employer] dictation software. Please excuse any grammatical, word or spelling errors. Objective - Vital Signs Vital signs: Vital Signs Temp 98.5 F 07/12/24 03:16 Pulse 77 07/12/24 03:16 Resp 20 07/12/24 03:16 BP 120/72 07/12/24 03:16 Pulse Ox 93 L 07/12/24 03:16 FiO2 40 07/12/24 03:52 Intake & Output 07/11/24 07/12/24 07/12/24 18:59 06:59 18:59 Intake Total 360 Output Total 500 900 Balance -140 -900 Weight 129 kg Intake: Oral 360 Output: Urine 500 900 Other: Voiding Method Urinal External Catheter # Voids 1 # Bowel Movements 1 - Labs CBC & Chem 7: 07/12/24 06:02 07/12/24 06:02 Labs: Abnormal Lab Results - Last 24 Hours (Table) 07/11/24 07/12/24 07/12/24 Range/Units 16:21 06:02 06:02 RBC 4.29 L (4.40-5.60) 10*6/uL MCV 103.0 H D (80.0-97.0) fL MCH 32.6 H (27.0-32.0) pg MCHC 31.7 L (32.0-37.0) g/dL Plt Count 121 L (140-440) 10*3/uL Lymphocytes # 0.38 L (0.90-5.00) 10*3/uL Monocytes # 0.17 L (0.20-1.00) 10*3/uL Eosinophils # 0.00 L (0.04-0.35) 10*3/uL Sodium 135 L (137-145) mmol/L Chloride 84 L (98-107) mmol/L Carbon Dioxide 43 H* (22-30) mmol/L BUN 40 H (9-20) mg/dL Glucose 145 H (74-99) mg/dL POC Glucose (mg/dL) 149 H (70-110) mg/dL
--- NOTE | 2024-07-12 12:11 | P.PN ---
Subjective Progress Note Date: 07/12/24 This is a 74-year-old male patient of Dr. Gutierrez with past medical history of sleep apnea, persistent atrial fibrillation, nonischemic cardiomyopathy, coronary artery disease, valvular heart disease, COPD, chronic hypoxic respiratory failure on home O2 at 4 L nasal cannula, history of smoking, history of TIA. We have been asked to evaluate the patient for CHF. Patient apparently somewhat confused and some of history is supplied by as well. states he has been short of breath over the last 1 year and more significantly over the last 1 month. He has been retaining more fluid and becoming more short of breath with dyspnea with just walking across the room. Over the last 2 to 3 days however he became more confused and not his normal self and therefore eventually brought patient into the ER. Patient CO2 noted to be elevated and placed on BiPAP however not any major improvement in his mental status. states he has fallen a couple times at home as well as fallen [facility] and believes hit the back of his head at times. He is taking his medications. He was previously on amiodarone however apparently this was stopped previously. EKG: A-fib with controlled ventricular rate Cardiac catheterization performed 08/26/2023 revealed normal coronaries, mildly elevated left sided filling pressure. Echocardiogram performed 08/27/2023 revealed EF of 25%, moderate MR Lexiscan Cardiolite stress test performed 05/30/2022 revealed probable normal myocardial perfusion imaging, EF 44%, no evidence of stress-induced ischemia. 07/12/2024 Patient reports feeling okay denies any chest pain or pressure. Less confused today. States his breathing feels stable. Hemoglobin 14, sodium 135, potassium 3.6, creatinine 1.25. Physical examination: Gen: This is a 74-year-old male in no acute distress, obeese ill appearing, confused VS: reviewed HEENT: Head is atraumatic, normocephalic. Pupils equal, round. Sclerae is anicteric. NECK: Supple. No JVD. LUNGS: With wheezes and diminished left lower lobe. No intercostal retractions. HEART: irregular rate and rhythm. Systolic murmur. ABDOMEN: Soft No tenderness. EXTREMITIES: 2+ bilateral lower extremity edema. No calf tenderness. NEUROLOGICAL: Patient is confused. Assessment: Acute on chronic respiratory failure Altered mental status most likely related to CO2 narcosis however rule out other etiology Acute on chronic systolic heart failure Chronic hypoxic respiratory failure on home O2 at 4 L nasal cannula COPD exacerbation Hypercoagulopathy Elevated troponin secondary to CHF, type II [place] Obstructive sleep apnea Persistent atrial fibrillation Nonischemic cardiomyopathy Valvular heart disease History of smoking History of TIA Plan: Much of patient's symptoms appear related to congestive heart failure. Optimize heart failure regimen as able. Continue diuretics. Monitor kidney function. May consider rhythm control in the future. Stop amiodarone as he has not been taking this and would not restart unless we are considering rhythm control. Evaluate need for AICD as an outpatient. Continue to follow. Objective - Vital Signs Vital signs: Vital Signs Temp 98.5 F 07/12/24 03:16 Pulse 77 07/12/24 03:16 Resp 20 07/12/24 03:16 BP 120/72 07/12/24 03:16 Pulse Ox 93 L 07/12/24 03:16 FiO2 40 07/12/24 03:52 Intake & Output 07/11/24 07/11/24 07/12/24 06:59 18:59 06:59 Intake Total 360 Output Total 500 900 Balance -140 -900 Weight 149.685 kg 129 kg Intake: Oral 360 Output: Urine 500 900 Other: Voiding Method External Catheter Urinal External Catheter # Voids 1 # Bowel Movements 1 - Labs CBC & Chem 7: 07/12/24 06:02 07/12/24 06:02 Labs: Abnormal Lab Results - Last 24 Hours (Table) 07/11/24 07/11/24 Range/Units 05:47 16:21 Chloride 86 L (98-107) mmol/L Carbon Dioxide 44 H* (22-30) mmol/L BUN 35 H (9-20) mg/dL Glucose 112 H (74-99) mg/dL POC Glucose (mg/dL) 149 H (70-110) mg/dL
[2024-07-13 07:42] LABS: Basophils # (A) 0.01 10*3/uL (0.00-0.10); Basophils % (A) 0.1 %; HCT 49.4 % (39.6-50.0); HGB 15.8 g/dL (13.0-17.0); Lymphocytes # (A) 0.36 10*3/uL (0.90-5.00); Lymphocytes % (A) 3.6 %; MCH 32.4 pg (27.0-32.0); MCV 101.2 fL (80.0-97.0); Mean Platelet Volume 12.5 fL (9.5-12.2); Monocytes # (A) 0.39 10*3/uL (0.20-1.00); Monocytes % (A) 3.9 %; Neutrophils # (A) 9.23 10*3/uL (1.80-7.70); Neutrophils % (A) 92.1 %; Platelet Count 161 10*3/uL (140-440); RBC 4.88 10*6/uL (4.40-5.60); RDW 13.9 % (11.5-14.5); WBC 10.02 10*3/uL (4.50-10.00)
[2024-07-13 07:56] LABS: African American GFR (CKD) 53 (>60 ml/min/1.73 sqM); Blood Urea Nitrogen 45 mg/dL (9-20); Calcium 9.5 mg/dL (8.4-10.2); Chloride 81 mmol/L (98-107); Glucose 163 mg/dL (74-99); Non-African American GFR(CKD) 46 (>60 ml/min/1.73 sqM); Potassium 3.2 mmol/L (3.5-5.1); Sodium 136 mmol/L (137-145)
[2024-07-13 08:04] LABS: Anion Gap 5 mmol/L
[2024-07-13 08:07] LABS: Carbon Dioxide 50 mmol/L (22-30)
--- NOTE | 2024-07-13 09:59 | P.PN ---
Subjective Progress Note Date: 07/13/24 Principal diagnosis: Shortness of breath. 74-year-old obese male who presents to the emergency department, on July 10, at about 9 PM. He comes in complaining of increasing shortness of breath. The patient has a history of multiple medical problems including obesity, hyperlipi demia, COPD, CHF, hypertension, and atrial fibrillation. The patient apparently has been having shortness of breath for about 2 days. In addition, the patient was apparently falling at home, primarily hitting his back and chest area. There was no loss of consciousness, and he apparently denied any head injury. He was seen this morning, in room 368. His sister is at the bedside. The patient sees Dr. Das as a primary, sees my partner, and also Dr. Gutierrez and cardiology. The patient had a blood gas showing a pO2 of 104, pCO2 of 96, pH is 7.33. The patient was placed on BiPAP, with settings of 16/6, and 40%. Is not receiving any IV fluids. His N-terminal proBNP was 5580. Current labs include a white count 7.4, hemoglobin 14, hematocrit 47.1, and a platelet count of 108,000. Sodium 139, potassium 5, chloride 86, CO2 44, anion gap 9, BUN 35, and creatinine 1.09. Glucose is 112. Chest x-ray is consistent with cardiomegaly, and CHF. The patient is seen today July 12, 2024 in follow-up on the selective care unit. He is currently sitting up in bed. Awake and alert in no acute distress. He is maintained on BiPAP 16/6 and 40% FiO2. No IV fluids. He is feeling a bit better today compared to yesterday. Less lower extremity edema. White count 7.2. Hemoglobin 14.0. Platelets 121. Sodium 135. Potassium 3.6. Bicarb 43. BUN 40. Creatinine 1.25. Glucose 145. He remains on DuoNeb inhalations, Pulmicort and Perforomist inhalations, IV Solu-Medrol. Remains on IV Lasix at 80 mg every 12 hours. Remains on Aldactone and Zaroxolyn. Currently in a -1 L balance. Progress note dated July 13, 2024. The patient is seen today, in room 368. Currently, he is on 4 L. The BiPAP device is in his room, with settings of 16/6, and 40%. The patient is not receiving any IV fluids. The patient looks much more comfortable today than he did the last couple of days. Current laboratory data includes a white count of 10, hemoglobin 15.8, hematocrit 49.4, and platelet count of 161,000. Sodium 136, potassium 3.2, chloride 31, CO2 50, BUN 45, and creatinine 1.51. Glucose is 163. Calcium is 9.5. Objective - Vital Signs Vital signs: Vital Signs Temp 99 F 07/13/24 03:21 Pulse 82 07/13/24 09:05 Resp 24 07/13/24 03:21 BP 114/58 07/13/24 03:21 Pulse Ox 95 07/13/24 08:54 FiO2 40 07/13/24 03:38 Intake & Output 07/12/24 07/13/24 07/13/24 18:59 06:59 18:59 Intake Total 372 240 Output Total 1999 1250 Balance -1628 -1250 240 Weight 153.5 kg Intake: Oral 372 240 Output: Urine 19990 Other: Voiding Method External Catheter External Catheter - Exam No acute distress, oriented 3. Awake and alert. Currently on 4 L. HEENT examination is grossly unremarkable. Mucous membranes are moist. No oral lesions. Neck supple. Full range of motion. No adenopathy thyromegaly or neck vein distention. Cardiovascular examination reveals regular rhythm rate. S1-S2 normal. No S3 or S4. No discernible murmur noted. Lungs reveal bibasilar crackles. Breath sounds are equal bilaterally. No rhonchi. No wheezes. Abdomen obese, with bowel sounds. No masses or tenderness. Extremities reveal 2+ pitting edema. No cyanosis or clubbing. Skin reveals some chronic venous stasis changes, and hyperpigmentation. Neurologic examination is brief but nonfocal. - Labs CBC & Chem 7: 07/13/24 07:10 07/13/24 07:10 Labs: Abnormal Lab Results - Last 24 Hours (Table) 07/12/24 07/13/24 07/13/24 Range/Units 06:02 07:10 07:10 WBC 10.02 H (4.50-10.00) 10*3/uL MCV 101.2 H (80.0-97.0) fL MCH 32.4 H (27.0-32.0) pg MPV 12.5 H (9.5-12.2) fL Neutrophils # 9.23 H (1.80-7.70) 10*3/uL Lymphocytes # 0.36 L (0.90-5.00) 10*3/uL Eosinophils # 0.00 L (0.04-0.35) 10*3/uL Sodium 136 L (137-145) mmol/L Potassium 3.2 L (3.5-5.1) mmol/L Chloride 81 L (98-107) mmol/L Carbon Dioxide 50 H* (22-30) mmol/L BUN 45 H (9-20) mg/dL Creatinine 1.51 H (0.66-1.25) mg/dL Glucose 163 H (74-99) mg/dL Hemoglobin A1c 6.1 H (<=6.0) % Assessment and Plan Assessment: Acute hypoxemic and hypercapnic respiratory failure, multifactorial, secondary to CHF, COPD exacerbation, and probable Pickwickian syndrome. History of chronic atrial fibrillation. History of congestive heart failure. 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 History of COPD. History of hyperlipidemia. History of hypertension. Morbid obesity. Plan: Plan dated July 11, 2024. The patient is seen today in room 368. He is sitting at the side of the bed. BiPAP mask in place. BiPAP settings are 16/6 and 40%. Is not receiving any IV fluids. The patient's N-terminal proBNP was quite elevated at 5580. The patie nt's blood gases showed a pO2 of 104, pCO2 of 96, pH of 7.33. He has a history of obesity, hyperlipidemia, COPD, CHF, atrial fibrillation, and hypertension. Labs, x-rays, and all medications are reviewed. We will continue to follow the patient, make recommendations. Prognosis is guarded. Dictation was produced using [employer] dictation software. Please excuse any grammatical, word or spelling errors. Plan dated July 13, 2024. The patient is again seen today in room 368. The last 2 days, the patient was on BiPAP, but currently is on 4 L. He looks relatively stable. He is alert and awake. He denies any worsening shortness of breath, cough, wheezing, chest tightness, or chest pain. We will continue to follow make recommendations along the way. All labs, x-rays, and medications are reviewed. The patient's overall prognosis remains guarded. Dictation was produced using [employer] dictation software. Please excuse any grammatical, word or spelling errors. Time with Patient: Less than 30
[2024-07-13] MEDS: POTASSIUM CHLORIDE ER 20 MEQ TAB.ER PO SCH (10:46)
--- NOTE | 2024-07-13 12:37 | P.PN ---
Subjective Progress Note Date: 07/13/24 This is a 74-year-old male patient of Dr. Gutierrez with past medical history of sleep apnea, persistent atrial fibrillation, nonischemic cardiomyopathy, coronary artery disease, valvular heart disease, COPD, chronic hypoxic respiratory failure on home O2 at 4 L nasal cannula, history of smoking, history of TIA. We have been asked to evaluate the patient for CHF. Patient apparently somewhat confused and some of history is supplied by as well. states he has been short of breath over the last 1 year and more significantly over the last 1 month. He has been retaining more fluid and becoming more short of breath with dyspnea with just walking across the room. Over the last 2 to 3 days however he became more confused and not his normal self and therefore eventually brought patient into the ER. Patient CO2 noted to be elevated and placed on BiPAP however not any major improvement in his mental status. states he has fallen a couple times at home as well as fallen [facility] and believes hit the back of his head at times. He is taking his medications. He was previously on amiodarone however apparently this was stopped previously. EKG: A-fib with controlled ventricular rate Cardiac catheterization performed 08/26/2023 revealed normal coronaries, mildly elevated left sided filling pressure. Echocardiogram performed 08/27/2023 revealed EF of 25%, moderate MR Lexiscan Cardiolite stress test performed 05/30/2022 revealed probable normal myocardial perfusion imaging, EF 44%, no evidence of stress-induced ischemia. 07/12/2024 Patient reports feeling okay denies any chest pain or pressure. Less confused today. States his breathing feels stable. Hemoglobin 14, sodium 135, potassium 3.6, creatinine 1.25. 07/13/2024 Feeling ok, swelling has improved somewhat. Sodium 136, potassium 3.2, creatinine 1.51. No chest pain or pressure. Physical examination: Gen: This is a 74-year-old male in no acute distress, obeese ill appearing, confused VS: reviewed HEENT: Head is atraumatic, normocephalic. Pupils equal, round. Sclerae is anicteric. NECK: Supple. No JVD. LUNGS: With wheezes and diminished left lower lobe. No intercostal retractions. HEART: irregular rate and rhythm. Systolic murmur. ABDOMEN: Soft No tenderness. EXTREMITIES: 1+ bilateral lower extremity edema. No calf tenderness. NEUROLOGICAL: Patient is alert and oriented. Assessment: Acute on chronic respiratory failure Altered mental status most likely related to CO2 narcosis however rule out other etiology Acute on chronic systolic heart failure Chronic hypoxic respiratory failure on home O2 at 4 L nasal cannula COPD exacerbation Hypercoagulopathy Elevated troponin secondary to CHF, type II [place] Obstructive sleep apnea Persistent atrial fibrillation Nonischemic cardiomyopathy Valvular heart disease History of smoking History of TIA Plan: We will stop Zaroxolyn and IV Lasix. Start Bumex 1 mg twice daily tomorrow orally. Will monitor overnight and likely okay to DC home tomorrow if kidney function remains stable. Monitor kidney function. May consider rhythm control in the future. Evaluate need for AICD as an outpatient. Continue to follow. Patient seen and examined on rounds with Dr. Barker. Plan of care agreed upon. Objective - Vital Signs Vital signs: Vital Signs Temp 99 F 07/13/24 03:21 Pulse 82 07/13/24 09:05 Resp 24 07/13/24 03:21 BP 114/58 07/13/24 03:21 Pulse Ox 95 07/13/24 08:54 FiO2 40 07/13/24 03:38 Intake & Output 07/12/24 07/13/24 07/13/24 18:59 06:59 18:59 Intake Total 372 240 Output Total 1999 1250 Balance -1628 -1250 240 Weight 153.5 kg Intake: Oral 372 240 Output: Urine 1999 1250 Other: Voiding Method External Catheter External Catheter - Labs CBC & Chem 7: 07/13/24 07:10 07/13/24 07:10 Labs: Abnormal Lab Results - Last 24 Hours (Table) 07/12/24 07/13/24 07/13/24 Range/Units 06:02 07:10 07:10 WBC 10.02 H (4.50-10.00) 10*3/uL MCV 101.2 H (80.0-97.0) fL MCH 32.4 H (27.0-32.0) pg MPV 12.5 H (9.5-12.2) fL Neutrophils # 9.23 H (1.80-7.70) 10*3/uL Lymphocytes # 0.36 L (0.90-5.00) 10*3/uL Eosinophils # 0.00 L (0.04-0.35) 10*3/uL Sodium 136 L (137-145) mmol/L Potassium 3.2 L (3.5-5.1) mmol/L Chloride 81 L (98-107) mmol/L Carbon Dioxide 50 H* (22-30) mmol/L BUN 45 H (9-20) mg/dL Creatinine 1.51 H (0.66-1.25) mg/dL Glucose 163 H (74-99) mg/dL Hemoglobin A1c 6.1 H (<=6.0) %
[2024-07-13] MEDS: POTASSIUM CHLORIDE ER 20 MEQ TAB.ER PO STA (12:51)
--- NOTE | 2024-07-13 21:39 | P.PN ---
Subjective Progress Note Date: 07/13/24 Patient has a 74-year-old male with past medical history of A-fib on anticoagulation, COPD on 3 L home O2, CVA, congestive heart failure who presents with worsening shortness of breath. Patient's family states he has been short of breath for the past 2 days. Yesterday, had multiple falls. Denies any in juries from his falls, without loss of consciousness or trauma to head. He states he is compliant with his breathing treatments which have helped for the most part. Also, he follows with cardiology for CHF and states has been compliant with his Bumex and spironolactone, however continues to have worsening lower extremity edema and shortness of breath. He does have mild chest discomfort. He denies any fevers, chills or cough. No sick contacts. No other alleviating, precipitating modifying factors. 07/12/2024 Patient seen and examined at bedside. He continues on BiPAP O2 saturation 93% on 08/09 and 40% FiO2 of oxygen. Today is A+O x 3 With improved mentation. Denies chest pain or shortness of breath. He is being seen by cardiology and pulmonology, notes reviewed. No other complaints today. 07/13/2024 Patient is sitting outside of the bed. Awake alert and oriented x 3. Currently on oxygen via nasal cannula at 4 L. Patient was on BiPAP last night. No complaints of chest pain. Breathing status is better today. No fever no chills. No cough or sputum fraction. Laboratory data showed WBC 10.0 hemoglobin 15.8 and platelets 161 MCV 101.2 sodium 136 potassium 3.2 chloride 81 bicarb is 50. BUN 45 creatinine increased to 1.51 and blood sugar 163. IV Lasix was stopped. Patient was started on Bumex 1 mg twice daily. Cardiology and pulmonary is on board. PHYSICAL EXAMINATION: Vitals reviewed GENERAL: Resting comfortably in bed. Obese. EYES: PERRL, no scleral injection or icterus. No vision loss HENT: Normocephalic, atraumatic, hearing grossly intact, moist mucous membranes NECK: No tracheal deviation, full range of motion. CARDIOVASCULAR: S1 and S2 present. no murmurs, rubs, or gallops. PULMONARY: crackles, expiratory wheezing present. ABDOMEN: Soft, nontender, nondistended. No palpable organomegaly. MUSCULOSKELETAL: No apparent joint swelling and deformities. EXTREMITIES: No apparent cyanosis, clubbing. 2+ pedal edema. NEUROLOGICAL: Alert and oriented x3. Gross neurological examination with no apparent focal deficits. SKIN: Venous stasis dermatitis of lower extremities with ulceration bilaterally Objective findings: Labs platelets 121, sodium 135, potassium 3.6, chloride 84, bicarb 43, BUN 40, creatinine 1.25, glucose 145 No new imaging Assessment and Plan: In summary, patient has a 74-year-old male with past medical history of A-fib on anticoagulation, COPD on 3 L home O2, CVA, congestive heart failure who presents with worsening shortness of breath. #Acute hypoxemic and hypercapnic respiratory failure, multifactorial, secondary to CHF and COPD exacerbation #Hypercapnic/metabolic encephalopathy, probable obesity hypoventilation syndrome #Acute COPD exacerbation #Chronic respiratory acidosis with metabolic alkalosis compensation likely due to COPD #CASSANDRA Maintained on home O2 3 L nasal cannula -Continue bronchodilators DuoNeb 0.5-3mg 3ml Q4h, Pulmicort 0.5 mg inhalation twice daily, continue Perforomist -Continue with Solu-medrol 60 mg every 8 hours - Continue BiPAP, wean off to nasal cannula if tolerated. Patient is on 4 L o xygen via nasal cannula. - Pulmonology is on board. #Acute on chronic systolic congestive heart failure #Elevated troponins secondary to CHF, type II [place] #Persistent A-fib #Nonischemic cardiomyopathy - previous echo with reduced EF 20 to 25%, August 2023 -Stop IV Lasix 80 mg every 12 hours and Zaroxolyn. Patient was started on Bumex. Begin K-Dur 20 mEq twice daily Resume home cardiac meds -cardiac monitoring -Chest x-ray with cardiomegaly and pulmonary vascular congestion -Initial weight 149.6, daily weights -strict I/O, no more than 2L of total volume intake daily -Low sodium diet, <2g daily -Monitor BMP -Cardiology is following. #Chronic venous insufficiency of bilateral lower limb #Venous stasis dermatitis and insufficiency ulcers bilaterally #Venous ulcer of lower extremity without varicose veins Lasix as above Local wound care #Hyperglycemia likely due to IV steroids. Continue with insulin sliding scale. A1c 6.1. #Thrombocytopenia Monitor CBC Chronic Medical Conditions #Hypercoagulopathy #CASSANDRA #History of smoking #TIA #Hyperlipidemia #Hypertension Resume home medications DVT ppx: Pradaxa 100 mg p.o. twice daily Code status: Full code F: P.o., less than 2 L daily E: Replete as needed N: Heart healthy diet, less than 2 g of sodium daily Anticipated discharge place: Pending clinical course Anticipated discharge time: Pending clinical course Objective - Vital Signs Vital signs: Vital Signs Temp 98.5 F 07/13/24 08:10 Pulse 82 07/13/24 09:05 Resp 20 07/13/24 08:10 BP 117/66 07/13/24 08:10 Pulse Ox 95 07/13/24 08:54 FiO2 40 07/13/24 03:38 Intake & Output 07/12/24 07/13/24 07/13/24 18:59 06:59 18:59 Intake Total 372 240 Output Total 1999 1250 Balance -1628 -1250 240 Weight 153.5 kg Intake: Oral 372 240 Output: Urine 1999 1249 Other: Voiding Method External Catheter External Catheter External Catheter - Labs CBC & Chem 7: 07/13/24 07:10 07/13/24 07:10 Labs: Abnormal Lab Results - Last 24 Hours (Table) 07/12/24 07/13/24 07/13/24 Range/Units 06:02 07:10 07:10 WBC 10.02 H (4.50-10.00) 10*3/uL MCV 101.2 H (80.0-97.0) fL MCH 32.4 H (27.0-32.0) pg MPV 12.5 H (9.5-12.2) fL Neutrophils # 9.23 H (1.80-7.70) 10*3/uL Lymphocytes # 0.36 L (0.90-5.00) 10*3/uL Eosinophils # 0.00 L (0.04-0.35) 10*3/uL Sodium 136 L (137-145) mmol/L Potassium 3.2 L (3.5-5.1) mmol/L Chloride 81 L (98-107) mmol/L Carbon Dioxide 50 H* (22-30) mmol/L BUN 45 H (9-20) mg/dL Creatinine 1.51 H (0.66-1.25) mg/dL Glucose 163 H (74-99) mg/dL Hemoglobin A1c 6.1 H (<=6.0) % Assessment and Plan Time with Patient: Greater than 30
[2024-07-14 07:21] LABS: Basophils # (A) 0.01 10*3/uL (0.00-0.10); Basophils % (A) 0.1 %; HCT 49.9 % (39.6-50.0); HGB 15.7 g/dL (13.0-17.0); Lymphocytes # (A) 0.43 10*3/uL (0.90-5.00); Lymphocytes % (A) 4.1 %; MCH 31.8 pg (27.0-32.0); MCHC 31.5 g/dL (32.0-37.0); MCV 101.2 fL (80.0-97.0); Mean Platelet Volume 11.7 fL (9.5-12.2); Monocytes # (A) 0.41 10*3/uL (0.20-1.00); Monocytes % (A) 3.9 %; Neutrophils # (A) 9.57 10*3/uL (1.80-7.70); Neutrophils % (A) 91.5 %; Platelet Count 153 10*3/uL (140-440); RBC 4.93 10*6/uL (4.40-5.60); RDW 13.8 % (11.5-14.5); WBC 10.46 10*3/uL (4.50-10.00)
[2024-07-14 07:24] LABS: African American GFR (CKD) 63 (>60 ml/min/1.73 sqM); Blood Urea Nitrogen 44 mg/dL (9-20); Calcium 9.6 mg/dL (8.4-10.2); Chloride 82 mmol/L (98-107); Glucose 155 mg/dL (74-99); Non-African American GFR(CKD) 54 (>60 ml/min/1.73 sqM); Potassium 3.2 mmol/L (3.5-5.1); Sodium 135 mmol/L (137-145)
[2024-07-14 07:31] LABS: Anion Gap 9 mmol/L
[2024-07-14 07:33] LABS: Carbon Dioxide 44 mmol/L (22-30)
[2024-07-14] MEDS: POTASSIUM CHLORIDE ER 20 MEQ TAB.ER PO STA (08:36)
[2024-07-14] MEDS: BUMETANIDE 1 MG TAB PO SCH (08:36)
--- NOTE | 2024-07-14 14:30 | P.PN ---
Subjective Progress Note Date: 07/14/24 This is a 74-year-old male patient of Dr. Gutierrez with past medical history of sleep apnea, persistent atrial fibrillation, nonischemic cardiomyopathy, coronary artery disease, valvular heart disease, COPD, chronic hypoxic respiratory failure on home O2 at 4 L nasal cannula, history of smoking, history of TIA. We have been asked to evaluate the patient for CHF. Patient apparently somewhat confused and some of history is supplied by as well. states he has been short of breath over the last 1 year and more significantly over the last 1 month. He has been retaining more fluid and becoming more short of breath with dyspnea with just walking across the room. Over the last 2 to 3 days however he became more confused and not his normal self and therefore eventually brought patient into the ER. Patient CO2 noted to be elevated and placed on BiPAP however not any major improvement in his mental status. states he has fallen a couple times at home as well as fallen year in the hospital and believes hit the back of his head at times. He is taking his medications. He was previously on amiodarone however apparently this was stopped previously. EKG: A-fib with controlled ventricular rate Cardiac catheterization performed 08/26/2023 revealed normal coronaries, mildly elevated left sided filling pressure. Echocardiogram performed 08/27/2023 revealed EF of 25%, moderate MR Lexiscan Cardiolite stress test performed 05/30/2022 revealed probable normal myocardial perfusion imaging, EF 44%, no evidence of stress-induced ischemia. 07/12/2024 Patient reports feeling okay denies any chest pain or pressure. Less confused today. States his breathing feels stable. Hemoglobin 14, sodium 135, potassium 3.6, creatinine 1.25. 07/13/2024 Feeling ok, swelling has improved somewhat. Sodium 136, potassium 3.2, creatinine 1.51. No chest pain or pressure. 07/14/2024 Patient seen and examined. This morning, patient was transitioned to oral Bumex. Zaroxolyn and IV Lasix were discontinued yesterday. Blood pressure 136/84, heart rate 91-1 08, pulse ox 93% on 4 L nasal cannula. Repeat blood work reveals hemoglobin 15.7. BUN 44 creatinine 1.31, potassium 3.2, CO2 44, sodium 135. Physical examination: Gen: This is a 74-year-old male in no acute distress, obese ill appearing VS: reviewed HEENT: Head is atraumatic, normocephalic. Pupils equal, round. Sclerae is anicteric. NECK: Supple. No JVD. LUNGS: With wheezes and diminished left lower lobe. No intercostal retractions. HEART: irregular rate and rhythm. Systolic murmur. ABDOMEN: Soft No tenderness. EXTREMITIES: 1+ bilateral lower extremity edema. No calf tenderness. NEUROLOGICAL: Patient is alert and oriented. Assessment: Acute on chronic respiratory failure Altered mental status most likely related to CO2 narcosis however rule out other etiology Acute on chronic systolic heart failure Chronic hypoxic respiratory failure on home O2 at 4 L nasal cannula COPD exacerbation Hypercoagulopathy Elevated troponin secondary to CHF, type II [place] Obstructive sleep apnea Persistent atrial fibrillation Probably nonischemic cardiomyopathy as patient had a previous Lexiscan in 2022 that was normal Valvular heart disease History of smoking History of TIA Plan: Continue to hold Zaroxolyn Patient started on Bumex 1 mg twice daily orally. Start patient on losartan 25 mg at bedtime Evaluate need for AICD as an outpatient. Continue to follow. At the time of discharge, patient will follow-up with Dr. Gutierrez in 1 to 2 weeks. Nurse practitioner note has been reviewed, I agree with documented findings and plan of care. Patient was seen and examined. Objective - Vital Signs Vital signs: Vital Signs Temp 98.3 F 07/14/24 08:00 Pulse 100 07/14/24 09:45 Resp 18 07/14/24 08:00 BP 123/67 07/14/24 08:00 Pulse Ox 95 07/14/24 08:00 FiO2 40 07/14/24 03:32 Intake & Output 07/13/24 07/14/24 07/14/24 18:59 06:59 18:59 Intake Total 240 480 Output Total 3200 1300 400 Balance -2960 -1300 80 Weight 150.8 kg Intake: Oral 240 480 Output: Urine 3200 1300 400 Other: Voiding Method External Catheter External Catheter Urinal - Labs CBC & Chem 7: 07/14/24 06:44 07/14/24 06:44 Labs: Abnormal Lab Results - Last 24 Hours (Table) 07/14/24 07/14/24 Range/Units 06:44 06:44 WBC 10.46 H (4.50-10.00) 10*3/uL MCV 101.2 H (80.0-97.0) fL MCHC 31.5 L (32.0-37.0) g/dL Neutrophils # 9.57 H (1.80-7.70) 10*3/uL Lymphocytes # 0.43 L (0.90-5.00) 10*3/uL Eosinophils # 0.00 L (0.04-0.35) 10*3/uL Sodium 135 L (137-145) mmol/L Potassium 3.2 L (3.5-5.1) mmol/L Chloride 82 L (98-107) mmol/L Carbon Dioxide 44 H* (22-30) mmol/L BUN 44 H (9-20) mg/dL Creatinine 1.31 H (0.66-1.25) mg/dL Glucose 155 H (74-99) mg/dL
--- NOTE | 2024-07-14 15:09 | P.PN ---
Subjective Progress Note Date: 07/14/24 On 07/14/2024, patient is being seen for a follow-up. The patient is being seen in follow-up. He is a former smoker with known history of COPD, CHF, hypertension, and chronic atrial fibrillation. He is also morbidly obese with a BMI of 41.6. The patient was supported with BiPAP at time of admission the pressure of 16 over 6 cm of water with FiO2 40%. proBNP level was quite elevated. Today, the patient is feeling better. On 4 L of oxygen by nasal cannula. He remains on DuoNeb nebulizer treatments [id number]. He is on a combination of Perforomist and Pulmicort neb regimen twice a day and IV Solu- Medrol. He remains on Bumex 1 mg p.o. twice a day and Aldactone 25 mg p.o. daily. He is also on Diamox for ongoing chronic metabolic alkalosis. The white cell count at 10.4 with a hemoglobin of 15.7 and a platelet count of 153. Serum bicarb is at 44 dropped from 50. Sodium levels at 135 and potassium is at 3.2. BUN is 44 with a creatinine of 1.3. Fluid balance has been -4.2 L over the past 24 hours. He continues to have residual edema lower extremities bilaterally. Overall condition is improving and the patient sitting up in a chair and is calm and comfortable. No signs of any CO2 narcosis. Objective - Vital Signs Vital signs: Vital Signs Temp 98.3 F 07/14/24 08:00 Pulse 100 07/14/24 09:45 Resp 18 07/14/24 08:00 BP 123/67 07/14/24 08:00 Pulse Ox 95 07/14/24 08:00 FiO2 40 07/14/24 03:32 Intake & Output 07/13/24 07/14/24 07/14/24 18:59 06:59 18:59 Intake Total 240 480 Output Total 3200 1300 400 Balance -2960 -1300 80 Weight 150.8 kg Intake: Oral 240 480 Output: Urine 3200 1300 400 Other: Voiding Method External Catheter External Catheter Urinal - Exam The patient appeared well nourished and normally developed. Vital signs as documented. Patient is morbidly obese currently on 4 L of oxygen by nasal cannula Head exam is unremarkable. No scleral icterus or corneal arcus noted. Neck is without jugular venous distension, thyromegaly, or carotid bruits. Carotid upstrokes are brisk bilaterally. The patient has a Mallampati class IV with significant crowding of posterior pharynx Lungs are diminished breath sounds bilaterally especially in lung bases. Cardiac exam reveals the PMI to be normally sized and situated. Irregular consistent with atrial fibrillation. First and second heart sounds normal. No murmurs, rubs or gallops. Abdominal exam reveals normal bowel sounds, no masses, no organomegaly and no aortic enlargement. Extremities are +1 edematous and both femoral and pedal pulses are normal. Examination of the skin revealed no evidence of significant rashes, suspicious a ppearing nevi or other concerning lesions. Neurologically, the patient is awake and alert and the patient does not have any focal neurological deficit. Cranial nerves are essentially intact. - Labs CBC & Chem 7: 07/14/24 06:44 07/14/24 06:44 Labs: Abnormal Lab Results - Last 24 Hours (Table) 07/14/24 07/14/24 Range/Units 06:44 06:44 WBC 10.46 H (4.50-10.00) 10*3/uL MCV 101.2 H (80.0-97.0) fL MCHC 31.5 L (32.0-37.0) g/dL Neutrophils # 9.57 H (1.80-7.70) 10*3/uL Lymphocytes # 0.43 L (0.90-5.00) 10*3/uL Eosinophils # 0.00 L (0.04-0.35) 10*3/uL Sodium 135 L (137-145) mmol/L Potassium 3.2 L (3.5-5.1) mmol/L Chloride 82 L (98-107) mmol/L Carbon Dioxide 44 H* (22-30) mmol/L BUN 44 H (9-20) mg/dL Creatinine 1.31 H (0.66-1.25) mg/dL Glucose 155 H (74-99) mg/dL Assessment and Plan Plan: Acute hypoxemic and hypercapnic respiratory failure, multifactorial, secondary to chronic systolic CHF, COPD exacerbation, and probable Pickwickian syndrome transitioned to 3 L of oxygen by nasal cannula. Feeling better. Less short of breath. Diuresing well and the patient is a negative fluid balance. No signs of any CO2 narcosis. Significant metabolic alkalosis secondary to chronic hypercapnic respiratory failure, currently on Diamox. History of chronic atrial fibrillation, rate is controlled and the patient is on Pradaxa for long-term anticoagulant Chronic systolic congestive heart failure. Previous echocardiogram from 08/27/2024 showed systolic heart failure with an ejection fraction of 20 to 25%, LV function is globally reduced and the patient also has a grade 2 diastolic heart failure and moderate degree of mitral regurgitation.. 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 Bumex and Aldactone Continue Diamox Patient is negative fluid balance and lower extremity edema is improving Continue to monitor input output Remains on Pradaxa Increase his activity as tolerated We will continue to follow. Monitor electrolytes in the morning. Will continue to follow. Time with Patient: Greater than 30
[2024-07-14] MEDS: LOSARTAN 25 MG TAB PO SCH (19:53)
--- NOTE | 2024-07-14 22:50 | P.PN ---
Subjective Progress Note Date: 07/14/24 Patient has a 74-year-old male with past medical history of A-fib on anticoagulation, COPD on 3 L home O2, CVA, congestive heart failure who presents with worsening shortness of breath. Patient's family states he has been short of breath for the past 2 days. Yesterday, had multiple falls. Denies any in juries from his falls, without loss of consciousness or trauma to head. He states he is compliant with his breathing treatments which have helped for the most part. Also, he follows with cardiology for CHF and states has been compliant with his Bumex and spironolactone, however continues to have worsening lower extremity edema and shortness of breath. He does have mild chest discomfort. He denies any fevers, chills or cough. No sick contacts. No other alleviating, precipitating modifying factors. 07/12/2024 Patient seen and examined at bedside. He continues on BiPAP O2 saturation 93% on 08/09 and 40% FiO2 of oxygen. Today is A+O x 3 With improved mentation. Denies chest pain or shortness of breath. He is being seen by cardiology and pulmonology, notes reviewed. No other complaints today. 07/13/2024 Patient is sitting outside of the bed. Awake alert and oriented x 3. Currently on oxygen via nasal cannula at 4 L. Patient was on BiPAP last night. No complaints of chest pain. Breathing status is better today. No fever no chills. No cough or sputum fraction. Laboratory data showed WBC 10.0 hemoglobin 15.8 and platelets 161 MCV 101.2 sodium 136 potassium 3.2 chloride 81 bicarb is 50. BUN 45 creatinine increased to 1.51 and blood sugar 163. IV Lasix was stopped. Patient was started on Bumex 1 mg twice daily. Cardiology and pulmonary is on board. 07/14/2024 Patient is currently sitting on side of bed. Awake alert and oriented x 3. Currently off BiPAP and is being continued on oxygen at 4 L via nasal cannula. Patient has been afebrile. No cough or sputum present. Leg swelling is much improved. IV Lasix was discontinued and patient is currently on Bumex and spironolactone spironolactone. Patient is also on IV Solu-Medrol 60 mg Q6 hourly along with DuoNebs. Laboratory data showed WBC 10.4 hemoglobin 15.7 platelets 153 sodium 135 potassium 3.2 chloride 82 bicarb is 44 BUN 44 and creatinine 1.31 and blood sugar 155 and calcium 9.6. Cardiology and pulmonary is on board. PHYSICAL EXAMINATION: Vitals reviewed GENERAL: Resting comfortably in bed. Obese. EYES: PERRL, no scleral injection or icterus. No vision loss HENT: Normocephalic, atraumatic, hearing grossly intact, moist mucous membranes NECK: No tracheal deviation, full range of motion. CARDIOVASCULAR: S1 and S2 present. no murmurs, rubs, or gallops. PULMONARY: crackles, expiratory wheezing present. ABDOMEN: Soft, nontender, nondistended. No palpable organomegaly. MUSCULOSKELETAL: No apparent joint swelling and deformities. EXTREMITIES: No apparent cyanosis, clubbing. 2+ pedal edema. NEUROLOGICAL: Alert and oriented x3. Gross neurological examination with no apparent focal deficits. SKIN: Venous stasis dermatitis of lower extremities with ulceration bilaterally Objective findings: Labs platelets 121, sodium 135, potassium 3.6, chloride 84, bicarb 43, BUN 40, creatinine 1.25, glucose 145 No new imaging Assessment and Plan: In summary, patient has a 74-year-old male with past medical history of A-fib on anticoagulation, COPD on 3 L home O2, CVA, congestive heart failure who presents with worsening shortness of breath. #Acute hypoxemic and hypercapnic respiratory failure, multifactorial, secondary to CHF and COPD exacerbation #Hypercapnic/metabolic encephalopathy, probable obesity hypoventilation syndrome #Acute COPD exacerbation #Chronic respiratory acidosis with metabolic alkalosis compensation likely due to COPD #CASSANDRA Maintained on home O2 3 L nasal cannula -Continue bronchodilators DuoNeb 0.5-3mg 3ml Q4h, Pulmicort 0.5 mg inhalation twice daily, continue Perforomist -Continue with Solu-medrol 60 mg every 8 hours - Continue BiPAP, wean off to nasal cannula if tolerated. Patient is on 4 L oxygen via nasal cannula. - Pulmonology is on board. #Acute on chronic systolic congestive heart failure #Elevated troponins secondary to CHF, type II [place] #Persistent A-fib #Nonischemic cardiomyopathy - previous echo with reduced EF 20 to 25%, August 2023 -Stop IV Lasix 80 mg every 12 hours and Zaroxolyn. Patient was started on Bumex. Begin K-Dur 20 mEq twice daily Resume home cardiac meds -cardiac monitoring -Chest x-ray with cardiomegaly and pulmonary vascular congestion -Initial weight 149.6, daily weights -strict I/O, no more than 2L of total volume intake daily -Low sodium diet, <2g daily -Monitor BMP -Cardiology is following. #Chronic venous insufficiency of bilateral lower limb #Venous stasis dermatitis and insufficiency ulcers bilaterally #Venous ulcer of lower extremity without varicose veins Lasix as above Local wound care #Hyperglycemia likely due to IV steroids. Continue with insulin sliding scale. A1c 6.1. #Thrombocytopenia Monitor CBC Chronic Medical Conditions #Hypercoagulopathy #CASSANDRA #History of smoking #TIA #Hyperlipidemia #Hypertension Resume home medications DVT ppx: Pradaxa 100 mg p.o. twice daily Code status: Full code F: P.o., less than 2 L daily E: Replete as needed N: Heart healthy diet, less than 2 g of sodium daily Anticipated discharge place: Pending clinical course Anticipated discharge time: Pending clinical course Objective - Vital Signs Vital signs: Vital Signs Temp 98 F 07/14/24 15:56 Pulse 100 07/14/24 16:47 Resp 21 07/14/24 15:56 BP 132/82 07/14/24 15:56 Pulse Ox 92 L 07/14/24 15:56 FiO2 40 07/14/24 03:32 Intake & Output 07/14/24 07/14/24 07/15/24 06:59 18:59 06:59 Intake Total 1500 Output Total 1300 2950 Balance -1300 -1450 Weight 150.8 kg Intake: Oral 1500 Output: Urine 1300 2950 Other: Voiding Method External Catheter Urinal - Labs CBC & Chem 7: 07/14/24 06:44 07/14/24 06:44 Labs: Abnormal Lab Results - Last 24 Hours (Table) 07/14/24 07/14/24 Range/Units 06:44 06:44 WBC 10.46 H (4.50-10.00) 10*3/uL MCV 101.2 H (80.0-97.0) fL MCHC 31.5 L (32.0-37.0) g/dL Neutrophils # 9.57 H (1.80-7.70) 10*3/uL Lymphocytes # 0.43 L (0.90-5.00) 10*3/uL Eosinophils # 0.00 L (0.04-0.35) 10*3/uL Sodium 135 L (137-145) mmol/L Potassium 3.2 L (3.5-5.1) mmol/L Chloride 82 L (98-107) mmol/L Carbon Dioxide 44 H* (22-30) mmol/L BUN 44 H (9-20) mg/dL Creatinine 1.31 H (0.66-1.25) mg/dL Glucose 155 H (74-99) mg/dL
[2024-07-15 08:13] LABS: HCT 52.1 % (39.6-50.0); HGB 16.9 g/dL (13.0-17.0); Lymphocytes # (A) 0.33 10*3/uL (0.90-5.00); Lymphocytes % (A) 3.6 %; MCH 32.4 pg (27.0-32.0); MCHC 32.4 g/dL (32.0-37.0); MCV 99.8 fL (80.0-97.0); Mean Platelet Volume 12.2 fL (9.5-12.2); Monocytes # (A) 0.34 10*3/uL (0.20-1.00); Monocytes % (A) 3.7 %; Neutrophils # (A) 8.56 10*3/uL (1.80-7.70); Neutrophils % (A) 92.2 %; Platelet Count 153 10*3/uL (140-440); RBC 5.22 10*6/uL (4.40-5.60); RDW 13.6 % (11.5-14.5); WBC 9.28 10*3/uL (4.50-10.00)
[2024-07-15 08:33] LABS: African American GFR (CKD) 52 (>60 ml/min/1.73 sqM); Blood Urea Nitrogen 51 mg/dL (9-20); Calcium 9.4 mg/dL (8.4-10.2); Chloride 80 mmol/L (98-107); Glucose 172 mg/dL (74-99); Non-African American GFR(CKD) 45 (>60 ml/min/1.73 sqM); Potassium 3.1 mmol/L (3.5-5.1); Sodium 139 mmol/L (137-145)
[2024-07-15 08:39] LABS: Anion Gap 14 mmol/L
[2024-07-15 08:47] LABS: Carbon Dioxide 45 mmol/L (22-30)
[2024-07-15] MEDS: POTASSIUM CHLORIDE ER 20 MEQ TAB.ER PO STA ×2 (09:36→13:47)
--- NOTE | 2024-07-15 15:02 | P.PN ---
Subjective Progress Note Date: 07/15/24 This is a 74-year-old male patient of Dr. Gutierrez with past medical history of sleep apnea, persistent atrial fibrillation, nonischemic cardiomyopathy, coronary artery disease, valvular heart disease, COPD, chronic hypoxic respiratory failure on home O2 at 4 L nasal cannula, history of smoking, history of TIA. We have been asked to evaluate the patient for CHF. Patient apparently somewhat confused and some of history is supplied by as well. states he has been short of breath over the last 1 year and more significantly over the last 1 month. He has been retaining more fluid and becoming more short of breath with dyspnea with just walking across the room. Over the last 2 to 3 days however he became more confused and not his normal self and therefore eventually brought patient into the ER. Patient CO2 noted to be elevated and placed on BiPAP however not any major improvement in his mental status. states he has fallen a couple times at home as well as fallen year in the hospital and believes hit the back of his head at times. He is taking his medications. He was previously on amiodarone however apparently this was stopped previously. EKG: A-fib with controlled ventricular rate Cardiac catheterization performed 08/26/2023 revealed normal coronaries, mildly elevated left sided filling pressure. Echocardiogram performed 08/27/2023 revealed EF of 25%, moderate MR Lexiscan Cardiolite stress test performed 05/30/2022 revealed probable normal myocardial perfusion imaging, EF 44%, no evidence of stress-induced ischemia. 07/12/2024 Patient reports feeling okay denies any chest pain or pressure. Less confused today. States his breathing feels stable. Hemoglobin 14, sodium 135, potassium 3.6, creatinine 1.25. 07/13/2024 Feeling ok, swelling has improved somewhat. Sodium 136, potassium 3.2, creatinine 1.51. No chest pain or pressure. 07/14/2024 Patient seen and examined. This morning, patient was transitioned to oral Bumex. Zaroxolyn and IV Lasix were discontinued yesterday. Blood pressure 136/84, heart rate 91-1 08, pulse ox 93% on 4 L nasal cannula. Repeat blood work reveals hemoglobin 15.7. BUN 44 creatinine 1.31, potassium 3.2, CO2 44, sodium 135. 07/15 Patient seen and examined. Yesterday, patient was transition to Bumex oral 1 mg twice daily and started on losartan 25 mg daily at bedtime. Zaroxolyn was discontinued. Blood pressure this morning 133/66, heart rate in the 90s, pulse ox 95% on 3 L nasal cannula. Repeat blood work reveals hemoglobin 16.9, BUN 51 creatinine 1.53. Potassium 3.1 and has been replaced. Physical examination: Gen: This is a 74-year-old male in no acute distress, obese ill appearing VS: reviewed HEENT: Head is atraumatic, normocephalic. Pupils equal, round. Sclerae is anicteric. NECK: Supple. No JVD. LUNGS: With wheezes and diminished left lower lobe. No intercostal retractions. HEART: irregular rate and rhythm. Systolic murmur. ABDOMEN: Soft No tenderness. EXTREMITIES: 1+ bilateral lower extremity edema. No calf tenderness. NEUROLOGICAL: Patient is alert and oriented. Assessment: Acute on chronic respiratory failure Altered mental status most likely related to CO2 narcosis however rule out other etiology Acute on chronic systolic heart failure Chronic hypoxic respiratory failure on home O2 at 4 L nasal cannula COPD exacerbation Hypercoagulopathy Elevated troponin secondary to CHF, type II [place] Obstructive sleep apnea Persistent atrial fibrillation Probably nonischemic cardiomyopathy as patient had a previous Lexiscan in 2022 that was normal Valvular heart disease History of smoking History of TIA Plan: Continue to hold Zaroxolyn Continue patient on Bumex 1 mg twice daily orally. Continue patient on losartan 25 mg at bedtime Evaluate need for AICD as an outpatient. Continue to follow. At the time of discharge, patient will follow-up with Dr. Gutierrez in 1 to 2 weeks. No further cardiac workup. Cardiology will sign off this case and follow on an as-needed basis. Please reconsult for any new concerns. Nurse practitioner note has been reviewed, I agree with documented findings and plan of care. Patient was seen and examined. Objective - Vital Signs Vital signs: Vital Signs Temp 97.5 F L 07/15/24 08:00 Pulse 92 07/15/24 12:08 Resp 18 07/15/24 11:18 BP 133/66 07/15/24 11:18 Pulse Ox 95 07/15/24 11:18 FiO2 40 07/14/24 03:32 Intake & Output 04/21/25 04/22/25 04/22/25 18:59 06:59 18:59 Intake Total 1500 700 358 Output Total 2950 800 1025 Balance -0626 -821 -431 Weight 127 kg Intake: Oral 1500 700 358 Output: Urine 2950 800 1025 Other: Voiding Method Urinal Urinal Urinal - Labs CBC & Chem 7: 07/15/24 07:37 07/15/24 07:37 Labs: Abnormal Lab Results - Last 24 Hours (Table) 07/15/24 07/15/24 Range/Units 07:37 07:37 Hct 52.1 H (39.6-50.0) % MCV 99.8 H (80.0-97.0) fL MCH 32.4 H (27.0-32.0) pg Immature Gran # 0.05 H (0.00-0.04) 10*3/uL Neutrophils # 8.56 H (1.80-7.70) 10*3/uL Lymphocytes # 0.33 L (0.90-5.00) 10*3/uL Eosinophils # 0.00 L (0.04-0.35) 10*3/uL Potassium 3.1 L (3.5-5.1) mmol/L Chloride 80 L (98-107) mmol/L Carbon Dioxide 45 H* (22-30) mmol/L BUN 51 H (9-20) mg/dL Creatinine 1.53 H (0.66-1.25) mg/dL Glucose 172 H (74-99) mg/dL
--- NOTE | 2024-07-15 15:47 | P.PN ---
Subjective Progress Note Date: 07/15/24 On 07/14/2024, patient is being seen for a follow-up. The patient is being seen in follow-up. He is a former smoker with known history of COPD, CHF, hypertension, and chronic atrial fibrillation. He is also morbidly obese with a BMI of 41.6. The patient was supported with BiPAP at time of admission the pressure of 16 over 6 cm of water with FiO2 40%. proBNP level was quite elevated. Today, the patient is feeling better. On 4 L of oxygen by nasal cannula. He remains on DuoNeb nebulizer treatments [id number]. He is on a combination of Perforomist and Pulmicort neb regimen twice a day and IV Solu- Medrol. He remains on Bumex 1 mg p.o. twice a day and Aldactone 25 mg p.o. daily. He is also on Diamox for ongoing chronic metabolic alkalosis. The white cell count at 10.4 with a hemoglobin of 15.7 and a platelet count of 153. Serum bicarb is at 44 dropped from 50. Sodium levels at 135 and potassium is at 3.2. BUN is 44 with a creatinine of 1.3. Fluid balance has been -4.2 L over the past 24 hours. He continues to have residual edema lower extremities bilaterally. Overall condition is improving and the patient sitting up in a chair and is calm and comfortable. No signs of any CO2 narcosis. 07/15/2024, the patient is being seen for a follow-up. Denies having any new complaints. Continues to improve. Fluid balance is -1.5 L over the past 24 hours and the patient continues to show improvement in volume status. The patient is currently on Bumex 1 mg p.o. twice a day and Aldactone 25 mg p.o. daily. He remains on DuoNeb neuro treatments [id number]. He is on a Perforomist nebulized treatments twice a day and the patient is on IV Solu- Medrol. White cell count is at 9.2 with a hemoglobin of 16.9. Sodium is at 139, potassium is at 3.1 bicarb is at 45, BUN is 51 with a creatinine of 1.5. Not utilizing the BiPAP overnight. Currently stable on 3 L of oxygen by nasal cannula with a pulse ox of 95%. Objective - Vital Signs Vital signs: Vital Signs Temp 97.5 F L 07/15/24 08:00 Pulse 96 07/15/24 09:37 Resp 20 07/15/24 08:00 BP 113/69 07/15/24 08:00 Pulse Ox 93 L 07/15/24 08:00 FiO2 40 07/14/24 03:32 Intake & Output 07/14/24 07/15/24 07/15/24 18:59 06:59 18:59 Intake Total 1500 700 118 Output Total 2950 800 525 Balance -1450 -100 -407 Weight 127 kg Intake: Oral 1500 700 118 Output: Urine 2950 800 525 Other: Voiding Method Urinal Urinal Urinal - Exam The patient appeared well nourished and normally developed. Vital signs as documented. Patient is morbidly obese currently on 3 L of oxygen by nasal cannula Head exam is unremarkable. No scleral icterus or corneal arcus noted. Neck is without jugular venous distension, thyromegaly, or carotid bruits. Carotid upstrokes are brisk bilaterally. The patient has a Mallampati class IV with significant crowding of posterior pharynx Lungs are diminished breath sounds bilaterally especially in lung bases. Cardiac exam reveals the PMI to be normally sized and situated. Irregular consistent with atrial fibrillation. First and second heart sounds normal. No murmurs, rubs or gallops. Abdominal exam reveals normal bowel sounds, no masses, no organomegaly and no aortic enlargement. Extremities are +1 edematous and both femoral and pedal pulses are normal. Examination of the skin revealed no evidence of significant rashes, suspicious appearing nevi or other concerning lesions. Neurologically, the patient is awake and alert and the patient does not have any focal neurological deficit. Cranial nerves are essentially intact. - Labs CBC & Chem 7: 07/15/24 07:37 07/15/24 07:37 Labs: Abnormal Lab Results - Last 24 Hours (Table) 07/15/24 07/15/24 Range/Units 07:37 07:37 Hct 52.1 H (39.6-50.0) % MCV 99.8 H (80.0-97.0) fL MCH 32.4 H (27.0-32.0) pg Immature Gran # 0.05 H (0.00-0.04) 10*3/uL Neutrophils # 8.56 H (1.80-7.70) 10*3/uL Lymphocytes # 0.33 L (0.90-5.00) 10*3/uL Eosinophils # 0.00 L (0.04-0.35) 10*3/uL Potassium 3.1 L (3.5-5.1) mmol/L Chloride 80 L (98-107) mmol/L Carbon Dioxide 45 H* (22-30) mmol/L BUN 51 H (9-20) mg/dL Creatinine 1.53 H (0.66-1.25) mg/dL Glucose 172 H (74-99) mg/dL Assessment and Plan Plan: Acute hypoxemic and hypercapnic respiratory failure, multifactorial, secondary to chronic systolic CHF, COPD exacerbation, and probable Pickwickian syndrome transitioned to 3 L of oxygen by nasal cannula. Feeling better. Less short of breath. Diuresing well and the patient is a negative fluid balance. No signs of any CO2 narcosis. Significant metabolic alkalosis secondary to chronic hypercapnic respiratory failure, currently on Diamox. History of chronic atrial fibrillation, rate is controlled and the patient is on Pradaxa for long-term anticoagulant Chronic systolic congestive heart failure. Previous echocardiogram from 08/27/2024 showed systolic heart failure with an ejection fraction of 20 to 25%, LV function is globally reduced and the patient also has a grade 2 diastolic heart failure and moderate degree of mitral regurgitation.. 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 Continue DuoNeb and elations Continue Pulmicort and Perforomist nebulized treatments in addition to DuoNeb regiment [id number] Stopped IV Solu-Medrol start the patient on prednisone burst taper Continue p.o. Bumex and Aldactone, negative fluid balance of 1.5 L over the past 24 hours Continue Diamox Patient is negative fluid balance and lower extremity edema is improving Continue to monitor input output Remains on Pradaxa Increase his activity as tolerated We will continue to follow. Monitor electrolytes in the morning. Will continue to follow. Time with Patient: Greater than 30
--- NOTE | 2024-07-15 23:20 | P.PN ---
Subjective Progress Note Date: 07/15/24 Patient has a 74-year-old male with past medical history of A-fib on anticoagulation, COPD on 3 L home O2, CVA, congestive heart failure who presents with worsening shortness of breath. Patient's family states he has been short of breath for the past 2 days. Yesterday, had multiple falls. Denies any in juries from his falls, without loss of consciousness or trauma to head. He states he is compliant with his breathing treatments which have helped for the most part. Also, he follows with cardiology for CHF and states has been compliant with his Bumex and spironolactone, however continues to have worsening lower extremity edema and shortness of breath. He does have mild chest discomfort. He denies any fevers, chills or cough. No sick contacts. No other alleviating, precipitating modifying factors. 07/12/2024 Patient seen and examined at bedside. He continues on BiPAP O2 saturation 93% on 08/09 and 40% FiO2 of oxygen. Today is A+O x 3 With improved mentation. Denies chest pain or shortness of breath. He is being seen by cardiology and pulmonology, notes reviewed. No other complaints today. 07/13/2024 Patient is sitting outside of the bed. Awake alert and oriented x 3. Currently on oxygen via nasal cannula at 4 L. Patient was on BiPAP last night. No complaints of chest pain. Breathing status is better today. No fever no chills. No cough or sputum fraction. Laboratory data showed WBC 10.0 hemoglobin 15.8 and platelets 161 MCV 101.2 sodium 136 potassium 3.2 chloride 81 bicarb is 50. BUN 45 creatinine increased to 1.51 and blood sugar 163. IV Lasix was stopped. Patient was started on Bumex 1 mg twice daily. Cardiology and pulmonary is on board. 07/14/2024 Patient is currently sitting on side of bed. Awake alert and oriented x 3. Currently off BiPAP and is being continued on oxygen at 4 L via nasal cannula. Patient has been afebrile. No cough or sputum present. Leg swelling is much improved. IV Lasix was discontinued and patient is currently on Bumex and spironolactone spironolactone. Patient is also on IV Solu-Medrol 60 mg Q6 hourly along with DuoNebs. Laboratory data showed WBC 10.4 hemoglobin 15.7 platelets 153 sodium 135 potassium 3.2 chloride 82 bicarb is 44 BUN 44 and creatinine 1.31 and blood sugar 155 and calcium 9.6. Cardiology and pulmonary is on board. 07/15/2024 Patient is resting in the bed. Awake alert and oriented x 3. No complaints of chest pain. Shortness of breath is much improved. Patient is on 3 L oxygen via nasal cannula. Denied any cough or sputum production. IV Solu-Medrol changed to prednisone 40 mg daily starting tomorrow. Patient is on Bumex. Laboratory data showed WBC 9.2 hemoglobin 16.9 and platelets 153 sodium 139 potassium 3.1 chloride 80 bicarb is 45 BUN 51 and creatinine 1.51 and blood sugar 172. Patient is also on Diamox. Anticipate discharge in the next 24 hours. Cardiology and pulmonary is on board. PHYSICAL EXAMINATION: Vitals reviewed GENERAL: Resting comfortably in bed. Obese. EYES: PERRL, no scleral injection or icterus. No vision loss HENT: Normocephalic, atraumatic, hearing grossly intact, moist mucous membranes NECK: No tracheal deviation, full range of motion. CARDIOVASCULAR: S1 and S2 present. no murmurs, rubs, or gallops. PULMONARY: No wheezing. Scattered rhonchi. Nonlabored breathing.. ABDOMEN: Soft, nontender, nondistended. No palpable organomegaly. MUSCULOSKELETAL: No apparent joint swelling and deformities. EXTREMITIES: No apparent cyanosis, clubbing. 2+ pedal edema. NEUROLOGICAL: Alert and oriented x3. Gross neurological examination with no apparent focal deficits. SKIN: Venous stasis dermatitis of lower extremities with ulceration bilaterally Objective findings: Labs platelets 121, sodium 135, potassium 3.6, chloride 84, bicarb 43, BUN 40, creatinine 1.25, glucose 145 No new imaging Assessment and Plan: In summary, patient has a 74-year-old male with past medical history of A-fib on anticoagulation, COPD on 3 L home O2, CVA, congestive heart failure who presents with worsening shortness of breath. #Acute hypoxemic and hypercapnic respiratory failure, multifactorial, secondary to CHF and COPD exacerbation #Hypercapnic/metabolic encephalopathy, probable obesity hypoventilation syndrome #Acute COPD exacerbation #Chronic respiratory acidosis with metabolic alkalosis compensation likely due to COPD #CASSANDRA Maintained on home O2 3 L nasal cannula -Continue bronchodilators DuoNeb 0.5-3mg 3ml Q4h, Pulmicort 0.5 mg inhalation twice daily, continue Perforomist -Continue with Solu-medrol 60 mg every 8 hours. Changed to prednisone 40 mg da felipe starting tomorrow. - Continue BiPAP, wean off to nasal cannula if tolerated. Patient is on 3 L oxygen via nasal cannula. - Pulmonology is on board. #Acute on chronic systolic congestive heart failure #Elevated troponins secondary to CHF, type II [place] #Persistent A-fib #Nonischemic cardiomyopathy - previous echo with reduced EF 20 to 25%, August 2023 -Patient was on IV Lasix 80 mg every 12 hours and Zaroxolyn. Patient was started on p.o. Bumex. Begin K-Dur 20 mEq twice daily Resume home cardiac meds -cardiac monitoring -Chest x-ray with cardiomegaly and pulmonary vascular congestion -Initial weight 149.6, daily weights -strict I/O, no more than 2L of total volume intake daily -Low sodium diet, <2g daily -Monitor BMP -Cardiology is following. #Chronic venous insufficiency of bilateral lower limb #Venous stasis dermatitis and insufficiency ulcers bilaterally #Venous ulcer of lower extremity without varicose veins Lasix as above Local wound care #Hyperglycemia likely due to IV steroids. Continue with insulin sliding scale. A1c 6.1. #Thrombocytopenia Monitor CBC Chronic Medical Conditions #Hypercoagulopathy #CASSANDRA #History of smoking #TIA #Hyperlipidemia #Hypertension Resume home medications DVT ppx: Pradaxa 100 mg p.o. twice daily Code status: Full code F: P.o., less than 2 L daily E: Replete as needed N: Heart healthy diet, less than 2 g of sodium daily Anticipated discharge place: Pending clinical course Anticipated discharge time: Pending clinical course Objective - Vital Signs Vital signs: Vital Signs Temp 97.8 F 07/15/24 15:47 Pulse 96 07/15/24 16:31 Resp 20 07/15/24 15:47 BP 144/76 07/15/24 15:47 Pulse Ox 91 L 07/15/24 15:47 FiO2 40 07/14/24 03:32 Intake & Output 07/15/24 07/15/24 07/16/24 06:59 18:59 06:59 Intake Total 700 838 Output Total 800 1950 Balance -100 -1112 Weight 127 kg Intake: Oral 700 838 Output: Urine 800 1950 Other: Voiding Method Urinal Urinal - Labs CBC & Chem 7: 07/15/24 07:37 07/15/24 07:37 Labs: Abnormal Lab Results - Last 24 Hours (Table) 07/15/24 07/15/24 Range/Units 07:37 07:37 Hct 52.1 H (39.6-50.0) % MCV 99.8 H (80.0-97.0) fL MCH 32.4 H (27.0-32.0) pg Immature Gran # 0.05 H (0.00-0.04) 10*3/uL Neutrophils # 8.56 H (1.80-7.70) 10*3/uL Lymphocytes # 0.33 L (0.90-5.00) 10*3/uL Eosinophils # 0.00 L (0.04-0.35) 10*3/uL Potassium 3.1 L (3.5-5.1) mmol/L Chloride 80 L (98-107) mmol/L Carbon Dioxide 45 H* (22-30) mmol/L BUN 51 H (9-20) mg/dL Creatinine 1.53 H (0.66-1.25) mg/dL Glucose 172 H (74-99) mg/dL
[2024-07-16 06:50] LABS: HCT 53.6 % (39.6-50.0); HGB 17.2 g/dL (13.0-17.0); MCH 32.1 pg (27.0-32.0); MCHC 32.1 g/dL (32.0-37.0); Mean Platelet Volume 12.4 fL (9.5-12.2); Platelet Count 164 10*3/uL (140-440); RBC 5.36 10*6/uL (4.40-5.60); RDW 13.4 % (11.5-14.5); WBC 13.88 10*3/uL (4.50-10.00)
[2024-07-16 07:15] LABS: African American GFR (CKD) 54 (>60 ml/min/1.73 sqM); Blood Urea Nitrogen 56 mg/dL (9-20); Calcium 9.3 mg/dL (8.4-10.2); Chloride 78 mmol/L (98-107); Glucose 131 mg/dL (74-99); Non-African American GFR(CKD) 47 (>60 ml/min/1.73 sqM); Potassium 3.1 mmol/L (3.5-5.1); Sodium 135 mmol/L (137-145)
[2024-07-16 07:25] LABS: Anion Gap 9 mmol/L
[2024-07-16 07:32] LABS: Carbon Dioxide 48 mmol/L (22-30)
[2024-07-16] MEDS: predniSONE 20 MG TAB PO SCH (09:23)
[2024-07-16 10:47] VITALS: TEMP 98.7
[2024-07-16 15:50] VITALS: BP 95/65; RESP 16
--- NOTE | 2024-07-16 16:18 | P.PN ---
Subjective Progress Note Date: 07/16/24 On 07/14/2024, patient is being seen for a follow-up. The patient is being seen in follow-up. He is a former smoker with known history of COPD, CHF, hypertension, and chronic atrial fibrillation. He is also morbidly obese with a BMI of 41.6. The patient was supported with BiPAP at time of admission the pressure of 16 over 6 cm of water with FiO2 40%. proBNP level was quite elevated. Today, the patient is feeling better. On 4 L of oxygen by nasal cannula. He remains on DuoNeb nebulizer treatments [id number]. He is on a combination of Perforomist and Pulmicort neb regimen twice a day and IV Solu- Medrol. He remains on Bumex 1 mg p.o. twice a day and Aldactone 25 mg p.o. daily. He is also on Diamox for ongoing chronic metabolic alkalosis. The white cell count at 10.4 with a hemoglobin of 15.7 and a platelet count of 153. Serum bicarb is at 44 dropped from 50. Sodium levels at 135 and potassium is at 3.2. BUN is 44 with a creatinine of 1.3. Fluid balance has been -4.2 L over the past 24 hours. He continues to have residual edema lower extremities bilaterally. Overall condition is improving and the patient sitting up in a chair and is calm and comfortable. No signs of any CO2 narcosis. 07/15/2024, the patient is being seen for a follow-up. Denies having any new complaints. Continues to improve. Fluid balance is -1.5 L over the past 24 hours and the patient continues to show improvement in volume status. The patient is currently on Bumex 1 mg p.o. twice a day and Aldactone 25 mg p.o. daily. He remains on DuoNeb neuro treatments [id number]. He is on a Perforomist nebulized treatments twice a day and the patient is on IV Solu- Medrol. White cell count is at 9.2 with a hemoglobin of 16.9. Sodium is at 139, potassium is at 3.1 bicarb is at 45, BUN is 51 with a creatinine of 1.5. Not utilizing the BiPAP overnight. Currently stable on 3 L of oxygen by nasal cannula with a pulse ox of 95%. On 07/16/2024, the patient is being seen for a follow-up. No new complaints. Continues to be on diuretics and the patient reports improving lower extremity edema. Fluid balance is -1.2 L over the past 24 hours. The patient is currently on 3 L of oxygen by nasal cannula. White cell count is 15 with a hemoglobin 17.2 and a platelet count of 164. BUN is 56 with a creatinine 1.47. Sodium is at 135. The patient is currently on a prednisone burst taper. The patient on DuoNeb chest. The patient remains on a combination of Bumex 1 mg p.o. twice a day and Aldactone 25 mg p.o. daily and the patient remains on Diamox to 50 mg IV every 24 hours. The patient serum bicarb level is at 48. Objective - Vital Signs Vital signs: Vital Signs Temp 97.8 F 07/16/24 00:00 Pulse 82 07/16/24 09:09 Resp 18 07/16/24 04:00 BP 101/53 07/16/24 04:00 Pulse Ox 97 07/16/24 08:42 FiO2 40 07/16/24 04:00 Intake & Output 07/15/24 07/16/24 07/16/24 18:59 06:59 18:59 Intake Total 838 1360 240 Output Total 1950 1450 Balance -1112 -90 240 Weight 130 kg Intake: Oral 838 1360 240 Output: Urine 1950 1450 Other: Voiding Method Urinal Urinal # Voids 2 - Exam The patient appeared well nourished and normally developed. Vital signs as documented. Patient is morbidly obese currently on 3 L of oxygen by nasal cannula Head exam is unremarkable. No scleral icterus or corneal arcus noted. Neck is without jugular venous distension, thyromegaly, or carotid bruits. Carotid upstrokes are brisk bilaterally. The patient has a Mallampati class IV with significant crowding of posterior pharynx Lungs are diminished breath sounds bilaterally especially in lung bases. Cardiac exam reveals the PMI to be normally sized and situated. Irregular consistent with atrial fibrillation. First and second heart sounds normal. No murmurs, rubs or gallops. Abdominal exam reveals normal bowel sounds, no masses, no organomegaly and no aortic enlargement. Extremities are +1 edematous and both femoral and pedal pulses are normal. Examination of the skin revealed no evidence of significant rashes, suspicious appearing nevi or other concerning lesions. Neurologically, the patient is awake and alert and the patient does not have any focal neurological deficit. Cranial nerves are essentially intact. - Labs CBC & Chem 7: 07/16/24 06:34 07/16/24 06:34 Labs: Abnormal Lab Results - Last 24 Hours (Table) 07/16/24 07/16/24 Range/Units 06:34 06:34 WBC 13.88 H (4.50-10.00) 10*3/uL Hgb 17.2 H (13.0-17.0) g/dL Hct 53.6 H (39.6-50.0) % MCV 100.0 H (80.0-97.0) fL MCH 32.1 H (27.0-32.0) pg MPV 12.4 H (9.5-12.2) fL Sodium 135 L (137-145) mmol/L Potassium 3.1 L (3.5-5.1) mmol/L Chloride 78 L (98-107) mmol/L Carbon Dioxide 48 H* (22-30) mmol/L BUN 56 H (9-20) mg/dL Creatinine 1.47 H (0.66-1.25) mg/dL Glucose 131 H (74-99) mg/dL Assessment and Plan Plan: Acute hypoxemic and hypercapnic respiratory failure, multifactorial, secondary to chronic systolic CHF, COPD exacerbation, and probable Pickwickian syndrome transitioned to 3 L of oxygen by nasal cannula. Feeling better. Less short of breath. Diuresing well and the patient is a negative fluid balance. No signs of any CO2 narcosis. Significant metabolic alkalosis secondary to chronic hypercapnic respiratory failure, currently on Diamox. History of chronic atrial fibrillation, rate is controlled and the patient is on Pradaxa for long-term anticoagulant Chronic systolic congestive heart failure. Previous echocardiogram from 08/27/2024 showed systolic heart failure with an ejection fraction of 20 to 25%, LV function is globally reduced and the patient also has a grade 2 diastolic heart failure and moderate degree of mitral regurgitation.. 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 Continues to have a component of metabolic alkalosis and the patient remains on a combination of Bumex, Aldactone and Diamox. Patient is currently stable on BiPAP on 3 L of oxygen by nasal cannula Currently on BiPAP therapy overnight, the patient is declining to utilize the BiPAP. Continue DuoNeb and elations Continue Pulmicort and Perforomist nebulized treatments in addition to DuoNeb regiment [id number] Prednisone burst taper starting with 40 mg p.o. daily Continue p.o. Bumex and Aldactone, negative fluid balance of 1.2 L over the past 24 hours Continue Diamox Patient is negative fluid balance and lower extremity edema is improving Continue to monitor input output Remains on Pradaxa Increase his activity as tolerated We will continue to follow. Monitor electrolytes in the morning. Will continue to follow.
[2024-07-16 16:22] VITALS: PULSE 56
--- NOTE | 2024-07-16 21:59 | P.DS ---
Providers Date of admission: 07/10/24 22:59 Attending physician: Janet Hunt Consults: 07/10/24 22:49 Consult Physician Urgent Consulting Provider: [facility] Consult Reason/Comments: chf exacerbation Do you want consulting provider notified?: Yes Consult Physician Urgent Consulting Provider: Artis Newman Consult Reason/Comments: copd exacerbation Do you want consulting provider notified?: Yes Primary care physician: [facility] Hospital Course: Diagnoses: #Acute hypoxemic and hypercapnic respiratory failure, multifactorial, secondary to CHF and COPD exacerbation #Hypercapnic/metabolic encephalopathy, probable obesity hypoventilation syndrome #Acute COPD exacerbation #Chronic respiratory acidosis with metabolic alkalosis compensation likely due to COPD #CASSANDRA #Acute on chronic systolic congestive heart failure #Elevated troponins secondary to CHF, type II [place] #Persistent A-fib #Nonischemic cardiomyopathy #Chronic venous insufficiency of bilateral lower limb #Venous stasis dermatitis and insufficiency ulcers bilaterally #Venous ulcer of lower extremity without varicose veins #Hyperglycemia likely due to IV steroids. #Thrombocytopenia #Hypercoagulopathy #CASSANDRA #History of smoking #TIA #Hyperlipidemia #Hypertension Hospital course: Patient has a 74-year-old male with past medical history of A-fib on anticoagulation, COPD on 3 L home O2, CVA, congestive heart failure who presents with worsening shortness of breath. Patient is was found to have acute COPD exacerbation with possible pickwickian syndrome with resultant hypoxic hypercapnic respiratory failure. He was eval by pulmonary service as well as internal medicine hospitalist for possible elements of CHF. Also he was A-fib. He was started on Pradaxa by internal medicine hospitalist. Currently he is euvole mari Breathing is improved. He is at baseline breathing with 3 L of oxygen which he has at home as he confirms to me. Also confirmed with the staff. Patient will be discharged on tapered prednisone. I discussed the case with bedside nurse who checked with Dr. Espinal who cleared him for discharge today. Patient denies any other new complaint no chest pain or dyspnea. No headache dizziness weakness. No specific GI/ symptoms which are new to him. He is hemodynamically stable labs look stable. He has mild leukocytosis secondary to steroid effect. Cardiology is already signed off the case. They recommended him to be evaluated for AICD. Patient will follow-up with Dr. Cage as an outpatient as instructed and he agrees. Patient agrees to go home today. I called the pharmacy and checked his co-pay for Pradaxa with a new prescription and its about $63.13 per month, patient informed and he agrees. Risk and benefits explained for him. Patient was cleared for discharge by all design studio consultant including pulmonary service today. Cardiology already signed off the case. Problems and management plan were discussed with the patient and he verbalized understanding and acceptance Patient was found stable and can be discharged home in guarded prognosis however he needs follow-up as an outpatient. Patient was instructed to follow up with PCP within one week and patient agrees Patient was instructed to follow-up with Dr. Cage in 1 week and buffer chrome in 2 weeks Physical exam Gen: patient is a AAOx3, no distress CVS: S1-S2, RRR, no murmur Lungs: B/L CTA, no wheezing Abdomen: soft, no distention, no tenderness, positive bowel sounds Extremity: no leg edema or induration Time spent more than 35 minutes Patient Condition at Discharge: Stable Plan - Discharge Summary Discharge Rx Participant: No New Discharge Prescriptions: New Spironolactone [Aldactone] 25 mg PO DAILY #30 tab Aspirin 81 mg PO DAILY #30 tab predniSONE 10 mg PO DIRECTED #40 tab Acetaminophen Tab [Tylenol] 650 mg PO Q6HR PRN tab PRN Reason: Fever and/ or Mild Pain acetaZOLAMIDE [Diamox] 250 mg PO DAILY #60 tablet Dapagliflozin Propanediol [Farxiga] 10 mg PO DAILY #30 tab Potassium Chloride ER [K-Dur 20] 20 meq PO BID #80 tab Metoprolol Tartrate [Lopressor] 50 mg PO BID #60 tab Dabigatran [Pradaxa] 150 mg PO BID #60 cap Albuterol Inhaler [Ventolin Hfa Inhaler] 1 - 2 puff INHALATION Q6H PRN #1 each PRN Reason: Shortness Of Breath Or Wheezing Bumetanide [BUMEX] 1 mg PO BID@0900,1600 #60 tab Continue Montelukast [Singulair] 10 mg PO DAILY Losartan [Cozaar] 25 mg PO DAILY Fluticasone/Umeclidin/Vilanter [Trelegy Ellipta 100-62.5-25] 1 puff INHALATION RT-DAILY Atorvastatin [Lipitor] 40 mg PO DAILY Discontinued Metoprolol Tartrate [Lopressor] 100 mg PO BID Spironolactone [Aldactone] 12.5 mg PO DAILY Bumetanide [BUMEX] 1 mg PO BID Discharge Medication List Atorvastatin [Lipitor] 40 mg PO DAILY 08/26/23 [History] Montelukast [Singulair] 10 mg PO DAILY 08/26/23 [History] Fluticasone/Umeclidin/Vilanter [Trelegy Ellipta 100-62.5-25] 1 puff INHALATION RT-DAILY 07/11/24 [History] Losartan [Cozaar] 25 mg PO DAILY 07/11/24 [History] Acetaminophen Tab [Tylenol] 650 mg PO Q6HR PRN tab 07/16/24 [Rx] Albuterol Inhaler [Ventolin Hfa Inhaler] 1 - 2 puff INHALATION Q6H PRN #1 each 07/16/24 [Rx] Aspirin 81 mg PO DAILY #30 tab 07/16/24 [Rx] Bumetanide [BUMEX] 1 mg PO BID@0900,1600 #60 tab 07/16/24 [Rx] Dabigatran [Pradaxa] 150 mg PO BID #60 cap 07/16/24 [Rx] Dapagliflozin Propanediol [Farxiga] 10 mg PO DAILY #30 tab 07/16/24 [Rx] Metoprolol Tartrate [Lopressor] 50 mg PO BID #60 tab 07/16/24 [Rx] Potassium Chloride ER [K-Dur 20] 20 meq PO BID #80 tab 07/16/24 [Rx] Spironolactone [Aldactone] 25 mg PO DAILY #30 tab 07/16/24 [Rx] acetaZOLAMIDE [Diamox] 250 mg PO DAILY #60 tablet 07/16/24 [Rx] predniSONE 10 mg PO DIRECTED #40 tab 07/16/24 [Rx] Follow up Appointment(s)/Referral(s): Kleber Gutierrez MD [STAFF PHYSICIAN] - 1 Week (Heart doctor. Office closed, please call to schedule follow up. ) Artis Newman DO [Doctor of Osteopathic Medicine] - 1 Week (Lung doctor. Office closed, please call to schedule follow up. ) Leanna Veras MD [Primary Care Provider] - 1-2 days (Office closed, please call to schedule follow up. ) Lakhwinder Saldana DO [STAFF PHYSICIAN] - 1 Week (Kidney doctor. Office closed, please call to schedule follow up. ) Ambulatory/Diagnostic Orders: Basic Metabolic Panel [LAB.AMB] Time Frame: 3 Days, Location: None Selected Patient Instructions/Handouts: A-fib (Atrial Fibrillation) (DC), COPD (Chronic Obstructive Pulmonary Disease) (DC) Activity/Diet/Wound Care/Special Instructions: heart healthy diet activity is restricted till you see your doctor please follow up with dr gutierrez your internal medicine hospitalist as instructed, we recommend evaluation for the need for AICD as an outpatient. you copay for the blood thinner Pradaxa is $63.13 per month please continue with bumex 1 mg po twice daily Discharge Disposition: HOME WITH HOME HEALTH SERVICES
== END 2024-07-16 18:40 | disposition home or self-care (01) | DRG 280 ==
LOC: EC 21:06 → 3SCARD 22:59
PROVIDERS: ADMIT Internal Medicine; ATTEND Internal Medicine
PROC: 5A09457 Assistance with Respiratory Ventilation, 24-96 Consecutive Hours, Continuous Positive Airway Pressure (ICD-10-PCS; principal; 2024-07-11)
DX: I11.0 Hypertensive heart disease with heart failure (principal); G93.41 Metabolic encephalopathy; I21.A1 Myocardial infarction type 2; I50.23 Acute on chronic systolic (congestive) heart failure; J96.22 Acute and chronic respiratory failure with hypercapnia; J96.21 Acute and chronic respiratory failure with hypoxia; E87.4 Mixed disorder of acid-base balance; E66.2 Morbid (severe) obesity with alveolar hypoventilation; J44.1 Chronic obstructive pulmonary disease with (acute) exacerbation; D69.6 Thrombocytopenia, unspecified; L97.219 Non-pressure chronic ulcer of right calf with unspecified severity; Z68.41 Body mass index [BMI] 40.0-44.9, adult; I48.19 Other persistent atrial fibrillation; I42.8 Other cardiomyopathies; I87.2 Venous insufficiency (chronic) (peripheral); I25.10 Atherosclerotic heart disease of native coronary artery without angina pectoris; E78.5 Hyperlipidemia, unspecified; J98.4 Other disorders of lung; R73.9 Hyperglycemia, unspecified; T38.0X5A Adverse effect of glucocorticoids and synthetic analogues, initial encounter; D72.829 Elevated white blood cell count, unspecified; R29.6 Repeated falls; Z91.199 Patient's noncompliance with other medical treatment and regimen due to unspecified reason; Z79.51 Long term (current) use of inhaled steroids; Z79.899 Other long term (current) drug therapy; Z86.73 Personal history of transient ischemic attack (TIA), and cerebral infarction without residual deficits; Z87.891 Personal history of nicotine dependence; Z99.81 Dependence on supplemental oxygen; W19.XXXA Unspecified fall, initial encounter; Y92.009 Unspecified place in unspecified non-institutional (private) residence as the place of occurrence of the external cause
CPT/HCPCS: 36415; 36600; 70450; 71046; 80048; 80053; 82805; 83036; 83605; 83735; 83880; 84484; 85025; 85027; 85610; 85730; 93005; 94640; 94660; 94760; 96374; 96375; 99291

== ENCOUNTER → 2024-07-21 | Outpatient (CLI) | payer MEDICARE | END | disposition home or self-care (01) | LOC: LABWHC1 12:00 | PROVIDERS: ATTEND Internal Medicine Critical Care Medicine | DX: N17.9 Acute kidney failure, unspecified (principal); Z53.9 Procedure and treatment not carried out, unspecified reason ==